=== PATIENT | female | born 1960 | race African-American/Black ===

== ENCOUNTER 2017-08-04 14:25 | Emergency (ER) | payer MEDICARE, MEDICAID | END 2017-08-04 15:39 | disposition home or self-care (01) | LOC: ERS 14:25 | DX: G89.29 Other chronic pain (principal); M54.5 Low back pain; I11.0 Hypertensive heart disease with heart failure; I50.9 Heart failure, unspecified; E11.9 Type 2 diabetes mellitus without complications; J45.909 Unspecified asthma, uncomplicated; M19.90 Unspecified osteoarthritis, unspecified site; F41.9 Anxiety disorder, unspecified; F31.9 Bipolar disorder, unspecified; F20.9 Schizophrenia, unspecified; Z79.4 Long term (current) use of insulin; Z79.82 Long term (current) use of aspirin; Z79.899 Other long term (current) drug therapy | CPT/HCPCS: 99283 ==

== ENCOUNTER 2017-08-11 11:41 | Emergency (ER) | payer MEDICARE, MEDICAID ==
[2017-08-11] MEDS ORDERED: Silver Sulfadiazine 1% Cream 50 GM JAR ONE (12:26)
[2017-08-11] MEDS ORDERED: Adacel (T-DAP) 0.5 ML VIAL ONE (13:53)
== END 2017-08-11 14:28 | disposition home or self-care (01) ==
LOC: ERS 11:41
DX: I10 Essential (primary) hypertension (principal); T21.21XA Burn of second degree of chest wall, initial encounter; F20.9 Schizophrenia, unspecified; F41.9 Anxiety disorder, unspecified; F31.9 Bipolar disorder, unspecified; J45.909 Unspecified asthma, uncomplicated; M19.90 Unspecified osteoarthritis, unspecified site; M54.9 Dorsalgia, unspecified; G89.29 Other chronic pain; Z79.4 Long term (current) use of insulin; Z79.82 Long term (current) use of aspirin; Z79.899 Other long term (current) drug therapy; Z23 Encounter for immunization; X10.2XXA Contact with fats and cooking oils, initial encounter; Y93.G3 Activity, cooking and baking
CPT/HCPCS: 16020; 36416; 90471; 90715

== ENCOUNTER 2017-09-08 10:38 | Emergency (ER) | payer MEDICARE, MEDICAID ==
[2017-09-08 13:01] LABS: #Eosinphils 0.2 thou/uL (0.0-0.7); #Lymphocytes 1.6 thou/uL (1.20-3.40); #Monocytes 0.5 thou/uL (0.11-0.59); #Neutrophils 1.9 thou/uL (1.40-6.50); %Eosinophils 3.7 % (0.0-10.0); %Lymphocytes 39.1 % (21.0-51.0); Hematocrit 36.2 % (36.0-47.0); Mean Platelet Volume 8.1 fL (7.4-10.4); Red Blood Cell (RBC) Count 4.31 mill/uL (4.20-5.40); White Blood Cell (WBC) Count 4.2 thou/uL (4.8-10.8)
[2017-09-08 13:10] LABS: Bilirubin Negative (Negative); Blood, Urine Negative (Negative); Glucose, Urine (Dipstick) Negative (Negative); Ketone, Urine Negative (Negative); Nitrite Negative (Negative); Protein, Urine (Dipstick) 30 mg/dL (Neg-Trace); Urobilinogen 0.2 mg/dL (0.2-1.0)
[2017-09-08 13:11] LABS: Bacteria/HPF Rare-Few HPF (None Seen); Hyaline Casts/LPF 0-3 HYALINE CAST LPF (0-3 Hyaline); RBC/HPF 0-3 HPF (0-3); Squamous Epithelial 0-3 HPF (0-3); WBC/HPF None Seen HPF (0-3)
[2017-09-08 13:18] LABS: ALT (SGPT) 27 U/L (8-55); AST (SGOT) 25 U/L (5-34); Alkaline Phosphatase 111 U/L (40-150); Anion Gap 14 mmol/L (10-20); BUN (Urea Nitrogen) 27 mg/dL (9.8-20.1); Bilirubin, Total 0.3 mg/dL (0.2-1.2); Calc. Creatinine Clearance 0 mL/min (70-130); Calcium 9.1 mg/dL (7.8-10.44); Carbon Dioxide 26 mmol/L (22-29); Chloride 100 mmol/L (98-107); Estimated GFR-MDRD 29; Globulin 4.2 g/dL (2.4-3.5); Protein, Total 7.6 g/dL (6.0-8.3)
== END 2017-09-08 14:00 | disposition home or self-care (01) ==
LOC: ERS 10:38
DX: R53.81 Other malaise (principal); M19.90 Unspecified osteoarthritis, unspecified site; I11.0 Hypertensive heart disease with heart failure; I50.9 Heart failure, unspecified; E11.9 Type 2 diabetes mellitus without complications; J45.909 Unspecified asthma, uncomplicated; F41.9 Anxiety disorder, unspecified; F31.9 Bipolar disorder, unspecified; F20.9 Schizophrenia, unspecified; Z79.82 Long term (current) use of aspirin; Z79.899 Other long term (current) drug therapy; Z79.4 Long term (current) use of insulin
CPT/HCPCS: 36415; 80053; 81003; 81015; 83880; 85025; 99283

== ENCOUNTER 2017-09-21 23:04 | Emergency (ER) | payer MEDICARE, MEDICAID ==
[2017-09-22] MEDS ORDERED: Acetaminophen 500 MG TAB ONE (00:56)
[2017-09-22 00:57] LABS: #Eosinphils 0.2 thou/uL (0.0-0.7); #Lymphocytes 2.8 thou/uL (1.20-3.40); #Monocytes 0.7 thou/uL (0.11-0.59); #Neutrophils 2.2 thou/uL (1.40-6.50); %Basophils 0.4 % (0.0-1.0); %Eosinophils 2.5 % (0.0-10.0); %Lymphocytes 47.2 % (21.0-51.0); %Monocytes 12.4 % (0.0-10.0); Hematocrit 34.7 % (36.0-47.0); Mean Platelet Volume 7.4 fL (7.4-10.4); Red Blood Cell (RBC) Count 4.17 mill/uL (4.20-5.40)
[2017-09-22 01:18] LABS: ALT (SGPT) 25 U/L (8-55); AST (SGOT) 25 U/L (5-34); Alkaline Phosphatase 108 U/L (40-150); Anion Gap 15 mmol/L (10-20); BUN (Urea Nitrogen) 37 mg/dL (9.8-20.1); Bilirubin, Total 0.3 mg/dL (0.2-1.2); Calc. Creatinine Clearance 0 mL/min (70-130); Calcium 9.5 mg/dL (7.8-10.44); Carbon Dioxide 25 mmol/L (22-29); Chloride 96 mmol/L (98-107); Estimated GFR-MDRD 23; Globulin 5.4 g/dL (2.4-3.5); Protein, Total 8.9 g/dL (6.0-8.3)
== END 2017-09-22 02:03 | disposition home or self-care (01) ==
LOC: ERS 23:04
DX: J32.9 Chronic sinusitis, unspecified (principal); M19.90 Unspecified osteoarthritis, unspecified site; E11.9 Type 2 diabetes mellitus without complications; I11.0 Hypertensive heart disease with heart failure; I50.9 Heart failure, unspecified; J45.909 Unspecified asthma, uncomplicated; F41.9 Anxiety disorder, unspecified; F31.9 Bipolar disorder, unspecified; F20.9 Schizophrenia, unspecified; Z79.4 Long term (current) use of insulin; Z79.899 Other long term (current) drug therapy; Z79.82 Long term (current) use of aspirin
CPT/HCPCS: 36415; 36416; 80053; 85025; 99284

== ENCOUNTER 2017-09-27 16:24 | Emergency (ER) | payer MEDICARE, MEDICAID ==
[2017-09-27 17:24] LABS: #Eosinphils 0.1 thou/uL (0.0-0.7); #Monocytes 0.5 thou/uL (0.11-0.59); #Neutrophils 2.5 thou/uL (1.40-6.50); %Basophils 0.3 % (0.0-1.0); %Eosinophils 2.5 % (0.0-10.0); %Lymphocytes 38.5 % (21.0-51.0); %Monocytes 10.2 % (0.0-10.0); Hematocrit 32.2 % (36.0-47.0); Mean Platelet Volume 8.1 fL (7.4-10.4); Red Blood Cell (RBC) Count 3.85 mill/uL (4.20-5.40); White Blood Cell (WBC) Count 5.1 thou/uL (4.8-10.8)
[2017-09-27 17:46] LABS: ALT (SGPT) 25 U/L (8-55); AST (SGOT) 22 U/L (5-34); Alkaline Phosphatase 98 U/L (40-150); Anion Gap 12 mmol/L (10-20); BUN (Urea Nitrogen) 41 mg/dL (9.8-20.1); Bilirubin, Total 0.2 mg/dL (0.2-1.2); Calc. Creatinine Clearance 0 mL/min (70-130); Calcium 8.9 mg/dL (7.8-10.44); Carbon Dioxide 24 mmol/L (22-29); Chloride 97 mmol/L (98-107); Estimated GFR-MDRD 31; Globulin 3.8 g/dL (2.4-3.5); Protein, Total 6.9 g/dL (6.0-8.3)
[2017-09-27 18:03] LABS: Anion Gap 7 mmol/L (-14-95); T. Carbon Dioxide 28.8 mmol/L (1.0-85.0); pH (Venous) 7.346 (7.35-7.45); vO2 Saturation-calc 84.5 % (0.0-100.0)
[2017-09-27] MEDS ORDERED: Insulin Regular 300 UNITS/3 ML VIAL ONE (19:08)
[2017-09-27 19:35] LABS: Bilirubin Negative (Negative); Blood, Urine Negative (Negative); Glucose, Urine (Dipstick) 500 mg/dL (Negative); Ketone, Urine Negative (Negative); Nitrite Negative (Negative); Protein, Urine (Dipstick) 30 mg/dL (Neg-Trace); Urobilinogen 0.2 mg/dL (0.2-1.0)
[2017-09-27 19:41] LABS: Bacteria/HPF None Seen HPF (None Seen); Hyaline Casts/LPF 0-3 HYALINE CAST LPF (0-3 Hyaline); RBC/HPF 0-3 HPF (0-3); Squamous Epithelial 0-3 HPF (0-3); WBC/HPF None Seen HPF (0-3)
--- NOTE | 2017-09-27 19:53 | RAD ---
CHEST PORTABLE UPRIGHT 09/27/17 COMPARISON: 04/11/17 HISTORY: High blood sugar, cough. FINDINGS: The cardiac silhouette is prominent, a stable finding. No pneumothorax or pleural fluid. No focal con solidation or alveolar edema. IMPRESSION: No acute findings. POS: [facility]
== END 2017-09-27 20:49 | disposition home or self-care (01) ==
LOC: ERS 16:24
DX: E11.65 Type 2 diabetes mellitus with hyperglycemia (principal); E86.0 Dehydration; Z91.14 Patient's other noncompliance with medication regimen; I11.0 Hypertensive heart disease with heart failure; I50.9 Heart failure, unspecified; J45.909 Unspecified asthma, uncomplicated; F41.9 Anxiety disorder, unspecified; F31.9 Bipolar disorder, unspecified; F20.9 Schizophrenia, unspecified
CPT/HCPCS: 36415; 36416; 71010; 80053; 81003; 81015; 82010; 82330; 82803; 83880; 83930; 85025; 93005; 96360; 96361; J1815

== ENCOUNTER 2017-10-07 13:25 | Inpatient (IN) | payer MEDICARE, OTHER, MEDICAID ==
[2017-10-07 14:27] LABS: #Eosinphils 0.1 thou/uL (0.0-0.7); #Lymphocytes 2.2 thou/uL (1.20-3.40); #Monocytes 0.6 thou/uL (0.11-0.59); %Basophils 0.4 % (0.0-1.0); %Eosinophils 1.5 % (0.0-10.0); %Lymphocytes 36.9 % (21.0-51.0); Hematocrit 26.4 % (36.0-47.0); Mean Platelet Volume 7.9 fL (7.4-10.4); White Blood Cell (WBC) Count 5.9 thou/uL (4.8-10.8)
--- NOTE | 2017-10-07 14:31 | RAD ---
CHEST TWO VIEWS: HISTORY: Cough. COMPARISON: 03/16/2014. FINDINGS: Cardiac silhouette and pulmonary vasculature are unremarkable. Mediastinum is midline. There is no confluent air space consolidation, pneumothorax, or pleural fluid evident. IMPRESSION: No active cardiopulmonary abnormalities are demonstrated. POS: [facility]
[2017-10-07 14:44] LABS: Lactic Acid - Sepsis 3.9 mmol/L (0.5-2.2)
[2017-10-07 14:48] LABS: ALT (SGPT) 32 U/L (8-55); AST (SGOT) 29 U/L (5-34); Alkaline Phosphatase 109 U/L (40-150); Anion Gap 14 mmol/L (10-20); BUN (Urea Nitrogen) 25 mg/dL (9.8-20.1); Bilirubin, Total 0.3 mg/dL (0.2-1.2); Calc. Creatinine Clearance 0 mL/min (70-130); Calcium 9.5 mg/dL (7.8-10.44); Carbon Dioxide 25 mmol/L (22-29); Chloride 90 mmol/L (98-107); Estimated GFR-MDRD 31; Magnesium 2.1 mg/dL (1.6-2.6); Phosphorus 2.8 mg/dL (2.3-4.7); Protein, Total 7.5 g/dL (6.0-8.3)
[2017-10-07 14:52] LABS: Troponin I Less than 0.010 ng/mL (< 0.028)
[2017-10-07] MEDS ORDERED: Nitroglycerin 0.4 MG TAB (25 Tab Bottle) ONE (15:04)
[2017-10-07] MEDS ORDERED: Insulin Regular 300 UNITS/3 ML VIAL ONE (15:27)
[2017-10-07 16:25] LABS: Bilirubin Negative (Negative); Blood, Urine Negative (Negative); Glucose, Urine (Dipstick) >=1000 mg/dL (Negative); Ketone, Urine Negative (Negative); Nitrite Negative (Negative); Protein, Urine (Dipstick) 30 mg/dL (Neg-Trace); Urobilinogen 0.2 mg/dL (0.2-1.0)
[2017-10-07 16:27] LABS: Bacteria/HPF None Seen HPF (None Seen); Hyaline Casts/LPF 0-3 HYALINE CAST LPF (0-3 Hyaline); RBC/HPF 0-3 HPF (0-3); Squamous Epithelial 0-3 HPF (0-3); WBC/HPF None Seen HPF (0-3)
[2017-10-07] MEDS ORDERED: Acetaminophen 500 MG TAB ONE (17:18)
[2017-10-07 18:20] LABS: Troponin I Less than 0.010 ng/mL (< 0.028)
[2017-10-07] MEDS ORDERED: Nitroglycerin 0.4 MG TAB (25 Tab Bottle) SL PRN (19:05)
[2017-10-07] MEDS ORDERED: Sodium Chloride 0.9% 1,000 ML IV SCH (19:06)
[2017-10-07] MEDS ORDERED: Ondansetron HCl/PF 4 MG/2 ML Vial IVP PRN (19:06)
[2017-10-07] MEDS ORDERED: Acetaminophen 325 MG TAB PO PRN ×2 (19:06→20:08)
[2017-10-07] MEDS ORDERED: Ondansetron ODT 4 MG TAB SL PRN (19:06)
[2017-10-07] MEDS ORDERED: Dextrose 50% Abboject 50 ML SYRINGE SLOW IVP PRN (20:08)
[2017-10-07] MEDS ORDERED: Dextrose 5% in Water 1,000 ML IV PRN (20:08)
[2017-10-07] MEDS ORDERED: Guaifenesin DM 100-10/5 ML UDCUP PO PRN (20:08)
[2017-10-07] MEDS: HumaLOG 300 UNITS/3 ML VIAL SC PRN (22:11)
[2017-10-07] MEDS: Sodium Chloride 0.9% 1,000 ML IV SCH (22:12)
[2017-10-07] MEDS: carBAMazepine 100 mg Chewable Tablet PO SCH (22:18)
[2017-10-07] MEDS: Insulin Detemir 100 UNITS/ML 35 UNITS in Pre-Filled Syringe 1 EACH SC SCH (22:19)
[2017-10-07] MEDS: Diazepam 5 MG TAB PO SCH (22:20)
[2017-10-07] MEDS: Carvedilol 25 MG TAB PO SCH (22:20)
[2017-10-07] MEDS: busPIRone HCl 10 MG TAB PO SCH (22:20)
[2017-10-07] MEDS: Famotidine 20 MG TAB PO SCH (22:20)
[2017-10-07] MEDS: Docusate 100 MG CAP PO SCH (22:21)
--- NOTE | 2017-10-07 23:11 | HP ---
REASON FOR ADMISSION: Uncontrolled diabetes mellitus type 2, chest pain, acute kidney injury. HISTORY OF PRESENT ILLNESS: Patient is a very poor historian. She gives history of retrosternal and epigastric pain, which started around 12:00 noon. This has been coming off and on every 30 minutes or so. She normally ambulates very minimally in the house. She walks with a rolling walker for short distances. She also mentions that her sugar has been high from the last two days. She was also having edema in both lower extremities, which has been progressively getting worse per patient. She is unable to explain anything further beyond what's mentioned above. She does mention that she has an appointment with medical device engineer on the . PAST MEDICAL AND SURGICAL HISTORY: History of CHF with ejection fraction of 40 % to 45%. She has mild inferolateral hypokinesis on the echo done in 03/2017, diabetes mellitus type 2, morbid obesity, diabetic gastroparesis, schizophrenia , hypertension, chronic pain, cholecystectomy, and bilateral tubal ligation. PERSONAL HISTORY: Does not abuse alcohol or drugs. No history of smoking. FAMILY HISTORY: Father has history of prostate cancer, cardiomyopathy, and hypertension. Mother in her 70s and was on dialysis. ALLERGIES: Allergic to PENICILLIN, ULTRAM, CHOCOLATE, ORANGE. CURRENT MEDICATIONS: Please note patient does not recall any of her medications. She knows she is on 2 types of insulin, but does not know the exact dose. Per prior records, patient is on Norvasc 5 mg daily, aspirin 81 mg daily, Buspirone 10 mg 3 times daily, Tegretol 100 mg twice daily, Coreg 25 mg twice daily, diazepam 10 mg at bedtime, Cymbalta 60 mg b.i.d., Pepcid 20 mg twice daily, Tricor 145 mg daily, Lasix 20 mg daily, [place] p.r.n., Levemir 35 units subcutaneous twice daily, losartan 100 mg daily, multivitamin 1 capsule daily, Seroquel 400 mg at bedtime, Januvia 100 mg daily, venlafaxine extended release 75 mg daily, and Ventolin inhaler q.4 hourly p.r.n. ALLERGIES: PENICILLIN. REVIEW OF SYSTEMS: The following complete review of systems was negative, unless otherwise mentioned in the HPI or below: Constitutional: Weight loss or gain, ability to conduct usual activities. Skin: Rash, itching. Eyes: Double vision, pain. ENT/Mouth: Nose bleeding, neck stiffness, pain, tenderness. Cardiovascular: Palpitations, dyspnea on exertion, orthopnea. Respiratory: Shortness of breath, wheezing, cough, hemoptysis, fever or night sweats. Gastrointestinal: Poor appetite, abdominal pain, heartburn, nausea, vomiting, constipation, or diarrhea. Genitourinary: Urgency, frequency, dysuria, nocturia. Musculoskeletal: Pain, swelling. Neurologic/Psychiatric: Anxiety, depression. Allergy/Immunologic: Skin rash, bleeding tendency. PHYSICAL EXAMINATION: GENERAL: The patient is a 57-year-old female, who is currently not in any acute distress. VITAL SIGNS: Blood pressure 148/80, pulse 104 per minute, respiratory rate 16 per minute, temperature 98.5 degrees Fahrenheit, and saturating 95% on room air. NECK: Supple, no elevated JVD. HEENT: Eyes: Extraocular muscles intact. Pupils reacting to light. Oral cavity mucous membranes are dry. No exudates or congestion. CARDIOVASCULAR: S1 and S2 heard. Regular rhythm. RESPIRATORY: Air entry 1+ bilateral. Scattered rhonchi plus bilateral. ABDOMEN: Soft, bowel sounds heard. No tenderness, rigidity or guarding. EXTREMITIES: There is peripheral edema plus no calf tenderness. VASCULAR: Peripheral pulses 1+ bilateral. CENTRAL NERVOUS SYSTEM: No gross focal deficits seen. The patient moves all 4 extremities. PSYCHIATRIC: No obvious hallucinations or delusions. LABORATORY AND X-RAY FINDINGS: EKG done shows sinus rhythm at 88 beats per minute. EKG has low voltage, likely due to her body habitus. White count of 5 , H&H 9 and 26, platelet count 210, MCV is 82. Lactic acid 3.9. BNP is 25. Sodium 124, potassium 5.2, chloride 90, bicarbonate 25, BUN 25, creatinine 1.9, glucose 651 with serum glucose, albumin is 3.5. Two sets of troponin are negative. CK-MB 1.4. Liver enzymes are within normal limits. Magnesium is 2.1 , phosphorus is 2.8. UA shows no signs of infection. Glucose is more than 1000. Beta hydroxybutyrate levels are 0.09. CLINICAL IMPRESSION AND PLAN: The patient will be under observation on telemetry for uncontrolled diabetes mellitus type 2 and recurrent chest pain. Two sets of cardiac enzymes have been negative. Her EKG does not reveal any acute FL. In view of this, the plan is to stabilize her diabetes. We will place her on Levemir 35 units subcutaneous twice daily. Also, obtain an accurate medication list from [facility] [address] She will also be on Humalog with aggressive coverage with a.c. and bedtime coverage as well. We will place her on normal saline at 100 mL per hour. We will continue her Norvasc, aspirin, buspirone, Tegretol, Coreg, diazepam, Cymbalta, Pepcid, Tricor, Seroquel, Januvia, Effexor as before. Patient will also be on DuoNebs q.6 hourly. We will continue to closely monitor her on telemetry. If patient's serum glucose were not to get stabilized or patient developed shortness of breath in view of her CHF, she will be switched over to inpatient status. She needs IV hydration with serum sugars of nearly 600 and creatinine of 1.9. MTDD
[2017-10-08 05:07] LABS: Anion Gap 13 mmol/L (10-20); BUN (Urea Nitrogen) 30 mg/dL (9.8-20.1); Calc. Creatinine Clearance 49 mL/min (70-130); Calcium 8.4 mg/dL (7.8-10.44); Carbon Dioxide 25 mmol/L (22-29); Chloride 95 mmol/L (98-107); Estimated GFR-MDRD 25
[2017-10-08 05:09] LABS: #Eosinphils 0.1 thou/uL (0.0-0.7); #Lymphocytes 1.4 thou/uL (1.20-3.40); #Monocytes 0.4 thou/uL (0.11-0.59); #Neutrophils 2.1 thou/uL (1.40-6.50); %Basophils 0.3 % (0.0-1.0); %Lymphocytes 34.9 % (21.0-51.0); Hematocrit 30.4 % (36.0-47.0); Mean Platelet Volume 7.9 fL (7.4-10.4); Red Blood Cell (RBC) Count 3.63 mill/uL (4.20-5.40); White Blood Cell (WBC) Count 4.1 thou/uL (4.8-10.8)
[2017-10-08] MEDS: HumaLOG 300 UNITS/3 ML VIAL SC PRN ×4 (06:00→21:12)
[2017-10-08] MEDS: Sodium Chloride 0.9% 1,000 ML IV SCH (08:15)
[2017-10-08] MEDS ORDERED: Enoxaparin Sodium 30 MG/0.3 ML SYRINGE SC SCH (09:00)
[2017-10-08] MEDS: Amlodipine 5 MG TAB PO SCH (09:04)
[2017-10-08] MEDS: carBAMazepine 100 mg Chewable Tablet PO SCH ×2 (09:04→21:11)
[2017-10-08] MEDS: busPIRone HCl 10 MG TAB PO SCH ×3 (09:04→21:10)
[2017-10-08] MEDS: Alogliptin 25 MG TAB PO SCH (09:04)
[2017-10-08] MEDS: Multivit, Therapeutic 1 TAB PO SCH (09:05)
[2017-10-08] MEDS: Carvedilol 25 MG TAB PO SCH ×2 (09:05→21:10)
[2017-10-08] MEDS: Fenofibrate Nanocrystallized 145 MG TAB PO SCH (09:05)
[2017-10-08] MEDS: Famotidine 20 MG TAB PO SCH ×2 (09:05→21:10)
[2017-10-08] MEDS: Venlafaxine HCl XR 75 MG CAP PO SCH (09:05)
[2017-10-08] MEDS: Docusate 100 MG CAP PO SCH ×2 (09:05→21:09)
[2017-10-08] MEDS: Insulin Detemir 100 UNITS/ML 35 UNITS in Pre-Filled Syringe 1 EACH SC SCH (09:06)
[2017-10-08] MEDS ORDERED: traMADol HCl 50 MG TAB PO PRN (10:46)
--- NOTE | 2017-10-08 12:03 | PDOC.PN ---
- Subjective Encounter Start Date: 10/08/17 Encounter Start Time: 12:01 Ms. Plummer was seen today in follow-up of chest pain and generally not feeling well. she says she feels about the same, she continues to have vague complaints. She continues with sharp pain on the right side of her chest off and on. - Objective Resuscitation Status: Resuscitation Status FULL:Full Resuscitation MAR Reviewed: Yes Vital Signs & Weight: Vital Signs (12 hours) Temp Pulse Resp BP BP Pulse Ox 10/08/17 09:04 103 H 146/77 H 10/08/17 08:13 99 10/08/17 08:11 98 20 99 10/08/17 08:01 97.5 F L 103 H 18 146/77 H 98 10/08/17 07:50 98.2 F 100 20 10/08/17 04:09 98.2 F 100 20 127/59 L 97 10/08/17 03:05 97 10/08/17 00:30 87 16 98 Weight Weight 270 lb I&O: 10/07/17 10/08/17 10/09/17 06:59 06:59 06:59 Intake Total 1017 526 Output Total 800 Balance 217 526 Result Diagrams: 10/08/17 04:28 10/08/17 04:28 Additional Labs: Accuchecks 10/08/17 10/08/17 10:55 08:09 POC Glucose 423 H 443 H Phys Exam - Physical Examination HEENT: PERRLA Respiratory: no wheezing + rales at the bases Cardiovascular: RRR Gastrointestinal: soft, non-tender, positive bowel sounds Musculoskeletal: edema present 1+ pitting edema in the lower extremities Dx/Plan (1) Hyperkalemia Code(s): E87.5 - HYPERKALEMIA Status: Acute (2) Chronic systolic heart failure Code(s): I50.22 - CHRONIC SYSTOLIC (CONGESTIVE) HEART FAILURE Status: Acute (3) Obesity, morbid, BMI 40.0-49.9 Code(s): E66.01 - MORBID (SEVERE) OBESITY DUE TO EXCESS CALORIES Status: Acute (4) Diabetes mellitus type 2, uncontrolled Code(s): E11.65 - TYPE 2 DIABETES MELLITUS WITH HYPERGLYCEMIA Status: Acute (5) ROSANNA (acute kidney injury) Code(s): N17.9 - ACUTE KIDNEY FAILURE, UNSPECIFIED Status: Acute Comment: improving (6) Hyponatremia Code(s): E87.1 - HYPO-OSMOLALITY AND HYPONATREMIA Status: Acute Comment: Likley due to HCTZ (7) Hypertension Code(s): I10 - ESSENTIAL (PRIMARY) HYPERTENSION Status: Chronic - Plan * Hyperkalemia- ? etiology- EKG ordered, and no changes associated with hyperkalemia- possibly due to acute renal failure- will give a dose of Kayexalate. * Consult Nephrology * Acute renal failure- also worse overnight- due to her size her volume status is difficult to determine- ARF may be cardio-renally medicated- will stop IV fluids, and check a BNP, Nephrology has been consulted * Acute on chronic CHF exacerbation ?- Willr e-check Echo * Chest pain- ? atypical- will monitor * DM- will adjust insulin dose * PT/OT * HTN- Losartan is on hold due to elevated potassium
[2017-10-08 15:27] LABS: Anion Gap 11 mmol/L (10-20); BUN (Urea Nitrogen) 30 mg/dL (9.8-20.1); Calc. Creatinine Clearance 49 mL/min (70-130); Calcium 8.7 mg/dL (7.8-10.44); Carbon Dioxide 27 mmol/L (22-29); Chloride 95 mmol/L (98-107); Estimated GFR-MDRD 25
[2017-10-08 15:30] LABS: Modified Allen's Test POSITIVE; Oxyhemoglobin 95.1 % (94.0-97.0); Sodium 131 mmol/L (135-148)
[2017-10-08 15:31] LABS: Mode 2LNC; Vent NO
[2017-10-08] MEDS: Acetaminophen/Codeine 30-300mg Tablet PO PRN (15:40)
[2017-10-08] MEDS ORDERED: Sodium Chloride 0.9% 500 ML IVPB SCH (16:30)
[2017-10-08] MEDS: PRE FILLED SC SCH (16:37)
[2017-10-08] MEDS: INSULIN DETEMIR SC SCH (16:37)
--- NOTE | 2017-10-08 16:45 | EKG ---
Test Reason : Blood Pressure : / mmHG Vent. Rate : 092 BPM Atrial Rate : 092 BPM P-R Int : 250 ms QRS Dur : 088 ms QT Int : 390 ms P-R-T Axes : 017 -16 024 degrees QTc Int : 482 ms Sinus rhythm with 1st degree A-V block Low voltage QRS Nonspecific T wave abnormality Prolonged QT Abnormal ECG Confirmed by EDUARDO MARIN ([id number]) on 10/08/2017 4:45:00 PM Referred By: DANIEL Confirmed By:EDUARDO MARIN
--- NOTE | 2017-10-08 20:01 | CON ---
DATE OF CONSULTATION: 10/08/2017 NEPHROLOGY CONSULTATION REASON FOR CONSULTATION: Hyperkalemia. HISTORY OF PRESENT ILLNESS: This is a 57-year-old gentle lady with a history of CKD with multiple ep isodes, who presented to the hospital for uncontrolled diabetes mellitus with sugars of more than 500 and a potassium of more than 6.6, so I was consulted. The patient denies any nausea, vomiting, or c hest pain at this time, but the patient is a very poor historian. PAST MEDICAL HISTORY: Significant for congestive heart failure, acute kidney injury, CKD, diabetes m ellitus, morbid obesity, diabetic gastroparesis, schizophrenia, hypertension, chronic pain, cholecyst ectomy, tubal ligation. FAMILY HISTORY: Negative for ESRD. ALLERGIES: The patient is allergic to PENICILLIN. HOME MEDICATIONS: Reviewed. REVIEW OF SYSTEMS: Fifteen point review of systems was performed and negative except positives noted above. GENERAL: Weakness- HEAD: Headache- NECK: No swelling or lumps. NOSE: No epistaxis or discharge. EYES: No diplopia or pain. 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 NEUROPSYCHIATIC SYSTEMS: No suicidal ideation. No ideation. SKIN: Denies any rash or ulcer. CONSTITUTIONAL: No fever or chills. PHYSICAL EXAMINATION: GENERAL: Patient is awake, alert, in no acute distress. VITAL SIGNS: Afebrile, pulse 94, breathing at 16, blood pressure 123/67. OBJECTIVE: See above. GENERAL APPEARANCE AND MENTAL STATUS: Fair. HEAD/NECK: Normocephalic. Atraumatic. EYES: EOMI. No deformity. EARS: Clear. No ulcers. NOSE: Intact. No lesions. MOUTH: Clear. No discharge. THROAT: Clear. No exudate. LUNGS: Clear. No crackles. CARDIAC: S1, S2. No rub. ABDOMEN: Benign. BS+. GENITALIA/RECTUM: Blair absent. BACK/EXTREMITIES: Lower extremities have 2+ edema. Ulcer. NEUROLOGICAL: Alert and motor intact. SKIN: Rash- Bruise- LYMPHATICS: Edema- Ulcer- LABORATORY: Hemoglobin 10.5, potassium 6.6. ASSESSMENT AND RECOMMENDATIONS: 1. Acute kidney injury with chronic kidney disease and hyponatremia, most likely due to hyperglycemi a and dehydration. 2. Anemia, stable. 3. Hyperkalemia because of hyperglycemia and medications. Stop Lovenox, can use venous compression. 4. Hyponatremia due to hyperglycemia. 5. Medications based on glomerular filtration rate are appropriate. We will start gentle hydration and follow I's and O's closely. No urgent indication for dialysis at this time.
[2017-10-08] MEDS: Diazepam 5 MG TAB PO SCH (21:10)
[2017-10-09] MEDS: HumaLOG 300 UNITS/3 ML VIAL SC PRN ×3 (06:09→22:08)
[2017-10-09] MEDS: Acetaminophen/Codeine 30-300mg Tablet PO PRN ×2 (06:12→18:17)
[2017-10-09] MEDS: INSULIN DETEMIR SC SCH (09:07)
[2017-10-09] MEDS: PRE FILLED SC SCH (09:07)
[2017-10-09] MEDS: Carvedilol 25 MG TAB PO SCH ×2 (09:07→22:06)
[2017-10-09] MEDS: Docusate 100 MG CAP PO SCH ×2 (09:07→22:07)
[2017-10-09] MEDS: busPIRone HCl 10 MG TAB PO SCH ×3 (09:07→22:06)
[2017-10-09] MEDS: Fenofibrate Nanocrystallized 145 MG TAB PO SCH (09:07)
[2017-10-09] MEDS: Amlodipine 5 MG TAB PO SCH (09:07)
[2017-10-09] MEDS: Multivit, Therapeutic 1 TAB PO SCH (09:08)
[2017-10-09] MEDS: carBAMazepine 100 mg Chewable Tablet PO SCH ×2 (09:08→22:06)
[2017-10-09] MEDS: Alogliptin 25 MG TAB PO SCH (09:17)
[2017-10-09] MEDS: Venlafaxine HCl XR 75 MG CAP PO SCH (09:17)
--- NOTE | 2017-10-09 10:43 | PDOC.PN ---
- Subjective Encounter Start Date: 10/09/17 Encounter Start Time: 10:38 Ms. Plummer was seen today in follow-up. She says she feels a little better today. she says she is " still hurting all over". She also complains of feeling short of breath. - Objective MAR Reviewed: Yes Vital Signs & Weight: Vital Signs (12 hours) Temp Pulse Resp BP Pulse Ox 10/09/17 09:07 109 H 10/09/17 08:04 98.4 F 109 H 18 171/96 H 96 10/09/17 07:35 98.1 F 75 18 92 L 10/09/17 06:12 75 18 98 10/09/17 03:35 97.9 F 112 H 24 H 143/91 H 92 L 10/09/17 00:40 98 Weight Admit Weight 270 lb Weight 272 lb I&O: 10/08/17 10/09/17 10/10/17 06:59 06:59 06:59 Intake Total 2410 250 Output Total 1900 Balance 510 250 Result Diagrams: 10/08/17 04:28 10/08/17 19:41 Additional Labs: Accuchecks 10/09/17 10/08/17 10/08/17 06:09 20:31 16:48 POC Glucose 436 H 388 H 379 H Phys Exam - Physical Examination HEENT: PERRLA Respiratory: no wheezing, no rales, no rhonchi, clear to auscultation bilateral Cardiovascular: RRR, no significant murmur Gastrointestinal: soft, non-tender, positive bowel sounds Musculoskeletal: edema present trace edema Dx/Plan (1) Hyperkalemia Code(s): E87.5 - HYPERKALEMIA Status: Acute (2) Chronic systolic heart failure Code(s): I50.22 - CHRONIC SYSTOLIC (CONGESTIVE) HEART FAILURE Status: Acute (3) Obesity, morbid, BMI 40.0-49.9 Code(s): E66.01 - MORBID (SEVERE) OBESITY DUE TO EXCESS CALORIES Status: Acute (4) Diabetes mellitus type 2, uncontrolled Code(s): E11.65 - TYPE 2 DIABETES MELLITUS WITH HYPERGLYCEMIA Status: Acute (5) ROSANNA (acute kidney injury) Code(s): N17.9 - ACUTE KIDNEY FAILURE, UNSPECIFIED Status: Acute Comment: improving (6) Hyponatremia Code(s): E87.1 - HYPO-OSMOLALITY AND HYPONATREMIA Status: Acute Comment: Likley due to HCTZ (7) Hypertension Code(s): I10 - ESSENTIAL (PRIMARY) HYPERTENSION Status: Chronic - Plan * Acute renal failure- Nephrology input appreciated- she is likely volume depleted. Her BNP was low, on her Echo, her EF was actually slightly improved.- will resume IV fluids * Hyperkalemia- improved * Hyponatremia- suspect from volume depletion, and elevated blood glucose, continue Hydration * DM- still poorly controlled- will increase her insulin dose * Chest pain- ? etiology, she is at risk for CAD- will check a stress test ( she is a poor historian, and she has not had a screening evaluation for CAD recently) .
--- NOTE | 2017-10-09 14:08 | PRG ---
DATE OF SERVICE: 10/09/2017 SUBJECTIVE: This 57-year-old female being seen for acute kidney injury. The patient denies any naus ea, vomiting or chest pain. PHYSICAL EXAMINATION: GENERAL: Patient is awake, alert. VITAL SIGNS: Afebrile, pulse 83, breathing at 16, blood pressure 150/84. GENERAL APPEARANCE AND MENTAL STATUS: Fair. HEAD/NECK: Normocephalic. Atraumatic. EYES: EOMI. No deformity. EARS: Clear. No ulcers. NOSE: Intact. No lesions. MOUTH: Clear. No discharge. THROAT: Clear. No exudate. LUNGS: Clear. No crackles. CARDIAC: S1, S2. No rub. ABDOMEN: Benign. BS+. GENITALIA/RECTUM: Blair absent. BACK/EXTREMITIES: Edema 0+ Ulcer- NEUROLOGICAL: Alert and motor intact. SKIN: Rash- Bruise- LYMPHATICS: Edema- Ulcer- LABORATORY: Hemoglobin 10.5, potassium is 4.8. ASSESSMENT AND RECOMMENDATIONS: 1. Acute kidney injury with chronic kidney disease, stage IV, stable. 2. Hypertension, stable. 3. Anemia, stable. 4. Medications based on GFR are appropriate. 5. Chronic kidney disease is due to congestive heart failure. 6. Diabetes mellitus, poorly controlled.
[2017-10-09] MEDS: Sodium Chloride 0.9% 1,000 ML IV SCH (15:26)
[2017-10-09] MEDS: Insulin Detemir 100 UNITS/ML 50 UNITS in Pre-Filled Syringe 1 EACH SC SCH (17:04)
[2017-10-09] MEDS: Diazepam 5 MG TAB PO SCH (22:07)
[2017-10-09] MEDS: Famotidine 20 MG TAB PO SCH (22:07)
[2017-10-10] MEDS: Sodium Chloride 0.9% 1,000 ML IV SCH ×2 (03:22→09:13)
[2017-10-10 05:49] LABS: Anion Gap 8 mmol/L (10-20); BUN (Urea Nitrogen) 19 mg/dL (9.8-20.1); Calc. Creatinine Clearance 78 mL/min (70-130); Calcium 9.7 mg/dL (7.8-10.44); Carbon Dioxide 33 mmol/L (22-29); Chloride 96 mmol/L (98-107); Estimated GFR-MDRD 43
[2017-10-10] MEDS: HumaLOG 300 UNITS/3 ML VIAL SC PRN ×4 (05:54→20:22)
[2017-10-10] MEDS: Docusate 100 MG CAP PO SCH ×2 (09:12→20:21)
[2017-10-10] MEDS: Amlodipine 5 MG TAB PO SCH (09:12)
[2017-10-10] MEDS: Multivit, Therapeutic 1 TAB PO SCH (09:12)
[2017-10-10] MEDS: busPIRone HCl 10 MG TAB PO SCH ×3 (09:12→20:20)
[2017-10-10] MEDS: Fenofibrate Nanocrystallized 145 MG TAB PO SCH (09:12)
[2017-10-10] MEDS: carBAMazepine 100 mg Chewable Tablet PO SCH ×2 (09:13→20:20)
[2017-10-10] MEDS: Venlafaxine HCl XR 75 MG CAP PO SCH (09:18)
[2017-10-10] MEDS: Alogliptin 25 MG TAB PO SCH (09:18)
--- NOTE | 2017-10-10 10:47 | PRG ---
DATE OF SERVICE: 10/10/2017 SUBJECTIVE: This 57-year-old female being seen for acute kidney injury. The patient denies any naus ea, vomiting or chest pain. PHYSICAL EXAMINATION: GENERAL: Patient is awake, alert. VITAL SIGNS: Afebrile, pulse 97, breathing at 16, blood pressure 168/80. OBJECTIVE: See above. Awake, alert, in no acute distress. GENERAL APPEARANCE AND MENTAL STATUS: Fair. HEAD/NECK: Normocephalic. Atraumatic. EYES: EOMI. No deformity. EARS: Clear. No ulcers. NOSE: Intact. No lesions. MOUTH: Clear. No discharge. THROAT: Clear. No exudate. LUNGS: Clear. No crackles. CARDIAC: S1, S2. No rub. ABDOMEN: Benign. BS+. GENITALIA/RECTUM: Blair absent. BACK/EXTREMITIES: Edema 0+ Ulcer- NEUROLOGICAL: Alert and motor intact. SKIN: Rash- Bruise- LYMPHATICS: Edema- Ulcer- LABORATORY: Hemoglobin 10.5, potassium 4.6, creatinine 1.5. ASSESSMENT AND PLAN: 1. Acute kidney injury with chronic kidney disease, improved. 2. Hyperkalemia, improved. 3. Hyponatremia, stable. 4. Metabolic acidosis, stable. No indication for dialysis at this time.
[2017-10-10] MEDS ORDERED: Regadenoson 0.4 MG/5 ML SYRINGE ONE (11:13)
--- NOTE | 2017-10-10 12:11 | NM ---
CARDIAC SPECT: CLINICAL HISTORY: 57-year-old black female with chest pain, hypertension, diabetes, and CHF. TECHNIQUE: A myocardial perfusion scan was performed using the single isotope two day protocol with 31 mCi techn etium-99m sestamibi. Pharmacologic stress with Lexiscan was monitored and interpreted by Dr. Samuels. FINDINGS: Homogeneous tracer distribution is seen in the myocardial segments on stress and rest images without fixed or reversible defects. GATED SPECT LVEF: 61%. WALL MOTION EXAM: Normal. IMPRESSION: No evidence of reversible ischemia. POS: [facility]
[2017-10-10] MEDS: Insulin Detemir 100 UNITS/ML 50 UNITS in Pre-Filled Syringe 1 EACH SC SCH (12:42)
[2017-10-10] MEDS: Carvedilol 25 MG TAB PO SCH ×2 (12:43→20:21)
[2017-10-10 15:30] VITALS: BMI 47.5
--- NOTE | 2017-10-10 16:28 | PDOC.PN ---
- Subjective Encounter Start Date: 10/10/17 Encounter Start Time: 16:25 Ms. Plummer was seen today in follow-up. She still says " I can hardly breathe. she says she doesn't want to go home. She is also complaining of arthritis pain and knee pain. - Objective MAR Reviewed: Yes Vital Signs & Weight: Vital Signs (12 hours) Temp Pulse Resp BP Pulse Ox 10/10/17 15:28 98.3 F 92 24 H 143/77 H 93 L 10/10/17 15:11 174/81 H 10/10/17 14:50 90 18 10/10/17 11:20 97.2 F L 98 24 H 179/75 H 94 L 10/10/17 09:12 97 10/10/17 08:00 97.2 F L 98 24 H 168/80 H 100 10/10/17 07:54 90 16 Weight Admit Weight 270 lb Weight 268 lb 4.8 oz I&O: 10/09/17 10/10/17 10/11/17 06:59 06:59 06:59 Intake Total 2410 2264 Output Total 1900 3100 Balance 510 -836 Result Diagrams: 10/08/17 04:28 10/10/17 04:22 Additional Labs: Accuchecks 10/10/17 10/10/17 10/09/17 11:27 05:51 20:34 POC Glucose 383 H 350 H 392 H 10/09/17 16:36 POC Glucose 445 H Phys Exam - Physical Examination HEENT: PERRLA Respiratory: no wheezing, no rales, no rhonchi, clear to auscultation bilateral Cardiovascular: RRR, no significant murmur Gastrointestinal: soft, non-tender, positive bowel sounds Musculoskeletal: no edema Dx/Plan (1) Hyperkalemia Code(s): E87.5 - HYPERKALEMIA Status: Acute (2) Chronic systolic heart failure Code(s): I50.22 - CHRONIC SYSTOLIC (CONGESTIVE) HEART FAILURE Status: Acute (3) Obesity, morbid, BMI 40.0-49.9 Code(s): E66.01 - MORBID (SEVERE) OBESITY DUE TO EXCESS CALORIES Status: Acute (4) Diabetes mellitus type 2, uncontrolled Code(s): E11.65 - TYPE 2 DIABETES MELLITUS WITH HYPERGLYCEMIA Status: Acute (5) ROSANNA (acute kidney injury) Code(s): N17.9 - ACUTE KIDNEY FAILURE, UNSPECIFIED Status: Acute Comment: improving (6) Hyponatremia Code(s): E87.1 - HYPO-OSMOLALITY AND HYPONATREMIA Status: Acute Comment: Likley due to HCTZ (7) Hypertension Code(s): I10 - ESSENTIAL (PRIMARY) HYPERTENSION Status: Chronic - Plan * Shortness of breath- ? etiology, I suspect herbody habitus may be contributing to this, however since her D.Dimer was slightly elevated will get a VQ scan, but I spoke with radiologist, and this will have to be put off until tomorrow, due to the radionuclide. Her renal function is not adequate for CTA. Will check lower extremity venous dopplers in the interim * Acute renal failure- resolving * DM- blood glucose is still elevated- will continue to titrate insulin dose * Severe OA- this can be managed outpatient, and can consider Outpatient PT, as recommended by out Physical Therapist * Hopefully home tomorrow if VQ scan negative for PE.
--- NOTE | 2017-10-10 17:56 | ULT ---
BILATERAL LOWER EXTREMITY VENOUS DOPPLER 10/10/17 PROVIDED CLINICAL HISTORY: Shortness of breath. FINDINGS: Russell scale and color doppler sonography with spectral analysis was performed of bilateral common femo ral, femoral, popliteal, posterior tibial, greater saphenous and profunda femoral veins, demonstratin g a normal sonographic appearance to each. IMPRESSION: No sonographic evidence for lower extremity deep venous thrombosis. POS: [facility]
[2017-10-10] MEDS: Acetaminophen/Codeine 30-300mg Tablet PO PRN (18:23)
[2017-10-10] MEDS ORDERED: Sodium Chloride 0.9% 10 ML ONE (19:04)
[2017-10-10] MEDS: Diazepam 5 MG TAB PO SCH (20:21)
[2017-10-10] MEDS: Famotidine 20 MG TAB PO SCH (20:21)
[2017-10-10] MEDS: Insulin Detemir 100 UNITS/ML 60 UNITS in Pre-Filled Syringe 1 EACH SC SCH (20:22)
[2017-10-11] MEDS: HumaLOG 300 UNITS/3 ML VIAL SC PRN ×4 (05:36→20:17)
[2017-10-11 06:44] LABS: Anion Gap 10 mmol/L (10-20); BUN (Urea Nitrogen) 17 mg/dL (9.8-20.1); Calc. Creatinine Clearance 83 mL/min (70-130); Calcium 9.7 mg/dL (7.8-10.44); Carbon Dioxide 31 mmol/L (22-29); Chloride 94 mmol/L (98-107); Estimated GFR-MDRD 46
[2017-10-11] MEDS: Alogliptin 25 MG TAB PO SCH (08:59)
[2017-10-11] MEDS: carBAMazepine 100 mg Chewable Tablet PO SCH ×2 (09:00→20:18)
[2017-10-11] MEDS: Amlodipine 5 MG TAB PO SCH (09:00)
[2017-10-11] MEDS: busPIRone HCl 10 MG TAB PO SCH ×3 (09:00→20:18)
[2017-10-11] MEDS: Carvedilol 25 MG TAB PO SCH ×2 (09:01→20:20)
[2017-10-11] MEDS: Docusate 100 MG CAP PO SCH ×2 (09:01→20:20)
[2017-10-11] MEDS: Venlafaxine HCl XR 75 MG CAP PO SCH (09:01)
[2017-10-11] MEDS: Fenofibrate Nanocrystallized 145 MG TAB PO SCH (09:01)
[2017-10-11] MEDS: Multivit, Therapeutic 1 TAB PO SCH (09:01)
[2017-10-11] MEDS: Acetaminophen/Codeine 30-300mg Tablet PO PRN ×2 (09:08→16:11)
[2017-10-11] MEDS: Insulin Detemir 100 UNITS/ML 60 UNITS in Pre-Filled Syringe 1 EACH SC SCH ×2 (09:20→20:17)
--- NOTE | 2017-10-11 10:04 | PRG ---
DATE OF SERVICE: 10/11/2017 SUBJECTIVE: This is a 57-year-old female being seen for acute kidney injury. The patient denies any nausea, vomiting, or chest pain. PHYSICAL EXAMINATION: GENERAL: Patient is awake, alert. VITAL SIGNS: Afebrile, pulse 99, breathing at 16, blood pressure 172/82. HEAD/NECK: Normocephalic. Atraumatic. EYES: EOMI. No deformity. EARS: Clear. No ulcers. NOSE: Intact. No lesions. MOUTH: Clear. No discharge. THROAT: Clear. No exudate. LUNGS: Clear. No crackles. CARDIAC: S1, S2. No rub. ABDOMEN: Benign. BS+. GENITALIA/RECTUM: Blair absent. BACK/EXTREMITIES: Edema 0+ Ulcer- NEUROLOGICAL: Alert and motor intact. SKIN: Rash- Bruise- LYMPHATICS: Edema- Ulcer- LABORATORY DATA: Hemoglobin 10.5 and creatinine 1.4. ASSESSMENT AND PLAN: 1. Acute kidney injury, improved. 2. Chronic kidney disease stage 3, stable. 3. Hypertension, stable. 4. Hyponatremia, stable. 5. Anemia, stable. The patient will follow up to see me in one month. I will sign off on this patient. Please reconsul t as needed.
--- NOTE | 2017-10-11 10:53 | PDOC.PN ---
- Subjective Encounter Start Date: 10/11/17 Encounter Start Time: 08:20 Subjective: feels weak -: last amb on around 20ft with rw and assistance - Objective MAR Reviewed: Yes Vital Signs & Weight: Vital Signs (12 hours) Temp Pulse Resp BP Pulse Ox 10/11/17 07:55 97.9 F 99 24 H 189/79 H 97 10/11/17 07:31 90 16 10/11/17 04:00 98.4 F 94 22 H 178/82 H 95 10/10/17 23:20 87 16 97 10/10/17 23:04 98.5 F 85 20 138/73 98 Weight Admit Weight 270 lb Weight 267 lb 11.2 oz I&O: 10/10/17 10/11/17 10/12/17 06:59 06:59 06:59 Intake Total 2264 1150 Output Total 3100 2400 Balance -836 -9600 Result Diagrams: 10/08/17 04:28 10/11/17 05:33 Additional Labs: Accuchecks 10/11/17 10/10/17 10/10/17 05:36 20:14 16:56 POC Glucose 271 H 279 H 331 H 10/10/17 11:27 POC Glucose 383 H Phys Exam - Physical Examination HEENT: PERRLA, moist MMs Neck: no JVD, supple Respiratory: no wheezing, no rales Cardiovascular: RRR, no significant murmur Gastrointestinal: soft, non-tender, positive bowel sounds Musculoskeletal: no edema, pulses present Neurological: non-focal, moves all 4 limbs Dx/Plan (1) Diabetes mellitus type 2, uncontrolled Code(s): E11.65 - TYPE 2 DIABETES MELLITUS WITH HYPERGLYCEMIA Status: Acute Qualifiers: Diabetes mellitus complication status: with hyperglycemia Diabetes mellitus senior living insulin use: with senior living use Qualified Code(s): E11.65 - Type 2 diabetes mellitus with hyperglycemia; Z79.4 - terminal operator (current) use of insulin; Z79.4 - senior care (current) use of insulin; Z79.4 - senior care ( current) use of insulin; Z79.4 - terminal operator (current) use of insulin (2) Obesity, morbid, BMI 40.0-49.9 Code(s): E66.01 - MORBID (SEVERE) OBESITY DUE TO EXCESS CALORIES Status: Chronic (3) ROSANNA (acute kidney injury) Code(s): N17.9 - ACUTE KIDNEY FAILURE, UNSPECIFIED Status: Acute Comment: improving (4) Anemia, normocytic normochromic Code(s): D64.9 - ANEMIA, UNSPECIFIED Status: Chronic (5) Dyslipidemia Code(s): E78.5 - HYPERLIPIDEMIA, UNSPECIFIED Status: Chronic (6) Hypertension Code(s): I10 - ESSENTIAL (PRIMARY) HYPERTENSION Status: Chronic Qualifiers: Hypertension type: essential hypertension Qualified Code(s): I10 - Essential (primary) hypertension (7) Schizoaffective disorder Code(s): F25.9 - SCHIZOAFFECTIVE DISORDER, UNSPECIFIED Status: Chronic Qualifiers: Schizoaffective disorder type: unspecified Qualified Code(s): F25.9 - Schizoaffective disorder, unspecified - Plan is on levemir 60u bid, alogliptin 25, will add glipizide 5mg bid -: deconditioning, likely chronic, PT to mobilize as tolerated -: dc plan in 24hrs home with or [facility] bed -: stress test was -ve for reversible ischemia * . Review of Systems - Medications/Allergies Allergies/Adverse Reactions: Allergies Allergy/AdvReac Type Severity Reaction Status Date / Time Penicillins Allergy Unknown Verified 10/07/17 20:15 chocolate flavor Allergy Hives Verified 10/07/17 20:15 orange Allergy Hives Verified 10/07/17 20:15 orange flavor Allergy Hives Verified 10/07/17 20:15 tramadol Allergy Verified 10/07/17 20:15 Medications: Current Medications Acetaminophen (Tylenol) 650 mg PO Q4H PRN PRN Reason: Headache/Fever or Pain Last Admin: 10/08/17 09:27 Dose: 650 mg Acetaminophen/Codeine Phosphate (Tylenol #3) 1 tab PO Q4H PRN PRN Reason: .MODERATE/SEVERE Pain Last Admin: 10/11/17 09:08 Dose: 1 tab Albuterol/Ipratropium (Duoneb) 3 ml NEB [id number] [facility] Last Admin: 10/11/17 07:31 Dose: 3 ml Alogliptin Benzoate (Alogliptin) 25 mg PO DAILY [facility] Last Admin: 10/11/17 08:59 Dose: 25 mg Amlodipine Besylate (Norvasc) 5 mg PO DAILY [facility] Last Admin: 10/11/17 09:00 Dose: 5 mg Aspirin (Aspirin Chewable) 81 mg PO DAILY [facility] Last Admin: 10/11/17 09:00 Dose: 81 mg Buspirone HCl (Buspar) 10 mg PO TID [facility] Last Admin: 10/11/17 09:00 Dose: 10 mg Carbamazepine (Tegretol) 100 mg PO BID [facility] Last Admin: 10/11/17 09:00 Dose: 100 mg Carvedilol (Coreg) 25 mg PO BID [facility] Last Admin: 10/11/17 09:01 Dose: 25 mg Dextrose/Water (Dextrose 50%) 25 gm SLOW IVP PRN PRN PRN Reason: Hypoglycemia Diazepam (Valium) 10 mg PO HS [facility] Last Admin: 10/10/17 20:21 Dose: 10 mg Docusate Sodium (Colace) 100 mg PO BID [facility] Last Admin: 10/11/17 09:01 Dose: 100 mg Duloxetine HCl (Cymbalta) 60 mg PO DAILY [facility] Last Admin: 10/11/17 08:59 Dose: 60 mg Famotidine (Pepcid) 20 mg PO QPM [facility] Last Admin: 10/10/17 20:21 Dose: 20 mg Fenofibrate (Tricor) 145 mg PO DAILY [facility] Last Admin: 10/11/17 09:01 Dose: 145 mg Glipizide (Glucotrol) 5 mg PO BID[facility] Glucagon (Glucagon) 1 mg IM PRN PRN PRN Reason: Hypoglycemia Guaifenesin/Dextromethorphan (Robitussin Dm) 15 ml PO Q4H PRN PRN Reason: Cough Dextrose/Water (D5w) 1,000 mls @ 0 mls/hr IV .Q0M PRN; As Directed PRN Reason: Hypoglycemia Insulin Detemir 60 units/ (Miscellaneous Medication) 0.6 mls @ 0 mls/hr SC BID [facility] Last Admin: 10/11/17 09:20 Dose: 0.6 mls Insulin Human Lispro (Humalog) 0 units SC .AGGRESSIVE SLIDING PRN PRN Reason: Aggressive Correctional Scale Last Admin: 10/11/17 05:36 Dose: 9 unit Insulin Human Lispro (Humalog) 0 units SC .BEDTIME SLIDING SC PRN PRN Reason: Bedtime Correctional Scale Last Admin: 12/19/17 21:12 Dose: 5 unit Multivitamins (Theragran) 1 tab PO DAILY [facility] Last Admin: 10/11/17 09:01 Dose: 1 tab Quetiapine Fumarate (Seroquel) 400 mg PO HS [facility] Last Admin: 10/10/17 20:22 Dose: Not Given Sodium Chloride (Flush - Normal Saline) 10 ml IVF Q12HR [facility] Last Admin: 10/11/17 09:01 Dose: 10 ml Sodium Chloride (Flush - Normal Saline) 10 ml IVF PRN PRN PRN Reason: Saline Flush Venlafaxine HCl (Effexor Xr) 75 mg PO DAILY [facility] Last Admin: 10/11/17 09:01 Dose: 75 mg
[2017-10-11] MEDS: glipiZIDE 5 MG TAB PO SCH (16:11)
[2017-10-11] MEDS: Diazepam 5 MG TAB PO SCH (20:20)
[2017-10-11] MEDS: Famotidine 20 MG TAB PO SCH (20:20)
[2017-10-12] MEDS: HumaLOG 300 UNITS/3 ML VIAL SC PRN (05:47)
[2017-10-12] MEDS: Amlodipine 5 MG TAB PO SCH (05:49)
[2017-10-12] MEDS: glipiZIDE 5 MG TAB PO SCH (10:26)
[2017-10-12] MEDS: Alogliptin 25 MG TAB PO SCH (10:26)
[2017-10-12] MEDS: Docusate 100 MG CAP PO SCH (10:26)
[2017-10-12] MEDS: Carvedilol 25 MG TAB PO SCH (10:26)
[2017-10-12] MEDS: busPIRone HCl 10 MG TAB PO SCH (10:26)
[2017-10-12] MEDS: carBAMazepine 100 mg Chewable Tablet PO SCH (10:26)
[2017-10-12] MEDS: Fenofibrate Nanocrystallized 145 MG TAB PO SCH (10:27)
[2017-10-12] MEDS: Venlafaxine HCl XR 75 MG CAP PO SCH (10:27)
[2017-10-12] MEDS: Multivit, Therapeutic 1 TAB PO SCH (10:27)
[2017-10-12] MEDS: Insulin Detemir 100 UNITS/ML 60 UNITS in Pre-Filled Syringe 1 EACH SC SCH (10:28)
--- NOTE | 2017-10-12 12:16 | PDOC.PN ---
- Subjective Encounter Start Date: 10/12/17 Encounter Start Time: 07:45 Subjective: feels better - Objective MAR Reviewed: Yes Vital Signs & Weight: Vital Signs (12 hours) Temp Pulse Resp BP Pulse Ox 10/12/17 09:56 98 10/12/17 09:52 99 32 H 98 10/12/17 08:30 98.6 F 101 H 16 10/12/17 08:00 98.6 F 101 H 16 183/88 H 95 10/12/17 04:00 90 18 184/88 H 94 L 10/12/17 00:16 91 14 95 Weight Admit Weight 270 lb Weight 267 lb 11.2 oz I&O: 10/11/17 10/12/17 10/13/17 06:59 06:59 06:59 Intake Total 1150 2110 300 Output Total 2400 2300 Balance -1250 -190 300 Result Diagrams: 10/08/17 04:28 10/11/17 05:33 Additional Labs: Accuchecks 10/12/17 10/11/17 10/11/17 05:44 20:11 16:28 POC Glucose 257 H 365 H 359 H Phys Exam - Physical Examination HEENT: PERRLA, moist MMs Neck: no JVD, supple Respiratory: no wheezing, no rales Cardiovascular: RRR, no significant murmur Gastrointestinal: soft, non-tender, positive bowel sounds Musculoskeletal: no edema, pulses present Neurological: non-focal, moves all 4 limbs Dx/Plan (1) Diabetes mellitus type 2, uncontrolled Code(s): E11.65 - TYPE 2 DIABETES MELLITUS WITH HYPERGLYCEMIA Status: Acute Qualifiers: Diabetes mellitus complication status: with hyperglycemia Diabetes mellitus fpc insulin use: with fpc use Qualified Code(s): E11.65 - Type 2 diabetes mellitus with hyperglycemia; Z79.4 - intermediate teacher (current) use of insulin; Z79.4 - intermediate teacher (current) use of insulin; Z79.4 - intermediate teacher ( current) use of insulin; Z79.4 - intermediate teacher (current) use of insulin (2) Obesity, morbid, BMI 40.0-49.9 Code(s): E66.01 - MORBID (SEVERE) OBESITY DUE TO EXCESS CALORIES Status: Chronic (3) ROSANNA (acute kidney injury) Code(s): N17.9 - ACUTE KIDNEY FAILURE, UNSPECIFIED Status: Resolved (4) Anemia, normocytic normochromic Code(s): D64.9 - ANEMIA, UNSPECIFIED Status: Chronic (5) Dyslipidemia Code(s): E78.5 - HYPERLIPIDEMIA, UNSPECIFIED Status: Chronic (6) Hypertension Code(s): I10 - ESSENTIAL (PRIMARY) HYPERTENSION Status: Chronic Qualifiers: Hypertension type: essential hypertension Qualified Code(s): I10 - Essential (primary) hypertension (7) Schizoaffective disorder Code(s): F25.9 - SCHIZOAFFECTIVE DISORDER, UNSPECIFIED Status: Chronic Qualifiers: Schizoaffective disorder type: unspecified Qualified Code(s): F25.9 - Schizoaffective disorder, unspecified - Plan hemostable -: dc pt home -: to check fingerstick glucose, BP and pulse at home daily for 10 days and re -: -cord to f/u with PCP. * .
[2017-10-12] MEDS: Acetaminophen/Codeine 30-300mg Tablet PO PRN (12:30)
[2017-10-12 13:49] VITALS: BP 178/85; TEMP 98.3
--- NOTE | 2017-10-13 00:47 | DIS ---
DATE OF ADMISSION: 10/08/2017 DATE OF DISCHARGE: 10/12/2017 DISCHARGE DISPOSITION: To home. PRIMARY DISCHARGE DIAGNOSES: Diabetes mellitus type 2, uncontrolled; acute kidney injury, resolved. SECONDARY DISCHARGE DIAGNOSES: Morbid obesity, chronic anemia, dyslipidemia, hypertension, schizoaff ective disorder, poor functional status. PROCEDURES DONE DURING HOSPITALIZATION: Echo with 2D Doppler done showed EF of 55% to 60%. Nuclear stress test done showed no reversible ischemia or scar, EF was 61% on the stress test with normal wal l motion. Ultrasound venous Doppler of lower extremities done showed no evidence of DVT. Chest x-ra y done on the day of admission showed no acute cardiopulmonary abnormalities. H and H 10 and 30, elizbaet telet count 177, blood gas done on the day of admission showed a pH of 7.32, pCO2 of 55, pO2 of 83. Discharge BUN and creatinine is 17 and 1.4. BNP was 68. Cardiac enzymes were negative. Had a sodiu m 126, potassium of 6.6 on the with serum sugar of 566 on arrival. Beta hydroxybutyrate levels were 0.09. DISCHARGE MEDICATIONS: Norvasc 10 mg daily, albuterol nebulizer q.6 hourly p.r.n., aspirin 81 mg p.o . daily, buspirone 10 mg p.o. 3 times daily, Tegretol 100 mg p.o. twice daily, Coreg 25 mg twice shobha y, doxepin 10 mg p.o. at bedtime, TriCor 145 mg p.o. daily, Lasix 40 mg p.o. daily, glipizide 5 mg p. o. twice daily, Levemir 16 units subcu twice daily, losartan 100 mg p.o. daily, regular insulin cover age before meals, multivitamin 1 tab once daily, Pravachol 40 mg p.o. at bedtime, Lyrica 25 mg p.o. t wice daily, Risperdal 50 mg intramuscular once every 2 weeks as before, Januvia 100 mg p.o. daily, ve nlafaxine extended release 150 mg p.o. daily. ALLERGIES: Allergic to PENICILLIN, CHOCOLATE FLAVOR, ORANGE and ULTRAM. INPATIENT CONSULTS: Dr. Liu for Nephrology. BRIEF COURSE DURING HOSPITALIZATION: The patient initially got admitted on the for uncontrolled diabetes mellitus type 2, chest pain and acute kidney injury. The patient is morbidly obese with mu ltiple risk factors. She was initially placed under observation and later switched to inpatient stat us as her uncontrolled diabetes was difficult to control. She had initial serum glucose of more than 500. She was gently hydrated during her stay here. The patient also had a nuclear stress test done , which did not reveal any reversible ischemia. Her renal function has come back to her baseline. S he is on a very high dose of Levemir at 60 units twice daily along with glipizide and Januvia. The p atient has been advised to check her fingerstick glucose daily along with blood pressure and pulse an d records on a sheet of paper to follow up with primary care physician in 1 week. She stays with her mom and is wanting to go home. Home health with PT will be set up for her. She is otherwise hemody namically stable and will be shortly discharged home. Please see a face to face documentation for th e day of discharge on [facility].
== END 2017-10-12 15:31 | disposition home health service (06) | DRG 683 ==
LOC: ERS 13:25 → 2SW 18:38 → OBSVTOIN 10-08 11:44
PROVIDERS: ADMIT Internal Medicine; ATTEND Internal Medicine
PROC: 4A02XM4 Measurement of Cardiac Total Activity, External Approach (ICD-10-PCS; principal; 2017-10-10)
DX: N17.9 Acute kidney failure, unspecified (principal); E87.2 Acidosis; I13.0 Hypertensive heart and chronic kidney disease with heart failure and stage 1 through stage 4 chronic kidney disease, or unspecified chronic kidney disease; I50.22 Chronic systolic (congestive) heart failure; E87.1 Hypo-osmolality and hyponatremia; Z68.42 Body mass index [BMI] 45.0-49.9, adult; E11.65 Type 2 diabetes mellitus with hyperglycemia; N18.3 Chronic kidney disease, stage 3 (moderate); F20.9 Schizophrenia, unspecified; E66.01 Morbid (severe) obesity due to excess calories; E86.0 Dehydration; D64.9 Anemia, unspecified; E87.5 Hyperkalemia; Z88.5 Allergy status to narcotic agent; Z88.0 Allergy status to penicillin; Z79.82 Long term (current) use of aspirin; Z79.4 Long term (current) use of insulin; Z91.018 Allergy to other foods; Z82.49 Family history of ischemic heart disease and other diseases of the circulatory system; Z84.1 Family history of disorders of kidney and ureter; Z80.42 Family history of malignant neoplasm of prostate
CPT/HCPCS: 36415; 36416; 71020; 78452; 80048; 80053; 81003; 81015; 82010; 82553; 82805; 83605; 83735; 83880; 84100; 84484; 85025; 85379; 93005; 93010; 93017; 93306; 93970; 94640; 96361; 96374; A4216; A9500; G8978-GP-CM; G8979-GP-CK; J1650; J1815; J2785; J7050; J7620

== ENCOUNTER 2017-10-18 17:06 | Emergency (ER) | payer MEDICARE, OTHER, MEDICAID ==
[2017-10-18 18:10] LABS: #Eosinphils 0.2 thou/uL (0.0-0.7); #Lymphocytes 2.6 thou/uL (1.20-3.40); #Monocytes 0.7 thou/uL (0.11-0.59); %Basophils 0.2 % (0.0-1.0); %Eosinophils 3.3 % (0.0-10.0); %Lymphocytes 40.1 % (21.0-51.0); %Monocytes 10.3 % (0.0-10.0); %Neutrophils 46.1 % (42.0-75.0); Hemoglobin 11.6 g/dL (12.0-16.0); Mean Corpuscular HGB CONC 35.1 g/dL (32.0-36.0); Mean Corpuscular Hemoglobin 29.4 pg (27.0-31.0); Mean Corpuscular Volume 83.9 fl (81.0-99.0); Mean Platelet Volume 7.5 fL (7.4-10.4); Platelet Count 252 thou/uL (130-400); RBC Distribution Width 12.2 % (11.5-14.5); Red Blood Cell (RBC) Count 3.94 mill/uL (4.20-5.40); White Blood Cell (WBC) Count 6.4 thou/uL (4.8-10.8)
[2017-10-18 18:36] LABS: ALT (SGPT) 28 U/L (8-55); AST (SGOT) 27 U/L (5-34); Albumin 3.4 g/dL (3.5-5.0); Alkaline Phosphatase 123 U/L (40-150); Anion Gap 13 mmol/L (10-20); BUN (Urea Nitrogen) 30 mg/dL (9.8-20.1); Bilirubin, Total 0.2 mg/dL (0.2-1.2); CK (CPK) 158 U/L (29-168); Calc. Creatinine Clearance 0 mL/min (70-130); Calcium 9.5 mg/dL (7.8-10.44); Carbon Dioxide 26 mmol/L (22-29); Chloride 100 mmol/L (98-107); Estimated GFR-MDRD 37; Globulin 4.1 g/dL (2.4-3.5); Glucose 194 mg/dL (70-105); Lipase 76 U/L (8-78); Potassium 4.4 mmol/L (3.5-5.1); Protein, Total 7.5 g/dL (6.0-8.3); Sodium 135 mmol/L (136-145)
[2017-10-18 18:40] LABS: CKMB 1.1 ng/mL (0-6.6); Troponin I Less than 0.010 ng/mL (< 0.028)
[2017-10-18] MEDS ORDERED: Acetaminophen 500 MG TAB ONE ×2 (18:48→19:01)
[2017-10-18] MEDS ORDERED: Lidocaine Viscous Sol 2% 15 ml UD Cup ONE (19:05)
[2017-10-18] MEDS ORDERED: Mag-Al 1200 mg/1200 mg/30 ML UDCUP ONE (19:05)
[2017-10-18] MEDS ORDERED: Lorazepam 1 MG TAB ONE (19:05)
--- NOTE | 2017-10-18 19:41 | RAD ---
AP VIEW OF THE CHEST 10/18/17 INDICATION: High blood pressure at home with headache. IMPRESSION: No acute cardiopulmonary abnormality. the exdamination is not appreciably changed from a comparison d ated 09/27/17. POS: [facility]
--- NOTE | 2017-10-26 15:48 | EKG ---
Test Reason : SOB Blood Pressure : / mmHG Vent. Rate : 103 BPM Atrial Rate : 103 BPM P-R Int : 212 ms QRS Dur : 082 ms QT Int : 348 ms P-R-T Axes : 021 -21 016 degrees QTc Int : 455 ms Sinus tachycardia with 1st degree A-V block Nonspecific T wave abnormality Abnormal ECG Confirmed by FAREED BYRNE MD ([id number]), editor news CHARISSA BAUTISTA ([id number]) on 10/26/2017 3:47:44 PM Referred By: DR MATHEWS Confirmed By:FAREED BYRNE MD
== END 2017-10-18 19:59 | disposition home or self-care (01) ==
LOC: ERS 17:06
DX: I11.0 Hypertensive heart disease with heart failure (principal); I50.9 Heart failure, unspecified; R51 Headache; E11.9 Type 2 diabetes mellitus without complications; J45.909 Unspecified asthma, uncomplicated; F41.9 Anxiety disorder, unspecified; F31.9 Bipolar disorder, unspecified; F20.9 Schizophrenia, unspecified; Z79.4 Long term (current) use of insulin; Z79.899 Other long term (current) drug therapy; Z79.82 Long term (current) use of aspirin
CPT/HCPCS: 36416; 71010; 80053; 82550; 82553; 83690; 83880; 84484; 85025; 93005

== ENCOUNTER 2017-10-20 16:58 | Emergency (ER) | payer MEDICARE, MEDICAID ==
[2017-10-20 18:02] LABS: Base Excess-Venous 2.2 mmol/L (-30.0-30.0); Bicarbonate (HCO3v) 28.5 mmol/L (1.0-85.0); CO2 Tension (PvCO2) 50.8 mmHg (41.0-51.0); Calcium, Ionized 1.12 mmol/L (1.12-1.32); Hemoglobin - Calc 11.8 g/dL (12.0-18.0); O2 Tension (PvO2) 37.3 mmHg (35.0-45.0); Potassium 5.1 mmol/L (3.4-4.7); T. Carbon Dioxide 30.1 mmol/L (1.0-85.0); pH (Venous) 7.358 (7.35-7.45); vO2 Saturation-calc 67.7 % (0.0-100.0)
[2017-10-20 18:06] LABS: #Eosinphils 0.2 thou/uL (0.0-0.7); #Lymphocytes 2.8 thou/uL (1.20-3.40); #Monocytes 0.7 thou/uL (0.11-0.59); #Neutrophils 3.9 thou/uL (1.40-6.50); %Basophils 0.1 % (0.0-1.0); %Lymphocytes 36.8 % (21.0-51.0); %Monocytes 9.4 % (0.0-10.0); %Neutrophils 51.7 % (42.0-75.0); Hemoglobin 11.5 g/dL (12.0-16.0); Mean Corpuscular HGB CONC 34.5 g/dL (32.0-36.0); Mean Corpuscular Hemoglobin 29.2 pg (27.0-31.0); Mean Corpuscular Volume 84.7 fl (81.0-99.0); Mean Platelet Volume 7.7 fL (7.4-10.4); Platelet Count 233 thou/uL (130-400); RBC Distribution Width 12.3 % (11.5-14.5); Red Blood Cell (RBC) Count 3.92 mill/uL (4.20-5.40); White Blood Cell (WBC) Count 7.5 thou/uL (4.8-10.8)
[2017-10-20 18:26] LABS: Bilirubin Negative (Negative); Blood, Urine Negative (Negative); Clarity CLEAR (Clear); Glucose, Urine (Dipstick) 250 mg/dL (Negative); Leukocyte Negative (Negative); Nitrite Negative (Negative); Protein, Urine (Dipstick) 30 mg/dL (Neg-Trace); Specific Gravity, Urine 1.009 (1.002-1.036); Urobilinogen 0.2 mg/dL (0.2-1.0)
[2017-10-20 18:29] LABS: Bacteria/HPF None Seen HPF (None Seen); Hyaline Casts/LPF 0-3 HYALINE CAST LPF (0-3 Hyaline); RBC/HPF 0-3 HPF (0-3); Squamous Epithelial 0-3 HPF (0-3); WBC/HPF 0-3 HPF (0-3)
[2017-10-20 18:34] LABS: ALT (SGPT) 25 U/L (8-55); AST (SGOT) 22 U/L (5-34); Albumin 3.3 g/dL (3.5-5.0); Alkaline Phosphatase 115 U/L (40-150); Anion Gap 14 mmol/L (10-20); BUN (Urea Nitrogen) 40 mg/dL (9.8-20.1); Bilirubin, Total 0.2 mg/dL (0.2-1.2); CKMB 1.2 ng/mL (0-6.6); Calc. Creatinine Clearance 0 mL/min (70-130); Calcium 9.2 mg/dL (7.8-10.44); Carbon Dioxide 26 mmol/L (22-29); Chloride 97 mmol/L (98-107); Estimated GFR-MDRD 31; Globulin 3.7 g/dL (2.4-3.5); Glucose 361 mg/dL (70-105); Lipase 75 U/L (8-78); Potassium 5.1 mmol/L (3.5-5.1); Sodium 132 mmol/L (136-145); Troponin I Less than 0.010 ng/mL (< 0.028)
--- NOTE | 2017-10-20 19:01 | RAD ---
ONE VIEW CHEST: HISTORY: Cough. COMPARISON: 10/18/2017 FINDINGS: Diminished lung volumes due to poor inspiratory effort. No consolidation or mass. No pneumothorax o r osseous abnormalities. Stable configuration of the cardiac silhouette. IMPRESSION: No acute cardiopulmonary process. POS: [facility]
[2017-10-20] MEDS ORDERED: Insulin Regular 300 UNITS/3 ML VIAL ONE (20:06)
== END 2017-10-20 22:05 | disposition home or self-care (01) ==
LOC: ERS 16:58
DX: E11.65 Type 2 diabetes mellitus with hyperglycemia (principal); I11.0 Hypertensive heart disease with heart failure; I50.9 Heart failure, unspecified; E11.9 Type 2 diabetes mellitus without complications; J45.909 Unspecified asthma, uncomplicated; F41.9 Anxiety disorder, unspecified; F31.9 Bipolar disorder, unspecified; F20.9 Schizophrenia, unspecified; M19.90 Unspecified osteoarthritis, unspecified site; Z79.4 Long term (current) use of insulin; Z79.82 Long term (current) use of aspirin; Z79.899 Other long term (current) drug therapy
CPT/HCPCS: 36415; 36416; 71010; 80053; 81003; 81015; 82010; 82330; 82553; 82803; 83690; 83880; 84484; 85025; 96361; 96374; J1815

== ENCOUNTER 2017-10-21 21:10 | Observation (INO) | payer MEDICARE, OTHER, MEDICAID ==
[2017-10-21 21:55] LABS: #Eosinphils 0.2 thou/uL (0.0-0.7); #Lymphocytes 2.1 thou/uL (1.20-3.40); #Monocytes 0.5 thou/uL (0.11-0.59); #Neutrophils 2.8 thou/uL (1.40-6.50); %Basophils 0.4 % (0.0-1.0); %Eosinophils 3.3 % (0.0-10.0); %Lymphocytes 36.9 % (21.0-51.0); %Monocytes 9.6 % (0.0-10.0); %Neutrophils 49.9 % (42.0-75.0); Hemoglobin 10.7 g/dL (12.0-16.0); Mean Corpuscular HGB CONC 34.1 g/dL (32.0-36.0); Mean Corpuscular Hemoglobin 28.9 pg (27.0-31.0); Mean Corpuscular Volume 84.8 fl (81.0-99.0); Mean Platelet Volume 7.6 fL (7.4-10.4); Platelet Count 218 thou/uL (130-400); RBC Distribution Width 12.2 % (11.5-14.5); Red Blood Cell (RBC) Count 3.71 mill/uL (4.20-5.40); White Blood Cell (WBC) Count 5.7 thou/uL (4.8-10.8)
[2017-10-21 22:20] LABS: Base Excess-Venous 1.1 mmol/L (-30.0-30.0); Bicarbonate (HCO3v) 27.8 mmol/L (1.0-85.0); CO2 Tension (PvCO2) 52.9 mmHg (41.0-51.0); Calcium, Ionized 1.11 mmol/L (1.12-1.32); Hemoglobin - Calc 11.2 g/dL (12.0-18.0); Potassium 4.9 mmol/L (3.4-4.7); T. Carbon Dioxide 29.4 mmol/L (1.0-85.0); pH (Venous) 7.328 (7.35-7.45); vO2 Saturation-calc 80.6 % (0.0-100.0)
[2017-10-21 22:22] LABS: ALT (SGPT) 24 U/L (8-55); AST (SGOT) 18 U/L (5-34); Albumin 3.2 g/dL (3.5-5.0); Alkaline Phosphatase 109 U/L (40-150); Anion Gap 14 mmol/L (10-20); BUN (Urea Nitrogen) 43 mg/dL (9.8-20.1); Bilirubin, Total 0.2 mg/dL (0.2-1.2); Calc. Creatinine Clearance 0 mL/min (70-130); Calcium 9.1 mg/dL (7.8-10.44); Carbon Dioxide 26 mmol/L (22-29); Chloride 95 mmol/L (98-107); Estimated GFR-MDRD 26; Globulin 3.8 g/dL (2.4-3.5); Glucose 499 mg/dL (70-105); Magnesium 2.1 mg/dL (1.6-2.6); Potassium 4.9 mmol/L (3.5-5.1); Sodium 130 mmol/L (136-145)
--- NOTE | 2017-10-21 22:59 | RAD ---
SINGLE VIEW OF THE CHEST: Indication: Cough, hypertension. IMPRESSION: Hypoventilation. No definite acute abnormality. COMMENTS: Examination is compared to a prior dated 10-20-17. The examination does not appear appreciably change d from the comparison study. POS: [facility]
[2017-10-21 23:03] LABS: CKMB 1.1 ng/mL (0-6.6); Troponin I Less than 0.010 ng/mL (< 0.028)
[2017-10-21 23:25] LABS: Bilirubin Negative (Negative); Blood, Urine Negative (Negative); Clarity CLEAR (Clear); Glucose, Urine (Dipstick) 500 mg/dL (Negative); Leukocyte Negative (Negative); Nitrite Negative (Negative); Protein, Urine (Dipstick) 30 mg/dL (Neg-Trace); Specific Gravity, Urine 1.015 (1.002-1.036); Urobilinogen 0.2 mg/dL (0.2-1.0)
[2017-10-21 23:26] LABS: Bacteria/HPF None Seen HPF (None Seen); Hyaline Casts/LPF 0-3 HYALINE CAST LPF (0-3 Hyaline); Pathc Cast-AUWi Flag 0.13 (0-2.49); RBC/HPF 0-3 HPF (0-3); Squamous Epithelial 0-3 HPF (0-3); WBC/HPF None Seen HPF (0-3)
[2017-10-22 01:33] LABS: Troponin I Less than 0.010 ng/mL (< 0.028)
[2017-10-22] MEDS ORDERED: Ondansetron ODT 4 MG TAB PO PRN (01:57)
[2017-10-22] MEDS ORDERED: Acetaminophen 325 MG TAB PO PRN (01:57)
[2017-10-22] MEDS ORDERED: Dextrose 5% in Water 1,000 ML IV PRN (01:57)
[2017-10-22] MEDS ORDERED: Albuterol Sulfate 1.25 MG/3 ML NEB NEB PRN (01:57)
[2017-10-22] MEDS ORDERED: Dextrose 50% Abboject 50 ML SYRINGE SLOW IVP PRN (01:57)
[2017-10-22] MEDS ORDERED: HumaLOG 300 UNITS/3 ML VIAL SC PRN (01:57)
[2017-10-22] MEDS ORDERED: Insulin Detemir 100 UNITS/ML 60 UNITS in Pre-Filled Syringe 1 EACH SC SCH (01:57)
[2017-10-22] MEDS ORDERED: HYDROcodone/Acetaminophen 5/325 mg Tablet PO PRN (01:57)
[2017-10-22] MEDS ORDERED: Enoxaparin Sodium 30 MG/0.3 ML SYRINGE SC SCH ×2 (02:15→21:00)
[2017-10-22 03:17] LABS: Troponin I Less than 0.010 ng/mL (< 0.028)
--- NOTE | 2017-10-22 04:23 | HP ---
DATE OF ADMISSION: 10/21/2017 TIME OF SERVICE: 2330 PRIMARY CARE PHYSICIAN: Kelsey Felder M.D. at [facility]. CHIEF COMPLAINT: High sugars. HISTORY OF PRESENT ILLNESS: Ms. Plummer is a 57-year-old female with multiple recent visits to the [facility] department, most recently on 09/27/2017, 10/08/2017, 10/18/2017, 10/20/2017, and 10/21/2017 fo r hyperglycemia. She knows on these to have increasing creatinine, elevated blood pressure and today complained of too short bursts of chest pain lasting a few seconds. She was worked up in the emergency department and found to have hyperglycemia, creatinine up to 2.35 today, normal electrolytes, and normal blood counts, negative imaging and we were subsequently called for further workup and evaluation. Per the ER note, she did have a history of heart failure, but on review, she has a recent echo that s howed EF of 55%-60%, normal valves, no admission of diastolic dysfunction, and blood sugars are close to 500. She denies any chest pain at present. No fevers or chills, no nausea and vomiting. She ov erall does not "feel good." PAST MEDICAL HISTORY: 1. Diabetes mellitus, type 2. 2. Possible congestive heart failure, not per the echo, may have some diastolic dysfunction that was not mentioned. 3. History of chronic back pain. 4. Osteoarthritis. 5. Hypertension. 6. Chronic kidney disease. 7. Schizophrenia. 8. Anxiety. 9. Depression. 10. Bipolar disorder. 11. Remote medical noncompliance. 12. Chronic anemia. 13. Asthma. PAST SURGICAL HISTORY: Include cholecystectomy and umbilical hernia repair years ago. HOME MEDICATIONS: 1. Januvia 100 mg daily. 2. Glipizide 5 mg p.o. b.i.d. 3. Tegretol 100 mg p.o. b.i.d. 4. BuSpar 10 mg p.o. t.i.d. 5. Risperdal 50 mg intramuscularly every 4 weeks. 6. Effexor XR 150 mg p.o. daily. 7. Lyrica 25 mg p.o. b.i.d. 8. Pravastatin 40 mg p.o. at bedtime. 9. Losartan 100 mg daily. 10. Levemir 60 units subcutaneous b.i.d. 11. Regular insulin 120 units subcutaneous a.c. breakfast, 105 units subcutaneous a.c. lunch, and 75 units subcutaneous a.c. dinner and she starts 10 units subcutaneous a.c. and at bedtime. 12. Lasix 40 mg p.o. daily. 13. Doxepin 10 mg p.o. at bedtime. 14. Coreg 25 mg p.o. b.i.d. 15. Aspirin 81 mg daily. 16. Norvasc 10 mg daily. 17. Albuterol 0.63 mg nebulized q.6 hours. She states she is taking all of her medicines as prescribed. ALLERGIES: PENICILLIN, CHOCOLATE, ORANGE FLAVORING, and TRAMADOL. FAMILY HISTORY: Significant for cancer, hypertension, and diabetes. SOCIAL HISTORY: She denies alcohol, tobacco, or drug use. She lives with family. She does have [facility] care with [facility]. REVIEW OF SYSTEMS: A 10-point review of systems was performed, negative for all other systems except as stated per HPI. PHYSICAL EXAMINATION: VITAL SIGNS: Temperature 97.7, pulse 84, blood pressure 162/94, respiratory rate 20, satting 95% on room air. GENERAL: She is awake. She is alert. She is oriented x3. She is severely obese -Citizen Of [place] f emale appears to be in no distress. She is slow to answer questions, but is awake and oriented x3. HEENT: She is normocephalic and atraumatic, pupils are equal, round, reactive to light bilaterally, mucous membranes are moist. She has no visible lesions or thrush. She is anicteric. NECK: Supple. She has no lymphadenopathy, JVD, or thyromegaly. LUNGS: Clear. She has no wheezes, no rales or rhonchi. She does not take a big breaths until instr ucted to do so, but when does has good air movement with symmetrical chest excursion. CARDIOVASCULAR: She has normal cardiac and regular. She has normal S1 and S2. I do not appreciate murmurs. ABDOMEN: Severely obese. She is nontender. She has good bowel sounds in all four quadrants. There is no rebound, rigidity, or guarding. I cannot palpate internal organs. EXTREMITIES: No cyanosis, no clubbing. She has got 1+ peripheral edema to the mid tibia level. I c annot palpate peripheral pulses, but her feet are warm. SKIN: Otherwise, warm, moist, and well perfused. She has no rashes or lesions. NEUROLOGIC: Cranial nerves II-XII are grossly intact. She has 4-5/5 strength in all four extremitie s. She has no focal deficits and normal speech. MUSCULOSKELETAL: Normal to inspection. I cannot appreciate joint effusions, but would be difficult with her body habitus. There are no signs of joint inflammation. LABORATORY DATA: Sodium 130, glucose of 499, sodium correction normal, potassium 4.9, chloride 95, b icarbonate 26, BUN 43, and creatinine 2.35. Review of recent laboratory work showed her creatinine at 2.00 on 10/20/2017 evening, 1.72 on 017, 1.41 on 10/11/2017, 1.51 on 10/10/2017, and was 1.99 and 1.98 in early 09/2017 and back in March was down to 1.4-1.6 range. Liver functions are normal. Albumin is low at 3.2. CBC showed a white count of 5.7, hemoglobin 10.7, hematocrit 31.4, platelets 218,000. VBG showed a p H of 7.33, pCO2 of 53, pO2 of 49, and bicarbonate normal. She has a normal gap of 14. Her beta-hydr oxybutyrate was 0.09. CK-MB was 1.1, troponin I was undetectable less than 0.010 x2. BNP was 20.5. RADIOGRAPHIC STUDIES: She had a chest x-ray that showed hypoinflation, but otherwise negative. ASSESSMENT AND PLAN: 1. Chest pain, tachycardic. We will get serial cardiac biomarkers. Very atypical story. 2. Moderate dehydration, the patient has had increasing creatinines and is taking Lasix. I suspect, she is dehydrated from her hyperglycemia and polyuria. We will try to get her sugars under control and rehydrate her here. Per the echo, she does not have heart failure. She has a normal systolic fu nction and normal valves. There is no mention of diastolic dysfunction or E to A reversal. 3. Severe obesity obvious problem. She may benefit from sleep study at some point. 4. Chronic back pain. 5. Osteoarthritis. 6. Hypertension, uncontrolled. We will continue home medications and watch how her blood pressure d oes. 7. Diabetes mellitus type 2, with hyperglycemia: Unsure the patient's compliant with the regimen. I put her back on her long-acting insulin with Levemir at 60 units subcutaneous b.i.d. and give her a dose early in the morning. Rather than plaster with high doses of premeal insulin, we will start he r at 50 units subcutaneous a.c. breakfast, lunch, and dinner, I know she is going to get it here. We will check morning hemoglobin A1c, I will watch her controlled level. I have ordered a high-dose sl iding scale as well. Place the patient on observation, metabolically she looks fine except for an increased creatinine, re peat labs in the morning and I have reevaluated.
[2017-10-22 04:58] LABS: #Eosinphils 0.2 thou/uL (0.0-0.7); #Lymphocytes 2.6 thou/uL (1.20-3.40); #Monocytes 0.9 thou/uL (0.11-0.59); #Neutrophils 2.9 thou/uL (1.40-6.50); %Basophils 0.5 % (0.0-1.0); %Eosinophils 3.1 % (0.0-10.0); %Lymphocytes 39.2 % (21.0-51.0); %Monocytes 12.9 % (0.0-10.0); %Neutrophils 44.2 % (42.0-75.0); Hemoglobin 10.2 g/dL (12.0-16.0); Mean Corpuscular HGB CONC 33.7 g/dL (32.0-36.0); Mean Corpuscular Hemoglobin 28.9 pg (27.0-31.0); Mean Corpuscular Volume 85.7 fl (81.0-99.0); Mean Platelet Volume 7.7 fL (7.4-10.4); Platelet Count 214 thou/uL (130-400); RBC Distribution Width 12.3 % (11.5-14.5); Red Blood Cell (RBC) Count 3.53 mill/uL (4.20-5.40); White Blood Cell (WBC) Count 6.6 thou/uL (4.8-10.8)
[2017-10-22 05:00] LABS: Hemoglobin A1c 9.9 % (4.0-6.0)
[2017-10-22 05:04] LABS: Anion Gap 10 mmol/L (10-20); BUN (Urea Nitrogen) 42 mg/dL (9.8-20.1); Calc. Creatinine Clearance 0 mL/min (70-130); Calcium 8.7 mg/dL (7.8-10.44); Carbon Dioxide 30 mmol/L (22-29); Chloride 99 mmol/L (98-107); Estimated GFR-MDRD 30; Glucose 322 mg/dL (70-105); Magnesium 2.1 mg/dL (1.6-2.6); Potassium 4.5 mmol/L (3.5-5.1); Sodium 134 mmol/L (136-145)
[2017-10-22 07:18] VITALS: BMI 48.2
[2017-10-22] MEDS: HYDROcodone/Acetaminophen 10/325 mg Tablet PO PRN ×2 (07:30→23:38)
[2017-10-22] MEDS: Sodium Chloride 0.9% 1,000 ML IV SCH ×3 (07:31→12:22)
[2017-10-22] MEDS ORDERED: Famotidine 20 MG TAB PO SCH (09:00)
[2017-10-22] MEDS ORDERED: Losartan 25 MG TAB PO SCH ×2 (09:00→11:30)
[2017-10-22] MEDS: Amlodipine 10 MG TAB PO SCH (09:01)
[2017-10-22] MEDS: Venlafaxine HCl XR 75 MG CAP PO SCH (09:01)
[2017-10-22] MEDS: Furosemide 20 MG TAB PO SCH (09:01)
[2017-10-22] MEDS: Multivit, Therapeutic 1 TAB PO SCH (09:02)
[2017-10-22] MEDS: Carvedilol 25 MG TAB PO SCH ×2 (09:02→21:07)
[2017-10-22] MEDS: glipiZIDE 5 MG TAB PO SCH ×2 (09:02→17:01)
[2017-10-22] MEDS: busPIRone HCl 10 MG TAB PO SCH ×3 (09:02→21:07)
[2017-10-22] MEDS: Famotidine 20 MG TAB PO SCH (09:02)
[2017-10-22] MEDS: Alogliptin 25 MG TAB PO SCH (09:02)
[2017-10-22] MEDS: HumaLOG 300 UNITS/3 ML VIAL SC SCH ×2 (09:03→13:25)
[2017-10-22 10:55] LABS: CKMB 1.1 ng/mL (0-6.6); Troponin I Less than 0.010 ng/mL (< 0.028)
--- NOTE | 2017-10-22 11:24 | PDOC.PN ---
- Subjective Encounter Start Date: 10/22/17 Encounter Start Time: 11:20 pt is nauseus no f/c no sob no cp - Objective Resuscitation Status: Resuscitation Status FULL:Full Resuscitation MAR Reviewed: Yes Vital Signs & Weight: Vital Signs (12 hours) Temp Pulse Pulse Pulse Resp BP BP 10/22/17 09:25 96 109 H 144/83 H 192/91 H 10/22/17 08:00 97.3 F L 94 24 H 10/22/17 06:58 97.3 F L 94 24 H BP Pulse Ox 10/22/17 09:25 10/22/17 08:00 10/22/17 06:58 193/107 H 95 Weight Weight 272 lb 9.6 oz Result Diagrams: 10/22/17 02:13 10/22/17 02:13 Phys Exam - Physical Examination Constitutional: NAD HEENT: PERRLA Neck: no JVD Respiratory: no wheezing Cardiovascular: no significant murmur Gastrointestinal: soft Musculoskeletal: pulses present Neurological: moves all 4 limbs Psychiatric: A&O x 3 Dx/Plan (1) Renal failure (ARF), acute on chronic Code(s): N17.9 - ACUTE KIDNEY FAILURE, UNSPECIFIED; N18.9 - CHRONIC KIDNEY DISEASE, UNSPECIFIED Status: Acute (2) Chest pain Code(s): R07.9 - CHEST PAIN, UNSPECIFIED Status: Resolved (3) Diabetes mellitus type 2, uncontrolled Code(s): E11.65 - TYPE 2 DIABETES MELLITUS WITH HYPERGLYCEMIA Status: Acute Qualifiers: Diabetes mellitus complication status: with hyperglycemia Diabetes mellitus rat exterminator insulin use: with rat exterminator use Qualified Code(s): E11.65 - Type 2 diabetes mellitus with hyperglycemia; Z79.4 - residential (current) use of insulin; Z79.4 - residential (current) use of insulin; Z79.4 - residential ( current) use of insulin; Z79.4 - medical terminologist (current) use of insulin (4) Anemia, normocytic normochromic Code(s): D64.9 - ANEMIA, UNSPECIFIED Status: Chronic (5) Diabetic gastroparesis Code(s): E11.43 - TYPE 2 DIABETES W DIABETIC AUTONOMIC (POLY)NEUROPATHY; K31.84 - GASTROPARESIS Status: Chronic Comment: start reglan (6) Obesity, morbid, BMI 40.0-49.9 Code(s): E66.01 - MORBID (SEVERE) OBESITY DUE TO EXCESS CALORIES Status: Chronic (7) Schizoaffective disorder Code(s): F25.9 - SCHIZOAFFECTIVE DISORDER, UNSPECIFIED Status: Chronic Qualifiers: Schizoaffective disorder type: unspecified Qualified Code(s): F25.9 - Schizoaffective disorder, unspecified - Plan * consult dr rico * change losartan to 25 mg * f/u renal panel * increase levemir dose as needed * diabetic education * educate family to help with pts glucose control
[2017-10-22] MEDS ORDERED: hydrALAZINE 20 MG/ML VIAL SLOW IVP PRN (11:29)
[2017-10-22] MEDS: Pregabalin 25 MG CAP PO SCH ×2 (11:40→21:06)
[2017-10-22] MEDS: carBAMazepine 100 mg Chewable Tablet PO SCH ×2 (11:41→21:07)
[2017-10-22] MEDS: Insulin Detemir 100 UNITS/ML 60 UNITS in Pre-Filled Syringe 1 EACH SC SCH ×2 (11:42→21:08)
[2017-10-22] MEDS: Metoclopramide 10 MG/10 ML UDCUP PO SCH ×3 (13:25→21:08)
[2017-10-22] MEDS ORDERED: HumaLOG 300 UNITS/3 ML VIAL SC SCH (17:00)
[2017-10-22 19:07] LABS: CKMB 1.2 ng/mL (0-6.6); Troponin I Less than 0.010 ng/mL (< 0.028)
[2017-10-22] MEDS ORDERED: Doxepin HCl 10 MG CAP PO SCH (21:00)
[2017-10-22] MEDS ORDERED: Pravastatin Sodium 40 MG TAB PO SCH (21:00)
--- NOTE | 2017-10-23 00:48 | CON ---
DATE OF CONSULTATION: 10/22/2017 NEPHROLOGY CONSULT CONSULTING PHYSICIAN: Dr. Alston. REASON FOR CONSULTATION: Acute kidney injury. REASON FOR ADMISSION: Elevated blood sugar. HISTORY OF PRESENT ILLNESS: A 57-year-old -Japanese female with history of type 2 diabetes, h ypertension, chronic kidney disease, schizophrenia, came with elevated sugars, was found to have elev ated creatinine. Nephrology was consulted. The patient is feeling better. No chest pain or palpita tions. No fever or chills. No skin rash. PAST MEDICAL HISTORY: Positive for type 2 diabetes, congestive heart failure, chronic back pain, ost eoarthritis, hypertension, CKD, schizophrenia, depression, and bipolar disorder. PAST SURGICAL HISTORY: Cholecystectomy, umbilical hernia repair. HOME MEDICATIONS: Januvia, glipizide, Tegretol, BuSpar, Risperdal, Effexor, Lyrica, pravastatin, [place], Levemir, regular insulin, Lasix, doxepin, Coreg, aspirin, Norvasc, albuterol. ALLERGIES: PENICILLIN, CHOCOLATE, ORANGE FLAVORING, and TRAMADOL. FAMILY HISTORY: Positive for cancer, hypertension, diabetes. SOCIAL HISTORY: No smoking, alcohol, or illicit drug abuse. FAMILY HISTORY: No history of kidney disease, but positive for cancer and hypertension. REVIEW OF SYSTEMS: The following complete review of systems was negative, unless otherwise mentioned in the HPI or below: Constitutional: Weight loss or gain, ability to conduct usual activities. Skin: Rash, itching. Eyes: Double vision, pain. ENT/Mouth: Nose bleeding, neck stiffness, pain, tenderness. Cardiovascular: Palpitations, dyspnea on exertion, orthopnea. Respiratory: Shortness of breath, wheezing, cough, hemoptysis, fever, or night sweats. Gastrointestinal: Poor appetite, abdominal pain, heartburn, nausea, vomiting, constipation, or diarr hea. Genitourinary: Urgency, frequency, dysuria, nocturia. Musculoskeletal: Pain, swelling. Neurologic/Psychiatric: Anxiety, depression. Allergy/Immunologic: Skin rash, bleeding tendency. PHYSICAL EXAMINATION: GENERAL: This is an obese female in no apparent distress. VITAL SIGNS: Temperature 98.7, pulse 92, respiratory rate 16, blood pressure 137/89. HEENT: Atraumatic, normocephalic. Oral mucosa is moist. NECK: Supple, no masses. CARDIOVASCULAR: S1, S2 heard. Rate and rhythm regular. RESPIRATORY: Clear. ABDOMEN: Soft. MUSCULOSKELETAL: 1+ edema. DERMATOLOGIC: No skin rash. NEUROLOGIC: Alert and awake. PSYCHIATRIC: Mood and affect normal. LABORATORY DATA: Potassium 4.5, creatinine is 2.03 from 2.35, BUN is 42 from 43. ASSESSMENT AND PLAN: 1. Acute kidney injury seems to be better, agree with hydration as tolerated. 2. Edema, controlled. 3. Hypertension. 4. Anemia 5. Obesity. 6. Avoid nephrotoxins. We will renally dose all the medications and we will follow the renal functi on, which seems to be slightly better, I will follow.
[2017-10-23] MEDS: Sodium Chloride 0.9% 1,000 ML IV SCH (04:50)
[2017-10-23 06:39] LABS: Albumin 3.1 g/dL (3.5-5.0); Anion Gap 15 mmol/L (10-20); BUN (Urea Nitrogen) 37 mg/dL (9.8-20.1); BUN/Creatinine Ratio 18.97; Calc. Creatinine Clearance 62 mL/min (70-130); Calcium 9.5 mg/dL (7.8-10.44); Carbon Dioxide 25 mmol/L (22-29); Chloride 100 mmol/L (98-107); Estimated GFR-MDRD 32; Glucose 292 mg/dL (70-105); Phosphorus 4.1 mg/dL (2.3-4.7); Potassium 5.5 mmol/L (3.5-5.1); Sodium 134 mmol/L (136-145)
[2017-10-23] MEDS ORDERED: Losartan 25 MG TAB PO SCH (09:00)
[2017-10-23] MEDS: Amlodipine 10 MG TAB PO SCH (09:12)
[2017-10-23] MEDS: Venlafaxine HCl XR 75 MG CAP PO SCH (09:12)
[2017-10-23] MEDS: Famotidine 20 MG TAB PO SCH (09:12)
[2017-10-23] MEDS: Multivit, Therapeutic 1 TAB PO SCH (09:12)
[2017-10-23] MEDS: glipiZIDE 5 MG TAB PO SCH (09:13)
[2017-10-23] MEDS: Alogliptin 25 MG TAB PO SCH (09:13)
[2017-10-23] MEDS: Carvedilol 25 MG TAB PO SCH (09:13)
[2017-10-23] MEDS: Metoclopramide 10 MG/10 ML UDCUP PO SCH ×2 (09:13→12:48)
[2017-10-23] MEDS: busPIRone HCl 10 MG TAB PO SCH (09:13)
[2017-10-23] MEDS: Furosemide 20 MG TAB PO SCH (09:13)
[2017-10-23] MEDS: Insulin Detemir 100 UNITS/ML 60 UNITS in Pre-Filled Syringe 1 EACH SC SCH (09:14)
[2017-10-23] MEDS: carBAMazepine 100 mg Chewable Tablet PO SCH (09:14)
[2017-10-23] MEDS: HumaLOG 300 UNITS/3 ML VIAL SC SCH ×2 (09:19→12:49)
[2017-10-23] MEDS: Pregabalin 25 MG CAP PO SCH (10:00)
[2017-10-23 12:36] VITALS: BP 179/87; TEMP 97.2
--- NOTE | 2017-10-23 16:13 | DIS ---
DATE OF ADMISSION: 10/21/2017 DATE OF DISCHARGE: 10/23/2017 DISCHARGE DIAGNOSES: 1. Chest pain, atypical in nature. 2. Uncontrolled diabetes, stable. 3. Moderate dehydration, stable. 4. Acute renal failure on chronic kidney disease secondary to dehydration, stable. 5. Severe obesity. Patient is counseled. 6. Chronic back pain, stable. 7. Osteoarthritis, stable. 8. Hypertension, stable. DISCHARGE MEDICATIONS: Include all home medications except for the dose of the long-acting insulin L evemir has been changed to 65 units b.i.d. She is also asked to take the Humalog 50 units before katie akfast, lunch, and dinner. Rest of the medications are same. She is asked to keep away from foods r ich in potassium. CONSULTANTS: Patient's consultants on the case were Nephrology. BRIEF HOSPITAL COURSE: This is a 57-year-old pleasant lady, who was apparently in usual state of [facility], who came in with uncontrolled sugars and dehydration and acute renal failure on chronic kidney d isease. The patient was hydrated and with this continuing functions improved. She was put on the in sulin and was put on a strict diet. Her glucose was controlled. We optimized sugars with Levemir th e dose of 65 units b.i.d., which seemed to control the sugar fairly good. She was asked to keep the log of the blood sugars and have it further titrated as an outpatient with the primary care physician , she understands that. The patient is also asked to follow up with the regular doctor for maintaini ng that. She is asked to follow up with Dr. Liu in 1 week. Her kidney functions improved with IV h ydration. PHYSICAL EXAMINATION: VITAL SIGNS: At the time of discharge, her blood pressure was 160/80, respirations 20, temperature a febrile, and pulse was 80. GENERAL: Patient is lying in bed, in no apparent distress. HEENT: Atraumatic and normocephalic. Pupils are equal, round, reactive to light. Extraocular movem ents intact. Mucous membranes moist. NECK: Supple. No JVD. CHEST: Breath sounds heard. There are no rales or rhonchi. HEART: S1 and S2, no murmurs, rubs, or gallops. ABDOMEN: Soft. EXTREMITIES: No cyanosis, clubbing or edema. Distal pulses present. NEUROLOGIC: Alert, awake, oriented. No cranial deficits. No sensorimotor deficits. The patient is right now medically stable to be discharged with outpatient follow up with Dr. Noe stahl PCP. She is asked to come back to the emergency room in case symptoms recur. Total time for this discharge took 35 minutes.
--- NOTE | 2017-10-23 21:00 | PRG ---
DATE OF SERVICE: 10/23/2017 SUBJECTIVE: Patient was seen and examined at bedside and overnight events noted. Patient denies any shortness of breath or chest pain or palpitation. No history of nausea or vomitin g or diarrhea or fever or chills or cramps. OBJECTIVE: GENERAL: This is a well-built female, in no apparent distress. VITAL SIGNS: Temperature 97.9, pulse 92, respiratory rate 16, blood pressure 139/83. HEENT: Atraumatic, normocephalic. Oral mucosa is moist NECK: Supple. CARDIOVASCULAR: S1 and S2 heard. Rate and rhythm regular. RESPIRATORY: Clear to auscultation. GASTROINTESTINAL: Abdomen is soft. MUSCULOSKELETAL: 1+ edema. DERMATOLOGIC: No skin rash. NEUROLOGIC: Alert and awake and oriented X3, No focal neurologic deficits. Moving all the extremitie s. PSYCHIATRIC: Mood and affect normal. LABORATORY DATA: Creatinine was 1.9, potassium 5.1. ASSESSMENT AND PLAN: 1. Acute kidney injury, better. 2. Hyperkalemia. Limit potassium in the diet and will give a dose Kayexalate. 3. Anemia. 4. Obesity. 5. Hypertension, stable. The patient was advised to limit potassium intake, advised to follow up with clinic in 1 week.
--- NOTE | 2017-11-30 20:17 | EKG ---
Test Reason : Blood Pressure : / mmHG Vent. Rate : 095 BPM Atrial Rate : 095 BPM P-R Int : 244 ms QRS Dur : 088 ms QT Int : 364 ms P-R-T Axes : 021 -20 024 degrees QTc Int : 457 ms Sinus rhythm with 1st degree A-V block Nonspecific T wave abnormality Abnormal ECG Confirmed by TO FAREED Russo ([id number]), visual effects editor NICKO YE ([id number]) on 11/30/2017 8:17:08 PM Referred By: Confirmed By:FAREED CESPEDES M.D.
== END 2017-10-23 13:59 | disposition home or self-care (01) ==
LOC: ERS 21:10 → ERHOLD 23:21 → 2SW 10-22 06:51
PROVIDERS: ADMIT Internal Medicine Infectious Disease; ATTEND Internal Medicine Infectious Disease
DX: R07.89 Other chest pain (principal); E11.65 Type 2 diabetes mellitus with hyperglycemia; E86.0 Dehydration; E11.22 Type 2 diabetes mellitus with diabetic chronic kidney disease; I12.9 Hypertensive chronic kidney disease with stage 1 through stage 4 chronic kidney disease, or unspecified chronic kidney disease; N18.9 Chronic kidney disease, unspecified; N17.9 Acute kidney failure, unspecified; E66.01 Morbid (severe) obesity due to excess calories; M54.9 Dorsalgia, unspecified; G89.29 Other chronic pain; M19.90 Unspecified osteoarthritis, unspecified site; F20.9 Schizophrenia, unspecified; F41.9 Anxiety disorder, unspecified; F31.9 Bipolar disorder, unspecified; D63.1 Anemia in chronic kidney disease; J45.909 Unspecified asthma, uncomplicated; R60.9 Edema, unspecified; E87.5 Hyperkalemia; Z68.42 Body mass index [BMI] 45.0-49.9, adult; Z79.4 Long term (current) use of insulin; Z79.82 Long term (current) use of aspirin; Z79.899 Other long term (current) drug therapy; Z88.5 Allergy status to narcotic agent; Z88.0 Allergy status to penicillin; Z91.018 Allergy to other foods; Z90.49 Acquired absence of other specified parts of digestive tract; Z98.890 Other specified postprocedural states
CPT/HCPCS: 71045; 80048; 80053; 80069; 82010; 82330; 82435; 82553 ×3; 82803; 82962 ×3; 83036; 83735 ×2; 83880; 84100; 84132; 84295; 84484 ×3; 85014; 85025 ×2; 93005; 96360; 96361 ×3; 96372 ×2; 97116; 97139; 99285; G0378 ×2; G8978; G8979; 36415; 36416; 81003; 81015; A4216; J1650; J1815

== ENCOUNTER 2017-10-25 01:27 | Emergency (ER) | payer MEDICARE, OTHER, MEDICAID ==
[2017-10-25 02:18] LABS: Base Excess-Venous 2.4 mmol/L (-30.0-30.0); Bicarbonate (HCO3v) 28.2 mmol/L (1.0-85.0); CO2 Tension (PvCO2) 48.1 mmHg (41.0-51.0); Calcium, Ionized 0.94 mmol/L (1.12-1.32); Hemoglobin - Calc 11.2 g/dL (12.0-18.0); O2 Tension (PvO2) 53.6 mmHg (35.0-45.0); T. Carbon Dioxide 29.6 mmol/L (1.0-85.0); pH (Venous) 7.376 (7.35-7.45); vO2 Saturation-calc 86.1 % (0.0-100.0)
[2017-10-25] MEDS ORDERED: Insulin Regular 300 UNITS/3 ML VIAL ONE (02:19)
[2017-10-25 02:35] LABS: Hemoglobin 10.7 g/dL (12.0-16.0); Mean Corpuscular HGB CONC 34.1 g/dL (32.0-36.0); Mean Corpuscular Hemoglobin 28.9 pg (27.0-31.0); Mean Corpuscular Volume 84.6 fl (81.0-99.0); Mean Platelet Volume 7.7 fL (7.4-10.4); Platelet Count 208 thou/uL (130-400); RBC Distribution Width 12.5 % (11.5-14.5); White Blood Cell (WBC) Count 7.2 thou/uL (4.8-10.8)
[2017-10-25 03:02] LABS: #Eosinphils 0.1 thou/uL (0.0-0.7); #Lymphocytes 2.4 thou/uL (1.20-3.40); #Monocytes 0.9 thou/uL (0.11-0.59); #Neutrophils 3.8 thou/uL (1.40-6.50); %Basophils 0.3 % (0.0-1.0); %Monocytes 11.7 % (0.0-10.0); MDiff Complete? YES; PLT Morphology Comment Appears Adequate; Platelet Clumps SLIGHT; RBC Morphology Normal
[2017-10-25 03:05] LABS: ALT (SGPT) 27 U/L (8-55); AST (SGOT) 26 U/L (5-34); Albumin 3.2 g/dL (3.5-5.0); Alkaline Phosphatase 117 U/L (40-150); Anion Gap 15 mmol/L (10-20); BUN (Urea Nitrogen) 39 mg/dL (9.8-20.1); Bilirubin, Total 0.2 mg/dL (0.2-1.2); Calc. Creatinine Clearance 0 mL/min (70-130); Calcium 9.3 mg/dL (7.8-10.44); Carbon Dioxide 26 mmol/L (22-29); Chloride 92 mmol/L (98-107); Estimated GFR-MDRD 25; Globulin 3.9 g/dL (2.4-3.5); Glucose 446 mg/dL (70-105); Protein, Total 7.1 g/dL (6.0-8.3); Sodium 129 mmol/L (136-145)
== END 2017-10-25 04:24 | disposition home or self-care (01) ==
LOC: ERS 01:27
DX: E11.65 Type 2 diabetes mellitus with hyperglycemia (principal); E66.01 Morbid (severe) obesity due to excess calories; M19.90 Unspecified osteoarthritis, unspecified site; I11.0 Hypertensive heart disease with heart failure; I50.9 Heart failure, unspecified; J45.909 Unspecified asthma, uncomplicated; F41.9 Anxiety disorder, unspecified; F31.9 Bipolar disorder, unspecified; F20.9 Schizophrenia, unspecified; Z79.82 Long term (current) use of aspirin; Z79.4 Long term (current) use of insulin; Z79.899 Other long term (current) drug therapy
CPT/HCPCS: 36416; 80053; 82330; 82803; 85014; 85025; 96361; 96374; J1815

== ENCOUNTER 2017-10-28 15:47 | Emergency (ER) | payer MEDICARE, OTHER, MEDICAID ==
[2017-10-28 16:53] LABS: #Eosinphils 0.2 thou/uL (0.0-0.7); #Lymphocytes 2.1 thou/uL (1.20-3.40); #Monocytes 0.6 thou/uL (0.11-0.59); %Basophils 0.8 % (0.0-1.0); %Eosinophils 2.6 % (0.0-10.0); %Monocytes 9.6 % (0.0-10.0); Hemoglobin 11.2 g/dL (12.0-16.0); Mean Corpuscular HGB CONC 33.5 g/dL (32.0-36.0); Mean Corpuscular Hemoglobin 28.6 pg (27.0-31.0); Mean Corpuscular Volume 85.2 fl (81.0-99.0); Mean Platelet Volume 7.7 fL (7.4-10.4); Platelet Count 198 thou/uL (130-400); RBC Distribution Width 12.5 % (11.5-14.5); Red Blood Cell (RBC) Count 3.91 mill/uL (4.20-5.40); White Blood Cell (WBC) Count 5.9 thou/uL (4.8-10.8)
[2017-10-28 17:17] LABS: CKMB 1.7 ng/mL (0-6.6); Troponin I Less than 0.010 ng/mL (< 0.028)
[2017-10-28 17:24] LABS: ALT (SGPT) 30 U/L (8-55); AST (SGOT) 27 U/L (5-34); Albumin 3.4 g/dL (3.5-5.0); Alkaline Phosphatase 124 U/L (40-150); Anion Gap 16 mmol/L (10-20); BUN (Urea Nitrogen) 57 mg/dL (9.8-20.1); Bilirubin, Total 0.3 mg/dL (0.2-1.2); CK (CPK) 266 U/L (29-168); Calc. Creatinine Clearance 0 mL/min (70-130); Calcium 9.1 mg/dL (7.8-10.44); Carbon Dioxide 23 mmol/L (22-29); Chloride 102 mmol/L (98-107); Estimated GFR-MDRD 27; Globulin 3.6 g/dL (2.4-3.5); Glucose 252 mg/dL (70-105); Potassium 5.1 mmol/L (3.5-5.1); Sodium 136 mmol/L (136-145)
[2017-10-28 19:15] LABS: Bilirubin Negative (Negative); Blood, Urine Negative (Negative); Clarity CLEAR (Clear); Glucose, Urine (Dipstick) Negative (Negative); Leukocyte Negative (Negative); Nitrite Negative (Negative); Protein, Urine (Dipstick) Trace mg/dL (Neg-Trace); Specific Gravity, Urine 1.014 (1.002-1.036); Urobilinogen 0.2 mg/dL (0.2-1.0); pH, Urine 5.5 (5.0-9.0)
--- NOTE | 2017-10-28 20:42 | RAD ---
AP PELVIS 10/28/17 HISTORY: Leg and hip pain. FINDINGS/IMPRESSION: There are degenerative changes in the hip joints. No fracture or dislocation or bony destruction seen . POS: [facility]
== END 2017-10-28 21:08 | disposition home or self-care (01) ==
LOC: ERS 15:47
DX: M54.5 Low back pain (principal); I11.0 Hypertensive heart disease with heart failure; I50.9 Heart failure, unspecified; M19.90 Unspecified osteoarthritis, unspecified site; E11.9 Type 2 diabetes mellitus without complications; J45.909 Unspecified asthma, uncomplicated; F20.9 Schizophrenia, unspecified
CPT/HCPCS: 36415; 72170; 80053; 81003; 82553; 83880; 84484; 85025

== ENCOUNTER 2017-10-30 17:58 | Emergency (ER) | payer MEDICARE, OTHER ==
[2017-10-30] MEDS ORDERED: Naloxone HCl 2 mg/2 ml Syringe ONE (18:11)
[2017-10-30] MEDS ORDERED: Naloxone HCl 0.4 mg/ml Vial ONE ×2 (18:19→18:31)
[2017-10-30 18:36] LABS: #Eosinphils 0.2 thou/uL (0.0-0.7); #Lymphocytes 2.7 thou/uL (1.20-3.40); #Monocytes 0.6 thou/uL (0.11-0.59); #Neutrophils 4.5 thou/uL (1.40-6.50); %Basophils 0.3 % (0.0-1.0); %Eosinophils 2.8 % (0.0-10.0); %Lymphocytes 33.7 % (21.0-51.0); %Monocytes 7.9 % (0.0-10.0); %Neutrophils 55.3 % (42.0-75.0); Hemoglobin 10.6 g/dL (12.0-16.0); Mean Corpuscular HGB CONC 33.7 g/dL (32.0-36.0); Mean Corpuscular Hemoglobin 29.1 pg (27.0-31.0); Mean Corpuscular Volume 86.3 fl (81.0-99.0); Mean Platelet Volume 7.9 fL (7.4-10.4); Platelet Count 206 thou/uL (130-400); RBC Distribution Width 12.5 % (11.5-14.5); Red Blood Cell (RBC) Count 3.66 mill/uL (4.20-5.40); White Blood Cell (WBC) Count 8.1 thou/uL (4.8-10.8)
[2017-10-30 18:56] LABS: ALT (SGPT) 29 U/L (8-55); AST (SGOT) 27 U/L (5-34); Albumin 3.1 g/dL (3.5-5.0); Alkaline Phosphatase 118 U/L (40-150); Anion Gap 13 mmol/L (10-20); BUN (Urea Nitrogen) 62 mg/dL (9.8-20.1); Bilirubin, Total 0.2 mg/dL (0.2-1.2); Calc. Creatinine Clearance 0 mL/min (70-130); Calcium 8.8 mg/dL (7.8-10.44); Carbon Dioxide 28 mmol/L (22-29); Chloride 99 mmol/L (98-107); Estimated GFR-MDRD 19; Globulin 4.1 g/dL (2.4-3.5); Glucose 246 mg/dL (70-105); Potassium 5.1 mmol/L (3.5-5.1); Protein, Total 7.2 g/dL (6.0-8.3); Sodium 135 mmol/L (136-145)
[2017-10-30 19:01] LABS: CKMB 1.6 ng/mL (0-6.6); Troponin I Less than 0.010 ng/mL (< 0.028)
--- NOTE | 2017-10-30 19:54 | RAD ---
PORTABLE CHEST ONE VIEW: Date: 10-30-17 Time: 6:33 p.m. History: Dyspnea. FINDINGS: Comparison is made with exam of 10-21-17. The heart size is enlarged. No confluent areas of consolidation, pneumothorax, magen pleural edema or pleural effusions are seen. IMPRESSION: No acute process. POS: [facility]
== END 2017-10-30 23:25 | disposition home or self-care (01) ==
LOC: ERS 17:58
DX: T42.4X1A Poisoning by benzodiazepines, accidental (unintentional), initial encounter (principal); T40.2X1A Poisoning by other opioids, accidental (unintentional), initial encounter; G89.29 Other chronic pain; E11.9 Type 2 diabetes mellitus without complications; F41.9 Anxiety disorder, unspecified; F31.9 Bipolar disorder, unspecified; F20.9 Schizophrenia, unspecified; I11.0 Hypertensive heart disease with heart failure; I50.9 Heart failure, unspecified; J45.909 Unspecified asthma, uncomplicated; M19.90 Unspecified osteoarthritis, unspecified site
CPT/HCPCS: 71045; 80053; 82553; 83880; 84484; 85025; 93005; 94760; 96361; 96374; J2310

== ENCOUNTER 2017-12-26 11:37 | Emergency (ER) | payer MEDICARE, MEDICAID | END 2017-12-26 13:04 | disposition home or self-care (01) | LOC: ERS 11:37 | DX: E11.41 Type 2 diabetes mellitus with diabetic mononeuropathy (principal); G89.29 Other chronic pain; M19.90 Unspecified osteoarthritis, unspecified site; I11.0 Hypertensive heart disease with heart failure; I50.9 Heart failure, unspecified; J45.909 Unspecified asthma, uncomplicated; F41.9 Anxiety disorder, unspecified; F31.9 Bipolar disorder, unspecified; F20.9 Schizophrenia, unspecified; Z79.82 Long term (current) use of aspirin; Z79.4 Long term (current) use of insulin; Z79.899 Other long term (current) drug therapy | CPT/HCPCS: 36416; 99285 ==

== ENCOUNTER 2018-01-19 22:49 | Emergency (ER) | payer MEDICARE, MEDICAID ==
[2018-01-19 23:31] LABS: #Eosinphils 0.1 thou/uL (0.0-0.7); #Monocytes 0.6 thou/uL (0.11-0.59); #Neutrophils 2.8 thou/uL (1.40-6.50); %Eosinophils 2.6 % (0.0-10.0); %Lymphocytes 35.7 % (21.0-51.0); %Monocytes 11.5 % (0.0-10.0); %Neutrophils 50.1 % (42.0-75.0); Hemoglobin 11.1 g/dL (12.0-16.0); Mean Corpuscular HGB CONC 36.1 g/dL (32.0-36.0); Mean Corpuscular Hemoglobin 29.7 pg (27.0-31.0); Mean Corpuscular Volume 82.4 fl (81.0-99.0); Mean Platelet Volume 7.9 fL (7.4-10.4); Platelet Count 198 thou/uL (130-400); RBC Distribution Width 12.3 % (11.5-14.5); Red Blood Cell (RBC) Count 3.74 mill/uL (4.20-5.40); White Blood Cell (WBC) Count 5.5 thou/uL (4.8-10.8)
[2018-01-19 23:52] LABS: ALT (SGPT) 28 U/L (8-55); AST (SGOT) 23 U/L (5-34); Albumin 3.1 g/dL (3.5-5.0); Alkaline Phosphatase 193 U/L (40-150); Anion Gap 14 mmol/L (10-20); BUN (Urea Nitrogen) 36 mg/dL (9.8-20.1); Bilirubin, Total 0.2 mg/dL (0.2-1.2); Calc. Creatinine Clearance 0 mL/min (70-130); Calcium 8.7 mg/dL (7.8-10.44); Carbon Dioxide 25 mmol/L (22-29); Chloride 96 mmol/L (98-107); Estimated GFR-MDRD 35; Globulin 4.1 g/dL (2.4-3.5); Glucose 423 mg/dL (70-105); Potassium 4.5 mmol/L (3.5-5.1); Protein, Total 7.2 g/dL (6.0-8.3); Sodium 130 mmol/L (136-145)
--- NOTE | 2018-01-20 00:03 | RAD ---
AP CHEST: Indication: Hyperglycemia. Altered mental status. FINDINGS: Stable cardiomegaly. No definite focal consolidation is evident. Left costophrenic angle is excluded. No pneumothorax is evident. No acute osseous abnormality is evident. There are some limitations to t he exam. IMPRESSION: Stable cardiomegaly. POS: [facility]
[2018-01-20 00:17] LABS: Acetaminophen Less than 6.0 mcg/mL (10.0-30.0); Alcohol Less than 10 mg/dL (Less than 10); CK (CPK) 174 U/L (29-168); Lipase 79 U/L (8-78); Salicylate Less than 8.0 mg/dL (15.0-30.0)
[2018-01-20 00:20] LABS: CKMB 1.2 ng/mL (0-6.6); Troponin I Less than 0.010 ng/mL (< 0.028)
[2018-01-20 00:27] LABS: Bilirubin Negative (Negative); Blood, Urine Negative (Negative); Clarity CLEAR (Clear); Glucose, Urine (Dipstick) 250 mg/dL (Negative); Leukocyte Negative (Negative); Nitrite Negative (Negative); Protein, Urine (Dipstick) 30 mg/dL (Neg-Trace); Specific Gravity, Urine 1.011 (1.002-1.036); Urobilinogen 0.2 mg/dL (0.2-1.0); pH, Urine 6.5 (5.0-9.0)
[2018-01-20 00:29] LABS: Bacteria/HPF None Seen HPF (None Seen); Hyaline Casts/LPF 0-3 HYALINE CAST LPF (0-3 Hyaline); RBC/HPF 0-3 HPF (0-3); Squamous Epithelial None Seen HPF (0-3); WBC/HPF None Seen HPF (0-3)
[2018-01-20 00:36] LABS: Amphetamine Not Detected (NotDetected); Barbiturates Screen Not Detected (NotDetected); Benzodiazepine Screen Detected (NotDetected); Cocaine Metabolite Screen Not Detected (NotDetected); Medtox Control Line Valid? VALID (VALID); Medtox Reader # READER 4; Methadone Not Detected (NotDetected); Methamphetamine Not Detected (NotDetected); Opiate Screen Detected (NotDetected); Oxycodone Screen Not Detected (NotDetected); Phencyclidine (PCP) Not Detected (NotDetected); THC/Cannabinoid Screen Not Detected (NotDetected); Tricyclic Screen Not Detected (NotDetected)
[2018-01-20 00:43] LABS: Base Excess-Venous 3.4 mmol/L (0 (+/- 2.5)); Bicarbonate (HCO3v) 29.8 mmol/L (1.0-85.0); CO2 Tension (PvCO2) 52.4 mmHg (41.0-51.0); Calcium, Ionized 1.08 mmol/L (1.12-1.32); Hemoglobin - Calc 11.7 g/dL (12.0-18.0); O2 Tension (PvO2) 34.2 mmHg (35.0-45.0); Potassium 4.5 mmol/L (3.4-4.7); T. Carbon Dioxide 31.4 mmol/L (1.0-85.0); pH (Venous) 7.363 (7.35-7.45); vO2 Saturation-calc 62.4 % (94-98)
--- NOTE | 2018-01-20 08:23 | CT ---
PRELIMINARY REPORT/[facility]/EMERGENTY AFTER-HOURS PROCEDURE CT HEAD WO EXAM: CT Head Without Intravenous Contrast CLINICAL HISTORY: 57 years old, female; Signs and symptoms; Other: Lethargic; Patient HX: 57 y/o f with presentation of hyperglycemia, blood sugar in the 500's. Ems reports that blood sugar was 471 upon their arrival and gave pt 8mg zofran for nausea. They state that the pt appears to be more drowsy than normal and that pt took valium the last time she acted in a similar way. Pt reports that she is having neuropath ic pain. Denies any other complaints. TECHNIQUE: Axial computed tomography images of the head/brain without intravenous contrast. COMPARISON: No relevant prior studies available. FINDINGS: Brain: Mild volume loss No hemorrhage. Mild white matter disease. No edema. Ventricles: Unremarkable. No ventriculomegaly. Bones/joints: Unremarkable. No acute fracture. Soft tissues: Unremarkable. Sinuses: Unremarkable as visualized. No acute sinusitis. Mastoid air cells: Unremarkable as visualized. No mastoid effusion. IMPRESSION: No intracranial hemorrhage. Please see discussion above. Thank you for allowing us to participate in the care of your patient. Dictated and Authenticated by: Gordon Singh MD 01/20/2018 12:41 AM Central Time ([place] & [place]) FINAL REPORT NONCONTRAST HEAD CT: Date: 01/19/18 COMPARISON: 11/15/16. HISTORY: Altered mental status. TECHNIQUE: Noncontrast head CT is performed from skull base to skull vertex. FINDINGS/IMPRESSION: This report is in agreement with the preliminary report by Katie. No acute intracranial process. POS: [facility]
--- NOTE | 2018-02-21 14:58 | EKG ---
Test Reason : Blood Pressure : / mmHG Vent. Rate : 097 BPM Atrial Rate : 097 BPM P-R Int : 234 ms QRS Dur : 092 ms QT Int : 362 ms P-R-T Axes : 032 -23 031 degrees QTc Int : 459 ms Sinus rhythm with 1st degree A-V block with Premature ventricular complexes or Fusion complexes Nonspecific T wave abnormality Abnormal ECG Confirmed by ELZA COX, DAGO ([id number]), market editor NICKO YE ([id number]) on 02/21/2018 2:57:24 PM Referred By: Confirmed By:DAGO BERTRAND MD
== END 2018-01-20 01:14 | disposition home or self-care (01) ==
LOC: ERS 22:49
DX: E11.65 Type 2 diabetes mellitus with hyperglycemia (principal); F19.90 Other psychoactive substance use, unspecified, uncomplicated; R47.81 Slurred speech; I11.0 Hypertensive heart disease with heart failure; I50.9 Heart failure, unspecified; J45.909 Unspecified asthma, uncomplicated; F41.9 Anxiety disorder, unspecified; F31.9 Bipolar disorder, unspecified; F20.9 Schizophrenia, unspecified; Z79.899 Other long term (current) drug therapy; Z79.82 Long term (current) use of aspirin; Z79.4 Long term (current) use of insulin
CPT/HCPCS: 36415; 36416; 70450; 71045; 80053; 80306; 80307; 81003; 81015; 82010; 82330; 82435; 82553; 82803; 83690; 83880; 84132; 84295; 84484; 85014; 85025; 93005

== ENCOUNTER 2018-01-20 11:27 | Inpatient (IN) | payer MEDICARE, OTHER, MEDICAID ==
[~2018-01-20 11:27] MED LIST: ISOVUE-370 76%-LOCM 1 ML ONE
--- NOTE | 2018-01-20 12:10 | RAD ---
4 VIEWS LEFT KNEE: Date: 01/20/18 INDICATION: Fall, with left knee pain. IMPRESSION: No acute fracture or subluxation is evident. No joint capsular distention is noted. POS: [facility]
--- NOTE | 2018-01-20 13:18 | CT ---
CT HEAD NONCONTRAST: Comparison: 01-20-18 Indication: Stroke, new onset slurred speech. FINDINGS: Ventricular system is normal in size. No midline shift or mass effect. No intracranial hemorrhage. Th ere is evidence of mild chronic ischemic disease. IMPRESSION: No acute intracranial hemorrhage or mass effect. Telephone call of findings placed to ED Physician, Mina Mayers, at 1305 hours, 01/20/2018. POS: [facility]
--- NOTE | 2018-01-20 13:54 | CT ---
CTA [place] OF [place] WITH 3D VOLUME RENDERING CTA NECK WITH 3D VOLUME RENDERING CTA BRAIN PERFUSION WITH IV CONTRAST ADMINISTRATION: Date: 01/20/18 CLINICAL HISTORY: Stroke alert, slurred speech. FINDINGS: CTA imaging of [place] of [place] reveals no high grade stenosis or occlusion. There is mild intracrani al atherosclerotic vascular disease notably at each carotid siphon. CTA brain perfusion portion of th e exam reveals component of technical limitation with reduced perfusion activity throughout the cereb ral hemispheres on the blood volume series. There is no obvious perceptible asymmetry on the blood fl ow series and no significant abnormal focal mean transit time increase evident. CTA imaging of the neck reveals no high grade stenosis. Origins of great vessels that emanate from ao rtic arch are grossly patent. There is limited assessment of the subclavian arteries due to streak ar tifact. No focal high grade stenosis or occlusion of the bilateral common carotid arteries. There is calcified and noncalcified plaque involving the bilateral carotid bulbs, right greater than left. Thi s does result in moderate stenosis at the origin of the cervical right ICA. There is a retropharyngea l course of each carotid artery. The subsequent bilateral cervical internal carotid arteries reveal n o high grade stenosis. There is calcification at each distal, intracranial ICA. IMPRESSION: 1. No definite evidence for significant area of penumbra or complete infarction. 2. No high grade stenosis or occlusion of the [place] of [place]. 3. Within the arterial system of the neck, there is moderate focal stenosis at the origin of the cer vical right ICA, which is predominantly due to soft plaque with peripheral calcific plaque. Recommend follow-up with vascular surgery consultation. Telephone call findings placed to ER physician, Mina Mayers, at 1328 hours on 01/20/18. CODE CR. POS: [facility]
[2018-01-20 13:55] LABS: #Eosinphils 0.1 thou/uL (0.0-0.7); #Lymphocytes 1.7 thou/uL (1.20-3.40); #Monocytes 0.7 thou/uL (0.11-0.59); #Neutrophils 3.9 thou/uL (1.40-6.50); %Basophils 0.2 % (0.0-1.0); %Eosinophils 1.9 % (0.0-10.0); %Neutrophils 60.9 % (42.0-75.0); Hemoglobin 10.4 g/dL (12.0-16.0); Mean Corpuscular HGB CONC 33.2 g/dL (32.0-36.0); Mean Corpuscular Hemoglobin 27.9 pg (27.0-31.0); Mean Corpuscular Volume 83.8 fl (81.0-99.0); Mean Platelet Volume 7.7 fL (7.4-10.4); Platelet Count 179 thou/uL (130-400); RBC Distribution Width 12.4 % (11.5-14.5); Red Blood Cell (RBC) Count 3.72 mill/uL (4.20-5.40); White Blood Cell (WBC) Count 6.4 thou/uL (4.8-10.8)
[2018-01-20 14:01] LABS: INR-International Normal Ratio 1.1; PTT 23.1 SEC (22.9-36.1); Prothrombin Time 14.1 SEC (12.0-14.7)
[2018-01-20 14:13] LABS: ALT (SGPT) 26 U/L (8-55); AST (SGOT) 21 U/L (5-34); Alkaline Phosphatase 178 U/L (40-150); Anion Gap 11 mmol/L (10-20); BUN (Urea Nitrogen) 34 mg/dL (9.8-20.1); Bilirubin, Total 0.2 mg/dL (0.2-1.2); Calc. Creatinine Clearance 0 mL/min (70-130); Calcium 8.6 mg/dL (7.8-10.44); Carbon Dioxide 26 mmol/L (22-29); Chloride 98 mmol/L (98-107); Estimated GFR-MDRD 40; Globulin 3.3 g/dL (2.4-3.5); Glucose 350 mg/dL (70-105); Lipase 54 U/L (8-78); Potassium 5.4 mmol/L (3.5-5.1); Protein, Total 6.3 g/dL (6.0-8.3); Sodium 130 mmol/L (136-145)
[2018-01-20 14:16] LABS: CKMB 1.1 ng/mL (0-6.6); Troponin I Less than 0.010 ng/mL (< 0.028)
--- NOTE | 2018-01-20 15:28 | HP ---
PRIMARY CARE PHYSICIAN: Nick Mora. REASON FOR ADMISSION: Rule out stroke. HISTORY OF PRESENT ILLNESS: A 57-year-old -Maced[place] female who has underlying history of diab etes type 2, hypertension, chronic kidney disease, anxiety, depression and bipolar disorder who had e pisode of fall about an hour ago prior to coming to the Emergency Room and subsequently she was hurti ng in her left knee and bilateral foot. She did not lose consciousness. She did not have any dizzin ess. She did not have any chest pain, palpitation. She does not explain why she fell down. While i n the emergency room, patient was having slurred speech and that is why everybody was concerned about stroke and patient had a stroke workup in the emergency room. This patient is a very poor historian . Her CT brain, head and neck CT angiography with brain perfusion study came back normal. Her knee x-ray was unremarkable. This patient also presented to emergency room yesterday with similar type of presentation and she was discharged home from the ER. This patient has multiple admissions in our h ospital. At this point, we are keeping this patient in hospital for neuro check. REVIEW OF SYSTEMS: The following complete review of systems was negative, unless otherwise mentioned in the HPI or below: Constitutional: Weight loss or gain, ability to conduct usual activities. Skin: Rash, itching. Eyes: Double vision, pain. ENT/Mouth: Nose bleeding, neck stiffness, pain, tenderness. Cardiovascular: Palpitations, dyspnea on exertion, orthopnea. Respiratory: Shortness of breath, wheezing, cough, hemoptysis, fever or night sweats. Gastrointestinal: Poor appetite, abdominal pain, heartburn, nausea, vomiting, constipation, or diarr hea. Genitourinary: Urgency, frequency, dysuria, nocturia. Musculoskeletal: Pain, swelling. Neurologic/Psychiatric: Anxiety, depression. Allergy/Immunologic: Skin rash, bleeding tendency. Please see my HPI for pertinent positive and negative. All other review of systems reviewed and nega tive except as mentioned in the HPI. ALLERGIES: CHOCOLATE FLAVOR, CODEINE SULFATE, ORANGE FLAVOR, PENICILLIN, TRAMADOL. CURRENT HOME MEDICATIONS: The patient did not bring her home medication, but based on our hospital r ecord, the patient is on following medications: Amlodipine 10 mg p.o. daily, aspirin 81 mg p.o. shobha y, Buspirone 10 mg p.o. t.i.d., carbamazepine 100 mg p.o. b.i.d., Coreg 25 mg p.o. b.i.d., doxepin 10 mg p.o. at bedtime, TriCor 145 mg p.o. daily, Lasix 40 mg p.o. daily, Glucotrol 5 mg p.o. b.i.d., Hu malog insulin 50 units subcu t.i.d., Lantus insulin 65 units subcutaneously b.i.d., losartan 100 mg p .o. daily, multivitamin 1 tablet p.o. daily, pravastatin 40 mg p.o. at bedtime, Lyrica 75 mg p.o. b.i .d., risperidone 50 mg IM as directed, albuterol sulfate nebulization q.6 hourly p.r.n., Januvia 100 mg p.o. daily, Effexor XR 150 mg p.o. daily. PAST MEDICAL HISTORY: Chronic low back pain, osteoarthritis, morbid obesity, chronic diastolic heart failure, diabetes type 2, hypertension, COPD/asthma, diabetic neuropathy, dyslipidemia. PAST PSYCHIATRIC HISTORY: Anxiety, depression, bipolar disorder, schizophrenia. Patient required [facility] admission in 2015. PAST SURGICAL HISTORY: Cholecystectomy and umbilical hernia repair. SOCIAL HISTORY: Patient lives at home with her parents. She has caregiver. No history of tobacco, alcohol or illicit drug abuse. FAMILY HISTORY: Positive for diabetes, hypertension, heart disease as well as cancer [facility] EMERGENCY ROOM COURSE: Patient is given aspirin 324 mg, IV fluid. PHYSICAL EXAMINATION: VITAL SIGNS: On arrival, blood pressure 138/83, pulse 94, respiratory rate 20, temperature 97.5, sat uration 95% on room air, weight 125.8 kilograms. GENERAL: Patient is currently alert, awake, no obvious acute distress. HEAD: Normocephalic, atraumatic. EYES: Pupils round, reactive to light. Extraocular muscle intact. ENT: Oropharynx within normal limits. Moist mucous membranes. No oral lesion. No pharyngeal eryth veronique. Tardive dyskinetic movement noted on face. NECK: Supple, no JVD, no thyromegaly, no carotid bruit, no meningeal signs of irritation. LUNGS: Clear to auscultation without any rhonchi or rales. CARDIAC: S1 and S2 regular without any murmur. ABDOMEN: Morbid obesity limiting examination. Bowel sounds present, nontender, nondistended. No or ganomegaly, no mass, no suprapubic tenderness. BACK: Examination unremarkable, no CVA tenderness. EXTREMITIES: Upper extremity passive movements of all joints are normal. Lower extremities: Bilate ral trace lower extremity edema noted. Good distal pulsation. SKIN: No skin rash. HEMATOLOGICAL SYSTEM: No lymphadenopathy. PSYCHIATRIC: Normal affect. SIGNIFICANT LABORATORY DATA AND IMAGING DATA: 1. CBC: WBC 6.4, hemoglobin 10.4, platelet 179. INR 1.1. 2. BMP: Sodium 130, potassium 5.4, chloride 98, carbon dioxide 26, anion gap 11, BUN 34, creatinine 1.61, glucose 50, calcium 8.6. 3. LFT: AST 21, ALT 26, alkaline phosphatase 178, albumin 3.0, lipase 54, lipase, CK-MB 1.1, tropon in I less than 0.010. 4. CT brain based on my review, no acute intracranial hemorrhage or fracture. No intracranial hemor rhage. 5. Left knee x-ray based on my review, no fracture or dislocation. 6. CT angiography with brain perfusion study, no acute intracranial process, focal stenosis noted at the origin of the cervical right ICA. ASSESSMENT AND PLAN/IMPRESSION: 1. Mechanical fall and subsequent knee pain. This patient has morbid obesity. Her fall may be mult ifactorial etiology. Doubt this patient has any stroke symptoms. Currently, pain is related with br uits, but she does not have any fracture. Her range of motion is completely normal. We will control her pain with pain medication while in hospital. 2. Slurred speech. In the emergency room, they have noted slurred speech and stroke workup was done and that is completely normal. This patient has tardive dyskinesia from underlying psychiatric prob guero and psychotic medication and that is why her speech appears to be slurred, but based on my previo us assessment with this patient as well, this patient is up to her baseline. She does not have any f ocal neurological deficit clinically. Though speech is slurred, but seems like to be baseline, but w e will try to keep her in the hospital for observation and we will do neuro check and we will do MRI brain to rule out any stroke. 3. Diabetes type 2, chronically well uncontrolled and we will continue Humalog insulin 50 units t.i. d. and Lantus insulin 65 units subcu b.i.d. along with glipizide as well as Januvia as per home dosag e and control insulin with aggressive sliding scale insulin and diabetic diet will be given. 4. Hypertension. Continue Coreg 25 mg p.o. b.i.d., amlodipine 10 mg daily, losartan 100 mg p.o. nahum ly. 5. Anxiety, depression, bipolar disorder, and schizophrenia. Continue risperidone. Take Tegretol, doxepin, buspirone, Effexor XR as per home dosage. 6. Diabetic neuropathy. Continue Lyrica 75 mg p.o. b.i.d. 7. Dyslipidemia. Continue TriCor 145 mg p.o. daily and pravastatin 40 mg p.o. at bedtime. 8. Morbid obesity. Dietary education given and weight loss education given. 9. Hyponatremia likely due to pseudohyponatremia from uncontrolled blood sugar. We will repeat BMP tomorrow. 10. Mild hyperkalemia. We will repeat BMP tomorrow. 11. Chronic kidney disease stage 3. We will monitor renal function and avoid nephrotoxin agent. 12. Anemia, normocytic normochromic, multivitamin 1 tablet p.o. daily. 13. Deep venous thrombosis prophylaxis, Lovenox 40 mg subcu daily. 14. Gastrointestinal prophylaxis, Pepcid 20 mg p.o. b.i.d. CODE STATUS: Patient is FULL CODE. Patient's mother is surrogate decision maker. Disposition plan based on clinical course likely within 24 hours. Plan of care discussed with the solo dubois in detail.
[2018-01-20] MEDS ORDERED: HumaLOG 300 UNITS/3 ML VIAL SC PRN (19:19)
[2018-01-20] MEDS ORDERED: Eucerin (Mineral Oil/Petrolatum,White) 30 gm Jar TOP PRN (19:19)
[2018-01-20] MEDS ORDERED: Ondansetron HCl/PF 4 MG/2 ML Vial IVP PRN (19:19)
[2018-01-20] MEDS ORDERED: hydrALAZINE 20 MG/ML VIAL SLOW IVP PRN (19:19)
[2018-01-20] MEDS ORDERED: Zolpidem Tartrate 5 MG TAB PO PRN (19:19)
[2018-01-20] MEDS ORDERED: Dextrose 5% in Water 1,000 ML IV PRN (19:19)
[2018-01-20] MEDS ORDERED: Mag-Al 1200 mg/1200 mg/30 ML UDCUP PO PRN (19:19)
[2018-01-20] MEDS ORDERED: Milk Of Magnesia 30 ML UDCUP PO PRN (19:19)
[2018-01-20] MEDS ORDERED: Ondansetron ODT 4 MG TAB PO PRN (19:19)
[2018-01-20] MEDS ORDERED: Sodium Chloride 0.65% Nasal 44 ML BOT EA NARE PRN (19:19)
[2018-01-20] MEDS ORDERED: Loperamide HCl 2 MG CAP PO PRN (19:19)
[2018-01-20] MEDS ORDERED: Loratadine 10 MG TAB PO PRN (19:19)
[2018-01-20] MEDS ORDERED: Artificial Tears 18 DROP/0.9 ML EA EYE PRN (19:19)
[2018-01-20] MEDS ORDERED: Diabetic Tussin 200 MG/10 ML UDCUP PO PRN (19:19)
[2018-01-20] MEDS ORDERED: Dextrose 50% Abboject 50 ML SYRINGE SLOW IVP PRN (19:19)
[2018-01-20] MEDS ORDERED: busPIRone HCl 10 MG TAB PO SCH (19:45)
[2018-01-20] MEDS ORDERED: HumaLOG 300 UNITS/3 ML VIAL SC SCH (19:45)
[2018-01-20] MEDS ORDERED: glipiZIDE 5 MG TAB PO SCH (19:45)
[2018-01-20 22:29] VITALS: BMI 43.9
[2018-01-20] MEDS: Pregabalin 75 MG CAP PO SCH (22:31)
[2018-01-20] MEDS: Carvedilol 25 MG TAB PO SCH (22:32)
[2018-01-20] MEDS: Famotidine 20 MG TAB PO SCH (22:32)
[2018-01-20] MEDS: Pravastatin Sodium 40 MG TAB PO SCH (22:33)
[2018-01-20] MEDS: Doxepin HCl 10 MG CAP PO SCH (22:33)
[2018-01-20] MEDS: carBAMazepine 100 mg Chewable Tablet PO SCH (22:33)
[2018-01-20] MEDS: Heparin 5,000 UNITS/ML VIAL SC SCH (22:33)
[2018-01-20] MEDS: INSULIN DETEMIR SC SCH (22:33)
[2018-01-21 05:33] LABS: #Eosinphils 0.2 thou/uL (0.0-0.7); #Lymphocytes 2.1 thou/uL (1.20-3.40); #Monocytes 0.8 thou/uL (0.11-0.59); #Neutrophils 3.9 thou/uL (1.40-6.50); %Basophils 0.6 % (0.0-1.0); %Eosinophils 2.6 % (0.0-10.0); %Lymphocytes 29.3 % (21.0-51.0); %Monocytes 11.7 % (0.0-10.0); %Neutrophils 55.9 % (42.0-75.0); Hemoglobin 10.9 g/dL (12.0-16.0); Mean Corpuscular HGB CONC 33.9 g/dL (32.0-36.0); Mean Corpuscular Hemoglobin 28.4 pg (27.0-31.0); Mean Corpuscular Volume 83.8 fl (81.0-99.0); Mean Platelet Volume 7.9 fL (7.4-10.4); Platelet Count 201 thou/uL (130-400); RBC Distribution Width 12.4 % (11.5-14.5); Red Blood Cell (RBC) Count 3.85 mill/uL (4.20-5.40)
[2018-01-21 05:58] LABS: Anion Gap 12 mmol/L (10-20); BUN (Urea Nitrogen) 38 mg/dL (9.8-20.1); Calc. Creatinine Clearance 48 mL/min (70-130); Calcium 9.4 mg/dL (7.8-10.44); Carbon Dioxide 28 mmol/L (22-29); Cardiac Risk 7.1 (Less than 4.5); Chloride 102 mmol/L (98-107); Cholesterol 156 mg/dl (< 200 Desired); Estimated GFR-MDRD 27; Glucose 240 mg/dL (70-105); HDL Cholesterol 22 mg/dL (>60 Neg Risk); Potassium 5.5 mmol/L (3.5-5.1); Sodium 136 mmol/L (136-145); Triglycerides 445 mg/dL (Less than 150)
[2018-01-21] MEDS: glipiZIDE 5 MG TAB PO SCH ×2 (06:47→14:52)
[2018-01-21] MEDS: HumaLOG 300 UNITS/3 ML VIAL SC PRN ×2 (06:48→13:45)
[2018-01-21] MEDS ORDERED: Enoxaparin Sodium 40 MG/0.4 ML SYRINGE SC SCH (09:00)
[2018-01-21] MEDS ORDERED: Losartan 25 MG TAB PO SCH (09:00)
[2018-01-21] MEDS ORDERED: Furosemide 40 MG TAB PO SCH (09:00)
[2018-01-21] MEDS: Aspirin 325 mg Enteric Coated Tablet PO SCH (09:48)
[2018-01-21] MEDS: Amlodipine 10 MG TAB PO SCH (09:48)
[2018-01-21] MEDS: Alogliptin 25 MG TAB PO SCH (09:48)
[2018-01-21] MEDS: Multivitamin W/ Minerals 1 TAB PO SCH (09:48)
[2018-01-21] MEDS: Carvedilol 25 MG TAB PO SCH ×2 (09:48→20:17)
[2018-01-21] MEDS: Fenofibrate Nanocrystallized 145 MG TAB PO SCH (09:48)
[2018-01-21] MEDS: Venlafaxine HCl XR 75 MG CAP PO SCH (09:48)
[2018-01-21] MEDS: Pregabalin 75 MG CAP PO SCH ×2 (09:49→20:18)
[2018-01-21] MEDS: carBAMazepine 100 mg Chewable Tablet PO SCH ×2 (09:49→20:17)
[2018-01-21] MEDS: busPIRone HCl 10 MG TAB PO SCH ×3 (09:49→20:16)
[2018-01-21] MEDS: Heparin 5,000 UNITS/ML VIAL SC SCH ×2 (09:49→20:19)
[2018-01-21] MEDS: HumaLOG 300 UNITS/3 ML VIAL SC SCH ×3 (09:50→18:18)
[2018-01-21] MEDS: INSULIN DETEMIR SC SCH ×2 (09:50→20:20)
[2018-01-21] MEDS: Sodium Chloride 0.9% 1,000 ML IV SCH ×2 (10:24→18:18)
--- NOTE | 2018-01-21 12:45 | MRI ---
BRAIN MRI WITHOUT CONTRAST: Date: 01/21/18 HISTORY: Transient ischemic attack. New onset slurred speech. Stroke. COMPARISON: None. TECHNIQUE: Brain MRI is performed without intravenous Gadolinium administration. Multisequential, multiplanar im aging is performed. FINDINGS: No hemorrhage on the axial gradient echo sequence. Calvarium has a normal T1 marrow signal intensity. Midline brain parenchymal structures are intact. No parenchymal mass, mass effect, or midline shift. Age-appropriate brain volume. Cortical arias-white matter differentiation preserved. Ventricles and sulci are patent and symmetric. Central arterial flow-voids are maintained. Absent res tricted diffusion. Partial opacification of the left mastoid air cells. Remaining sinuses and mastoid air cells are adeq uately aerated. There are T2 and FLAIR white matter hyperintensities due to chronic small vessel ischemic change. IMPRESSION: 1. Limited evaluation due to motion degradation on multiple sequences. 2. Absent restricted diffusion. No acute infarct. POS: [facility]
[2018-01-21 12:50] LABS: Anion Gap 13 mmol/L (10-20); BUN (Urea Nitrogen) 39 mg/dL (9.8-20.1); Calc. Creatinine Clearance 38 mL/min (70-130); Calcium 9.3 mg/dL (7.8-10.44); Carbon Dioxide 26 mmol/L (22-29); Chloride 102 mmol/L (98-107); Estimated GFR-MDRD 20; Glucose 213 mg/dL (70-105); Potassium 5.2 mmol/L (3.5-5.1); Sodium 136 mmol/L (136-145)
--- NOTE | 2018-01-21 13:06 | PDOC.PN ---
- Subjective Encounter Start Date: 01/21/18 Encounter Start Time: 10:15 -: old records requested/rev Patient seen and examined. No new complaints. No overnight events unchanged from yesterday - Objective Resuscitation Status: Resuscitation Status FULL:Full Resuscitation MAR Reviewed: Yes Vital Signs & Weight: Vital Signs (12 hours) Temp Pulse Pulse Pulse Pulse Resp BP 01/21/18 12:00 97.9 F 95 20 01/21/18 09:48 97 01/21/18 08:59 105 H 103 H 103 H 140/80 01/21/18 07:47 98.2 F 97 18 01/21/18 03:24 98.9 F 121 H 16 01/21/18 02:50 BP BP BP Pulse Ox 01/21/18 12:00 148/77 H 91 L 01/21/18 09:48 01/21/18 08:59 144/74 H 156/77 H 01/21/18 07:47 132/65 99 01/21/18 03:24 133/96 H 97 01/21/18 02:50 99 Weight Weight 248 lb 6.4 oz I&O: 01/20/18 01/21/18 01/22/18 06:59 06:59 06:59 Intake Total 240 Balance 240 Result Diagrams: 01/21/18 04:49 01/21/18 12:08 Additional Labs: Accuchecks 01/21/18 01/21/18 01/21/18 10:54 09:58 05:40 POC Glucose 321 H 264 H 249 H 01/20/18 22:21 POC Glucose 344 H Radiology Reviewed by me: Yes (MRI) EKG Reviewed by me: Yes Phys Exam - Physical Examination Constitutional: NAD HEENT: PERRLA, moist MMs, sclera anicteric Neck: no JVD, supple Respiratory: no wheezing, no rales, no rhonchi Cardiovascular: RRR, no significant murmur, no rub Gastrointestinal: soft, non-tender, no distention, positive bowel sounds Musculoskeletal: no edema, pulses present Neurological: non-focal, moves all 4 limbs Lymphatic: no nodes Psychiatric: normal affect Skin: no rash, normal turgor Dx/Plan (1) Acute worsening of stage 3 chronic kidney disease Code(s): N18.3 - CHRONIC KIDNEY DISEASE, STAGE 3 (MODERATE) Status: Acute (2) Hyperkalemia Code(s): E87.5 - HYPERKALEMIA Status: Acute (3) Hyponatremia Code(s): E87.1 - HYPO-OSMOLALITY AND HYPONATREMIA Status: Acute Comment: (4) Slurred speech Code(s): R47.81 - SLURRED SPEECH Status: Acute (5) Anemia, normocytic normochromic Code(s): D64.9 - ANEMIA, UNSPECIFIED Status: Chronic (6) Chronic low back pain Code(s): M54.5 - LOW BACK PAIN; G89.29 - OTHER CHRONIC PAIN Status: Chronic (7) Diabetes mellitus type 2, uncontrolled Code(s): E11.65 - TYPE 2 DIABETES MELLITUS WITH HYPERGLYCEMIA Status: Chronic Qualifiers: (8) Diabetic gastroparesis Code(s): E11.43 - TYPE 2 DIABETES W DIABETIC AUTONOMIC (POLY)NEUROPATHY; K31.84 - GASTROPARESIS Status: Chronic Comment: (9) Dyslipidemia Code(s): E78.5 - HYPERLIPIDEMIA, UNSPECIFIED Status: Chronic (10) GERD (gastroesophageal reflux disease) Code(s): K21.9 - GASTRO-ESOPHAGEAL REFLUX DISEASE WITHOUT ESOPHAGITIS Status: Chronic (11) Hypertension Code(s): I10 - ESSENTIAL (PRIMARY) HYPERTENSION Status: Chronic Qualifiers: (12) Obesity, morbid, BMI 40.0-49.9 Code(s): E66.01 - MORBID (SEVERE) OBESITY DUE TO EXCESS CALORIES Status: Chronic (13) Schizoaffective disorder Code(s): F25.9 - SCHIZOAFFECTIVE DISORDER, UNSPECIFIED Status: Chronic Qualifiers: - Plan cont current plan of care, PT/OT, transition social worker * start IVF for elevated creatinine * repeat labs tomorrow * give kayexalate for hyperkalemia * hold lasix, and losartan * medication reviewed as below * symptomatic treatment * consult rehab for rehab placement * selected home meds * MRI is negative for CVA * consult CT surgeon for carotid stenosis. Review of Systems - Review of Systems Other: not reliable with pt due to her level of cognitive status - Medications/Allergies Allergies/Adverse Reactions: Allergies Allergy/AdvReac Type Severity Reaction Status Date / Time Penicillins Allergy Unknown Verified 10/07/17 20:15 chocolate flavor Allergy Hives Verified 10/07/17 20:15 orange Allergy Hives Verified 10/07/17 20:15 orange flavor Allergy Hives Verified 10/07/17 20:15 tramadol Allergy Verified 10/07/17 20:15 Medications: Current Medications Acetaminophen (Tylenol) 650 mg PO Q4H PRN PRN Reason: Headache/Fever or Pain Al Hydroxide/Mg Hydroxide (Maalox) 30 ml PO Q6H PRN PRN Reason: Heartburn or Indigestion Alogliptin Benzoate (Alogliptin) 25 mg PO DAILY [facility] Last Admin: 01/21/18 09:48 Dose: 25 mg Amlodipine Besylate (Norvasc) 10 mg PO DAILY [facility] Last Admin: 01/21/18 09:48 Dose: 10 mg Artificial Tears (Tears Naturale) 0 drop EA EYE PRN PRN PRN Reason: Dry Eyes Aspirin (Ecotrin) 325 mg PO DAILY [facility] Last Admin: 01/21/18 09:48 Dose: 325 mg Buspirone HCl (Buspar) 10 mg PO TID [facility] Last Admin: 01/21/18 09:49 Dose: 10 mg Carbamazepine (Tegretol) 100 mg PO BID [facility] Last Admin: 01/21/18 09:49 Dose: 100 mg Carvedilol (Coreg) 25 mg PO BID [facility] Last Admin: 01/21/18 09:48 Dose: 25 mg Dextrose/Water (Dextrose 50%) 25 gm SLOW IVP PRN PRN PRN Reason: Hypoglycemia Doxepin HCl (Sinequan) 10 mg PO HS [facility] Last Admin: 01/20/18 22:33 Dose: 10 mg Famotidine (Pepcid) 20 mg PO QPM [facility] Last Admin: 01/20/18 22:32 Dose: 20 mg Fenofibrate (Tricor) 145 mg PO DAILY [facility] Last Admin: 01/21/18 09:48 Dose: 145 mg Glipizide (Glucotrol) 5 mg PO BID-AC [facility] Last Admin: 01/21/18 06:47 Dose: 5 mg Glucagon (Glucagon) 1 mg IM PRN PRN PRN Reason: Hypoglycemia Guaifenesin (Robitussin Sf) 200 mg PO Q4H PRN PRN Reason: Cough Heparin Sodium (Porcine) (Heparin) 5,000 units SC BID [facility] Last Admin: 01/21/18 09:49 Dose: 5,000 units Hydralazine HCl (Apresoline) 10 mg SLOW IVP Q4H PRN PRN Reason: Systolic BP > 180 Dextrose/Water (D5w) 1,000 mls @ 0 mls/hr IV .Q0M PRN; As Directed PRN Reason: Hypoglycemia Insulin Detemir 65 units/ (Miscellaneous Medication) 0.65 mls @ 0 mls/hr SC BID [facility] Last Admin: 01/21/18 09:50 Dose: 0.65 mls Sodium Chloride (Normal Saline 0.9%) 1,000 mls @ 125 mls/hr IV .Q8H [facility] Last Admin: 01/21/18 10:24 Dose: 1,000 mls Insulin Human Lispro (Humalog) 0 units SC .AGGRESSIVE SLIDING PRN PRN Reason: Aggressive Correctional Scale Last Admin: 01/21/18 06:48 Dose: 6 unit Insulin Human Lispro (Humalog) 0 units SC .BEDTIME SLIDING SC PRN PRN Reason: Bedtime Correctional Scale Insulin Human Lispro (Humalog) 50 units SC 0800 [facility] Last Admin: 01/21/18 09:50 Dose: 50 unit Insulin Human Lispro (Humalog) 50 units SC 1200 YARA Insulin Human Lispro (Humalog) 50 units SC 1700 [facility] Iron/Minerals/Multivitamins (Theragran M) 1 tab PO DAILY [facility] Last Admin: 01/21/18 09:48 Dose: 1 tab Loperamide HCl (Imodium) 2 mg PO PRN PRN PRN Reason: Diarrhea/Loose Stools Loratadine (Claritin) 10 mg PO DAILYPRN PRN PRN Reason: Sinus Symptoms Magnesium Hydroxide (Milk Of Magnesium) 30 ml PO DAILYPRN PRN PRN Reason: Constipation Mineral Oil/White Petrolatum (Eucerin Cream) 0 gm TOP BIDPRN PRN PRN Reason: Dry Skin Ondansetron HCl (Zofran Odt) 4 mg PO Q6H PRN PRN Reason: Nausea/Vomiting Ondansetron HCl (Zofran) 4 mg IVP Q6H PRN PRN Reason: Nausea/Vomiting Phenol (Chloraseptic [place] 180 Ml Bot) 0 ml PO PRN PRN PRN Reason: Sore Throat Pravastatin Sodium (Pravachol) 40 mg PO HS [facility] Last Admin: 01/20/18 22:33 Dose: 40 mg Pregabalin (Lyrica) 75 mg PO BID [facility] Last Admin: 01/21/18 09:49 Dose: 75 mg Senna (Senokot) 2 tab PO HSPRN PRN PRN Reason: Constipation Sodium Chloride ([place] Nasal [place] 0.65%) 0 ml EA NARE QIDPRN PRN PRN Reason: Nasal Congestion Sodium Chloride (Flush - Normal Saline) 10 ml IVF Q12HR [facility] Last Admin: 01/21/18 10:24 Dose: 10 ml Sodium Chloride (Flush - Normal Saline) 10 ml IVF PRN PRN PRN Reason: Saline Flush Venlafaxine HCl (Effexor Xr) 150 mg PO DAILY [facility] Last Admin: 01/21/18 09:48 Dose: 150 mg Zolpidem Tartrate (Ambien) 5 mg PO HSPRN PRN PRN Reason: Insomnia
[2018-01-21] MEDS: Senokot 8.6 MG TAB PO PRN (14:52)
[2018-01-21] MEDS: Doxepin HCl 10 MG CAP PO SCH (20:16)
[2018-01-21] MEDS: Pravastatin Sodium 40 MG TAB PO SCH (20:17)
[2018-01-21] MEDS: Famotidine 20 MG TAB PO SCH (20:20)
[2018-01-21] MEDS: Acetaminophen 325 MG TAB PO PRN (20:48)
[2018-01-22] MEDS: Sodium Chloride 0.9% 1,000 ML IV SCH ×3 (01:00→10:30)
--- NOTE | 2018-01-22 01:29 | CON ---
DATE OF CONSULTATION: 01/21/2018 REQUESTING PHYSICIAN: Dr. Yeboah with [facility]. CHIEF COMPLAINT: Slurred speech. HISTORY OF PRESENT ILLNESS: Patient is a 57-year-old black woman with diabetes with chronic renal in sufficiency and some psychiatric issues list of this anxiety, depression, and bipolar disorder. She says that she fell in the tub and hurt her knee. She says she did not strike her head or lose consci ousness. While in the emergency room being evaluated, she was noted to have some slurred speech. Hans hameed had no obvious motor deficits and on questioning, although she is a difficult historian. She does not seem to have had any monocular eye symptoms, any loss of use of one arm or one leg or any true pa resthesias. She does report that she has episodic issues with painful paresthesias that she says are her diabetic neuropathy. PAST MEDICAL HISTORY: As above. HOME MEDICATIONS: Listed as Norvasc, Coreg, Lasix, pravastatin, aspirin, buspirone, carbamazepine, d oxepin, risperidone, Effexor XR, Januvia, Humalog insulin, Lantus insulin, losartan, Glucotrol, TriCo r. ALLERGIES: She reports allergies to CODEINE, ORANGE FLAVORS PENICILLIN, CHOCOLATE FLAVORS PENICILLIN , TRAMADOL. SOCIAL HISTORY: Patient denies any smoking. She lives with her parents. FAMILY HISTORY: Significant for diabetes and hypertension. REVIEW OF SYSTEMS: Negative for any focal neurologic symptoms other than her neuropathy that is more prominent in her left arm than her right. PHYSICAL EXAMINATION: GENERAL: She is an obese black woman in no distress. She has intelligible speech for the most part. She has no obvious slurring. She is 5 feet 3, weighs 248.5 pounds. NECK: She has no carotid bruits. CHEST: Clear to auscultation. CARDIOVASCULAR: She has a regular rate and rhythm. ABDOMEN: Obese, soft, and nontender. NEUROLOGIC: Cranial nerves II-XII appeared to be grossly intact as his upper and lower extremity str ength. She has palpable radial and dorsalis pedis pulses. EXTREMITIES: No clubbing, cyanosis, or edema. LABORATORY EXAM: On presentation, she had a white count of 6.4, hemoglobin of 10.4, and platelets of 179,000. Her potassium is 5.4, BUN 34, creatinine 1.61, glucose 350, alkaline phosphatase is 178. Otherwise, LFTs were normal. Albumin is 3.0. She underwent CT angiography of the head and neck, whi ch showed some plaque in her carotids is much more pronounced on the right, but no apparent significa nt stenosis on the axial cuts or perhaps was about a 60% lesion near the right carotid bifurcation. There was not readily appreciable on the sagittal views or coronal views, although admittedly the cor onals had a lot of scatter artifacts. There was no stenosis appreciable on the left side. Her creat inine in the next morning bumped up to 2.25 and this afternoon was 2.88. IMPRESSION AND RECOMMENDATIONS: As best I could tell, the patient does not have any transient ischem ic attack symptoms. She probably does not have any significant carotid stenosis what stenosis she mi ght would seem to be right-sided, which would not account for the dysarthria that she had. She proba anshu does warrant surveillance given her diabetes and renal insufficiency and that demonstrated plaque in her carotids. I would expect that annual surveillance will probably suffice and I will plan on f ollowing her up in the office.
[2018-01-22 05:30] LABS: Anion Gap 15 mmol/L (10-20); BUN (Urea Nitrogen) 42 mg/dL (9.8-20.1); BUN/Creatinine Ratio 12.35; Calc. Creatinine Clearance 32 mL/min (70-130); Calcium 8.8 mg/dL (7.8-10.44); Carbon Dioxide 24 mmol/L (22-29); Chloride 101 mmol/L (98-107); Estimated GFR-MDRD 17; Glucose 218 mg/dL (70-105); Potassium 5.6 mmol/L (3.5-5.1); Sodium 134 mmol/L (136-145)
[2018-01-22] MEDS: Alogliptin 25 MG TAB PO SCH (08:12)
[2018-01-22] MEDS: glipiZIDE 5 MG TAB PO SCH ×2 (08:12→15:51)
[2018-01-22] MEDS: Carvedilol 25 MG TAB PO SCH ×2 (08:13→20:13)
[2018-01-22] MEDS: carBAMazepine 100 mg Chewable Tablet PO SCH ×2 (08:13→20:15)
[2018-01-22] MEDS: busPIRone HCl 10 MG TAB PO SCH ×3 (08:13→20:13)
[2018-01-22] MEDS: Fenofibrate Nanocrystallized 145 MG TAB PO SCH (08:14)
[2018-01-22] MEDS: Pregabalin 75 MG CAP PO SCH ×2 (08:14→20:12)
[2018-01-22] MEDS: Aspirin 325 mg Enteric Coated Tablet PO SCH (08:14)
[2018-01-22] MEDS: Heparin 5,000 UNITS/ML VIAL SC SCH ×2 (08:16→20:16)
[2018-01-22] MEDS: Multivitamin W/ Minerals 1 TAB PO SCH (08:16)
[2018-01-22] MEDS: Amlodipine 10 MG TAB PO SCH (08:26)
[2018-01-22] MEDS: Venlafaxine HCl XR 75 MG CAP PO SCH (08:26)
[2018-01-22] MEDS: HumaLOG 300 UNITS/3 ML VIAL SC SCH ×3 (08:39→19:33)
--- NOTE | 2018-01-22 09:39 | PDOC.PN ---
- Subjective Encounter Start Date: 01/22/18 Encounter Start Time: 06:30 pt has diffuse arthritic pain, not doing well with PT, today creatinine is elevated - Objective MAR Reviewed: Yes Vital Signs & Weight: Vital Signs (12 hours) Temp Pulse Resp BP BP Pulse Ox 01/22/18 08:26 98 181/88 H 01/22/18 07:41 97.5 F L 98 18 181/88 H 90 L I&O: 01/21/18 01/22/18 01/23/18 06:59 06:59 06:59 Intake Total 1688 500 Balance 1688 500 Result Diagrams: 01/21/18 04:49 01/22/18 05:09 Phys Exam - Physical Examination Constitutional: NAD HEENT: PERRLA, moist MMs, sclera anicteric Neck: no JVD, supple Respiratory: no wheezing, no rales, no rhonchi Cardiovascular: RRR, no significant murmur, no rub Gastrointestinal: soft, non-tender, no distention, positive bowel sounds morbid obesity+ Musculoskeletal: no edema, pulses present Neurological: moves all 4 limbs Lymphatic: no nodes Psychiatric: normal affect Skin: no rash, normal turgor Dx/Plan (1) Acute worsening of stage 3 chronic kidney disease Code(s): N18.3 - CHRONIC KIDNEY DISEASE, STAGE 3 (MODERATE) Status: Acute (2) Hyperkalemia Code(s): E87.5 - HYPERKALEMIA Status: Acute (3) Hyponatremia Code(s): E87.1 - HYPO-OSMOLALITY AND HYPONATREMIA Status: Acute Comment: (4) Slurred speech Code(s): R47.81 - SLURRED SPEECH Status: Acute (5) Anemia, normocytic normochromic Code(s): D64.9 - ANEMIA, UNSPECIFIED Status: Chronic (6) Chronic low back pain Code(s): M54.5 - LOW BACK PAIN; G89.29 - OTHER CHRONIC PAIN Status: Chronic (7) Diabetes mellitus type 2, uncontrolled Code(s): E11.65 - TYPE 2 DIABETES MELLITUS WITH HYPERGLYCEMIA Status: Chronic Qualifiers: (8) Diabetic gastroparesis Code(s): E11.43 - TYPE 2 DIABETES W DIABETIC AUTONOMIC (POLY)NEUROPATHY; K31.84 - GASTROPARESIS Status: Chronic Comment: (9) Dyslipidemia Code(s): E78.5 - HYPERLIPIDEMIA, UNSPECIFIED Status: Chronic (10) GERD (gastroesophageal reflux disease) Code(s): K21.9 - GASTRO-ESOPHAGEAL REFLUX DISEASE WITHOUT ESOPHAGITIS Status: Chronic (11) Hypertension Code(s): I10 - ESSENTIAL (PRIMARY) HYPERTENSION Status: Chronic Qualifiers: (12) Obesity, morbid, BMI 40.0-49.9 Code(s): E66.01 - MORBID (SEVERE) OBESITY DUE TO EXCESS CALORIES Status: Chronic (13) Schizoaffective disorder Code(s): F25.9 - SCHIZOAFFECTIVE DISORDER, UNSPECIFIED Status: Chronic Qualifiers: - Plan cont current plan of care, PT/OT, licensed social worker * continue gentle IVF * still creatinine is elevated and K is high, not stable for discharge, will change to inpt status * consult nephrology today. * will give one dose of kayexalate * will need rehab if accepted * medication reviewed as below * symptomatic treatment * will monitor Review of Systems - Review of Systems Constitutional: weakness. negative: fever, chills, sweats, malaise, other Respiratory: negative: Cough, Dry, Shortness of Breath, Hemoptysis, SOB with Excertion, Pleuritic Pain, Sputum, Wheezing Cardiovascular: negative: chest pain, palpitations, orthopnea, paroxysmal nocturnal dyspnea, edema, light headedness, other Gastrointestinal: negative: Nausea, Vomiting, Abdominal Pain, Diarrhea, Constipation, Melena, Hematochezia, Other Genitourinary: negative: Dysuria, Frequency, Incontinence, Hematuria, Retention , Other Musculoskeletal: Other (diffuse arthralgia). negative: Neck Pain, Shoulder Pain , Arm Pain, Back Pain, Hand Pain, Leg Pain, Foot Pain Skin: negative: Rash, Lesions, Abilio, Bruising, Other - Medications/Allergies Allergies/Adverse Reactions: Allergies Allergy/AdvReac Type Severity Reaction Status Date / Time Penicillins Allergy Unknown Verified 10/07/17 20:15 chocolate flavor Allergy Hives Verified 10/07/17 20:15 orange Allergy Hives Verified 10/07/17 20:15 orange flavor Allergy Hives Verified 10/07/17 20:15 tramadol Allergy Verified 10/07/17 20:15 Medications: Current Medications Acetaminophen (Tylenol) 650 mg PO Q4H PRN PRN Reason: Headache/Fever or Pain Last Admin: 01/21/18 20:48 Dose: 650 mg Al Hydroxide/Mg Hydroxide (Maalox) 30 ml PO Q6H PRN PRN Reason: Heartburn or Indigestion Alogliptin Benzoate (Alogliptin) 25 mg PO DAILY [facility] Last Admin: 01/22/18 08:12 Dose: 25 mg Amlodipine Besylate (Norvasc) 10 mg PO DAILY [facility] Last Admin: 01/22/18 08:26 Dose: 10 mg Artificial Tears (Tears Naturale) 0 drop EA EYE PRN PRN PRN Reason: Dry Eyes Aspirin (Ecotrin) 325 mg PO DAILY [facility] Last Admin: 01/22/18 08:14 Dose: 325 mg Buspirone HCl (Buspar) 10 mg PO TID [facility] Last Admin: 01/22/18 08:13 Dose: 10 mg Carbamazepine (Tegretol) 100 mg PO BID [facility] Last Admin: 01/22/18 08:13 Dose: 100 mg Carvedilol (Coreg) 25 mg PO BID [facility] Last Admin: 01/22/18 08:13 Dose: 25 mg Dextrose/Water (Dextrose 50%) 25 gm SLOW IVP PRN PRN PRN Reason: Hypoglycemia Doxepin HCl (Sinequan) 10 mg PO HS [facility] Last Admin: 01/21/18 20:16 Dose: 10 mg Famotidine (Pepcid) 20 mg PO QPM [facility] Last Admin: 01/21/18 20:20 Dose: 20 mg Fenofibrate (Tricor) 145 mg PO DAILY [facility] Last Admin: 01/22/18 08:14 Dose: 145 mg Glipizide (Glucotrol) 5 mg PO BID-AC [facility] Last Admin: 01/22/18 08:12 Dose: 5 mg Glucagon (Glucagon) 1 mg IM PRN PRN PRN Reason: Hypoglycemia Guaifenesin (Robitussin Sf) 200 mg PO Q4H PRN PRN Reason: Cough Heparin Sodium (Porcine) (Heparin) 5,000 units SC BID [facility] Last Admin: 01/22/18 08:16 Dose: 5,000 units Hydralazine HCl (Apresoline) 10 mg SLOW IVP Q4H PRN PRN Reason: Systolic BP > 180 Dextrose/Water (D5w) 1,000 mls @ 0 mls/hr IV .Q0M PRN; As Directed PRN Reason: Hypoglycemia Insulin Detemir 65 units/ (Miscellaneous Medication) 0.65 mls @ 0 mls/hr SC BID [facility] Last Admin: 01/21/18 20:20 Dose: 0.65 mls Sodium Chloride (Normal Saline 0.9%) 1,000 mls @ 75 mls/hr IV .[id number] [facility] Last Admin: 01/22/18 06:30 Dose: 1,000 mls Insulin Human Lispro (Humalog) 0 units SC .AGGRESSIVE SLIDING PRN PRN Reason: Aggressive Correctional Scale Last Admin: 01/21/18 13:45 Dose: 3 unit Insulin Human Lispro (Humalog) 0 units SC .BEDTIME SLIDING SC PRN PRN Reason: Bedtime Correctional Scale Last Admin: 01/21/18 20:21 Dose: 2 unit Insulin Human Lispro (Humalog) 50 units SC 0800 [facility] Last Admin: 01/22/18 08:39 Dose: 50 unit Insulin Human Lispro (Humalog) 50 units SC 1200 [facility] Last Admin: 01/21/18 13:41 Dose: Not Given Insulin Human Lispro (Humalog) 50 units SC 1700 [facility] Last Admin: 01/21/18 18:18 Dose: 50 unit Iron/Minerals/Multivitamins (Theragran M) 1 tab PO DAILY [facility] Last Admin: 01/22/18 08:16 Dose: 1 tab Loperamide HCl (Imodium) 2 mg PO PRN PRN PRN Reason: Diarrhea/Loose Stools Loratadine (Claritin) 10 mg PO DAILYPRN PRN PRN Reason: Sinus Symptoms Magnesium Hydroxide (Milk Of Magnesium) 30 ml PO DAILYPRN PRN PRN Reason: Constipation Mineral Oil/White Petrolatum (Eucerin Cream) 0 gm TOP BIDPRN PRN PRN Reason: Dry Skin Ondansetron HCl (Zofran Odt) 4 mg PO Q6H PRN PRN Reason: Nausea/Vomiting Ondansetron HCl (Zofran) 4 mg IVP Q6H PRN PRN Reason: Nausea/Vomiting Phenol (Chloraseptic [place] 180 Ml Bot) 0 ml PO PRN PRN PRN Reason: Sore Throat Pravastatin Sodium (Pravachol) 40 mg PO HS [facility] Last Admin: 01/21/18 20:17 Dose: 40 mg Pregabalin (Lyrica) 75 mg PO BID [facility] Last Admin: 01/22/18 08:14 Dose: 75 mg Senna (Senokot) 2 tab PO HSPRN PRN PRN Reason: Constipation Last Admin: 01/21/18 14:52 Dose: 2 tab Sodium Chloride ([place] Nasal [place] 0.65%) 0 ml EA NARE QIDPRN PRN PRN Reason: Nasal Congestion Sodium Chloride (Flush - Normal Saline) 10 ml IVF Q12HR [facility] Last Admin: 01/22/18 08:18 Dose: 10 ml Sodium Chloride (Flush - Normal Saline) 10 ml IVF PRN PRN PRN Reason: Saline Flush Venlafaxine HCl (Effexor Xr) 150 mg PO DAILY [facility] Last Admin: 01/22/18 08:26 Dose: 150 mg Zolpidem Tartrate (Ambien) 5 mg PO HSPRN PRN PRN Reason: Insomnia
[2018-01-22] MEDS: INSULIN DETEMIR SC SCH ×2 (10:31→22:53)
--- NOTE | 2018-01-22 12:13 | PQF ---
DATE: 01-22-18 ATTN: DR. JERONIMO BARROS Please exercise your independent, professional judgment in responding to the clarification form. Clinical indicators are provided on the bottom of this form for your review Please check appropriate box(s): [ ] Acute Renal Failure (ARF) / Acute Kidney Injury (ROSANNA) [ x] Acute on Chronic Renal Failure please specify Stage of CKD __3 (see below) [ ] CKD without ARF/ROSANNA please specify Stage of CKD [ ] Other diagnosis [ ] Unable to determine In addition, please specify: Present on Admission (POA): [ ] Yes [ ] No [ x ] Unable to determine National Kidney Foundation Guidelines for CKD Staging Stage I Kidney damage with normal or increased GFR GFR > 90 Stage II Kidney damage with mildly decreased GFR GFR 60-89 Stage III Kidney damage with moderately decreased GFR GFR 30-59 Stage IV Kidney damage with severely decreased GFR GFR 16-29 Stage V Kidney failure GFR<15 ESRD End Stage Renal Disease On dialysis Acute Renal Failure/Acute Kidney Failure defined as: Increases in SCr by (>) 0.3 mg/dl within 48 hours OR- Increases in SCr by (>) 1.5 times baseline, known or presumed to have occurred within the prior 7 days OR- Urine volume < 0.5 ml/kg/hour for 6 hours (KDIGO supplement 2012 for RIFLE/YOUSUF criteria) For continuity of documentation, please document condition throughout progress notes and discharge summary. Thank You. CLINICAL INDICATORS - SIGNS / SYMPTOMS / LABS H&P: CHRONIC KIDNEY DISEASE STAGE 3. WE WILL MONITOR RENAL FUNCTION AND AVOID NEPHROTOXIN AGENT. PN 01-22-18: ACUTE WORSENING OF STAGE 3 CHRONIC KIDNEY DISEASE GFR: 18: 40 18: 27 18: 20 01-22-18: 17 CREATININE: 01-20-18: 1.61 -18: 2.25 18: 2.88 4-4-18: 3.40 BUN: 4-2-18: 34 4-3-18: 38 4-3-18: 39 4-4-18: 42 RISK FACTORS: (ER) HOME LASIX, ASA, HYDROCHLOROTHIAZIDE TREATMENTS: H&P: CHRONIC KIDNEY DISEASE STAGE 3. WE WILL MONITOR RENAL FUNCTION AND AVOID NEPHROTOXIN AGENT. (ER) IVF (This form is maintained as a part of the permanent medical record) 2014 [employer]. All Rights Reserved HENRY [email or web address] Office: [phone] [facility] HOSPITALFelisa
[2018-01-22] MEDS: HumaLOG 300 UNITS/3 ML VIAL SC PRN (12:15)
[2018-01-22] MEDS: Sevelamer Carbonate 800 MG TAB PO SCH ×2 (12:15→18:06)
--- NOTE | 2018-01-22 13:56 | ULT ---
RENAL SONOGRAM: HISTORY: Acute renal insufficiency. FINDINGS: The right kidney is 11.5 cm and the left is 10.7 cm. Each has a normal appearance without evidence o f mass, stone, or hydronephrosis. Urinary bladder is incompletely distended. IMPRESSION: No evidence of urinary tract obstruction. No significant abnormalities are demonstrated. POS: LUIS
--- NOTE | 2018-01-22 15:27 | CON ---
DATE OF CONSULTATION: 01/22/2018 CONSULTING PHYSICIAN: Galen Yeboah M.D. REASON FOR CONSULTATION: Acute kidney injury. REASON FOR ADMISSION: Altered mentation. HISTORY OF PRESENT ILLNESS: This is a 57-year-old female with history of back pain, osteoarthritis, morbid obesity, diabetes who came to the hospital with above complaints and was found to have a creatinine of 1.6. She did have a CT angio on admission and creatinine went up from 1.6-3.4 today, 1.6 was 2 days back. She denies any complaints. No nausea or vomiting. She is also hyperkalemic. No chest pain. No shortness of breath. No fever or chills. PAST MEDICAL HISTORY: Positive for low back pain, osteoarthritis, morbid obesity, CHF, type 2 diabetes, hypertension, COPD, and dyslipidemia. PAST SURGICAL HISTORY: Cholecystectomy, umbilical hernia repair. HOME MEDICATIONS: Amlodipine, aspirin, buspirone, carbamazepine, Coreg, doxepin , Tricor, Lasix, Glucotrol, NovoLog, Lantus, losartan, multivitamin, pravastatin , Lyrica, Risperdal, albuterol, Januvia, Effexor. ALLERGIES: CHOCOLATE, CODEINE, ORANGE, PENICILLIN, and TRAMADOL. SOCIAL HISTORY: No smoking, alcohol, or illicit drugs. FAMILY HISTORY: Positive for diabetes and hypertension. REVIEW OF SYSTEMS: The following complete review of systems was negative, unless otherwise mentioned in the HPI or below: Constitutional: Weight loss or gain, ability to conduct usual activities. Skin: Rash, itching. Eyes: Double vision, pain. ENT/Mouth: Nose bleeding, neck stiffness, pain, tenderness. Cardiovascular: Palpitations, dyspnea on exertion, orthopnea. Respiratory: Shortness of breath, wheezing, cough, hemoptysis, fever or night sweats. Gastrointestinal: Poor appetite, abdominal pain, heartburn, nausea, vomiting, constipation, or diarrhea. Genitourinary: Urgency, frequency, dysuria, nocturia. Musculoskeletal: Pain, swelling. Neurologic/Psychiatric: Anxiety, depression. Allergy/Immunologic: Skin rash, bleeding tendency. PHYSICAL EXAMINATION GENERAL: This is an obese female, in no apparent distress. VITAL SIGNS: Temperature 97.5, pulse 90, respiratory 18, blood pressure 181/88. HEENT: Atraumatic, normocephalic. Oral mucosa is moist. NECK: Supple. HEART: S1, S2 heard. Rate and rhythm regular. RESPIRATORY: Clear. ABDOMEN: Soft. MUSCULOSKELETAL: No tenderness. No edema. DERMATOLOGIC: No skin rash. NEUROLOGIC: Alert, awake. PSYCHIATRIC: Mood and affect normal. LABORATORY DATA: Hemoglobin is 10.9, potassium is 5.6, BUN 42, creatinine 3.4. ASSESSMENT AND PLAN: 1. Acute kidney injury on chronic kidney disease secondary to most likely from contrast nephropathy. Agree with supportive care. No acute need for dialysis. 2. Hyperkalemia. We will change to a renal diet. 3. Hyponatremia 4. Hyperphosphatemia. 5. Hypoalbuminemia. Check urine studies. We will continue on IV fluids as tolerated. Avoid nephrotoxins. Medication list reviewed. Start on renal diet Renally dose all the medications. We will continue to follow. No acute need for dialysis. Thank you for consult. SILVERIO
[2018-01-22] MEDS: Acetaminophen 325 MG TAB PO PRN (15:51)
[2018-01-22 18:33] LABS: Bilirubin Negative (Negative); Blood, Urine Negative (Negative); Clarity CLEAR (Clear); Glucose, Urine (Dipstick) Negative (Negative); Leukocyte Negative (Negative); Nitrite Negative (Negative); Protein, Urine (Dipstick) 100 mg/dL (Neg-Trace); Specific Gravity, Urine 1.013 (1.002-1.036); Urobilinogen 0.2 mg/dL (0.2-1.0); pH, Urine 5.5 (5.0-9.0)
[2018-01-22 18:36] LABS: Bacteria/HPF None Seen HPF (None Seen); Hyaline Casts/LPF 0-3 HYALINE CAST LPF (0-3 Hyaline); Pathc Cast-AUWi Flag 0.14 (0-2.49); Squamous Epithelial 0-3 HPF (0-3); WBC/HPF 0-3 HPF (0-3)
[2018-01-22] MEDS: Pravastatin Sodium 40 MG TAB PO SCH (20:13)
[2018-01-22] MEDS: Chloraseptic Spray 180 ml Bottle PO PRN (20:14)
[2018-01-22] MEDS: Famotidine 20 MG TAB PO SCH (20:14)
[2018-01-22] MEDS: Doxepin HCl 10 MG CAP PO SCH (20:15)
[2018-01-23] MEDS: Acetaminophen 325 MG TAB PO PRN ×2 (02:19→16:07)
[2018-01-23] MEDS: Chloraseptic Spray 180 ml Bottle PO PRN ×2 (02:19→10:03)
[2018-01-23] MEDS: Sodium Chloride 0.9% 1,000 ML IV SCH ×2 (02:21→11:20)
[2018-01-23] MEDS: Venlafaxine HCl XR 75 MG CAP PO SCH (08:37)
[2018-01-23] MEDS: Pregabalin 75 MG CAP PO SCH ×2 (08:38→21:34)
[2018-01-23] MEDS: Sevelamer Carbonate 800 MG TAB PO SCH ×3 (08:39→17:01)
[2018-01-23] MEDS: Amlodipine 10 MG TAB PO SCH (08:39)
[2018-01-23] MEDS: Carvedilol 25 MG TAB PO SCH ×2 (08:39→21:36)
[2018-01-23] MEDS: Alogliptin 25 MG TAB PO SCH (08:39)
[2018-01-23] MEDS: Aspirin 325 mg Enteric Coated Tablet PO SCH (08:39)
[2018-01-23] MEDS: busPIRone HCl 10 MG TAB PO SCH ×3 (08:39→21:36)
[2018-01-23] MEDS: glipiZIDE 5 MG TAB PO SCH ×2 (08:40→16:01)
[2018-01-23] MEDS: carBAMazepine 100 mg Chewable Tablet PO SCH ×2 (08:40→21:33)
[2018-01-23] MEDS: Multivitamin W/ Minerals 1 TAB PO SCH (08:40)
[2018-01-23] MEDS: Heparin 5,000 UNITS/ML VIAL SC SCH ×2 (08:40→21:37)
[2018-01-23] MEDS: HumaLOG 300 UNITS/3 ML VIAL SC SCH ×3 (08:42→18:47)
[2018-01-23 09:16] LABS: Albumin 2.9 g/dL (3.5-5.0); Anion Gap 13 mmol/L (10-20); BUN (Urea Nitrogen) 39 mg/dL (9.8-20.1); BUN/Creatinine Ratio 12.96; Calc. Creatinine Clearance 36 mL/min (70-130); Calcium 8.3 mg/dL (7.8-10.44); Carbon Dioxide 24 mmol/L (22-29); Chloride 103 mmol/L (98-107); Estimated GFR-MDRD 19; Glucose 228 mg/dL (70-105); Phosphorus 4.9 mg/dL (2.3-4.7); Potassium 5.6 mmol/L (3.5-5.1); Sodium 134 mmol/L (136-145)
[2018-01-23] MEDS: INSULIN DETEMIR SC SCH ×2 (10:03→21:37)
--- NOTE | 2018-01-23 11:35 | PDOC.PN ---
- Subjective Encounter Start Date: 01/23/18 Encounter Start Time: 07:10 Patient seen and examined. No new complaints. No overnight events - Objective MAR Reviewed: Yes Vital Signs & Weight: Vital Signs (12 hours) Temp Pulse Resp BP Pulse Ox 01/23/18 11:19 92 L 01/23/18 08:39 97 01/23/18 08:30 98.4 F 97 20 91 L 01/23/18 07:34 98.4 F 97 20 158/74 H 91 L 01/23/18 03:53 98.0 F 95 28 H 135/76 93 L 01/22/18 23:51 98.3 F 104 H 28 H 168/93 H 88 L I&O: 01/22/18 01/23/18 01/24/18 06:59 06:59 06:59 Intake Total 1688 2440 Balance 1688 2440 Result Diagrams: 01/21/18 04:49 01/23/18 08:33 Additional Labs: Accuchecks 01/23/18 01/22/18 01/22/18 06:02 20:49 19:08 POC Glucose 202 H 147 H 99 01/22/18 01/22/18 16:53 11:44 POC Glucose 113 H 247 H EKG Reviewed by me: Yes (nsr) Phys Exam - Physical Examination Constitutional: NAD HEENT: PERRLA, moist MMs, sclera anicteric Neck: no JVD, supple Respiratory: no wheezing, no rales, no rhonchi Cardiovascular: RRR, no significant murmur, no rub Gastrointestinal: soft, non-tender, no distention, positive bowel sounds morbid obesity Musculoskeletal: no edema, pulses present Neurological: non-focal, moves all 4 limbs Lymphatic: no nodes Psychiatric: normal affect Skin: no rash, normal turgor Dx/Plan (1) Acute worsening of stage 3 chronic kidney disease Code(s): N18.3 - CHRONIC KIDNEY DISEASE, STAGE 3 (MODERATE) Status: Acute (2) Hyperkalemia Code(s): E87.5 - HYPERKALEMIA Status: Acute (3) Hyponatremia Code(s): E87.1 - HYPO-OSMOLALITY AND HYPONATREMIA Status: Acute Comment: (4) Slurred speech Code(s): R47.81 - SLURRED SPEECH Status: Acute (5) Anemia, normocytic normochromic Code(s): D64.9 - ANEMIA, UNSPECIFIED Status: Chronic (6) Chronic low back pain Code(s): M54.5 - LOW BACK PAIN; G89.29 - OTHER CHRONIC PAIN Status: Chronic (7) Diabetes mellitus type 2, uncontrolled Code(s): E11.65 - TYPE 2 DIABETES MELLITUS WITH HYPERGLYCEMIA Status: Chronic Qualifiers: (8) Diabetic gastroparesis Code(s): E11.43 - TYPE 2 DIABETES W DIABETIC AUTONOMIC (POLY)NEUROPATHY; K31.84 - GASTROPARESIS Status: Chronic Comment: (9) Dyslipidemia Code(s): E78.5 - HYPERLIPIDEMIA, UNSPECIFIED Status: Chronic (10) GERD (gastroesophageal reflux disease) Code(s): K21.9 - GASTRO-ESOPHAGEAL REFLUX DISEASE WITHOUT ESOPHAGITIS Status: Chronic (11) Hypertension Code(s): I10 - ESSENTIAL (PRIMARY) HYPERTENSION Status: Chronic Qualifiers: (12) Obesity, morbid, BMI 40.0-49.9 Code(s): E66.01 - MORBID (SEVERE) OBESITY DUE TO EXCESS CALORIES Status: Chronic (13) Schizoaffective disorder Code(s): F25.9 - SCHIZOAFFECTIVE DISORDER, UNSPECIFIED Status: Chronic Qualifiers: - Plan cont current plan 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, 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, 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 * today creatinine is better but still potassium high * low potassium diet advised * nephrology following * renal US is normal * avoid nephrotoxin * await rehab decision * medication reviewed as below * symptomatic treatment Review of Systems - Review of Systems Eyes: negative: Pain, Vision Change, Conjunctivae Inflammation, Eyelid Inflammation, Redness, Other ENT: negative: Ear Pain, Ear Discharge, Nose Pain, Nose Discharge, Nose Congestion, Mouth Pain, Mouth Swelling, Throat Pain, Throat Swelling, Other Respiratory: negative: Cough, Dry, Shortness of Breath, Hemoptysis, SOB with Excertion, Pleuritic Pain, Sputum, Wheezing Cardiovascular: negative: chest pain, palpitations, orthopnea, paroxysmal nocturnal dyspnea, edema, light headedness, other Gastrointestinal: negative: Nausea, Vomiting, Abdominal Pain, Diarrhea, Constipation, Melena, Hematochezia, Other Genitourinary: negative: Dysuria, Frequency, Incontinence, Hematuria, Retention , Other Musculoskeletal: negative: Neck Pain, Shoulder Pain, Arm Pain, Back Pain, Hand Pain, Leg Pain, Foot Pain, Other Skin: negative: Rash, Lesions, Abilio, Bruising, Other - Medications/Allergies Allergies/Adverse Reactions: Allergies Allergy/AdvReac Type Severity Reaction Status Date / Time Penicillins Allergy Unknown Verified 10/07/17 20:15 chocolate flavor Allergy Hives Verified 10/07/17 20:15 orange Allergy Hives Verified 10/07/17 20:15 orange flavor Allergy Hives Verified 10/07/17 20:15 tramadol Allergy Verified 10/07/17 20:15 Medications: Current Medications Acetaminophen (Tylenol) 650 mg PO Q4H PRN PRN Reason: Headache/Fever or Pain Last Admin: 01/23/18 02:19 Dose: 650 mg Al Hydroxide/Mg Hydroxide (Maalox) 30 ml PO Q6H PRN PRN Reason: Heartburn or Indigestion Alogliptin Benzoate (Alogliptin) 25 mg PO DAILY [facility] Last Admin: 01/23/18 08:39 Dose: 25 mg Amlodipine Besylate (Norvasc) 10 mg PO DAILY [facility] Last Admin: 01/23/18 08:39 Dose: 10 mg Artificial Tears (Tears Naturale) 0 drop EA EYE PRN PRN PRN Reason: Dry Eyes Aspirin (Ecotrin) 325 mg PO DAILY [facility] Last Admin: 01/23/18 08:39 Dose: 325 mg Buspirone HCl (Buspar) 10 mg PO TID [facility] Last Admin: 01/23/18 08:39 Dose: 10 mg Carbamazepine (Tegretol) 100 mg PO BID [facility] Last Admin: 01/23/18 08:40 Dose: 100 mg Carvedilol (Coreg) 25 mg PO BID [facility] Last Admin: 01/23/18 08:39 Dose: 25 mg Dextrose/Water (Dextrose 50%) 25 gm SLOW IVP PRN PRN PRN Reason: Hypoglycemia Doxepin HCl (Sinequan) 10 mg PO HS [facility] Last Admin: 01/22/18 20:15 Dose: 10 mg Famotidine (Pepcid) 20 mg PO QPM [facility] Last Admin: 01/22/18 20:14 Dose: 20 mg Glipizide (Glucotrol) 5 mg PO BID-AC [facility] Last Admin: 01/23/18 08:40 Dose: 5 mg Glucagon (Glucagon) 1 mg IM PRN PRN PRN Reason: Hypoglycemia Guaifenesin (Robitussin Sf) 200 mg PO Q4H PRN PRN Reason: Cough Heparin Sodium (Porcine) (Heparin) 5,000 units SC BID [facility] Last Admin: 01/23/18 08:40 Dose: 5,000 units Hydralazine HCl (Apresoline) 10 mg SLOW IVP Q4H PRN PRN Reason: Systolic BP > 180 Dextrose/Water (D5w) 1,000 mls @ 0 mls/hr IV .Q0M PRN; As Directed PRN Reason: Hypoglycemia Insulin Detemir 65 units/ (Miscellaneous Medication) 0.65 mls @ 0 mls/hr SC BID [facility] Last Admin: 01/23/18 10:03 Dose: 0.65 mls Insulin Human Lispro (Humalog) 0 units SC .AGGRESSIVE SLIDING PRN PRN Reason: Aggressive Correctional Scale Last Admin: 01/22/18 12:15 Dose: 6 unit Insulin Human Lispro (Humalog) 0 units SC .BEDTIME SLIDING SC PRN PRN Reason: Bedtime Correctional Scale Last Admin: 01/21/18 20:21 Dose: 2 unit Insulin Human Lispro (Humalog) 50 units SC 0800 [facility] Last Admin: 01/23/18 08:42 Dose: 50 unit Insulin Human Lispro (Humalog) 50 units SC 1200 [facility] Last Admin: 01/22/18 12:14 Dose: 50 unit Insulin Human Lispro (Humalog) 50 units SC 1700 [facility] Last Admin: 01/22/18 19:33 Dose: Not Given Iron/Minerals/Multivitamins (Theragran M) 1 tab PO DAILY [facility] Last Admin: 01/23/18 08:40 Dose: 1 tab Loperamide HCl (Imodium) 2 mg PO PRN PRN PRN Reason: Diarrhea/Loose Stools Loratadine (Claritin) 10 mg PO DAILYPRN PRN PRN Reason: Sinus Symptoms Magnesium Hydroxide (Milk Of Magnesium) 30 ml PO DAILYPRN PRN PRN Reason: Constipation Mineral Oil/White Petrolatum (Eucerin Cream) 0 gm TOP BIDPRN PRN PRN Reason: Dry Skin Ondansetron HCl (Zofran Odt) 4 mg PO Q6H PRN PRN Reason: Nausea/Vomiting Ondansetron HCl (Zofran) 4 mg IVP Q6H PRN PRN Reason: Nausea/Vomiting Phenol (Chloraseptic [place] 180 Ml Bot) 0 ml PO PRN PRN PRN Reason: Sore Throat Last Admin: 01/23/18 10:03 Dose: 1 spr Pravastatin Sodium (Pravachol) 40 mg PO HS [facility] Last Admin: 01/22/18 20:13 Dose: 40 mg Pregabalin (Lyrica) 75 mg PO BID [facility] Last Admin: 01/23/18 08:38 Dose: 75 mg Senna (Senokot) 2 tab PO HSPRN PRN PRN Reason: Constipation Last Admin: 01/21/18 14:52 Dose: 2 tab Sevelamer Carbonate (Renvela) 800 mg PO TID-WM [facility] Last Admin: 01/23/18 08:39 Dose: 800 mg Sodium Chloride ([place] Nasal [place] 0.65%) 0 ml EA NARE QIDPRN PRN PRN Reason: Nasal Congestion Sodium Chloride (Flush - Normal Saline) 10 ml IVF Q12HR [facility] Last Admin: 01/23/18 08:41 Dose: Not Given Sodium Chloride (Flush - Normal Saline) 10 ml IVF PRN PRN PRN Reason: Saline Flush Venlafaxine HCl (Effexor Xr) 150 mg PO DAILY [facility] Last Admin: 01/23/18 08:37 Dose: 150 mg Zolpidem Tartrate (Ambien) 5 mg PO HSPRN PRN PRN Reason: Insomnia
--- NOTE | 2018-01-23 11:55 | PRG ---
Patient Name: JUAN R ANGULO Date of service: 01/23/2018 Subjective: Patient was seen and examined at bedside and overnight events noted. Patient denies any shortness of breath or chest pain or palpitation. No history of nausea or vomiting or diarrhea or fever or chills or cramps. Objective: General: This is an obese female in no apparent distress. Vital signs: Temperature 99.4, pulse 97, respirations 18, blood pressure 150/74. HEENT: Atraumatic, normocephalic. Oral mucosa is moist. Neck: Supple. Cardiovascular: S1 S2 heard. Rate and rhythm regular. Respiratory: Clear to auscultation. Gastrointestinal: Abdomen is soft. Musculoskeletal: No tenderness. No edema. Dermatologic: No skin rash. Neurologic: Alert and awake and oriented X3. No focal neurologic deficits. Moving all the extremit ies. Psychiatric: Mood and affect normal. LABORATORY DATA: Potassium is 5.6, BUN 39, creatinine is 3.01. ASSESSMENT AND PLAN: 1. Acute kidney injury on chronic kidney disease stage 3. Renal function with slight improvement. Avoid nephrotoxins. Okay to stop IV fluids. Patient is complaining of slight short of breath. 2. Hyperkalemia. Continue medical management. 3. Hypophosphatemia. 4. Hyponatremia. 5. Hypoalbuminemia. 6. Edema, controlled. 7. Hypertension. Titrate. 8. Morbid obesity. Plan is to continue to monitor renal function. Avoid nephrotoxins. We will follow.
[2018-01-23] MEDS: HumaLOG 300 UNITS/3 ML VIAL SC PRN (12:59)
--- NOTE | 2018-01-23 15:02 | EKG ---
Test Reason : Blood Pressure : / mmHG Vent. Rate : 089 BPM Atrial Rate : 089 BPM P-R Int : 208 ms QRS Dur : 086 ms QT Int : 398 ms P-R-T Axes : 020 -19 019 degrees QTc Int : 484 ms Sinus rhythm with Fusion complexes Low voltage QRS Prolonged QT Abnormal ECG Confirmed by ALFRED ZHANG ([id number]), international editorial producer NICKO YE ([id number]) on 01/23/2018 3:00:37 PM Referred By: Confirmed By:ALFRED ZHANG
[2018-01-23] MEDS: Senokot 8.6 MG TAB PO PRN (16:06)
[2018-01-23] MEDS: Doxepin HCl 10 MG CAP PO SCH (21:34)
[2018-01-23] MEDS: Famotidine 20 MG TAB PO SCH (21:36)
[2018-01-23] MEDS: Pravastatin Sodium 40 MG TAB PO SCH (21:36)
[2018-01-24 05:56] LABS: Albumin 3.1 g/dL (3.5-5.0); Anion Gap 10 mmol/L (10-20); BUN (Urea Nitrogen) 28 mg/dL (9.8-20.1); BUN/Creatinine Ratio 13.33; Calc. Creatinine Clearance 52 mL/min (70-130); Calcium 8.6 mg/dL (7.8-10.44); Carbon Dioxide 29 mmol/L (22-29); Chloride 104 mmol/L (98-107); Estimated GFR-MDRD 29; Glucose 131 mg/dL (70-105); Phosphorus 3.8 mg/dL (2.3-4.7); Potassium 4.2 mmol/L (3.5-5.1); Sodium 139 mmol/L (136-145)
[2018-01-24] MEDS: HumaLOG 300 UNITS/3 ML VIAL SC PRN (06:24)
[2018-01-24] MEDS ORDERED: Alogliptin 25 MG TAB PO SCH (09:00)
[2018-01-24] MEDS: glipiZIDE 5 MG TAB PO SCH (09:14)
[2018-01-24] MEDS: Sevelamer Carbonate 800 MG TAB PO SCH ×2 (09:14→11:49)
[2018-01-24] MEDS: HumaLOG 300 UNITS/3 ML VIAL SC SCH ×2 (09:14→11:48)
[2018-01-24] MEDS: Amlodipine 10 MG TAB PO SCH (09:15)
[2018-01-24] MEDS: Aspirin 325 mg Enteric Coated Tablet PO SCH (09:16)
[2018-01-24] MEDS: busPIRone HCl 10 MG TAB PO SCH (09:16)
[2018-01-24] MEDS: carBAMazepine 100 mg Chewable Tablet PO SCH (09:16)
[2018-01-24] MEDS: Heparin 5,000 UNITS/ML VIAL SC SCH (09:17)
[2018-01-24] MEDS: INSULIN DETEMIR SC SCH (09:17)
[2018-01-24] MEDS: Carvedilol 25 MG TAB PO SCH (09:17)
[2018-01-24] MEDS: Pregabalin 75 MG CAP PO SCH (09:18)
[2018-01-24] MEDS: Multivitamin W/ Minerals 1 TAB PO SCH (09:18)
[2018-01-24] MEDS: Venlafaxine HCl XR 75 MG CAP PO SCH (09:19)
--- NOTE | 2018-01-24 10:01 | PRG ---
DATE OF SERVICE: 01/24/2018 SUBJECTIVE: Patient was seen and examined at bedside and overnight events noted. Patient denies any shortness of breath or chest pain or palpitation. No history of nausea or vomiting or diarrhea or f ever or chills or cramps. OBJECTIVE: GENERAL: This is an obese female, in no apparent distress. VITAL SIGNS: Temperature 97.5, pulse 92, respiratory rate 18, blood pressure 187/92. HEENT: Atraumatic, normocephalic, oral mucosa is moist. NECK: Supple. CARDIOVASCULAR: S1, S2 heard, rate and rhythm regular. RESPIRATORY: Clear to auscultation. GASTROINTESTINAL: Abdomen is soft. MUSCULOSKELETAL: No tenderness, no edema. DERMATOLOGIC: No skin rash. NEUROLOGIC: Alert and awake and oriented x3. No focal neurologic deficits. Moving all the extremit ies. PSYCHIATRIC: Mood and affect normal. LABORATORY DATA: Potassium is 4.2, BUN is 78, creatinine is 2.1. ASSESSMENT AND PLAN: 1. Acute kidney injury on chronic kidney disease, stage 3. Renal function has good improvement. Av oid nephrotoxins. Okay to stop IV fluids. 2. Hyperkalemia, better. 3. Hyponatremia, limit fluid intake. 4. Edema, controlled. 5. Hypertension, stable. 6. Morbid obesity. Overall, renal function is better. Avoid nephrotoxins. We will follow.
--- NOTE | 2018-01-24 10:49 | DIS ---
DATE OF ADMISSION: 01/22/2018 DATE OF DISCHARGE: 01/24/2018 PRIMARY CARE PHYSICIAN: Nick Mora. DISCHARGE DISPOSITION: Rehabilitation. PRIMARY DISCHARGE DIAGNOSES: 1. Acute on chronic kidney failure, baseline chronic kidney disease stage 3. 2. Hyperkalemia. 3. Hyponatremia. 4. Slurred speech. SECONDARY DISCHARGE DIAGNOSES: Normocytic normochromic anemia; chronic low back pain; diabetes type 2, uncontrolled; diabetic gastroparesis; dyslipidemia; gastroesophageal reflux disease; hypertension; obesity with body mass index 44; schizoaffective disorder. PRIMARY PROCEDURE/OPERATION: None. RADIOLOGICAL INVESTIGATION: CT head and neck angiography with brain perfusion study, knee x-ray, CT brain, MRI brain, and renal ultrasound. SIGNIFICANT LABORATORY: Hemoglobin 10.9, INR 1.1, creatinine 2.10. Urinalysis normal. DISCHARGE MEDICATIONS: Tylenol #3 one tablet p.o. b.i.d. p.r.n., Ventolin nebulization q.6 hourly p. r.n., aspirin 81 mg p.o. daily, Tegretol 100 mg p.o. b.i.d., Coreg 25 mg p.o. b.i.d., diazepam 10 mg p.o. b.i.d., doxepin 10 mg p.o. at bedtime p.r.n., Pepcid 20 mg p.o. daily, TriCor 145 mg p.o. daily, Lasix 40 mg p.o. daily, Humalog insulin as per sliding scale, Levemir insulin 65 units subcu b.i.d., multivitamin 1 tablet p.o. daily, Procardia-XL 60 mg p.o. daily, pravastatin 40 mg p.o. at bedtime, Lyrica 75 mg p.o. b.i.d., Seroquel 400 mg p.o. at bedtime, Renvela 800 mg p.o. t.i.d., Januvia 100 mg p.o. daily, Zanaflex 4 mg q.8 hourly p.r.n., Effexor XR 150 mg p.o. daily. CONTRAINDICATIONS: None. CODE STATUS: FULL CODE. INPATIENT CONSULTANTS: Dr. Ivan Morales was consulted for carotid stenosis and he recommen ded surveillance as an outpatient basis. Dr. Norris was consulted for kidney failure and he recomme nded medication adjustment. TEST RESULTS PENDING ON DISCHARGE: None. ALLERGIES: PENICILLIN, CHOCOLATE, ORANGE FLAVOR, TRAMADOL. DISCHARGE PLAN: Post hospital, the patient was discharged to inpatient rehab facility. Subsequently , the patient will follow up with primary care physician, Nephrology, and CT Surgeon as instructed. HOSPITAL COURSE: A 57-year-old female who has above-mentioned medical problem who was admitted by me on 01/20/2018. Please see my HPI for further detail. This patient came to emergency room and when she was waiting in the emergency room, she was found with slurred speech and they were worried about stroke and that is why stroke alert was done and the patient had a CT angiography head and neck with brain perfusion study that was negative for any acute process. MRI brain, we did subsequently that c araceli back negative as well. This patient had mild carotid stenosis on CT angiography report and that is why Dr. Ivan Morales was consulted and he recommended to do surveillance monitoring as a n outpatient basis. While in the hospital, the patient had acute on chronic kidney failure as well and that is why we dis continued diuretic therapy as well as we hydrated her with IV fluid. Her renal function improved to baseline level. She had hyperkalemia and that is why we discontinued her losartan from her medicatio n. For better blood pressure control during this admission, she had a Procardia-XL instead of amlodipine and rest of medication was adjusted as above. The patient will continue all her psychiatric medicat ion. Regarding diabetes, the patient did well with a 65 units of Levemir while in hospital b.i.d. an d now she will continue Humalog as per sliding scale. This patient is at high risk for recurrent adm ission. The patient was requiring rehabilitation and the patient wanted to go to rehab and that is why we put a rehab consult and rehab accepted her for more therapy. This patient's speech is just at baseline and that is related with tardive dyskinesia from her chronic psychotic problem and psychotic medicati on. Today, the patient is seen and examined at bedside today. Plan of care discussed with the patient an d her examination is unremarkable. Paper work for discharge done. Discharge medication reconciliation done. The patient is medically s table for discharge to rehab today.
[2018-01-24 11:24] VITALS: BP 180/84; TEMP 98.4
== END 2018-01-24 14:43 | DRG 683 ==
LOC: ERS 11:27 → ERHOLD 14:36 → 2SE 18:54 → OBSVTOIN 01-22 06:09
PROVIDERS: ADMIT Internal Medicine; ATTEND Internal Medicine
DX: N17.9 Acute kidney failure, unspecified (principal); Z68.41 Body mass index [BMI] 40.0-44.9, adult; E11.22 Type 2 diabetes mellitus with diabetic chronic kidney disease; K31.84 Gastroparesis; E11.40 Type 2 diabetes mellitus with diabetic neuropathy, unspecified; I13.0 Hypertensive heart and chronic kidney disease with heart failure and stage 1 through stage 4 chronic kidney disease, or unspecified chronic kidney disease; I50.32 Chronic diastolic (congestive) heart failure; E11.65 Type 2 diabetes mellitus with hyperglycemia; E66.01 Morbid (severe) obesity due to excess calories; E87.1 Hypo-osmolality and hyponatremia; M25.562 Pain in left knee; N18.3 Chronic kidney disease, stage 3 (moderate); F41.9 Anxiety disorder, unspecified; F32.9 Major depressive disorder, single episode, unspecified; F31.9 Bipolar disorder, unspecified; E87.5 Hyperkalemia; E78.5 Hyperlipidemia, unspecified; G24.01 Drug induced subacute dyskinesia; T43.95XA Adverse effect of unspecified psychotropic drug, initial encounter; D64.9 Anemia, unspecified; E11.43 Type 2 diabetes mellitus with diabetic autonomic (poly)neuropathy; K21.9 Gastro-esophageal reflux disease without esophagitis; F25.9 Schizoaffective disorder, unspecified; E83.39 Other disorders of phosphorus metabolism; T50.8X5A Adverse effect of diagnostic agents, initial encounter
CPT/HCPCS: 0042T; 36415; 36416; 70450; 70496; 70498; 70551; 71045; 76770; 80048; 80053; 80061; 80069; 80306; 80307; 81003; 81015; 82010; 82330; 82435; 82553; 82570; 82803; 83690; 83880; 84132; 84295; 84300; 84484; 85014; 85025; 85610; 85730; 93005; 96360; 96361; A4216; G8978-GP-CK; G8979-GP-CI; G8987-GO-CL; G8988-GO-CJ; J0360; J1644; J1815

== ENCOUNTER 2018-02-14 15:56 | Emergency (ER) | payer MEDICARE, OTHER ==
[2018-02-14 18:47] LABS: #Eosinphils 0.2 thou/uL (0.0-0.7); #Lymphocytes 2.5 thou/uL (1.20-3.40); #Monocytes 0.7 thou/uL (0.11-0.59); #Neutrophils 2.4 thou/uL (1.40-6.50); %Basophils 0.2 % (0.0-1.0); %Eosinophils 3.5 % (0.0-10.0); %Lymphocytes 42.2 % (21.0-51.0); %Monocytes 12.2 % (0.0-10.0); %Neutrophils 41.8 % (42.0-75.0); Hemoglobin 13.4 g/dL (12.0-16.0); Mean Corpuscular HGB CONC 33.8 g/dL (32.0-36.0); Mean Corpuscular Hemoglobin 27.8 pg (27.0-31.0); Mean Corpuscular Volume 82.1 fl (81.0-99.0); Mean Platelet Volume 7.3 fL (7.4-10.4); Platelet Count 263 thou/uL (130-400); RBC Distribution Width 13.1 % (11.5-14.5); Red Blood Cell (RBC) Count 4.83 mill/uL (4.20-5.40); White Blood Cell (WBC) Count 5.8 thou/uL (4.8-10.8)
[2018-02-14 19:07] LABS: ALT (SGPT) 35 U/L (8-55); AST (SGOT) 35 U/L (5-34); Albumin 3.6 g/dL (3.5-5.0); Alkaline Phosphatase 186 U/L (40-150); Anion Gap 17 mmol/L (10-20); BUN (Urea Nitrogen) 38 mg/dL (9.8-20.1); Bilirubin, Total 0.3 mg/dL (0.2-1.2); Calc. Creatinine Clearance 0 mL/min (70-130); Calcium 9.4 mg/dL (7.8-10.44); Carbon Dioxide 24 mmol/L (22-29); Chloride 94 mmol/L (98-107); Estimated GFR-MDRD 34; Globulin 4.5 g/dL (2.4-3.5); Glucose 157 mg/dL (70-105); Potassium 4.9 mmol/L (3.5-5.1); Protein, Total 8.1 g/dL (6.0-8.3); Sodium 130 mmol/L (136-145)
[2018-02-14 19:17] LABS: Bilirubin Negative (Negative); Blood, Urine Negative (Negative); Clarity CLEAR (Clear); Glucose, Urine (Dipstick) Negative (Negative); Leukocyte Negative (Negative); Nitrite Negative (Negative); Protein, Urine (Dipstick) 30 mg/dL (Neg-Trace); Urobilinogen 0.2 mg/dL (0.2-1.0)
[2018-02-14 19:20] LABS: Bacteria/HPF None Seen HPF (None Seen); Hyaline Casts/LPF 0-3 HYALINE CAST LPF (0-3 Hyaline); Pathc Cast-AUWi Flag 0.14 (0-2.49); RBC/HPF 0-3 HPF (0-3); Squamous Epithelial 0-3 HPF (0-3); WBC/HPF None Seen HPF (0-3)
== END 2018-02-14 19:49 | disposition home or self-care (01) ==
LOC: ERS 15:56
DX: L03.114 Cellulitis of left upper limb (principal); L03.113 Cellulitis of right upper limb; R21 Rash and other nonspecific skin eruption; M54.5 Low back pain; M19.90 Unspecified osteoarthritis, unspecified site; I11.0 Hypertensive heart disease with heart failure; I50.9 Heart failure, unspecified; J45.909 Unspecified asthma, uncomplicated; E11.40 Type 2 diabetes mellitus with diabetic neuropathy, unspecified; F41.9 Anxiety disorder, unspecified; F31.9 Bipolar disorder, unspecified; F20.9 Schizophrenia, unspecified; Z79.82 Long term (current) use of aspirin; Z79.4 Long term (current) use of insulin; Z79.899 Other long term (current) drug therapy
CPT/HCPCS: 36415; 80053; 81003; 81015; 85025; 99283

== ENCOUNTER 2018-02-20 16:01 | Emergency (ER) | payer MEDICARE, MEDICAID ==
[2018-02-20 16:46] LABS: Bilirubin Negative (Negative); Blood, Urine Negative (Negative); Clarity CLEAR (Clear); Glucose, Urine (Dipstick) 250 mg/dL (Negative); Leukocyte Negative (Negative); Nitrite Negative (Negative); Protein, Urine (Dipstick) 100 mg/dL (Neg-Trace); Urobilinogen 0.2 mg/dL (0.2-1.0); pH, Urine 6.5 (5.0-9.0)
[2018-02-20 16:48] LABS: Bacteria/HPF None Seen HPF (None Seen); Hyaline Casts/LPF 0-3 HYALINE CAST LPF (0-3 Hyaline); Pathc Cast-AUWi Flag 0.14 (0-2.49); RBC/HPF 0-3 HPF (0-3); Squamous Epithelial 0-3 HPF (0-3); WBC/HPF 0-3 HPF (0-3)
[2018-02-20 16:59] LABS: #Eosinphils 0.1 thou/uL (0.0-0.7); #Lymphocytes 1.6 thou/uL (1.20-3.40); #Monocytes 0.6 thou/uL (0.11-0.59); #Neutrophils 2.6 thou/uL (1.40-6.50); %Eosinophils 1.9 % (0.0-10.0); %Lymphocytes 32.9 % (21.0-51.0); %Monocytes 11.2 % (0.0-10.0); %Neutrophils 52.9 % (42.0-75.0); Mean Corpuscular HGB CONC 34.8 g/dL (32.0-36.0); Mean Corpuscular Hemoglobin 28.4 pg (27.0-31.0); Mean Corpuscular Volume 81.5 fl (81.0-99.0); Mean Platelet Volume 7.9 fL (7.4-10.4); Platelet Count 214 thou/uL (130-400); RBC Distribution Width 12.6 % (11.5-14.5); Red Blood Cell (RBC) Count 3.89 mill/uL (4.20-5.40); White Blood Cell (WBC) Count 4.9 thou/uL (4.8-10.8)
--- NOTE | 2018-02-20 17:08 | RAD ---
RADIOGRAPH CHEST 1 VIEW: 02/20/18 HISTORY: 57-year-old female with dyspnea. FINDINGS: There is no air space density, pulmonary edema, or pneumothorax. The lateral costophrenic angles are sharp. IMPRESSION: No acute pulmonary findings. lisa [] POS: DEVIKA
[2018-02-20 17:21] LABS: ALT (SGPT) 23 U/L (8-55); AST (SGOT) 23 U/L (5-34); Albumin 3.2 g/dL (3.5-5.0); Alkaline Phosphatase 164 U/L (40-150); Anion Gap 15 mmol/L (10-20); BUN (Urea Nitrogen) 43 mg/dL (9.8-20.1); Bilirubin, Total 0.3 mg/dL (0.2-1.2); Calc. Creatinine Clearance 0 mL/min (70-130); Calcium 8.6 mg/dL (7.8-10.44); Carbon Dioxide 27 mmol/L (22-29); Chloride 92 mmol/L (98-107); Estimated GFR-MDRD 32; Globulin 3.9 g/dL (2.4-3.5); Glucose 383 mg/dL (70-105); Potassium 5.3 mmol/L (3.5-5.1); Protein, Total 7.1 g/dL (6.0-8.3); Sodium 129 mmol/L (136-145)
[2018-02-20 17:35] LABS: CKMB 0.9 ng/mL (0-6.6); Troponin I Less than 0.010 ng/mL (< 0.028)
[2018-02-20] MEDS ORDERED: Insulin Regular 300 UNITS/3 ML VIAL ONE (19:02)
[2018-02-20] MEDS ORDERED: HYDROcodone/Acetaminophen 5/325 mg Tablet ONE (19:02)
== END 2018-02-20 19:46 | disposition home or self-care (01) ==
LOC: ERS 16:01
DX: E11.65 Type 2 diabetes mellitus with hyperglycemia (principal); E11.40 Type 2 diabetes mellitus with diabetic neuropathy, unspecified; I11.0 Hypertensive heart disease with heart failure; I50.9 Heart failure, unspecified; J45.909 Unspecified asthma, uncomplicated; F41.9 Anxiety disorder, unspecified; F31.9 Bipolar disorder, unspecified
CPT/HCPCS: 36415; 71045; 80053; 81003; 81015; 82010; 82553; 83880; 84484; 85025; 87086; 93005; 96360; 96361; J1815

== ENCOUNTER 2018-03-15 13:03 | Inpatient (IN) | payer MEDICARE, OTHER, MEDICAID ==
[2018-03-15 13:49] LABS: #Eosinphils 0.1 thou/uL (0.0-0.7); #Lymphocytes 2.1 thou/uL (1.20-3.40); #Monocytes 0.8 thou/uL (0.11-0.59); #Neutrophils 11.3 thou/uL (1.40-6.50); %Basophils 0.3 % (0.0-1.0); %Eosinophils 0.6 % (0.0-10.0); %Lymphocytes 14.3 % (21.0-51.0); %Monocytes 5.7 % (0.0-10.0); %Neutrophils 79.1 % (42.0-75.0); Hemoglobin 11.1 g/dL (12.0-16.0); Mean Corpuscular HGB CONC 34.7 g/dL (32.0-36.0); Mean Corpuscular Hemoglobin 27.9 pg (27.0-31.0); Mean Corpuscular Volume 80.4 fl (81.0-99.0); Mean Platelet Volume 7.7 fL (7.4-10.4); Platelet Count 217 thou/uL (130-400); RBC Distribution Width 12.4 % (11.5-14.5); Red Blood Cell (RBC) Count 3.98 mill/uL (4.20-5.40); White Blood Cell (WBC) Count 14.3 thou/uL (4.8-10.8)
--- NOTE | 2018-03-15 13:54 | RAD ---
CHEST 1 VIEW: HISTORY: Dyspnea. COMPARISON: 02/20/18. FINDINGS: Diminished lung volumes and poor inspiratory effort. Pleural and parenchymal changes may be present in the left lung base. Heart is enlarged. No pneumothorax. IMPRESSION: Cardiomegaly. Pleural and parenchymal changes of the left lung base. POS: LUISH
[2018-03-15 14:02] LABS: ALT (SGPT) 21 U/L (8-55); AST (SGOT) 20 U/L (5-34); Albumin 3.3 g/dL (3.5-5.0); Alkaline Phosphatase 123 U/L (40-150); Anion Gap 13 mmol/L (10-20); BUN (Urea Nitrogen) 54 mg/dL (9.8-20.1); Bilirubin, Total 0.4 mg/dL (0.2-1.2); Calc. Creatinine Clearance 0 mL/min (70-130); Calcium 9.2 mg/dL (7.8-10.44); Carbon Dioxide 30 mmol/L (22-29); Chloride 95 mmol/L (98-107); Estimated GFR-MDRD 21; Globulin 4.1 g/dL (2.4-3.5); Glucose 140 mg/dL (70-105); Potassium 4.5 mmol/L (3.5-5.1); Protein, Total 7.4 g/dL (6.0-8.3); Sodium 133 mmol/L (136-145)
[2018-03-15 14:06] LABS: CKMB 0.8 ng/mL (0-6.6); Troponin I Less than 0.010 ng/mL (< 0.028)
[2018-03-15 14:33] LABS: Bilirubin Negative (Negative); Blood, Urine Negative (Negative); Clarity CLOUDY (Clear); Glucose, Urine (Dipstick) Negative (Negative); Leukocyte Small (Negative); Nitrite Negative (Negative); Protein, Urine (Dipstick) 30 mg/dL (Neg-Trace); Specific Gravity, Urine 1.009 (1.002-1.036); Urobilinogen 0.2 mg/dL (0.2-1.0)
[2018-03-15 14:34] LABS: Bacteria/HPF Rare-Few HPF (None Seen); Hyaline Casts/LPF 7-10 HYALINE CAST LPF (0-3 Hyaline); RBC/HPF 0-3 HPF (0-3)
[2018-03-15 14:36] LABS: Yeast-AUWi Flag 39.9 (0-25.0)
[2018-03-15 14:50] LABS: Renal Epithelial None Seen HPF (0-3); Transitional Epithelial NONE SEEN HPF (0-3); Yeast-All Forms Rare HPF (None Seen)
[2018-03-15] MEDS ORDERED: Vancomycin HCl 1.75 GM in Sodium Chloride 0.9% 500 ML IVPB SCH (15:30)
[2018-03-15] MEDS ORDERED: Acetaminophen 650 MG Suppository PR PRN (15:34)
[2018-03-15] MEDS ORDERED: Bisacodyl 10 MG SUPP PR PRN (15:34)
[2018-03-15] MEDS ORDERED: Senokot 8.6 MG TAB PO PRN (15:34)
[2018-03-15] MEDS ORDERED: Albuterol Sulfate 1.25 MG/3 ML NEB NEB PRN (15:58)
[2018-03-15] MEDS ORDERED: Acetaminophen/Codeine 30-300mg Tablet PO PRN (15:58)
[2018-03-15] MEDS ORDERED: Doxepin HCl 10 MG CAP PO PRN (15:58)
[2018-03-15] MEDS ORDERED: tiZANidine HCl 4 MG TAB PO PRN (15:58)
[2018-03-15] MEDS ORDERED: Vancomycin HCl 1 GM in Premix Bag 1 BAG IVPB SCH (16:00)
[2018-03-15] MEDS ORDERED: Dextrose 50% Abboject 50 ML SYRINGE SLOW IVP PRN (16:46)
[2018-03-15] MEDS ORDERED: Dextrose 5% in Water 1,000 ML IV PRN (16:46)
[2018-03-15] MEDS: Sodium Chloride 0.9% 1,000 ML IV SCH (18:18)
[2018-03-15] MEDS: Sevelamer Carbonate 800 MG TAB PO SCH (18:23)
--- NOTE | 2018-03-15 18:59 | HP ---
PRIMARY CARE PROVIDER: Nick Mora. CHIEF COMPLAINT: Generalized weakness. HISTORY OF PRESENT ILLNESS: Ms. Plummer is a pleasant 57-year-old lady who was seen at [facility] on 03/15/2018. She was hospitalized at this facility from 02/21/2018-02/23/2018 f or acute on chronic renal failure, hyperkalemia, hyponatremia, and slurred speech. She was subsequen tly discharged to rehabilitation. She reports doing well until 1 week ago. Approximately a week ago, she started having generalized we akness. She reports feeling shaky all over her body. She reports cough that is productive of yellow sputum. She denies any fevers or chills. She denies any nausea or vomiting. She denies any chest pain. She denies any urinary symptoms. She reports that her last bowel movement was last week. REVIEW OF SYSTEMS: All other systems reviewed and found to be negative. PAST MEDICAL HISTORY: Chronic renal insufficiency, chronic low back pain, osteoarthritis, morbid obe sity, chronic diastolic heart failure, diabetes mellitus type 2, hypertension, COPD/asthma, diabetic neuropathy and dyslipidemia. PSYCHIATRIC HISTORY: Anxiety, depression, bipolar disorder, and schizophrenia. PAST SURGICAL HISTORY: Cholecystectomy and umbilical hernia repair. SOCIAL HISTORY: Patient denies tobacco use, alcohol use or recreational drug use. FAMILY HISTORY: Significant for diabetes, hypertension, and heart disease among several family membe rs. ALLERGIES: CODEINE, PENICILLIN, and TRAMADOL. CURRENT MEDICATIONS: Tylenol #3 p.r.n., Ventolin p.r.n., aspirin 81 mg daily, Tegretol 100 mg 2 time s a day, Coreg 25 mg 2 times a day, diazepam 10 mg 2 times a day, doxepin 10 mg at bedtime as needed, Pepcid 20 mg daily, TriCor 145 mg daily, Lasix 40 mg daily, Humalog insulin per sliding scale, Levem ir insulin 65 units subcutaneously 2 times a day, multivitamins 1 tablet daily, Procardia-XL 60 mg da hilario, pravastatin 40 mg at bedtime, Lyrica 75 mg 2 times a day, Seroquel 400 mg at bedtime, Renvela 80 0 mg 3 times a day, Januvia 100 mg daily, Zanaflex 4 mg 3 times a day as needed, and Effexor XR 150 m g daily. PHYSICAL EXAMINATION: GENERAL: On examination, Ms. Plummer is awake and alert, not in acute distress. She is obese. VITAL SIGNS: Blood pressure is 117/72, pulse is 63, she is breathing at rate of 20, she was breathin g at rate of 22 earlier, she is afebrile and saturating 96% on 2 liters of oxygen. EYES: No scleral icterus. No conjunctival pallor. ENT: Dry mucosal membranes, no oropharyngeal erythema or exudates. NECK: Supple, nontender, normal range of movement. Trachea is midline. RESPIRATORY: Accessory muscles of breathing are not active. Chest wall movements are symmetric bila terally. LUNGS: Examination reveals left basal bronchial breathing. CARDIOVASCULAR: S1 and S2 are heard, regular. Peripheral pulses palpable. No carotid bruit, no per icardial rub. ABDOMEN: Soft, distended, nontender, bowel sounds heard, no hepatomegaly, no splenomegaly. NEUROLOGIC: Cranial nerves II-XII intact. Deep tendon reflexes are 2+. MUSCULOSKELETAL: Power is 5/5 in all 4 extremities. SKIN: No rashes or subcutaneous nodules. She has bilateral lower extremity edema. LYMPHATIC: No cervical lymphadenopathy. PSYCHIATRIC: Normal mood, normal affect, patient is oriented to person and place, not to time. IMAGING DATA AND LABORATORY DATA: Ms. Plummer labs and investigations were reviewed. I reviewed her e lectrocardiogram, which shows normal sinus rhythm, no ST changes to suggest an acute coronary syndrom e. I also reviewed her chest x-ray, which shows left lower lobe pulmonary infiltrate. She has leuko cytosis with 14,300 white cells, of which 79% are neutrophils, microcytic anemia with hemoglobin 11.1 , normal platelet count, decreased sodium of 133, elevated carbon dioxide of 30, elevated blood urea nitrogen 54, elevated creatinine 2.83, decreased albumin of 3.3, otherwise unremarkable liver profile and urinalysis that is positive for small amount of leukocyte esterase. ASSESSMENT AND PLAN: Ms. Plummer is a pleasant 57-year-old lady who was seen at [facility] on 03/15/2018. Her problem list includes: 1. Sepsis. Ms. Plummer is presenting with sepsis, secondary to pneumonia. She will be admitted to [facility] for further management. 2. Pneumonia: Patient has been started on vancomycin and levofloxacin, which I will continue. 3. Acute on chronic renal insufficiency: She has a creatinine of 2.83 today. Her last known creati nine was 1.93 on 02/20/2018. We will provide hydration. If creatinine does not improve, she will ne ed Nephrology consult and further workup. 4. Dehydration: We will provide gentle hydration. 5. Hyponatremia: Mild, we will recheck. 6. Diabetes mellitus: Continue home medications, including insulin sliding scale. 7. Hypertension: Monitor vital signs, titrate antihypertensives as needed. 8. Chronic obstructive pulmonary disease: Stable. 9. Chronic diastolic heart failure: Stable. 10. Chronic low back pain: Stable. 11. Dyslipidemia: Continue statin. Many thanks for allowing me to participate in your patient's care. Please feel free to contact me wi th any questions or concerns. LEVEL OF RISK: High. LEVEL OF COMPLEXITY: High.
[2018-03-15] MEDS ORDERED: CARBAMAZEPINE 100 MG PO SCH (21:00)
[2018-03-15] MEDS ORDERED: Non-Formulary Item 1 EACH (Insulin Detemir 100 Units/Ml [Levemir] 65 UNITS) SC SCH (21:00)
--- NOTE | 2018-03-15 21:07 | CON ---
DATE OF CONSULTATION: 03/15/2018 REASON FOR CONSULTATION: Elevated creatinine. HISTORY OF PRESENT ILLNESS: This 57-year-old female, followed by Dr. Norris, presented to the [facility] today with generalized weakness. The patient had a baseline creatinine in the 1's, which had inc reased to more than 2.8. The patient has also noted increased leg swelling. The patient's last peak creatinine was 3.01 in October and January as well. The patient has had multiple episodes of acute re nal failure. Her last major rise in creatinine was in 09/2012. The patient denies chest pain. No o rthopnea. No PND. Has had a cough and has been treated for pneumonia-like symptoms. PAST MEDICAL HISTORY: Significant for CKD, multiple episodes of acute kidney injury, morbid obesity, heart failure, diabetes mellitus, COPD, asthma, diabetic neuropathy, hyperlipidemia, history of chol ecystectomy, umbilical hernia repair. FAMILY HISTORY: Negative for ESRD. ALLERGIES: Reviewed. HOME MEDICATIONS: List reviewed. REVIEW OF SYSTEMS: 15-point review of systems was performed and negative except positives noted abov e. GENERAL: Weakness-. HEAD: Headache-. NECK: No swelling or lumps. NOSE: No epistaxis or discharge. EYES: No diplopia or pain. RESPIRATORY: Dyspnea-. CARDIOVASCULAR: Chest pain-. GASTROINTESTINAL: Nausea-. /TURNTABLE MAN: Hematuria-. MUSCULOSKELETAL: No joint pain. NEUROPSYCHIATIC SYSTEMS: No suicidal ideation. No ideation. SKIN: Denies any rash or ulcer. CONSTITUTIONAL: No fever or chills. PHYSICAL EXAMINATION: GENERAL: The patient is awake, alert. VITAL SIGNS: Afebrile, pulse 50, breathing 16, blood pressure 117/72. HEAD/NECK: Normocephalic. Atraumatic. EYES: EOMI. No deformity. EARS: Clear. No ulcers. NOSE: Intact. No lesions. MOUTH: Clear. No discharge. THROAT: Clear. No exudate. LUNGS: Clear. No crackles. CARDIAC: S1, S2. No rub. ABDOMEN: Benign. BS+. GENITALIA/RECTUM: Blair absent. BACK/EXTREMITIES: Edema 0+ Ulcer-. NEUROLOGICAL: Alert and motor intact. SKIN: Rash- Bruise-. LYMPHATICS: Edema- Ulcer-. LABORATORY DATA: Potassium 4.5, bicarbonate 13, hemoglobin 9.1. Urine shows protein present. ASSESSMENT AND RECOMMENDATIONS: 1. Acute kidney disease with chronic kidney disease most likely due to decreased effective arterial blood volume. Agree with hydration. No indication for dialysis. 2. Hypertension with anemia, stable. 3. Metabolic alkalosis. Continue hydration.
[2018-03-15] MEDS: Docusate 100 MG CAP PO SCH (21:44)
[2018-03-15] MEDS: Carvedilol 25 MG TAB PO SCH (21:44)
[2018-03-15] MEDS: Pregabalin 75 MG CAP PO SCH (21:44)
[2018-03-15] MEDS: Pravastatin Sodium 40 MG TAB PO SCH (21:44)
[2018-03-15] MEDS: Insulin Glargine 65 UNITS in Pre-Filled Syringe SC SCH (22:06)
[2018-03-16 04:48] LABS: Anion Gap 13 mmol/L (10-20); BUN (Urea Nitrogen) 56 mg/dL (9.8-20.1); Calc. Creatinine Clearance 43 mL/min (70-130); Carbon Dioxide 26 mmol/L (22-29); Chloride 98 mmol/L (98-107); Estimated GFR-MDRD 21; Glucose 145 mg/dL (70-105); Potassium 4.7 mmol/L (3.5-5.1); Sodium 132 mmol/L (136-145)
[2018-03-16 05:43] LABS: #Eosinphils 0.2 thou/uL (0.0-0.7); #Lymphocytes 2.4 thou/uL (1.20-3.40); #Monocytes 0.9 thou/uL (0.11-0.59); #Neutrophils 9.2 thou/uL (1.40-6.50); %Basophils 0.2 % (0.0-1.0); %Eosinophils 1.4 % (0.0-10.0); %Lymphocytes 18.6 % (21.0-51.0); %Monocytes 7.3 % (0.0-10.0); %Neutrophils 72.5 % (42.0-75.0); Hemoglobin 10.4 g/dL (12.0-16.0); Mean Corpuscular HGB CONC 33.8 g/dL (32.0-36.0); Mean Corpuscular Hemoglobin 27.9 pg (27.0-31.0); Mean Corpuscular Volume 82.7 fl (81.0-99.0); Mean Platelet Volume 8.1 fL (7.4-10.4); PLT Morphology Comment Appears Adequate; Platelet Count 206 thou/uL (130-400); RBC Distribution Width 12.4 % (11.5-14.5); RBC Morphology Normal; Red Blood Cell (RBC) Count 3.74 mill/uL (4.20-5.40); White Blood Cell (WBC) Count 12.7 thou/uL (4.8-10.8)
[2018-03-16] MEDS: Sodium Chloride 0.9% 1,000 ML IV SCH ×2 (07:31→12:47)
[2018-03-16] MEDS: Sevelamer Carbonate 800 MG TAB PO SCH ×3 (09:12→17:14)
[2018-03-16] MEDS: Alogliptin 6.25 MG TAB PO SCH (09:12)
[2018-03-16] MEDS: NIFEdipine XL 60 MG TAB PO SCH (09:12)
[2018-03-16] MEDS: Pregabalin 75 MG CAP PO SCH ×2 (09:12→21:46)
[2018-03-16] MEDS: Docusate 100 MG CAP PO SCH ×2 (09:13→21:48)
[2018-03-16] MEDS: Carvedilol 25 MG TAB PO SCH ×2 (09:13→21:48)
[2018-03-16] MEDS: Famotidine 20 MG TAB PO SCH (09:13)
[2018-03-16] MEDS: Multivit, Therapeutic 1 TAB PO SCH (09:13)
[2018-03-16] MEDS: Venlafaxine HCl XR 150 MG CAP PO SCH (09:13)
[2018-03-16] MEDS: Fenofibrate Nanocrystallized 145 MG TAB PO SCH (09:13)
[2018-03-16] MEDS: Enoxaparin Sodium 30 MG/0.3 ML SYRINGE SC SCH (09:13)
[2018-03-16] MEDS: Insulin Glargine 65 UNITS in Pre-Filled Syringe SC SCH ×2 (10:10→21:46)
--- NOTE | 2018-03-16 11:22 | PDOC.PN ---
- Subjective Encounter Start Date: 03/16/18 Encounter Start Time: 08:00 Pt seen for followup re: sepsis. Denies chest pain, fevers or chills. Cough+, sputum+ - Objective MAR Reviewed: Yes Vital Signs & Weight: Vital Signs (12 hours) Temp Pulse Resp BP Pulse Ox 03/16/18 08:35 97.7 F 80 20 97 03/16/18 07:54 80 20 141/67 H 97 03/16/18 04:00 98.1 F 80 18 136/67 95 03/16/18 02:32 99 03/16/18 00:00 97.8 F 84 20 137/73 99 Weight Weight 275 lb I&O: 03/15/18 03/16/18 03/17/18 06:59 06:59 06:59 Intake Total 1960 Output Total 1600 Balance 360 Result Diagrams: 03/16/18 04:02 03/16/18 04:02 Additional Labs: Accuchecks 03/16/18 03/15/18 03/15/18 06:17 20:48 17:49 POC Glucose 131 H 168 H 89 EKG Reviewed by me: Yes (Tele: NSR) Phys Exam - Physical Examination Morbid obesity HEENT: moist MMs, sclera anicteric, oral pharynx no lesions, 2+ tonsils Neck: no nodes, no JVD, supple, full ROM Respiratory: no wheezing, no rales, no rhonchi, clear to auscultation bilateral Cardiovascular: RRR, no rub S1, S2 Gastrointestinal: soft, non-tender, no distention, positive bowel sounds Neurological: moves all 4 limbs Psychiatric: normal affect Dx/Plan (1) Pneumonia Code(s): J18.9 - PNEUMONIA, UNSPECIFIED ORGANISM Status: Acute Comment: continue IV antibiotics as below (2) Acute worsening of stage 3 chronic kidney disease Code(s): N18.3 - CHRONIC KIDNEY DISEASE, STAGE 3 (MODERATE) Status: Acute Comment: Mildly improved (3) Diabetes mellitus type 2, uncontrolled Code(s): E11.65 - TYPE 2 DIABETES MELLITUS WITH HYPERGLYCEMIA Status: Chronic Qualifiers: Comment: on accuchecks, insulin sliding scale (4) Dyslipidemia Code(s): E78.5 - HYPERLIPIDEMIA, UNSPECIFIED Status: Chronic Comment: continue statin (5) GERD (gastroesophageal reflux disease) Code(s): K21.9 - GASTRO-ESOPHAGEAL REFLUX DISEASE WITHOUT ESOPHAGITIS Status: Chronic Comment: stable (6) Hypertension Code(s): I10 - ESSENTIAL (PRIMARY) HYPERTENSION Status: Chronic Qualifiers: Comment: controlled (7) Obesity, morbid, BMI 40.0-49.9 Code(s): E66.01 - MORBID (SEVERE) OBESITY DUE TO EXCESS CALORIES Status: Chronic (8) Sepsis Code(s): A41.9 - SEPSIS, UNSPECIFIED ORGANISM Status: Resolved - Plan * . Review of Systems - Review of Systems Constitutional: weakness. negative: fever, chills, sweats, malaise Respiratory: Cough, Sputum. negative: Dry, Shortness of Breath, Hemoptysis, SOB with Excertion, Pleuritic Pain, Wheezing Cardiovascular: negative: chest pain, palpitations, orthopnea, paroxysmal nocturnal dyspnea, edema, light headedness Gastrointestinal: negative: Nausea, Vomiting, Abdominal Pain, Diarrhea, Constipation, Melena, Hematochezia Genitourinary: negative: Dysuria, Frequency, Incontinence, Hematuria, Retention Skin: negative: Rash, Lesions, Abilio, Bruising - Medications/Allergies Allergies/Adverse Reactions: Allergies Allergy/AdvReac Type Severity Reaction Status Date / Time codeine Allergy Severe Verified 03/15/18 20:01 Penicillins Allergy Intermediate Verified 03/15/18 20:01 chocolate flavor Allergy Hives Verified 10/07/17 20:15 orange Allergy Hives Verified 10/07/17 20:15 orange flavor Allergy Hives Verified 10/07/17 20:15 tramadol Allergy Verified 10/07/17 20:15 Medications: Current Medications Acetaminophen (Tylenol) 650 mg PO Q4H PRN PRN Reason: Headache/Fever or Pain Acetaminophen (Tylenol) 650 mg NE Q4H PRN PRN Reason: Headache/Fever or Pain Acetaminophen/Codeine Phosphate (Tylenol #3) 1 tab PO BID PRN PRN Reason: Pain Albuterol Sulfate (Albuterol Sulfate) 0.63 mg NEB Q6HR PRN PRN Reason: Wheezing Alogliptin Benzoate (Alogliptin) 6.25 mg PO DAILY [facility] Last Admin: 03/16/18 09:12 Dose: 6.25 mg Aspirin (Aspirin Chewable) 81 mg PO DAILY [facility] Last Admin: 03/16/18 09:13 Dose: 81 mg Bisacodyl (Dulcolax) 10 mg PO DAILYPRN PRN PRN Reason: Constipation Bisacodyl (Dulcolax) 10 mg NE Q24H PRN PRN Reason: Constipation Carvedilol (Coreg) 25 mg PO BID [facility] Last Admin: 03/16/18 09:13 Dose: 25 mg Dextrose/Water (Dextrose 50%) 25 gm SLOW IVP PRN PRN PRN Reason: Hypoglycemia Docusate Sodium (Colace) 100 mg PO BID [facility] Last Admin: 03/16/18 09:13 Dose: 100 mg Doxepin HCl (Sinequan) 10 mg PO HS PRN PRN Reason: Pain Enoxaparin Sodium (Lovenox) 30 mg SC 0900 [facility] Last Admin: 03/16/18 09:13 Dose: 30 mg Famotidine (Pepcid) 20 mg PO DAILY [facility] Last Admin: 03/16/18 09:13 Dose: 20 mg Fenofibrate (Tricor) 145 mg PO DAILY [facility] Last Admin: 03/16/18 09:13 Dose: 145 mg Glucagon (Glucagon) 1 mg IM PRN PRN PRN Reason: Hypoglycemia Sodium Chloride (Normal Saline 0.9%) 1,000 mls @ 70 mls/hr IV .[id number] [facility] Last Admin: 03/16/18 07:31 Dose: Not Given Insulin Glargine 65 units/ (Miscellaneous Medication) 0.65 mls @ 0 mls/hr SC BID [facility] Last Admin: 03/16/18 10:10 Dose: 0.65 mls Dextrose/Water (D5w) 1,000 mls @ 0 mls/hr IV .Q0M PRN; As Directed PRN Reason: Hypoglycemia Levofloxacin 750 mg/ Device 150 mls @ 100 mls/hr IVPB Q2D@1600 [facility] Insulin Human Lispro (Humalog) 0 units SC .MILD SLIDING SCALE PRN PRN Reason: Mild Correctional Scale Miscellaneous Medication (Pharmacy To Dose) 1 each IVPB ONE PRN PRN Reason: Pharmacy to dose Stop: 04/14/18 15:50 Multivitamins (Theragran) 1 tab PO DAILY [facility] Last Admin: 03/16/18 09:13 Dose: 1 tab Nifedipine (Procardia Xl) 60 mg PO DAILY [facility] Last Admin: 03/16/18 09:12 Dose: 60 mg (Carbamazepine [ Carbamazepine Er] 100 Mg) 100 mg PO BID [facility] Ondansetron HCl (Zofran Odt) 4 mg PO Q4H PRN PRN Reason: Nausea/Vomiting Pravastatin Sodium (Pravachol) 40 mg PO HS [facility] Last Admin: 03/15/18 21:44 Dose: 40 mg Pregabalin (Lyrica) 75 mg PO BID [facility] Last Admin: 03/16/18 09:12 Dose: 75 mg Quetiapine Fumarate (Seroquel) 400 mg PO HS [facility] Last Admin: 03/15/18 21:50 Dose: 400 mg Senna (Senokot) 2 tab PO HSPRN PRN PRN Reason: Constipation Sevelamer Carbonate (Renvela) 800 mg PO TID-[facility] Last Admin: 03/16/18 09:12 Dose: 800 mg Sodium Chloride (Flush - Normal Saline) 10 ml IVF Q12HR YARA Sodium Chloride (Flush - Normal Saline) 10 ml IVF PRN PRN PRN Reason: Saline Flush Tizanidine HCl (Zanaflex) 4 mg PO Q8HR PRN PRN Reason: Muscle Spasm Venlafaxine HCl (Effexor Xr) 150 mg PO DAILY [facility] Last Admin: 03/16/18 09:13 Dose: 150 mg
--- NOTE | 2018-03-16 12:04 | PRG ---
DATE OF SERVICE: 03/16/2018 SUBJECTIVE: A 57-year-old female being seen for acute kidney injury. The patient denies any nausea, vomiting, or chest pain. PHYSICAL EXAMINATION: GENERAL: Patient is awake, alert. VITAL SIGNS: Afebrile, pulse 80, breathing at 16, blood pressure 136/67. HEAD/NECK: Normocephalic. Atraumatic. EYES: EOMI. No deformity. EARS: Clear. No ulcers. NOSE: Intact. No lesions. MOUTH: Clear. No discharge. THROAT: Clear. No exudate. LUNGS: Clear. No crackles. CARDIAC: S1, S2. No rub. ABDOMEN: Benign. BS+. GENITALIA/RECTUM: Blair absent. BACK/EXTREMITIES: Edema 0+ Ulcer- NEUROLOGICAL: Alert and motor intact. SKIN: Rash- Bruise- LYMPHATICS: Edema- Ulcer- LABORATORY DATA: Show hemoglobin 10.4, creatinine 2.7. ASSESSMENT AND RECOMMENDATIONS: 1. Acute kidney injury due to acute tubular necrosis and cardiorenal syndrome. 2. Hypertension, stable. 3. Chronic kidney disease stage 4 4. Anemia, stable. 5. Medications based on GFR are appropriate. No indication for dialysis at this time. Continue gen tle hydration.
[2018-03-16] MEDS: HumaLOG 300 UNITS/3 ML VIAL SC PRN ×2 (12:46→17:14)
[2018-03-16] MEDS: Ondansetron ODT 4 MG TAB PO PRN (12:51)
--- NOTE | 2018-03-16 14:04 | CON ---
DATE OF CONSULTATION: 03/16/2018 CONSULTING PHYSICIAN: Hospitalist Service. IMPRESSION: 1. Psychogenic movement disorder. 2. Obesity. 3. Diabetes. 4. Renal insufficiency. 5. Schizoaffective disorder. PLAN: The patient needs to follow up with [facility] post discharge for management. HISTORY OF PRESENT ILLNESS: Ms. Plummer is a 57-year-old black female, who came in with complaints ruslan t left side of her body is moving erratically. She had a CT scan of the brain done, which was unrema rkable. Her laboratory studies showed some elevation of the creatinine. She has been seen by Nephduane renee in the past. She has had prior MRIs of the brain as well. Nothing remarkable has ever been fou nd. She is bit of a poor historian as to what [facility] has been doing for her. She is without any parti cular complaints of headache, nausea, blurred vision, lateralized weakness, or numbness. PAST MEDICAL HISTORY: As listed above. ALLERGIES: CODEINE, PENICILLIN, TRAMADOL, CHOCOLATE. SOCIAL HISTORY: No illicit drug use reported. FAMILY HISTORY: Noncontributory. MEDICATION LIST: Reviewed. REVIEW OF SYSTEMS: No ongoing complaints of chest pain or shortness of breath. PHYSICAL EXAMINATION: GENERAL: She is a morbidly obese, middle-aged woman lying in bed in no distress. VITAL SIGNS: Pulse 82, respirations 20. She is afebrile. HEENT: Pupils equal and reactive. Conjunctivae clear. Oropharynx clear. NECK: Supple. EXTREMITIES: No cyanosis. NEUROLOGIC EXAM: She was alert and cooperative. Her speech was fluent and clear. Her mood and affe ct seemed reasonably appropriate. Cranial nerves were intact. Motor exam showed good antigravity st rength in all 4 extremities. The tone was normal bilaterally. There was some intermittent irregular choreoathetoid-like movement of the left arm and foot. When she was distracted, this tended to go a way. Plantar responses were downgoing. Gait was not tested. SUMMARY: Patient's clinical picture does not appear consistent with organic movement disorder, and I strongly suspect this is psychogenic, and there is not much I have to offer.
[2018-03-16 15:40] LABS: Vancomycin, Random 13.5 ug/mL (See Comment)
[2018-03-16] MEDS ORDERED: Vancomycin HCl 1 GM in Premix Bag 1 BAG IVPB SCH (17:00)
[2018-03-16] MEDS: Bisacodyl 5 MG TAB PO PRN (18:39)
[2018-03-16] MEDS: Pravastatin Sodium 40 MG TAB PO SCH (21:46)
[2018-03-17] MEDS: Sodium Chloride 0.9% 1,000 ML IV SCH ×2 (05:16→11:28)
[2018-03-17] MEDS: Bisacodyl 5 MG TAB PO PRN (05:16)
[2018-03-17 05:54] LABS: #Eosinphils 0.2 thou/uL (0.0-0.7); #Lymphocytes 1.9 thou/uL (1.20-3.40); #Monocytes 0.6 thou/uL (0.11-0.59); #Neutrophils 4.3 thou/uL (1.40-6.50); %Basophils 0.1 % (0.0-1.0); %Eosinophils 3.1 % (0.0-10.0); %Monocytes 8.2 % (0.0-10.0); %Neutrophils 61.6 % (42.0-75.0); Anion Gap 15 mmol/L (10-20); BUN (Urea Nitrogen) 44 mg/dL (9.8-20.1); Calc. Creatinine Clearance 47 mL/min (70-130); Calcium 8.8 mg/dL (7.8-10.44); Carbon Dioxide 23 mmol/L (22-29); Chloride 100 mmol/L (98-107); Estimated GFR-MDRD 23; Glucose 304 mg/dL (70-105); Hemoglobin 10.4 g/dL (12.0-16.0); Mean Corpuscular HGB CONC 33.3 g/dL (32.0-36.0); Mean Corpuscular Hemoglobin 27.6 pg (27.0-31.0); Mean Corpuscular Volume 82.9 fl (81.0-99.0); Mean Platelet Volume 8.3 fL (7.4-10.4); Platelet Count 195 thou/uL (130-400); Potassium 5.3 mmol/L (3.5-5.1); RBC Distribution Width 12.4 % (11.5-14.5); Red Blood Cell (RBC) Count 3.76 mill/uL (4.20-5.40); Sodium 133 mmol/L (136-145)
[2018-03-17 07:44] VITALS: BMI 48.6
[2018-03-17] MEDS: Sevelamer Carbonate 800 MG TAB PO SCH ×3 (08:54→18:23)
[2018-03-17] MEDS: Multivit, Therapeutic 1 TAB PO SCH (08:55)
[2018-03-17] MEDS: Famotidine 20 MG TAB PO SCH (08:55)
[2018-03-17] MEDS: Carvedilol 25 MG TAB PO SCH ×2 (08:55→21:25)
[2018-03-17] MEDS: Pregabalin 75 MG CAP PO SCH ×2 (08:55→21:28)
[2018-03-17] MEDS: Alogliptin 6.25 MG TAB PO SCH (08:55)
[2018-03-17] MEDS: Fenofibrate Nanocrystallized 145 MG TAB PO SCH (08:55)
[2018-03-17] MEDS: Docusate 100 MG CAP PO SCH ×2 (08:55→21:28)
[2018-03-17] MEDS: Venlafaxine HCl XR 150 MG CAP PO SCH (08:55)
[2018-03-17] MEDS: Enoxaparin Sodium 30 MG/0.3 ML SYRINGE SC SCH (08:56)
[2018-03-17] MEDS: Insulin Glargine 65 UNITS in Pre-Filled Syringe SC SCH ×2 (08:56→21:22)
[2018-03-17] MEDS: NIFEdipine XL 60 MG TAB PO SCH (08:56)
[2018-03-17] MEDS: HumaLOG 300 UNITS/3 ML VIAL SC PRN ×3 (08:56→18:23)
[2018-03-17] MEDS: Ondansetron ODT 4 MG TAB PO PRN (08:59)
[2018-03-17] MEDS: Acetaminophen 325 MG TAB PO PRN (12:02)
--- NOTE | 2018-03-17 13:36 | PDOC.PN ---
- Subjective Encounter Start Date: 03/17/18 Encounter Start Time: 08:00 Pt seen for followup re: pneumonia. Reports cough and sputum. Denies fevers. Reports constipation (one week). - Objective MAR Reviewed: Yes Vital Signs & Weight: Vital Signs (12 hours) Temp Pulse Resp BP Pulse Ox 03/17/18 12:03 97.8 F 87 18 163/74 H 88 L 03/17/18 07:50 97.7 F 88 20 93 L 03/17/18 07:26 97.7 F 88 20 145/74 H 93 L 03/17/18 03:18 98.5 F 96 20 141/70 H 98 Weight Admit Weight 273 lb 8 oz Weight 275 lb I&O: 03/16/18 03/17/18 03/18/18 06:59 06:59 06:59 Intake Total 1960 3020 Output Total 1600 5800 Balance 360 -2780 Result Diagrams: 03/17/18 04:00 03/17/18 04:00 Additional Labs: Accuchecks 03/17/18 03/17/18 03/16/18 10:39 06:30 20:49 POC Glucose 339 H 396 H 213 H 03/16/18 16:32 POC Glucose 186 H EKG Reviewed by me: Yes (Tele: NSR) Phys Exam - Physical Examination Morbid obesity HEENT: moist MMs, sclera anicteric, oral pharynx no lesions, 2+ tonsils Neck: no nodes, no JVD, supple, full ROM Respiratory: no rales, no rhonchi, wheezing present Cardiovascular: RRR, no rub S1, S2 Gastrointestinal: soft, non-tender, positive bowel sounds distention Musculoskeletal: edema present Neurological: moves all 4 limbs Psychiatric: normal affect Deviation from normal: Oriented to place and person but not to time Dx/Plan (1) Pneumonia Code(s): J18.9 - PNEUMONIA, UNSPECIFIED ORGANISM Status: Acute Comment: continue IV levofloxacin (2) Constipation Code(s): K59.00 - CONSTIPATION, UNSPECIFIED Status: Acute Comment: Dulcolax now and PRN (3) Acute worsening of stage 3 chronic kidney disease Code(s): N18.3 - CHRONIC KIDNEY DISEASE, STAGE 3 (MODERATE) Status: Acute Comment: creatinine gradually improving (4) Diabetes mellitus type 2, uncontrolled Code(s): E11.65 - TYPE 2 DIABETES MELLITUS WITH HYPERGLYCEMIA Status: Chronic Qualifiers: Comment: continue accuchecks, insulin sliding scale (5) Dyslipidemia Code(s): E78.5 - HYPERLIPIDEMIA, UNSPECIFIED Status: Chronic Comment: stable , continue statin (6) GERD (gastroesophageal reflux disease) Code(s): K21.9 - GASTRO-ESOPHAGEAL REFLUX DISEASE WITHOUT ESOPHAGITIS Status: Chronic Comment: stable (7) Hypertension Code(s): I10 - ESSENTIAL (PRIMARY) HYPERTENSION Status: Chronic Qualifiers: Comment: Monitor vital signs, titrate antihypertensives as needed (8) Obesity, morbid, BMI 40.0-49.9 Code(s): E66.01 - MORBID (SEVERE) OBESITY DUE TO EXCESS CALORIES Status: Chronic (9) Sepsis Code(s): A41.9 - SEPSIS, UNSPECIFIED ORGANISM Status: Resolved - Plan * . Review of Systems - Review of Systems Constitutional: weakness. negative: fever, chills, sweats, malaise Respiratory: Cough, SOB with Excertion, Sputum. negative: Dry, Shortness of Breath, Hemoptysis, Pleuritic Pain, Wheezing Cardiovascular: negative: chest pain, palpitations, orthopnea, paroxysmal nocturnal dyspnea, edema, light headedness Gastrointestinal: Constipation. negative: Nausea, Vomiting, Abdominal Pain, Diarrhea, Melena, Hematochezia Genitourinary: negative: Dysuria, Frequency, Incontinence, Hematuria, Retention Skin: negative: Rash, Lesions, Abilio, Bruising - Medications/Allergies Allergies/Adverse Reactions: Allergies Allergy/AdvReac Type Severity Reaction Status Date / Time codeine Allergy Severe Verified 03/15/18 20:01 Penicillins Allergy Intermediate Verified 03/15/18 20:01 chocolate flavor Allergy Hives Verified 10/07/17 20:15 orange Allergy Hives Verified 10/07/17 20:15 orange flavor Allergy Hives Verified 10/07/17 20:15 tramadol Allergy Verified 10/07/17 20:15 Medications: Current Medications Acetaminophen (Tylenol) 650 mg PO Q4H PRN PRN Reason: Headache/Fever or Pain Last Admin: 03/17/18 12:02 Dose: 650 mg Acetaminophen (Tylenol) 650 mg MD Q4H PRN PRN Reason: Headache/Fever or Pain Acetaminophen/Codeine Phosphate (Tylenol #3) 1 tab PO BID PRN PRN Reason: Pain Albuterol Sulfate (Albuterol Sulfate) 0.63 mg NEB Q6HR PRN PRN Reason: Wheezing Alogliptin Benzoate (Alogliptin) 6.25 mg PO DAILY [facility] Last Admin: 03/17/18 08:55 Dose: 6.25 mg Aspirin (Aspirin Chewable) 81 mg PO DAILY [facility] Last Admin: 03/17/18 08:56 Dose: 81 mg Bisacodyl (Dulcolax) 10 mg PO DAILYPRN PRN PRN Reason: Constipation Last Admin: 03/17/18 05:16 Dose: 10 mg Bisacodyl (Dulcolax) 10 mg MD Q24H PRN PRN Reason: Constipation Bisacodyl (Dulcolax) 10 mg PO ONE [facility] Carvedilol (Coreg) 25 mg PO BID [facility] Last Admin: 03/17/18 08:55 Dose: 25 mg Dextrose/Water (Dextrose 50%) 25 gm SLOW IVP PRN PRN PRN Reason: Hypoglycemia Docusate Sodium (Colace) 100 mg PO BID [facility] Last Admin: 03/17/18 08:55 Dose: 100 mg Doxepin HCl (Sinequan) 10 mg PO HS PRN PRN Reason: Pain Enoxaparin Sodium (Lovenox) 30 mg SC 0900 [facility] Last Admin: 03/17/18 08:56 Dose: 30 mg Famotidine (Pepcid) 20 mg PO DAILY [facility] Last Admin: 03/17/18 08:55 Dose: 20 mg Fenofibrate (Tricor) 145 mg PO DAILY [facility] Last Admin: 03/17/18 08:55 Dose: 145 mg Glucagon (Glucagon) 1 mg IM PRN PRN PRN Reason: Hypoglycemia Insulin Glargine 65 units/ (Miscellaneous Medication) 0.65 mls @ 0 mls/hr SC BID [facility] Last Admin: 03/17/18 08:56 Dose: 0.65 mls Dextrose/Water (D5w) 1,000 mls @ 0 mls/hr IV .Q0M PRN; As Directed PRN Reason: Hypoglycemia Levofloxacin 750 mg/ Device 150 mls @ 100 mls/hr IVPB Q2D@1600 [facility] Vancomycin HCl 1 gm/ Device 200 mls @ 200 mls/hr IVPB Q24HR@1700 [facility] Last Admin: 03/16/18 17:14 Dose: 200 mls Sodium Chloride (Normal Saline 0.9%) 1,000 mls @ 30 mls/hr IV .Q24H [facility] Last Admin: 03/17/18 11:28 Dose: 1,000 mls Insulin Human Lispro (Humalog) 0 units SC .MILD SLIDING SCALE PRN PRN Reason: Mild Correctional Scale Last Admin: 03/17/18 11:29 Dose: 5 unit Miscellaneous Medication (Pharmacy To Dose) 1 each IVPB PRN PRN PRN Reason: Pharmacy to dose Multivitamins (Theragran) 1 tab PO DAILY [facility] Last Admin: 03/17/18 08:55 Dose: 1 tab Nifedipine (Procardia Xl) 60 mg PO DAILY [facility] Last Admin: 03/17/18 08:56 Dose: 60 mg (Carbamazepine [ Carbamazepine Er] 100 Mg) 100 mg PO BID [facility] Ondansetron HCl (Zofran Odt) 4 mg PO Q4H PRN PRN Reason: Nausea/Vomiting Last Admin: 03/17/18 08:59 Dose: 4 mg Pravastatin Sodium (Pravachol) 40 mg PO [facility] Last Admin: 03/16/18 21:46 Dose: 40 mg Pregabalin (Lyrica) 75 mg PO BID [facility] Last Admin: 03/17/18 08:55 Dose: 75 mg Quetiapine Fumarate (Seroquel) 400 mg PO [facility] Last Admin: 03/16/18 22:19 Dose: 400 mg Senna (Senokot) 2 tab PO HSPRN PRN PRN Reason: Constipation Sevelamer Carbonate (Renvela) 800 mg PO TID-WM [facility] Last Admin: 03/17/18 12:02 Dose: 800 mg Sodium Chloride (Flush - Normal Saline) 10 ml IVF Q12HR [facility] Last Admin: 03/17/18 09:06 Dose: Not Given Sodium Chloride (Flush - Normal Saline) 10 ml IVF PRN PRN PRN Reason: Saline Flush Sodium Polystyrene Sulfonate (Kayexelate Oral Susp 15 Gm/60 Ml) 30 gm PO ONE [facility] Stop: 03/17/18 14:00 Last Admin: 03/17/18 11:22 Dose: 30 gm Tizanidine HCl (Zanaflex) 4 mg PO Q8HR PRN PRN Reason: Muscle Spasm Venlafaxine HCl (Effexor Xr) 150 mg PO DAILY [facility] Last Admin: 03/17/18 08:55 Dose: 150 mg
[2018-03-17] MEDS ORDERED: Bisacodyl 5 MG TAB PO SCH (13:45)
--- NOTE | 2018-03-17 13:47 | PRG ---
DATE OF SERVICE: 03/17/2018 SUBJECTIVE: Patient was seen and examined at bedside and overnight events noted. Patient denies any shortness of breath or chest pain or palpitation. No history of nausea or vomiting or diarrhea or f ever or chills or cramps. OBJECTIVE: GENERAL: This is a morbidly obese female in no apparent distress. VITAL SIGNS: Temperature 97.7, pulse 80, respiratory rate 18, and blood pressure 145/74. LABORATORY DATA: Potassium is 5.3, BUN is 44, creatinine is 2.5. ASSESSMENT AND PLAN: 1. Acute kidney injury, getting better. We will reduce IV fluids to 30 mL per hour. 2. Hyperkalemia. Limit potassium, we will keep the dose of Kayexalate. The patient complains of co nstipation. 3. Chronic kidney disease, stage IV. 4. Anemia. 5. Hypertension, stable. 6. Hyponatremia, mild. Plan is to give one dose of Kayexalate. Reduce IV fluids and low potassium diet. We will follow.
[2018-03-17] MEDS ORDERED: Magnesium Citrate 300 ML BOT PO SCH (14:45)
[2018-03-17 16:51] LABS: Vancomycin, Random 13.3 ug/mL (See Comment)
[2018-03-17] MEDS ORDERED: Vancomycin HCl 1.25 GM in Sodium Chloride 0.9% 250 ML 250 ML IVPB SCH (17:00)
[2018-03-17] MEDS: Pravastatin Sodium 40 MG TAB PO SCH (21:28)
[2018-03-17] MEDS: carBAMazepine 100 mg Chewable Tablet PO SCH (21:29)
[2018-03-17] MEDS ORDERED: Diabetic Tussin 200 MG/10 ML UDCUP PO SCH (23:30)
[2018-03-17] MEDS ORDERED: Cepastat Lozenges 1 LOZ PO SCH (23:30)
[2018-03-18 05:25] LABS: #Eosinphils 0.2 thou/uL (0.0-0.7); #Monocytes 0.7 thou/uL (0.11-0.59); #Neutrophils 3.6 thou/uL (1.40-6.50); %Eosinophils 2.8 % (0.0-10.0); %Lymphocytes 30.6 % (21.0-51.0); %Monocytes 11.5 % (0.0-10.0); %Neutrophils 55.1 % (42.0-75.0); Hemoglobin 9.7 g/dL (12.0-16.0); Mean Corpuscular Hemoglobin 26.3 pg (27.0-31.0); Mean Corpuscular Volume 82.2 fl (81.0-99.0); Mean Platelet Volume 7.9 fL (7.4-10.4); Platelet Count 186 thou/uL (130-400); RBC Distribution Width 12.3 % (11.5-14.5); Red Blood Cell (RBC) Count 3.68 mill/uL (4.20-5.40); White Blood Cell (WBC) Count 6.4 thou/uL (4.8-10.8)
[2018-03-18 05:38] LABS: Anion Gap 10 mmol/L (10-20); BUN (Urea Nitrogen) 35 mg/dL (9.8-20.1); Calc. Creatinine Clearance 59 mL/min (70-130); Calcium 8.6 mg/dL (7.8-10.44); Carbon Dioxide 29 mmol/L (22-29); Chloride 100 mmol/L (98-107); Estimated GFR-MDRD 30; Glucose 237 mg/dL (70-105); Potassium 4.4 mmol/L (3.5-5.1); Sodium 135 mmol/L (136-145)
[2018-03-18] MEDS: Ondansetron ODT 4 MG TAB PO PRN (07:20)
[2018-03-18] MEDS: Pregabalin 75 MG CAP PO SCH ×2 (08:25→20:39)
[2018-03-18] MEDS: Venlafaxine HCl XR 150 MG CAP PO SCH (08:49)
[2018-03-18] MEDS: Sevelamer Carbonate 800 MG TAB PO SCH ×3 (08:49→18:12)
[2018-03-18] MEDS: Alogliptin 6.25 MG TAB PO SCH (08:49)
[2018-03-18] MEDS: NIFEdipine XL 60 MG TAB PO SCH (08:49)
[2018-03-18] MEDS: carBAMazepine 100 mg Chewable Tablet PO SCH ×2 (08:49→21:41)
[2018-03-18] MEDS: Docusate 100 MG CAP PO SCH ×2 (08:49→20:40)
[2018-03-18] MEDS: Multivit, Therapeutic 1 TAB PO SCH (08:49)
[2018-03-18] MEDS: Enoxaparin Sodium 30 MG/0.3 ML SYRINGE SC SCH (08:50)
[2018-03-18] MEDS: Carvedilol 25 MG TAB PO SCH ×2 (08:50→20:40)
[2018-03-18] MEDS: Insulin Glargine 65 UNITS in Pre-Filled Syringe SC SCH ×2 (08:50→21:00)
[2018-03-18] MEDS: Famotidine 20 MG TAB PO SCH (08:50)
[2018-03-18] MEDS: Fenofibrate Nanocrystallized 145 MG TAB PO SCH (08:50)
--- NOTE | 2018-03-18 10:54 | PRG ---
DATE OF SERVICE: 03/18/2018 SUBJECTIVE: Patient was seen and examined at bedside and overnight events noted. Patient denies any shortness of breath or chest pain or palpitation. No history of nausea or vomiting or diarrhea or f ever or chills or cramps. OBJECTIVE: GENERAL: This is an obese female in no apparent distress. VITAL SIGNS: Temperature 98.2, pulse 90, respiratory rate 18, blood pressure 127/60. HEENT: Atraumatic, normocephalic. Oral mucosa is moist. NECK: Supple. CARDIOVASCULAR: S1, S2 heard. Rate and rhythm regular. RESPIRATORY: Clear to auscultation. GASTROINTESTINAL: Abdomen is soft. MUSCULOSKELETAL: No tenderness, no edema. DERMATOLOGIC: No skin rash. NEUROLOGIC: Alert and awake and oriented x3. No focal neurologic deficits. Moving all the extremit ies. PSYCHIATRIC: Mood and affect normal. LABORATORY DATA: Potassium is 4.4, BUN 30, creatinine is 2.03. ASSESSMENT AND PLAN: 1. Acute kidney injury on chronic kidney disease stage 3. Renal function is better. Creatinine is 2.03 from 2.8 on admission. 2. Hyperkalemia, better. Limit potassium in the diet, constipation is also present. Chronic kidney disease stage 3-4. 3. Anemia. Monitor hemoglobin. 4. Hypertension, stable. We will follow.
[2018-03-18] MEDS: Sodium Chloride 0.9% 1,000 ML IV SCH (11:22)
[2018-03-18] MEDS: HumaLOG 300 UNITS/3 ML VIAL SC PRN (13:34)
--- NOTE | 2018-03-18 15:02 | PDOC.PN ---
- Subjective Encounter Start Date: 03/18/18 Encounter Start Time: 07:20 Pt seen for followup re: pneumonia. Reports cough, sputum. No fevers or chills. - Objective MAR Reviewed: Yes Vital Signs & Weight: Vital Signs (12 hours) Temp Pulse Pulse Pulse Pulse Resp BP 03/18/18 13:26 86 83 175/90 H 03/18/18 11:30 98.0 F 90 24 H 03/18/18 11:16 104 H 102 H 100 192/86 H 03/18/18 08:00 98.2 F 92 18 03/18/18 07:19 98.2 F 92 18 03/18/18 04:00 97.8 F 88 20 BP BP BP BP Pulse Ox 03/18/18 13:26 194/91 H 03/18/18 11:30 136/64 98 03/18/18 11:16 152/84 H 195/89 H 03/18/18 08:00 97 03/18/18 07:19 168/81 H 97 03/18/18 04:00 127/60 95 Weight Admit Weight 273 lb 8 oz Weight 276 lb I&O: 03/17/18 03/18/18 03/19/18 06:59 06:59 06:59 Intake Total 3020 2650 Output Total 5800 4400 Balance -2780 -1750 Result Diagrams: 03/18/18 03:57 03/18/18 03:57 Additional Labs: Accuchecks 03/18/18 03/18/18 03/17/18 10:56 05:36 20:26 POC Glucose 211 H 205 H 220 H 03/17/18 16:27 POC Glucose 213 H EKG Reviewed by me: Yes (Tele: NSR) Phys Exam - Physical Examination Morbid obesity HEENT: moist MMs Neck: supple Respiratory: clear to auscultation bilateral Cardiovascular: RRR S1, S2 Gastrointestinal: soft Neurological: moves all 4 limbs Psychiatric: normal affect Deviation from normal: Two small clean open wounds on R arm, likely due to scab removal Dx/Plan (1) Pneumonia Code(s): J18.9 - PNEUMONIA, UNSPECIFIED ORGANISM Status: Acute Comment: Discontinue IV vancomycin, switch levofloxacin to oral (2) Physical deconditioning Code(s): R53.81 - OTHER MALAISE Status: Acute Comment: awaiting rehab bed (3) Acute worsening of stage 3 chronic kidney disease Code(s): N18.3 - CHRONIC KIDNEY DISEASE, STAGE 3 (MODERATE) Status: Chronic Comment: creatinine improving (4) Diabetes mellitus type 2, uncontrolled Code(s): E11.65 - TYPE 2 DIABETES MELLITUS WITH HYPERGLYCEMIA Status: Chronic Qualifiers: Comment: on accuchecks, insulin sliding scale (5) Dyslipidemia Code(s): E78.5 - HYPERLIPIDEMIA, UNSPECIFIED Status: Chronic Comment: stable (6) GERD (gastroesophageal reflux disease) Code(s): K21.9 - GASTRO-ESOPHAGEAL REFLUX DISEASE WITHOUT ESOPHAGITIS Status: Chronic Comment: stable (7) Hypertension Code(s): I10 - ESSENTIAL (PRIMARY) HYPERTENSION Status: Chronic Qualifiers: Comment: Monitor vital signs, titrate antihypertensives as needed (8) Obesity, morbid, BMI 40.0-49.9 Code(s): E66.01 - MORBID (SEVERE) OBESITY DUE TO EXCESS CALORIES Status: Chronic (9) Sepsis Code(s): A41.9 - SEPSIS, UNSPECIFIED ORGANISM Status: Resolved (10) Constipation Code(s): K59.00 - CONSTIPATION, UNSPECIFIED Status: Resolved - Plan * . Pt awaiting rehab bed for physical deconditioning. Switch to oral antibiotics, observe. Review of Systems - Review of Systems Constitutional: negative: fever, chills, sweats, weakness, malaise Respiratory: Cough, Sputum. negative: Dry, Shortness of Breath, Hemoptysis, SOB with Excertion, Pleuritic Pain, Wheezing Cardiovascular: negative: chest pain, palpitations, orthopnea, paroxysmal nocturnal dyspnea, edema, light headedness - Medications/Allergies Allergies/Adverse Reactions: Allergies Allergy/AdvReac Type Severity Reaction Status Date / Time codeine Allergy Severe Verified 03/15/18 20:01 Penicillins Allergy Intermediate Verified 03/15/18 20:01 chocolate flavor Allergy Hives Verified 10/07/17 20:15 orange Allergy Hives Verified 10/07/17 20:15 orange flavor Allergy Hives Verified 10/07/17 20:15 tramadol Allergy Verified 10/07/17 20:15 Medications: Current Medications Acetaminophen (Tylenol) 650 mg PO Q4H PRN PRN Reason: Headache/Fever or Pain Last Admin: 03/17/18 12:02 Dose: 650 mg Acetaminophen (Tylenol) 650 mg UT Q4H PRN PRN Reason: Headache/Fever or Pain Acetaminophen/Codeine Phosphate (Tylenol #3) 1 tab PO BID PRN PRN Reason: Pain Albuterol Sulfate (Albuterol Sulfate) 0.63 mg NEB Q6HR PRN PRN Reason: Wheezing Alogliptin Benzoate (Alogliptin) 6.25 mg PO DAILY [facility] Last Admin: 03/18/18 08:49 Dose: 6.25 mg Aspirin (Aspirin Chewable) 81 mg PO DAILY [facility] Last Admin: 03/18/18 08:49 Dose: 81 mg Bisacodyl (Dulcolax) 10 mg PO DAILYPRN PRN PRN Reason: Constipation Last Admin: 03/17/18 05:16 Dose: 10 mg Bisacodyl (Dulcolax) 10 mg UT Q24H PRN PRN Reason: Constipation Carbamazepine (Tegretol) 100 mg PO BID [facility] Last Admin: 03/18/18 08:49 Dose: 100 mg Carvedilol (Coreg) 25 mg PO BID [facility] Last Admin: 03/18/18 08:50 Dose: 25 mg Dextrose/Water (Dextrose 50%) 25 gm SLOW IVP PRN PRN PRN Reason: Hypoglycemia Docusate Sodium (Colace) 100 mg PO BID [facility] Last Admin: 03/18/18 08:49 Dose: 100 mg Doxepin HCl (Sinequan) 10 mg PO HS PRN PRN Reason: Pain Enoxaparin Sodium (Lovenox) 30 mg SC 0900 [facility] Last Admin: 03/18/18 08:50 Dose: 30 mg Famotidine (Pepcid) 20 mg PO DAILY [facility] Last Admin: 03/18/18 08:50 Dose: 20 mg Fenofibrate (Tricor) 145 mg PO DAILY [facility] Last Admin: 03/18/18 08:50 Dose: 145 mg Glucagon (Glucagon) 1 mg IM PRN PRN PRN Reason: Hypoglycemia Insulin Glargine 65 units/ (Miscellaneous Medication) 0.65 mls @ 0 mls/hr SC BID [facility] Last Admin: 03/18/18 08:50 Dose: 0.65 mls Dextrose/Water (D5w) 1,000 mls @ 0 mls/hr IV .Q0M PRN; As Directed PRN Reason: Hypoglycemia Sodium Chloride (Normal Saline 0.9%) 1,000 mls @ 30 mls/hr IV .Q24H [facility] Last Admin: 03/18/18 11:22 Dose: 1,000 mls Insulin Human Lispro (Humalog) 0 units SC .MILD SLIDING SCALE PRN PRN Reason: Mild Correctional Scale Last Admin: 03/18/18 13:34 Dose: 3 unit Levofloxacin (Levaquin) 750 mg PO 0600 [facility] Miscellaneous Medication (Pharmacy To Dose) 1 each IVPB PRN PRN PRN Reason: Pharmacy to dose Multivitamins (Theragran) 1 tab PO DAILY [facility] Last Admin: 03/18/18 08:49 Dose: 1 tab Nifedipine (Procardia Xl) 60 mg PO DAILY [facility] Last Admin: 03/18/18 08:49 Dose: 60 mg Pravastatin Sodium (Pravachol) 40 mg PO [facility] Last Admin: 03/17/18 21:28 Dose: 40 mg Pregabalin (Lyrica) 75 mg PO BID [facility] Last Admin: 03/18/18 08:25 Dose: 75 mg Quetiapine Fumarate (Seroquel) 400 mg PO [facility] Last Admin: 03/17/18 21:29 Dose: 400 mg Senna (Senokot) 2 tab PO HSPRN PRN PRN Reason: Constipation Sevelamer Carbonate (Renvela) 800 mg PO TID-WM [facility] Last Admin: 03/18/18 13:35 Dose: 800 mg Sodium Chloride (Flush - Normal Saline) 10 ml IVF Q12HR [facility] Last Admin: 03/18/18 08:51 Dose: Not Given Sodium Chloride (Flush - Normal Saline) 10 ml IVF PRN PRN PRN Reason: Saline Flush Tizanidine HCl (Zanaflex) 4 mg PO Q8HR PRN PRN Reason: Muscle Spasm Venlafaxine HCl (Effexor Xr) 150 mg PO DAILY [facility] Last Admin: 03/18/18 08:49 Dose: 150 mg
[2018-03-18] MEDS: Pravastatin Sodium 40 MG TAB PO SCH (20:40)
[2018-03-18] MEDS: Acetaminophen 325 MG TAB PO PRN (21:41)
[2018-03-18] MEDS ORDERED: Ondansetron ODT 4 MG TAB PO PRN (22:27)
[2018-03-18] MEDS ORDERED: Loratadine 10 MG TAB PO PRN (22:28)
[2018-03-18] MEDS ORDERED: Mag-Al 1200 mg/1200 mg/30 ML UDCUP PO PRN (22:30)
[2018-03-18] MEDS ORDERED: Fluticasone Propionate Nasal Spray 16 gm Bottle NASAL PRN (22:30)
[2018-03-19] MEDS: Multivit, Therapeutic 1 TAB PO SCH (09:14)
[2018-03-19] MEDS: Pregabalin 75 MG CAP PO SCH (09:15)
[2018-03-19] MEDS: Docusate 100 MG CAP PO SCH (09:18)
[2018-03-19] MEDS: NIFEdipine XL 60 MG TAB PO SCH (09:18)
[2018-03-19] MEDS: Sevelamer Carbonate 800 MG TAB PO SCH ×2 (09:18→13:02)
[2018-03-19] MEDS: carBAMazepine 100 mg Chewable Tablet PO SCH (09:18)
[2018-03-19] MEDS: Fenofibrate Nanocrystallized 145 MG TAB PO SCH (09:19)
[2018-03-19] MEDS: Alogliptin 6.25 MG TAB PO SCH (09:19)
[2018-03-19] MEDS: Famotidine 20 MG TAB PO SCH (09:19)
[2018-03-19] MEDS: Enoxaparin Sodium 30 MG/0.3 ML SYRINGE SC SCH (09:19)
[2018-03-19] MEDS: Carvedilol 25 MG TAB PO SCH (09:19)
[2018-03-19] MEDS: Venlafaxine HCl XR 150 MG CAP PO SCH (09:19)
[2018-03-19] MEDS: Insulin Glargine 65 UNITS in Pre-Filled Syringe SC SCH (10:22)
--- NOTE | 2018-03-19 10:44 | PRG ---
DATE OF SERVICE: 03/19/2018 SUBJECTIVE: Patient was seen and examined at bedside and overnight events noted. Patient denies any shortness of breath or chest pain or palpitation. No history of nausea or vomiting or diarrhea or f ever or chills or cramps. OBJECTIVE: GENERAL: This is a morbidly obese female in no apparent distress. VITAL SIGNS: Temperature 97.6, pulse 84, respiratory 18, blood pressure 165/95. HEENT: Atraumatic, normocephalic. Oral mucosa is moist. NECK: Supple. CARDIOVASCULAR: S1, S2 heard. Rate and rhythm regular. RESPIRATORY: Clear to auscultation. GASTROINTESTINAL: Abdomen is soft. MUSCULOSKELETAL: No tenderness, no edema. DERMATOLOGIC: No skin rash. NEUROLOGIC: Alert and awake and oriented x3. No focal neurologic deficits. Moving all the extremit ies. PSYCHIATRIC: Mood and affect normal. LABORATORY DATA: Not done today. ASSESSMENT AND PLAN: 1. Acute kidney injury on chronic kidney disease stage 4. Renal function with improvement. No labs done today. Monitor labs. Avoid nephrotoxins. 2. Hyperkalemia. Limit potassium. 3. Anemia. Monitor hemoglobin. 4. Hypertension. We will titrate medications. Limit salt intake. We will follow.
[2018-03-19] MEDS: Sodium Chloride 0.9% 1,000 ML IV SCH (11:04)
--- NOTE | 2018-03-19 12:27 | DIS ---
DISCHARGE DIAGNOSES: 1. Pneumonia. 2. Physical deconditioning. 3. Acute worsening of stage 3 chronic kidney disease. 4. Diabetes. 5. Dyslipidemia. 6. Gastroesophageal reflux disease. 7. Hypertension. 8. Obesity. 9. Sepsis secondary to pneumonia. 10. constipation. HOSPITAL COURSE: The patient was admitted and started on IV antibiotics. The patient was also seen by Nephrology, for which the patient was also placed on IV fluids. The patient also had physical the rapy on board due to the patient's physical deconditioning. With antibiotics as well as IV fluids, deanne cedeno patient's creatinine as well as overall function had improved. Physical therapy had worked with deanne cedeno patient and felt the patient required inpatient rehabilitation. Social Work was consulted to help facilitate discharge planning. The patient was without fevers and leukocytosis. No other surgical interventions were required. Therefore, because the patient was doing significantly better and her k idney function was now at its baseline, we were comfortable discharging the patient to inpatient reha bilitation once approved. DISCHARGE CONDITION: Much improved from when she first came in. DISCHARGE ACTIVITY: As tolerated. DISCHARGE MEDICATIONS: See home medication list, which includes Levaquin that she will continue to t bing for the pneumonia. DISCHARGE DIET: Renal diet. FOLLOWUP APPOINTMENTS: The patient will follow up with primary care physician in 1 week. DISCHARGE PLAN: Discharge plan was greater than 30 minutes.
[2018-03-19] MEDS: HumaLOG 300 UNITS/3 ML VIAL SC PRN (13:03)
[2018-03-19 13:17] VITALS: BP 150/84; TEMP 98
== END 2018-03-19 13:35 | DRG 871 ==
LOC: ERS 13:03 → 2NO 17:12 → T4-B 03-18 15:09
PROVIDERS: ADMIT Internal Medicine; ATTEND Internal Medicine
DX: A41.9 Sepsis, unspecified organism (principal); J18.9 Pneumonia, unspecified organism; I50.32 Chronic diastolic (congestive) heart failure; E87.1 Hypo-osmolality and hyponatremia; E87.3 Alkalosis; Z68.41 Body mass index [BMI] 40.0-44.9, adult; N17.9 Acute kidney failure, unspecified; E87.2 Acidosis; E66.01 Morbid (severe) obesity due to excess calories; M19.90 Unspecified osteoarthritis, unspecified site; J45.909 Unspecified asthma, uncomplicated; F20.9 Schizophrenia, unspecified; G89.29 Other chronic pain; M54.9 Dorsalgia, unspecified; F41.9 Anxiety disorder, unspecified; F31.9 Bipolar disorder, unspecified; Z88.0 Allergy status to penicillin; Z88.5 Allergy status to narcotic agent; Z88.8 Allergy status to other drugs, medicaments and biological substances; Z79.899 Other long term (current) drug therapy; Z79.82 Long term (current) use of aspirin; Z79.4 Long term (current) use of insulin; E86.0 Dehydration; J44.9 Chronic obstructive pulmonary disease, unspecified; E78.5 Hyperlipidemia, unspecified; E11.9 Type 2 diabetes mellitus without complications; D64.9 Anemia, unspecified; E87.5 Hyperkalemia; K59.00 Constipation, unspecified; F45.8 Other somatoform disorders; R53.81 Other malaise
CPT/HCPCS: 36415; 36416; 51701; 71045; 80048; 80053; 80202; 81003; 81015; 82553; 83605; 83880; 84484; 85025; 87040; 93005; 96365; A4216; A4353; G8978-GP-CL; G8979-GP-CJ; G8987-GO-CL; G8988-GO-CJ; J1650; J1956; J3370; J7050; Q0162

== ENCOUNTER 2018-04-04 13:22 | Observation (INO) | payer MEDICARE, OTHER, MEDICAID ==
[2018-04-04 13:48] LABS: #Eosinphils 0.2 thou/uL (0.0-0.7); #Lymphocytes 1.8 thou/uL (1.20-3.40); #Monocytes 0.4 thou/uL (0.11-0.59); #Neutrophils 1.6 thou/uL (1.40-6.50); %Basophils 0.1 % (0.0-1.0); %Lymphocytes 44.1 % (21.0-51.0); %Monocytes 11.1 % (0.0-10.0); %Neutrophils 40.7 % (42.0-75.0); Hemoglobin 10.7 g/dL (12.0-16.0); Mean Corpuscular HGB CONC 34.2 g/dL (32.0-36.0); Mean Corpuscular Volume 81.7 fl (81.0-99.0); Mean Platelet Volume 7.5 fL (7.4-10.4); Platelet Count 192 thou/uL (130-400); RBC Distribution Width 12.4 % (11.5-14.5); Red Blood Cell (RBC) Count 3.81 mill/uL (4.20-5.40)
[2018-04-04 14:10] LABS: ALT (SGPT) 22 U/L (8-55); AST (SGOT) 28 U/L (5-34); Albumin 3.1 g/dL (3.5-5.0); Alkaline Phosphatase 108 U/L (40-150); Anion Gap 10 mmol/L (10-20); BUN (Urea Nitrogen) 48 mg/dL (9.8-20.1); Bilirubin, Total 0.2 mg/dL (0.2-1.2); Calc. Creatinine Clearance 0 mL/min (70-130); Calcium 8.3 mg/dL (7.8-10.44); Carbon Dioxide 26 mmol/L (22-29); Chloride 100 mmol/L (98-107); Estimated GFR-MDRD 21; Globulin 3.9 g/dL (2.4-3.5); Glucose 400 mg/dL (70-105); Potassium 5.1 mmol/L (3.5-5.1); Sodium 131 mmol/L (136-145)
--- NOTE | 2018-04-04 14:50 | RAD ---
THREE VIEWS OF THE RIGHT SHOULDER: History History of fall. COMPARISON: None. IMPRESSION: No acute fracture or subluxation is evident. Visualized right lung is clear. POS: H
--- NOTE | 2018-04-04 14:54 | RAD ---
THREE VIEWS OF THE RIGHT ANKLE: INDICATION: Right ankle pain after fall. FINDINGS: There is healed deformity involving the lateral malleolus. There is mild tibiotalar osteoarthrosis. Enthesopathic change is seen off of the calcaneus. No definite acute fracture or subluxation is eugene dent. IMPRESSION: 1. No acute osseous abnormality. 2. Posttraumatic deformity of the right ankle. 3. Mild osteoarthrosis of the tibiotalar joint. POS: [facility]
[2018-04-04] MEDS ORDERED: Acetaminophen 500 MG TAB ONE (15:55)
[2018-04-04] MEDS ORDERED: Insulin Regular 300 UNITS/3 ML VIAL ONE (16:32)
[2018-04-04 18:08] LABS: Amphetamine Not Detected (NotDetected); Barbiturates Screen Not Detected (NotDetected); Benzodiazepine Screen Detected (NotDetected); Cocaine Metabolite Screen Not Detected (NotDetected); Medtox Control Line Valid? VALID (VALID); Medtox Reader # READER 1; Methadone Not Detected (NotDetected); Methamphetamine Not Detected (NotDetected); Opiate Screen Detected (NotDetected); Oxycodone Screen Not Detected (NotDetected); Phencyclidine (PCP) Not Detected (NotDetected); THC/Cannabinoid Screen Not Detected (NotDetected); Tricyclic Screen Detected (NotDetected)
--- NOTE | 2018-04-04 18:40 | RAD ---
PORTABLE UPRIGHT FRONTAL CHEST RADIOGRAPH 04/04/18 COMPARISON: 03/15/18 HISTORY: Fall. Right shoulder pain, slurred speech. FINDINGS: The cardiac silhouette is enlarged, a stable finding. There is mild pulmonary vascular congestion. No pneumothorax or pleural fluid. No lobar consolidation or alveolar edema. IMPRESSION: Stable appearance of the chest. POS: [facility]
[2018-04-04] MEDS ORDERED: hydrOXYzine 25 MG TAB PO PRN (18:44)
[2018-04-04] MEDS ORDERED: HYDROcodone/Acetaminophen 10/325 mg Tablet PO PRN (18:44)
[2018-04-04] MEDS ORDERED: Dextrose 5% in Water 1,000 ML IV PRN (18:46)
[2018-04-04] MEDS ORDERED: Dextrose 50% Abboject 50 ML SYRINGE SLOW IVP PRN (18:46)
--- NOTE | 2018-04-04 19:37 | RAD ---
TWO VIEWS OF THE LEFT HIP 04/04/18 COMPARISON: None. HISTORY: Pain, fall. FINDINGS: No displaced fracture or dislocation seen. IMPRESSION: No acute findings. POS: [facility]
[2018-04-04 20:03] VITALS: BMI 48.1
[2018-04-04] MEDS: Gabapentin 300 MG CAP PO SCH (20:29)
[2018-04-04] MEDS: Carvedilol 25 MG TAB PO SCH (20:29)
[2018-04-04] MEDS: Heparin 5,000 UNITS/ML VIAL SC SCH (20:30)
[2018-04-04] MEDS: Sevelamer Carbonate 800 MG TAB PO SCH (20:30)
[2018-04-04] MEDS: Sodium Chloride 0.9% 1,000 ML IV SCH (20:32)
[2018-04-04] MEDS ORDERED: Insulin Glargine 10 UNITS in Pre-Filled Syringe 1 EACH SC SCH (21:00)
[2018-04-04] MEDS ORDERED: Docusate 100 MG CAP PO SCH (21:00)
[2018-04-04] MEDS ORDERED: Famotidine 20 MG TAB PO SCH (21:00)
[2018-04-04] MEDS ORDERED: Pravastatin Sodium 40 MG TAB PO SCH (21:00)
--- NOTE | 2018-04-04 21:01 | CT ---
HEAD CT WITHOUT CONTRAST: 04/04/18 COMPARISON: 01/20/18 HISTORY: Slurred speech with right shoulder pain, recent fall. TECHNIQUE: Serial axial CT imaging at 5 mm intervals from vertex through skull base without contrast. FINDINGS: The imaged paranasal sinuses and mastoid air cells are well aerated. There is no displaced calvarial fracture. No intracranial hemorrhage, midline shift, mass effect, or ventricular enlargement. IMPRESSION: No acute findings. POS: [facility]
[2018-04-04] MEDS: HumaLOG 300 UNITS/3 ML VIAL SC PRN (21:16)
--- NOTE | 2018-04-05 03:13 | HP ---
CHIEF COMPLAINT: Fall and ER mentioned slurred speech. HISTORY OF PRESENT ILLNESS: This is a very pleasant 57-year-old female who presents to the hospital with a fall. The patient states that she tripped on her left foot and fell on her left hip. She den ies hitting her head. The patient denies any recent fevers, chills, any nausea, vomiting, or diarrhe a. She states that she denies any fevers or chills. Patient denies any passing out or any lighthead edness. The patient states that she has been feeling just well until she had the fall. PAST MEDICAL HISTORY: She has a history of chronic renal insufficiency, chronic back pain, morbid ob esity, chronic diastolic heart failure, diabetes type 2, hypertension, COPD/asthma, diabetic neuropat hy, and dyslipidemia. PSYCHIATRIC HISTORY: She has a history of schizophrenia, bipolar disorder, depression, anxiety. PAST SURGICAL HISTORY: She has a cholecystectomy and a umbilical hernia repair. SOCIAL HISTORY: She denies any tobacco use, alcohol use, or recreational drug use. REVIEW OF SYSTEMS: All negative except for the ones mentioned above in the HPI. She only complains of left hip pain and right foot pain and right shoulder pain. FAMILY HISTORY: Significant for diabetes, hypertension, heart disease among several other members. ALLERGIES: She is allergic to CODEINE, PENICILLIN, and TRAMADOL. CURRENT MEDICATIONS: She takes Tylenol No. 3, Ventolin p.r.n., aspirin 81 mg daily. She takes Coreg 25 mg twice a day, diazepam 10 mg twice a day, doxepin 10 mg at bedtime, Pepcid 20 mg daily, TriCor 145 daily, Lasix 40 mg daily. She takes Levemir 65 units twice a day, multivitamin daily, Procardia- XL 60 mg daily, pravastatin 40 mg daily, Lyrica 75 mg b.i.d., Seroquel 400 mg at bedtime, Renvela 800 mg 3 times a day, Januvia 100 mg daily, Zanaflex 4 mg 3 times a day, and Effexor 150 mg daily. PHYSICAL EXAMINATION: VITAL SIGNS: She is afebrile at 98.0, 81, 16 respirations, oxygen 96% on room air, 150/84. GENERAL: She is awake, alert, oriented x3. She does not appear in distress. CARDIOVASCULAR: S1, S2 present. No murmurs, rubs, or gallops. ABDOMEN: Soft, nontender. Bowel sounds are present x2. LUNGS: Clear to auscultation. No rhonchi or wheezes noted. HEENT: Very dry mucous membranes. MUSCULOSKELETAL: She has her right foot wrapped in TISHA, but no cuts or lesions noted. She is able t o move her right leg and her left leg. She does complain of some left hip pain upon palpation. No p ain was reproducible. Also, her lumbar spine was a list was checked. No pain upon palpation of her cervical, thoracic, or lumbar spine. NEUROLOGIC: Neuro ford, she has got no focal deficits noted. 5/5 upper extremities, 5/5 lower extre mities strength and it was noted in the ER that her speech was slurred; however, I believe the alpesh alicea's mucous membranes are very dry. She is able to follow commands well. LABORATORY DATA: As the following: WBC is 4.0, hemoglobin of 10.7, hematocrit of 31.1, her platelet s are 192,000. Chemistry: Sodium of 131, potassium of 5.1, BUN 48, creatinine of 2.80, sugar of 400 . IMAGING: She had x-ray of her shoulder, ankle, chest, and hip; of the right shoulder indicated no fr actures. Her right ankle was x-rayed which indicated no acute osseous abnormality. She has got a po sttraumatic deformity in the right ankle and mild osteoarthritis noted of the tibiotalar joint. She also had a left hip x-ray, which did not indicate any acute abnormalities. She also had a chest x-ra y, which did not indicate any pneumonia or consolidations. ASSESSMENT AND PLAN: The patient is a very pleasant 57-year-old female who presents to the hospital with a fall. 1. Mechanical fall. The patient stated that she fell on her left hip. Left hip x-ray is normal. I will start the patient on her p.r.n. pain meds. We will also get PT, OT to evaluate her. The alpesh alicea stated that she was supposed to get a new walker; however, her new walker will not be here until Se ptember. 2. Hyperglycemia. Patient's sugar was 400. We will continue patient's home medications. We will a lso start her on a p.r.n. sliding scale and continue to monitor blood sugars. 3. Obesity. The patient educated on weight loss and diet. 4. Chronic kidney disease. We will continue to monitor the patient's creatinine at baseline is 2.28 , which is 2.80. We will hydrate her gently to see if that improves her creatinine and also her muco us membrane appeared to be very dry. I do not believe the patient has any kind of neurological component in terms of a possible stroke and what ER had mentioned about slurred speech. I do not think she has slurred speech, I think this is her baseline. However, at this time, we will go ahead and get a CT head since ER did not get a CT he ad, we will order a CT head to just make sure and will provide p.r.n. pain medications as needed.
[2018-04-05 04:48] LABS: #Eosinphils 0.2 thou/uL (0.0-0.7); #Monocytes 0.5 thou/uL (0.11-0.59); #Neutrophils 1.8 thou/uL (1.40-6.50); %Basophils 0.5 % (0.0-1.0); %Eosinophils 3.7 % (0.0-10.0); %Lymphocytes 45.5 % (21.0-51.0); %Monocytes 10.8 % (0.0-10.0); %Neutrophils 39.5 % (42.0-75.0); Hemoglobin 10.6 g/dL (12.0-16.0); Mean Corpuscular HGB CONC 35.3 g/dL (32.0-36.0); Mean Corpuscular Hemoglobin 28.7 pg (27.0-31.0); Mean Corpuscular Volume 81.2 fl (81.0-99.0); Mean Platelet Volume 7.8 fL (7.4-10.4); Platelet Count 182 thou/uL (130-400); RBC Distribution Width 12.2 % (11.5-14.5); Red Blood Cell (RBC) Count 3.71 mill/uL (4.20-5.40); White Blood Cell (WBC) Count 4.4 thou/uL (4.8-10.8)
[2018-04-05 05:24] LABS: Anion Gap 16 mmol/L (10-20); BUN (Urea Nitrogen) 41 mg/dL (9.8-20.1); Calc. Creatinine Clearance 55 mL/min (70-130); Calcium 8.3 mg/dL (7.8-10.44); Carbon Dioxide 19 mmol/L (22-29); Chloride 103 mmol/L (98-107); Estimated GFR-MDRD 28; Glucose 330 mg/dL (70-105); Potassium 5.7 mmol/L (3.5-5.1); Sodium 132 mmol/L (136-145)
[2018-04-05] MEDS: HumaLOG 300 UNITS/3 ML VIAL SC PRN ×3 (05:48→17:31)
[2018-04-05] MEDS: Sodium Chloride 0.9% 1,000 ML IV SCH (08:46)
[2018-04-05] MEDS: Carvedilol 25 MG TAB PO SCH (08:47)
[2018-04-05] MEDS: Gabapentin 300 MG CAP PO SCH ×2 (08:48→16:02)
[2018-04-05] MEDS: Sevelamer Carbonate 800 MG TAB PO SCH ×2 (08:48→16:01)
[2018-04-05] MEDS: Heparin 5,000 UNITS/ML VIAL SC SCH ×2 (08:48→17:30)
[2018-04-05] MEDS ORDERED: Docusate 100 MG CAP PO SCH (09:00)
[2018-04-05] MEDS ORDERED: Fenofibrate Nanocrystallized 145 MG TAB PO SCH (09:00)
[2018-04-05] MEDS ORDERED: Amlodipine 5 MG TAB PO SCH (09:00)
[2018-04-05] MEDS ORDERED: Insulin Regular 300 UNITS/3 ML VIAL IVP SCH (10:30)
[2018-04-05] MEDS ORDERED: tiZANidine HCl 4 MG TAB PO PRN (11:29)
[2018-04-05] MEDS ORDERED: Doxepin HCl 10 MG CAP PO PRN (11:29)
[2018-04-05] MEDS ORDERED: Losartan 25 MG TAB PO SCH (11:45)
[2018-04-05] MEDS ORDERED: traMADol HCl 50 MG TAB PO PRN (11:49)
--- NOTE | 2018-04-05 11:56 | PDOC.PN ---
- Subjective Encounter Start Date: 04/05/18 Encounter Start Time: 10:30 Subjective: pt up eating complains of some pain to her right shoulder - Objective Vital Signs & Weight: Vital Signs (12 hours) Temp Pulse Resp BP BP BP Pulse Ox 04/05/18 08:47 149/97 H 04/05/18 07:30 98.3 F 88 21 H 04/05/18 07:22 98.3 F 88 21 H 175/84 H 98 04/05/18 03:55 97.7 F 87 20 173/77 H 95 Weight Weight 271 lb 8 oz I&O: 04/04/18 04/05/18 04/06/18 06:59 06:59 06:59 Intake Total 8129 552 Output Total 2000 Balance 709 552 Result Diagrams: 04/05/18 04:36 04/05/18 04:36 Additional Labs: Accuchecks 04/05/18 04/04/18 10:48 20:28 POC Glucose 285 H 238 H Phys Exam - Physical Examination HEENT: PERRLA, moist MMs, sclera anicteric, TM's clear, oral pharynx no lesions , 2+ tonsils Neck: no nodes, no JVD, supple, full ROM Cardiovascular: RRR, no significant murmur, no rub, gallop, irregular Gastrointestinal: soft, non-tender, no distention, positive bowel sounds mild pain to her right shoulder on palpation, no limitiation to ROM Neurological: non-focal, normal sensation, moves all 4 limbs Psychiatric: normal affect, A&O x 3 Dx/Plan (1) Slurred speech Code(s): R47.81 - SLURRED SPEECH Status: Acute (2) Fall Code(s): W19.XXXA - UNSPECIFIED FALL, INITIAL ENCOUNTER Status: Acute (3) Hyperglycemia Code(s): R73.9 - HYPERGLYCEMIA, UNSPECIFIED Status: Acute (4) Diabetes Code(s): E11.9 - TYPE 2 DIABETES MELLITUS WITHOUT COMPLICATIONS Status: Acute - Plan * ct head negative. pt up in bed no complains. pt's mucus membranes were dry yesterday. I do not think she had slurred speech last night. Awaiting PT eval. all xray negative. Review of Systems - Review of Systems Eyes: negative: Pain, Vision Change, Conjunctivae Inflammation, Eyelid Inflammation, Redness, Other ENT: negative: Ear Pain, Ear Discharge, Nose Pain, Nose Discharge, Nose Congestion, Mouth Pain, Mouth Swelling, Throat Pain, Throat Swelling, Other Musculoskeletal: Shoulder Pain Skin: negative: Rash, Lesions, Abilio, Bruising, Other - Medications/Allergies Allergies/Adverse Reactions: Allergies Allergy/AdvReac Type Severity Reaction Status Date / Time codeine Allergy Severe Verified 04/04/18 20:01 Penicillins Allergy Intermediate Verified 04/04/18 20:01 chocolate flavor Allergy Hives Verified 04/04/18 20:01 orange Allergy Hives Verified 04/04/18 20:01 orange flavor Allergy Hives Verified 04/04/18 20:01 tramadol Allergy Verified 04/04/18 20:01 Medications: Current Medications Hydrocodone Bitart/Acetaminophen (Raton 10/325) 1 tab PO BID PRN PRN Reason: Pain Last Admin: 04/05/18 00:17 Dose: 1 tab Amlodipine Besylate (Norvasc) 5 mg PO DAILY [facility] Last Admin: 04/05/18 08:47 Dose: 5 mg Aspirin (Aspirin Chewable) 81 mg PO DAILY [facility] Last Admin: 04/05/18 08:47 Dose: 81 mg Carbamazepine (Tegretol) 100 mg PO BID [facility] Carvedilol (Coreg) 25 mg PO BID [facility] Last Admin: 04/05/18 08:47 Dose: 25 mg Dextrose/Water (Dextrose 50%) 25 gm SLOW IVP PRN PRN PRN Reason: Hypoglycemia Diazepam (Valium) 10 mg PO BID [facility] Docusate Sodium (Colace) 100 mg PO DAILY [facility] Last Admin: 04/05/18 08:48 Dose: 100 mg Doxepin HCl (Sinequan) 10 mg PO HS PRN PRN Reason: Pain Famotidine (Pepcid) 20 mg PO QPM [facility] Last Admin: 04/04/18 20:29 Dose: 20 mg Fenofibrate (Tricor) 145 mg PO DAILY [facility] Last Admin: 04/05/18 08:48 Dose: 145 mg Gabapentin (Neurontin) 300 mg PO TID [facility] Last Admin: 04/05/18 08:48 Dose: 300 mg Glucagon (Glucagon) 1 mg IM PRN PRN PRN Reason: Hypoglycemia Heparin Sodium (Porcine) (Heparin) 5,000 units SC TID [facility] Last Admin: 04/05/18 08:48 Dose: 5,000 units Hydroxyzine HCl (Atarax) 25 mg PO TID PRN PRN Reason: Anxiety Sodium Chloride (Normal Saline 0.9%) 1,000 mls @ 100 mls/hr IV .Q10H [facility] Last Admin: 04/05/18 08:46 Dose: 1,000 mls Dextrose/Water (D5w) 1,000 mls @ 0 mls/hr IV .Q0M PRN; As Directed PRN Reason: Hypoglycemia Insulin Glargine 10 units/ (Miscellaneous Medication) 0.1 mls @ 0 mls/hr SC [facility] Last Admin: 04/04/18 21:14 Dose: 0.1 mls Insulin Human Lispro (Humalog) 0 units SC .MODERATE SLIDING SC PRN PRN Reason: Moderate Correctional Scale Last Admin: 04/05/18 05:48 Dose: 8 unit Insulin Human Regular (Humulin R) 8 units IVP 1030 [facility] Stop: 04/05/18 13:00 Losartan Potassium (Cozaar) 100 mg PO DAILY [facility] Losartan Potassium (Cozaar) 100 mg PO NOW [facility] Stop: 04/05/18 14:00 Menthol/Methyl Salicylate (Muscle Rub Cream (Bengay)) 1 gm TOP QID PRN PRN Reason: Pain Pravastatin Sodium (Pravachol) 40 mg PO [facility] Last Admin: 04/04/18 20:30 Dose: 40 mg Sevelamer Carbonate (Renvela) 800 mg PO TID [facility] Last Admin: 04/05/18 08:48 Dose: 800 mg Sodium Chloride (Flush - Normal Saline) 10 ml IVF Q12HR [facility] Last Admin: 04/05/18 09:47 Dose: 10 ml Sodium Chloride (Flush - Normal Saline) 10 ml IVF PRN PRN PRN Reason: Saline Flush Tizanidine HCl (Zanaflex) 4 mg PO Q8HR PRN PRN Reason: Muscle Spasm Tramadol HCl (Ultram) 50 mg PO Q6H PRN PRN Reason: Mild Pain (1-3) Venlafaxine HCl (Effexor Xr) 150 mg PO DAILY [facility]
[2018-04-05] MEDS ORDERED: carBAMazepine 100 mg Chewable Tablet PO SCH (12:00)
[2018-04-05] MEDS: Methyl Salicylate/Menthol 85 GM TUBE TOP PRN ×2 (12:53→16:08)
[2018-04-05 17:47] VITALS: BP 157/70; TEMP 97.8
[2018-04-05 18:07] LABS: Anion Gap 13 mmol/L (10-20); BUN (Urea Nitrogen) 31 mg/dL (9.8-20.1); Calc. Creatinine Clearance 64 mL/min (70-130); Calcium 9.1 mg/dL (7.8-10.44); Carbon Dioxide 25 mmol/L (22-29); Chloride 100 mmol/L (98-107); Estimated GFR-MDRD 34; Glucose 252 mg/dL (70-105); Potassium 4.3 mmol/L (3.5-5.1); Sodium 134 mmol/L (136-145)
[2018-04-05] MEDS ORDERED: Diazepam 5 MG TAB PO SCH (21:00)
[2018-04-06] MEDS ORDERED: Losartan 25 MG TAB PO SCH (09:00)
[2018-04-06] MEDS ORDERED: Venlafaxine HCl XR 150 MG CAP PO SCH (09:00)
--- NOTE | 2018-04-07 14:34 | DIS ---
DATE OF ADMISSION: 04/04/2018 DATE OF DISCHARGE: 04/05/2018 DISCHARGE DIAGNOSES: As the followin. Slurred speech. 2. Fall. 3. Hyperglycemia. 4. Diabetes. HOSPITAL COURSE: Patient is a very pleasant 57-year-old female who initially presented to the hospit nd with concerns for possible slurred speech. Patient at that time underwent a CT head which was neg ative. Patient did appear to be very dehydrated and was given some IV fluids, also was found to have a blood sugar of 400. However, no DKA was noted. Patient was treated with insulin. Her sugars imp roved. Patient stated that she had a fall. She had an x-ray of the right shoulder, ankle, chest, an d hip, which did not show any acute abnormalities. Patient was seen by physical therapy. She was ab le to ambulate and patient was discharged home. The patient will follow up with her primary care doc tor as an outpatient. PHYSICAL EXAMINATION: VITAL SIGNS: On discharge 98.8, 94, 100% on room air, 157/70. GENERAL: She is awake, alert, oriented x3, does not appear in distress. CARDIOVASCULAR: S1, S2 present. No murmurs, rubs, or gallops. ABDOMEN: Soft, nontender. Bowel sounds are present x2. EXTREMITIES: No edema. Pedal pulses are present x2. DISCHARGE MEDICATIONS: She will continue her home medications. Home medications are as the followin g: Aspirin 81 mg daily, Levemir 10 mg b.i.d., Lasix 40 mg daily, Cozaar 100 mg daily, Januvia 0.5 da hilario, carbamazepine 100 mg b.i.d., venlafaxine 50 mg daily, Norvasc 5 mg daily, Colace 100 mg daily, C oreg 25 mg b.i.d., fenofibrate 140 mg daily, Pepcid 20 mg b.i.d., doxepin 2 tabs at bedtime p.r.n., pravastatin 1 p.o. daily, multivitamin 1 p.o. daily. Again, patient will follow with her primary.
== END 2018-04-05 18:35 | disposition home or self-care (01) ==
LOC: ERS 13:22 → 2SW 19:14
PROVIDERS: ADMIT Internal Medicine; ATTEND Internal Medicine
DX: R47.81 Slurred speech (principal); I13.0 Hypertensive heart and chronic kidney disease with heart failure and stage 1 through stage 4 chronic kidney disease, or unspecified chronic kidney disease; E11.22 Type 2 diabetes mellitus with diabetic chronic kidney disease; E11.65 Type 2 diabetes mellitus with hyperglycemia; E11.40 Type 2 diabetes mellitus with diabetic neuropathy, unspecified; I50.32 Chronic diastolic (congestive) heart failure; N18.9 Chronic kidney disease, unspecified; E66.01 Morbid (severe) obesity due to excess calories; E78.5 Hyperlipidemia, unspecified; F41.9 Anxiety disorder, unspecified; F32.9 Major depressive disorder, single episode, unspecified; Z88.0 Allergy status to penicillin; Z88.5 Allergy status to narcotic agent; Z79.899 Other long term (current) drug therapy; Z79.82 Long term (current) use of aspirin; W19.XXXA Unspecified fall, initial encounter; Z68.42 Body mass index [BMI] 45.0-49.9, adult
CPT/HCPCS: 70450; 71045; 73030; 73502; 73610; 80048 ×2; 80053; 80306; 82010; 82962 ×2; 85025 ×2; 93005; 96361 ×3; 96374; 97116; 97139; 99285; G0378; G8978; G8979; G8980; 36416; A4216; J1644; J1815

== ENCOUNTER 2018-04-08 19:08 | Emergency (ER) | payer MEDICARE, MEDICAID ==
[2018-04-08] MEDS ORDERED: Insulin Regular 300 UNITS/3 ML VIAL ONE (19:37)
[2018-04-08 19:53] LABS: Hemoglobin 11.4 g/dL (12.0-16.0); Mean Corpuscular HGB CONC 34.4 g/dL (32.0-36.0); Mean Corpuscular Hemoglobin 27.6 pg (27.0-31.0); Mean Corpuscular Volume 80.1 fL (78.0-98.0); Mean Platelet Volume 7.7 fL (7.4-10.4); Platelet Count 190 thou/uL (130-400); RBC Distribution Width 12.4 % (11.5-14.5); Red Blood Cell (RBC) Count 4.12 mill/uL (4.20-5.40); White Blood Cell (WBC) Count 5.8 thou/uL (4.8-10.8)
[2018-04-08 20:06] LABS: ALT (SGPT) 17 U/L (8-55); AST (SGOT) 20 U/L (5-34); Albumin 3.3 g/dL (3.5-5.0); Alkaline Phosphatase 107 U/L (40-150); Anion Gap 14 mmol/L (10-20); BUN (Urea Nitrogen) 34 mg/dL (9.8-20.1); Bilirubin, Total 0.4 mg/dL (0.2-1.2); Calc. Creatinine Clearance 0 mL/min (70-130); Calcium 8.9 mg/dL (7.8-10.44); Carbon Dioxide 27 mmol/L (22-29); Chloride 91 mmol/L (98-107); Estimated GFR-MDRD 25; Globulin 3.8 g/dL (2.4-3.5); Glucose 531 mg/dL (70-105); Magnesium 1.2 mg/dL (1.6-2.6); Protein, Total 7.1 g/dL (6.0-8.3); Sodium 128 mmol/L (136-145)
--- NOTE | 2018-04-08 20:06 | RAD ---
RADIOGRAPH CHEST 1 VIEW: 04/08/18 HISTORY: 57-year-old female with hyperglycemia. FINDINGS: There is cardiomegaly. There is no evidence of air space density, pulmonary edema, or pneumothorax. T he lateral costophrenic angles are sharp. IMPRESSION: 1) No acute pulmonary findings. 2) Cardiomegaly without congestive heart failure. lisa [] POS: DEVIKA
[2018-04-08 20:07] LABS: #Eosinphils 0.1 thou/uL (0.0-0.7); #Lymphocytes 2.1 thou/uL (1.20-3.40); #Monocytes 0.6 thou/uL (0.11-0.59); %Basophils 0.2 % (0.0-1.0); %Eosinophils 2.4 % (0.0-10.0); %Lymphocytes 36.6 % (21.0-51.0); %Monocytes 10.4 % (0.0-10.0); %Neutrophils 50.5 % (42.0-75.0); MDiff Complete? YES; PLT Morphology Comment Appears Adequate; Polychromasia SLIGHT = 2-3 cells (100X) (0-2/hpf)
[2018-04-08 20:27] LABS: CKMB 0.9 ng/mL (0-6.6); Troponin I Less than 0.010 ng/mL (< 0.028)
[2018-04-08 21:00] LABS: Bilirubin Negative (Negative); Blood, Urine Negative (Negative); Clarity CLEAR (Clear); Glucose, Urine (Dipstick) 500 mg/dL (Negative); Leukocyte Negative (Negative); Nitrite Negative (Negative); Protein, Urine (Dipstick) 30 mg/dL (Neg-Trace); Urobilinogen 0.2 mg/dL (0.2-1.0); pH, Urine 6.5 (5.0-9.0)
[2018-04-08 21:01] LABS: Bacteria/HPF None Seen HPF (None Seen); Hyaline Casts/LPF 0-3 HYALINE CAST LPF (0-3 Hyaline); Pathc Cast-AUWi Flag 0.14 (0-2.49); RBC/HPF 0-3 HPF (0-3); Squamous Epithelial 0-3 HPF (0-3); WBC/HPF None Seen HPF (0-3)
== END 2018-04-08 23:10 | disposition home or self-care (01) ==
LOC: ERS 19:08
DX: E11.65 Type 2 diabetes mellitus with hyperglycemia (principal); G89.29 Other chronic pain; M19.90 Unspecified osteoarthritis, unspecified site; I11.0 Hypertensive heart disease with heart failure; I50.9 Heart failure, unspecified; J45.909 Unspecified asthma, uncomplicated; E11.40 Type 2 diabetes mellitus with diabetic neuropathy, unspecified; F31.9 Bipolar disorder, unspecified; F41.9 Anxiety disorder, unspecified; F20.9 Schizophrenia, unspecified; Z86.73 Personal history of transient ischemic attack (TIA), and cerebral infarction without residual deficits; Z91.14 Patient's other noncompliance with medication regimen
CPT/HCPCS: 36415; 36416; 71045; 80053; 81003; 81015; 82010; 82553; 83735; 84484; 85025; 93005; 96360; 96361; J1815

== ENCOUNTER 2018-04-10 11:09 | Emergency (ER) | payer MEDICARE, OTHER, MEDICAID ==
--- NOTE | 2018-04-10 14:08 | RAD ---
TWO VIEWS LEFT HIP: Date: 04-10-18 History: Left hip pain. FINDINGS: There is no evidence of a fracture or dislocation involving the left hip. Radiopaque sutures overlie the pelvis. No other findings. IMPRESSION: No acute osseous abnormality. POS: DEVIKA
--- NOTE | 2018-04-10 14:12 | RAD ---
PELVIS AP: HISTORY: Chronic left-sided hip pain. Recently worsened. FINDINGS: There is mild superior joint space narrowing involving both hips. There is mild lateral acetabular o steophyte formation bilaterally. There is lower lumbar spine facet hypertrophy. The pelvic ring bill ears intact. There is no widening of the sacroiliac joints of the pubic symphysis. There is no disp laced fracture or dislocation seen. IMPRESSION: No acute osseous abnormality. POS: DEVIKA
== END 2018-04-10 14:21 | disposition home or self-care (01) ==
LOC: ERS 11:09
DX: M25.552 Pain in left hip (principal); G89.29 Other chronic pain; M19.90 Unspecified osteoarthritis, unspecified site; I11.0 Hypertensive heart disease with heart failure; I50.9 Heart failure, unspecified; E11.40 Type 2 diabetes mellitus with diabetic neuropathy, unspecified; J45.909 Unspecified asthma, uncomplicated; F41.9 Anxiety disorder, unspecified; F31.9 Bipolar disorder, unspecified; F20.9 Schizophrenia, unspecified; Z86.73 Personal history of transient ischemic attack (TIA), and cerebral infarction without residual deficits
CPT/HCPCS: 72170

== ENCOUNTER 2018-04-16 15:17 | Observation (INO) | payer MEDICARE, OTHER, MEDICAID ==
[2018-04-16 16:21] LABS: #Eosinphils 0.1 thou/uL (0.0-0.7); #Lymphocytes 1.9 thou/uL (1.20-3.40); #Monocytes 0.6 thou/uL (0.11-0.59); #Neutrophils 2.2 thou/uL (1.40-6.50); %Basophils 0.9 % (0.0-1.0); %Eosinophils 1.9 % (0.0-10.0); %Lymphocytes 40.2 % (21.0-51.0); %Monocytes 11.6 % (0.0-10.0); %Neutrophils 45.4 % (42.0-75.0); Hemoglobin 11.8 g/dL (12.0-16.0); Mean Corpuscular HGB CONC 35.7 g/dL (32.0-36.0); Mean Corpuscular Hemoglobin 27.9 pg (27.0-31.0); Mean Corpuscular Volume 78.2 fL (78.0-98.0); Mean Platelet Volume 8.1 fL (7.4-10.4); Platelet Count 200 thou/uL (130-400); RBC Distribution Width 12.5 % (11.5-14.5); Red Blood Cell (RBC) Count 4.24 mill/uL (4.20-5.40); White Blood Cell (WBC) Count 4.8 thou/uL (4.8-10.8)
[2018-04-16 16:34] LABS: Base Excess-Venous 4.7 mmol/L (0 (+/- 2.5)); Bicarbonate (HCO3v) 31.1 mmol/L (1.0-85.0); CO2 Tension (PvCO2) 52.8 mmHg (41.0-51.0); Calcium, Ionized 1.17 mmol/L (1.12-1.32); Hemoglobin - Calc 12.9 g/dL (12.0-18.0); O2 Tension (PvO2) 56.5 mmHg (35.0-45.0); T. Carbon Dioxide 32.8 mmol/L (1.0-85.0); pH (Venous) 7.378 (7.35-7.45); vO2 Saturation-calc 87.7 % (94-98)
[2018-04-16 16:42] LABS: Bilirubin Negative (Negative); Blood, Urine Negative (Negative); Clarity CLEAR (Clear); Glucose, Urine (Dipstick) 500 mg/dL (Negative); Leukocyte Negative (Negative); Nitrite Negative (Negative); Protein, Urine (Dipstick) 30 mg/dL (Neg-Trace); Specific Gravity, Urine 1.015 (1.002-1.036); Urobilinogen 0.2 mg/dL (0.2-1.0); pH, Urine 6.5 (5.0-9.0)
[2018-04-16 16:43] LABS: ALT (SGPT) 34 U/L (8-55); AST (SGOT) 38 U/L (5-34); Albumin 3.4 g/dL (3.5-5.0); Alkaline Phosphatase 143 U/L (40-150); Anion Gap 14 mmol/L (10-20); BUN (Urea Nitrogen) 46 mg/dL (9.8-20.1); Bilirubin, Total 0.3 mg/dL (0.2-1.2); Calc. Creatinine Clearance 0 mL/min (70-130); Calcium 9.3 mg/dL (7.8-10.44); Carbon Dioxide 29 mmol/L (22-29); Chloride 89 mmol/L (98-107); Estimated GFR-MDRD 25; Globulin 4.4 g/dL (2.4-3.5); Lipase 97 U/L (8-78); Potassium 6.1 mmol/L (3.5-5.1); Protein, Total 7.8 g/dL (6.0-8.3); Sodium 126 mmol/L (136-145)
[2018-04-16 16:47] LABS: Bacteria/HPF None Seen HPF (None Seen); Hyaline Casts/LPF 0-3 HYALINE CAST LPF (0-3 Hyaline); Pathc Cast-AUWi Flag 0.29 (0-2.49); RBC/HPF 0-3 HPF (0-3); Squamous Epithelial 0-3 HPF (0-3); WBC/HPF None Seen HPF (0-3)
[2018-04-16 16:48] LABS: Glucose 586 mg/dL (70-105)
[2018-04-16] MEDS ORDERED: Albuterol Sulfate 2.5 mg/0.5 ml Neb ONE (17:35)
[2018-04-16] MEDS ORDERED: Insulin Regular 300 UNITS/3 ML VIAL ONE (17:37)
[2018-04-16] MEDS ORDERED: Calcium Chloride 1 GM/10 ML Abboject SYRINGE ONE (17:37)
[2018-04-16] MEDS ORDERED: Dextrose 50% Abboject 50 ML SYRINGE SLOW IVP PRN (19:34)
[2018-04-16] MEDS ORDERED: Dextrose 5% in Water 1,000 ML IV PRN (19:34)
[2018-04-16] MEDS ORDERED: Docusate 100 MG CAP PO PRN (19:34)
[2018-04-16 19:52] VITALS: BMI 47.1
--- NOTE | 2018-04-16 20:59 | PDOC.EVN ---
Event Note - Event Note Event Note: Patient's blood glucose dropped from he 500 range to 300's with just 5 units of regular insulin. Will therefore cut her dose of short acting insulin to 20 units with meals. Will need to have the pharmacy called in the morning to clarify what dose of insulin has been dispensed.
[2018-04-16] MEDS ORDERED: Pravastatin Sodium 40 MG TAB PO SCH (21:00)
[2018-04-16] MEDS ORDERED: Insulin Glargine 10 UNITS in Pre-Filled Syringe 1 EACH SC SCH (21:00)
[2018-04-16] MEDS ORDERED: HumaLOG 300 UNITS/3 ML VIAL SC SCH ×2 (21:00)
[2018-04-16] MEDS: Sodium Chloride 0.9% 1,000 ML IV SCH (21:37)
[2018-04-16] MEDS: Carvedilol 25 MG TAB PO SCH (21:42)
[2018-04-16] MEDS: carBAMazepine 100 mg Chewable Tablet PO SCH (21:42)
[2018-04-16] MEDS: hydrALAZINE 20 MG/ML VIAL SLOW IVP PRN (23:32)
[2018-04-16] MEDS: HumaLOG 300 UNITS/3 ML VIAL SC PRN (23:32)
--- NOTE | 2018-04-17 02:22 | HP ---
PRIMARY CARE PHYSICIAN: Kelsey Felder M.D. CHIEF COMPLAINT: Feeling weak. HISTORY OF PRESENT ILLNESS: Ms. Plummer is a pleasant 57-year-old female that has a history of diabete s mellitus type 2 as well as chronic kidney disease. She was actually recently discharged from our [facility] earlier this month with similar symptoms. She says that she began feeling really hot and swe aty and clammy yesterday evening and started feeling very thirsty, these symptoms continued on until the morning. She also says she was feeling hot and cold as well as nauseated. She came to the emerg ency room for evaluation where she was found to have a blood sugar greater than 500 and the potassium of 6.1 and she is being admitted for further evaluation. The patient says that she has been complia nt with her insulin, she says that she has not missed any doses. She says that her chest has been hu rting off and on some, but no palpitations, no PND, no orthopnea, no increase in lower extremity vanda a. She has felt nauseated but has not had any vomiting, no diarrhea, no abdominal pain. No clear re ason for her blood sugar to be out of control. REVIEW OF SYSTEMS: All systems were reviewed and are negative except for that mentioned in the histo ry of present illness. The patient says that her psychiatric conditions have been stable. She saw h psychiatrist about a month ago and has been "stable" on her medications. PAST MEDICAL HISTORY: Significant for diabetes mellitus, COPD, chronic kidney disease, chronic low b ack pain, obesity, chronic diastolic heart failure, diabetic neuropathy, hyperlipidemia, schizophreni a, bipolar disorder, depression, and anxiety. PAST SURGICAL HISTORY: She has had a cholecystectomy and an umbilical hernia. ALLERGIES: CODEINE, PENICILLIN, and TRAMADOL. SOCIAL HISTORY: She is single. She has 4 children, 2 boys and 2 girls. She is a nonsmoker, nondrin ker. FAMILY HISTORY: Significant for diabetes mellitus, hypertension, and cancer. CURRENT MEDICATIONS: She is not sure of the names and doses of all of her medications. She tells me she takes Humalog insulin and that is the only insulin she remembers taking; however, in her dischar ge summary from about 10 days ago, she was on Levemir as well. On the Humalog, she tells me she take s 120 units in the morning and 105 units at lunchtime and 80 units in the evening. She tells me that she is on a diabetic pill. Her medications from her past admission include aspirin 81 mg daily, Lev svetlana 10 units twice a day, Lasix 40 mg daily, Cozaar 100 mg daily, Januvia I believe that should be 5 0 mg daily, carbamazepine 100 mg twice a day, venlafaxine 50 mg daily, Norvasc 5 mg daily, Colace 100 mg daily, carvedilol 25 mg twice a day, fenofibrate 140 mg daily, Pepcid 20 mg twice a day, doxepin 2 mg at bedtime as needed, pravastatin daily, multivitamin once a day. She says that she goes to the [facility] in [place] and likely need to call to verify these medications. PHYSICAL EXAMINATION: GENERAL: She is alert and oriented. She appears to be in no acute distress. She is well-developed and well-nourished. VITAL SIGNS: Stable with a blood pressure of approximately 135/80, heart rate in the 80s, respirator y rate is 16, and she is afebrile. HEENT: Pupils are equal, round, and reactive. Extraocular muscles are intact. Her sclerae are anic teric. Throat: No erythema, no exudates. NECK: No adenopathy, no bruits. LUNGS: Clear to auscultation. There was no wheezing, no rales. CARDIOVASCULAR: She has a normal S1, S2. I did not appreciate an S3 or S4. No murmurs, clicks or r ubs. ABDOMEN: Obese, it is soft, it is nontender, nondistended. Positive for bowel sounds. There is no rebound or guarding. EXTREMITIES: There is trace pedal edema, no warmth. She has got palpable dorsalis pedis pulses bila terally. NEUROLOGIC: The exam is nonfocal. Muscle strength is 5/5 in both her upper and lower extremities. SKIN AND INTEGUMENT: There are no skin changes. No rash. LABORATORY RESULTS: The white blood cell count 4.8, hemoglobin 11.8, hematocrit is 33.2, platelet co unt is 200. Sodium 126, potassium 6.1, chloride is 89, CO2 is 29, BUN of 46, creatinine 2.4, glucose is 586. Urinalysis was negative. ASSESSMENT AND PLAN: 1. This is a pleasant 57-year-old female who comes to the emergency room with elevated blood glucose as well as an elevated potassium. Her creatinine is also elevated at 2.48, which is close to twice a baseline creatinine, which was seen a few months back. Therefore, she has an acute renal failure o n top of chronic kidney disease. She will be placed in observation, started on IV hydration. She marie s been given IV insulin in the ER and we will restart her medications as she was discharged on previo usly and see if this controls her blood glucose, if it does, then I suspect that noncompliance is the reason for hyperglycemia. If it is not well controlled on her usual regimen then adjustments may ne ed to be made. 2. Hyperkalemia, suspect this could be the result of the acute renal failure. She has been given a dose of Kayexalate in the ER. She will likely need another dose of Kayexalate on the floor. Recheck her potassium. There were no EKG changes reported. 3. Acute renal failure. I suspect this is due to prerenal azotemia likely due to fluid losses from the hyperglycemia. 4. Hyponatremia. Again, related to the grossly elevated blood glucose, this should correct with cor rection of her glucose. 5. Psychiatric illnesses including the schizophrenia, bipolar. I suspect this is contributing to he r current illness. She says she is well controlled on her medications. However, she says she is bet ween doctors at the [facility] clinic. It may be a situation where they would need to be informed as to he r ongoing medical issues as her psychiatric issues may not be completely controlled. Also, some psyc hiatric medications can cause difficulty controlling diabetes and it is unclear whether or not we hav e a complete list of all of her medications. Once again, this will need to be worked out between her psychiatrist and her primary care physician.
[2018-04-17] MEDS: Acetaminophen 325 MG TAB PO PRN ×2 (02:40→11:35)
[2018-04-17] MEDS: HumaLOG 300 UNITS/3 ML VIAL SC PRN ×4 (04:21→16:38)
[2018-04-17 04:36] LABS: #Eosinphils 0.1 thou/uL (0.0-0.7); #Lymphocytes 2.1 thou/uL (1.20-3.40); #Monocytes 0.5 thou/uL (0.11-0.59); #Neutrophils 1.7 thou/uL (1.40-6.50); %Eosinophils 3.1 % (0.0-10.0); %Lymphocytes 46.8 % (21.0-51.0); %Monocytes 11.1 % (0.0-10.0); Hemoglobin 11.4 g/dL (12.0-16.0); Mean Corpuscular HGB CONC 34.8 g/dL (32.0-36.0); Mean Corpuscular Hemoglobin 27.4 pg (27.0-31.0); Mean Corpuscular Volume 78.8 fL (78.0-98.0); Mean Platelet Volume 7.6 fL (7.4-10.4); Platelet Count 203 thou/uL (130-400); RBC Distribution Width 12.4 % (11.5-14.5); Red Blood Cell (RBC) Count 4.14 mill/uL (4.20-5.40); White Blood Cell (WBC) Count 4.6 thou/uL (4.8-10.8)
[2018-04-17 04:48] LABS: Anion Gap 12 mmol/L (10-20); BUN (Urea Nitrogen) 36 mg/dL (9.8-20.1); Calc. Creatinine Clearance 62 mL/min (70-130); Carbon Dioxide 29 mmol/L (22-29); Chloride 93 mmol/L (98-107); Estimated GFR-MDRD 33; Glucose 323 mg/dL (70-105); Potassium 4.6 mmol/L (3.5-5.1); Sodium 129 mmol/L (136-145)
[2018-04-17] MEDS: Sodium Chloride 0.9% 1,000 ML IV SCH ×2 (05:17→10:25)
[2018-04-17] MEDS ORDERED: HumaLOG 300 UNITS/3 ML VIAL SC SCH ×6 (08:00→17:00)
[2018-04-17] MEDS: carBAMazepine 100 mg Chewable Tablet PO SCH (08:48)
[2018-04-17] MEDS: Carvedilol 25 MG TAB PO SCH (08:51)
[2018-04-17] MEDS ORDERED: Fenofibrate Nanocrystallized 145 MG TAB PO SCH (09:00)
[2018-04-17] MEDS ORDERED: Insulin Glargine 10 UNITS in Pre-Filled Syringe 1 EACH SC SCH (09:00)
[2018-04-17] MEDS ORDERED: Amlodipine 5 MG TAB PO SCH (09:00)
[2018-04-17] MEDS ORDERED: Enoxaparin Sodium 40 MG/0.4 ML SYRINGE SC SCH (09:00)
[2018-04-17] MEDS ORDERED: Losartan 25 MG TAB PO SCH (09:00)
[2018-04-17] MEDS ORDERED: Alogliptin 6.25 MG TAB PO SCH (09:00)
[2018-04-17] MEDS: hydrALAZINE 20 MG/ML VIAL SLOW IVP PRN (11:35)
[2018-04-17 12:21] LABS: Troponin I 0.013 ng/mL (< 0.028)
[2018-04-17 17:37] LABS: Troponin I Less than 0.010 ng/mL (< 0.028)
[2018-04-17] MEDS ORDERED: diphenhydrAMINE 50 MG/ML VIAL ONE (17:57)
[2018-04-17] MEDS ORDERED: diphenhydrAMINE 50 MG/ML VIAL IVP SCH (18:15)
[2018-04-17 19:39] VITALS: BP 169/80; TEMP 98.3
--- NOTE | 2018-04-18 04:09 | DIS ---
PRIMARY CARE PROVIDER: Kelsey Felder M.D. DATE OF ADMISSION: 04/16/2018 DATE OF DISCHARGE 04/17/2018 DISCHARGE DIAGNOSES: 1. Hyperglycemia. 2. Hyperkalemia. CONDITION OF PATIENT ON THE DAY OF DISCHARGE: Stable. I assessed Ms. Plummer on the day of discharge. She currently denies any chest pain or shortness of breath. She denies any fevers or chills. S1 a nd S2 are heard, regular. Lungs are clear to auscultation bilaterally. HOSPITAL COURSE: Ms. Plummer is a pleasant 57-year-old lady who was admitted to [facility] on observation status on 04/16/2018. She was found to be hyperglycemic as well as hyperk alemic. She received treatments to bring her potassium into normal range. She also received insulin to bring her blood sugars down. On the morning of 04/09/2018, she complained of atypical chest discomfort. The chest discomfort reso lved after a few minutes. Two sets of cardiac enzymes were negative. She is being discharged home i n a stable condition. She is advised to follow up with her primary care provider in 1-3 days for management of her diabetes medications. Please note she was not in ketoacidosis during this hospitalization. She also had acute on chronic renal insufficiency at the time of admission, with a creatinine of 2.43 . It decreased to 1.88 on the day of discharge. On the day of discharge, she has sodium 129, potassium 4.6, blood urea nitrogen 36, creatinine 1.88, anion gap 12, carbon dioxide 29, white count 4600, hemoglobin 11.4, and platelet count 203,000. DISCHARGE MEDICATIONS: No changes were made to her preadmission home medications as dictated on hist ory and physical note by Dr. Wilkinson on 04/16/2018. Many thanks for allowing me to participate in your patient's care. Please feel free to contact me wi th any questions or concerns. DISCHARGE DESTINATION: Home.
--- NOTE | 2018-04-19 15:20 | EKG ---
Test Reason : HYPERKALEMIA Blood Pressure : / mmHG Vent. Rate : 085 BPM Atrial Rate : 085 BPM P-R Int : 230 ms QRS Dur : 092 ms QT Int : 384 ms P-R-T Axes : 036 -30 006 degrees QTc Int : 456 ms Sinus rhythm with 1st degree A-V block Left axis deviation Possible Anterior infarct , age undetermined Abnormal ECG Confirmed by MIGEL ALBA MD ([id number]), editor managing director CHARISSA BAUTISTA ([id number]) on 04/19/2018 3:19:46 PM Referred By: JANNETTE ALBA Confirmed By:MIGEL ALBA MD
== END 2018-04-17 20:15 | disposition home or self-care (01) ==
LOC: ERS 15:17 → 2SW 17:25
PROVIDERS: ADMIT Internal Medicine; ATTEND Internal Medicine
DX: E11.65 Type 2 diabetes mellitus with hyperglycemia (principal); I13.0 Hypertensive heart and chronic kidney disease with heart failure and stage 1 through stage 4 chronic kidney disease, or unspecified chronic kidney disease; E11.22 Type 2 diabetes mellitus with diabetic chronic kidney disease; N18.9 Chronic kidney disease, unspecified; N17.9 Acute kidney failure, unspecified; I50.32 Chronic diastolic (congestive) heart failure; J44.9 Chronic obstructive pulmonary disease, unspecified; G89.29 Other chronic pain; M54.5 Low back pain; E11.40 Type 2 diabetes mellitus with diabetic neuropathy, unspecified; E78.5 Hyperlipidemia, unspecified; F31.9 Bipolar disorder, unspecified; F41.9 Anxiety disorder, unspecified; F20.9 Schizophrenia, unspecified; E87.5 Hyperkalemia; E87.1 Hypo-osmolality and hyponatremia; E66.9 Obesity, unspecified; Z68.42 Body mass index [BMI] 45.0-49.9, adult; Z79.4 Long term (current) use of insulin; Z79.899 Other long term (current) drug therapy; Z88.0 Allergy status to penicillin; Z88.5 Allergy status to narcotic agent; Z91.018 Allergy to other foods; Z91.02 Food additives allergy status
CPT/HCPCS: 80048; 80053; 82010; 82330; 82435; 82803; 82962 ×2; 83690; 84132; 84295; 84484 ×2; 85014; 85025 ×2; 93005; 94640; 96361 ×3; 96372; 96374; 96375 ×2; 96376; 99285; G0378; 36415; 36416; 81003; 81015; J0360; J1200; J1650; J1815; J2270; J7611

== ENCOUNTER 2018-05-05 20:17 | Observation (INO) | payer MEDICARE, OTHER, MEDICAID ==
[2018-05-05 21:26] LABS: #Eosinphils 0.1 thou/uL (0.0-0.7); #Lymphocytes 2.5 thou/uL (1.20-3.40); #Monocytes 0.7 thou/uL (0.11-0.59); #Neutrophils 2.1 thou/uL (1.40-6.50); %Basophils 0.2 % (0.0-1.0); %Eosinophils 2.2 % (0.0-10.0); %Lymphocytes 46.5 % (21.0-51.0); %Monocytes 12.6 % (0.0-10.0); %Neutrophils 38.5 % (42.0-75.0); Hemoglobin 12.9 g/dL (12.0-16.0); Mean Corpuscular Hemoglobin 28.8 pg (27.0-31.0); Mean Corpuscular Volume 77.5 fL (78.0-98.0); Mean Platelet Volume 8.1 fL (7.4-10.4); Platelet Count 209 thou/uL (130-400); RBC Distribution Width 12.7 % (11.5-14.5); Red Blood Cell (RBC) Count 4.48 mill/uL (4.20-5.40); White Blood Cell (WBC) Count 5.8 thou/uL (4.8-10.8)
[2018-05-05 21:39] LABS: ALT (SGPT) 30 U/L (8-55); AST (SGOT) 32 U/L (5-34); Albumin 3.5 g/dL (3.5-5.0); Alkaline Phosphatase 161 U/L (40-150); Anion Gap 17 mmol/L (10-20); BUN (Urea Nitrogen) 31 mg/dL (9.8-20.1); Bilirubin, Total 0.4 mg/dL (0.2-1.2); Calc. Creatinine Clearance 0 mL/min (70-130); Carbon Dioxide 20 mmol/L (22-29); Chloride 94 mmol/L (98-107); Estimated GFR-MDRD 21; Globulin 5.2 g/dL (2.4-3.5); Glucose 407 mg/dL (70-105); Magnesium 2.3 mg/dL (1.6-2.6); Phosphorus 3.1 mg/dL (2.3-4.7); Potassium 4.8 mmol/L (3.5-5.1); Protein, Total 8.7 g/dL (6.0-8.3); Sodium 126 mmol/L (136-145)
[2018-05-05 21:41] LABS: Mean Corpuscular HGB CONC 37.5 g/dL (32.0-36.0)
[2018-05-05 23:58] LABS: Anion Gap 13 mmol/L (10-20); BUN (Urea Nitrogen) 31 mg/dL (9.8-20.1); Calc. Creatinine Clearance 0 mL/min (70-130); Calcium 8.3 mg/dL (7.8-10.44); Carbon Dioxide 20 mmol/L (22-29); Chloride 100 mmol/L (98-107); Estimated GFR-MDRD 24; Glucose 388 mg/dL (70-105); Potassium 4.2 mmol/L (3.5-5.1); Sodium 129 mmol/L (136-145)
[2018-05-06] MEDS ORDERED: Insulin Regular 300 UNITS/3 ML VIAL ONE (01:00)
[2018-05-06 01:27] LABS: Bilirubin Negative (Negative); Blood, Urine Negative (Negative); Clarity CLEAR (Clear); Glucose, Urine (Dipstick) 250 mg/dL (Negative); Leukocyte Negative (Negative); Nitrite Negative (Negative); Protein, Urine (Dipstick) 100 mg/dL (Neg-Trace); Specific Gravity, Urine 1.013 (1.002-1.036); Urobilinogen 0.2 mg/dL (0.2-1.0); pH, Urine 5.5 (5.0-9.0)
[2018-05-06 01:31] LABS: Bacteria/HPF None Seen HPF (None Seen); Hyaline Casts/LPF 4-6 HYALINE CAST LPF (0-3 Hyaline); Pathc Cast-AUWi Flag 0.72 (0-2.49); RBC/HPF 0-3 HPF (0-3); Squamous Epithelial 0-3 HPF (0-3); WBC/HPF 0-3 HPF (0-3)
[2018-05-06] MEDS ORDERED: Dextrose 5% in Water 1,000 ML IV PRN (02:58)
[2018-05-06] MEDS ORDERED: Dextrose 50% Abboject 50 ML SYRINGE SLOW IVP PRN (02:58)
[2018-05-06 03:55] VITALS: BMI 45.0
[2018-05-06] MEDS: HumaLOG 300 UNITS/3 ML VIAL SC PRN ×3 (06:05→17:09)
[2018-05-06 06:06] LABS: Anion Gap 13 mmol/L (10-20); BUN (Urea Nitrogen) 30 mg/dL (9.8-20.1); Calc. Creatinine Clearance 48 mL/min (70-130); Calcium 8.2 mg/dL (7.8-10.44); Carbon Dioxide 20 mmol/L (22-29); Chloride 98 mmol/L (98-107); Estimated GFR-MDRD 26; Glucose 429 mg/dL (70-105); Potassium 4.4 mmol/L (3.5-5.1); Sodium 127 mmol/L (136-145)
[2018-05-06] MEDS: Acetaminophen 325 MG TAB PO PRN ×2 (06:09→17:09)
[2018-05-06 06:26] LABS: Eosinophils 2 % (0-10); Hemoglobin 11.3 g/dL (12.0-16.0); Hypochromia SLIGHT = 6-15 cells (100X) (0-5/hpf); Lymphocytes 58 % (21-51); MDiff Complete? YES; Mean Corpuscular HGB CONC 35.7 g/dL (32.0-36.0); Mean Corpuscular Hemoglobin 28.1 pg (27.0-31.0); Mean Corpuscular Volume 78.7 fL (78.0-98.0); Mean Platelet Volume 7.9 fL (7.4-10.4); Neutrophil 40 % (42-75); PLT Morphology Comment Appears Adequate; Platelet Count 159 thou/uL (130-400); RBC Distribution Width 12.7 % (11.5-14.5); Red Blood Cell (RBC) Count 4.03 mill/uL (4.20-5.40); White Blood Cell (WBC) Count 4.5 thou/uL (4.8-10.8)
--- NOTE | 2018-05-06 07:20 | HP ---
CHIEF COMPLAINT: Pruritus. HISTORY OF PRESENT ILLNESS: Patient is a 57-year-old female with a history of schizoaffective disord er who was here approximately 1 month ago. The patient states that about 3 weeks ago, she developed significant pruritus that causes her to scratch and lead to some sores over her upper back, abdomen a nd lower extremity areas. For that reason, the patient presented to the emergency department. In th e emergency department, the patient was noted to have significant hyperglycemia. She reported that h er blood sugars have been over 400 at home. The patient reports that she had been given something fo r her pruritus, but she was out of her medication and that was prompting her to present to the emerge ncy department as well. She actually indicated that after she did use the medication, she actually f elt like it gotten worse. REVIEW OF SYSTEMS: Ten system review is negative except for those things mentioned in history of pre sent illness. PAST MEDICAL HISTORY: Notable for chronic renal insufficiency, chronic low back pain, osteoarthritis , morbid obesity, chronic diastolic heart failure, diabetes mellitus type 2, hypertension, COPD/asthm a, diabetic neuropathy, dyslipidemia as well as the anxiety, depression, bipolar disorder, and schizo affective disorder. PAST SURGICAL HISTORY: Cholecystectomy and umbilical hernia. SOCIAL HISTORY: The patient denies alcohol, tobacco, or drugs. FAMILY HISTORY: Several family members with heart disease, diabetes, hypertension. ALLERGIES: CODEINE, PENICILLIN, CHOCOLATE FLAVOR, ORANGE, ORANGE FLAVOR, TRAMADOL. HOME MEDICATIONS: Tizanidine 1 p.o. q.8 hours p.r.n., Januvia 1/2 tablet p.o. daily, hydroxyzine 25 mg t.i.d., carbamazepine ER 100 mg b.i.d., venlafaxine ER 150 every day, Kenalog ointment, Phenergan DM cough syrup 5 mL p.o. q.6 hours p.r.n., Pravastatin 1 p.o. at bedtime, Theragran M 1 p.o. daily, C ozaar 100 mg p.o. daily, Levemir 10 units subcu b.i.d., regular insulin sliding scale, [place] 10 one p.o. b.i.d., gabapentin 300 mg t.i.d., Lasix 40 mg daily, Flonase 2 sprays per naris every day, TriCo r 145 mg p.o. daily, Pepcid 20 mg p.o. b.i.d., doxepin 1-2 tabs p.o. at bedtime p.r.n. insomnia, Cola ce 100 mg b.i.d., diazepam 10 mg b.i.d., Coreg 25 mg b.i.d., aspirin 81 mg every day, Norvasc 5 mg ev cammie day, and albuterol inhaler. PHYSICAL EXAMINATION: VITAL SIGNS: Temperature is 98, pulse 79, respirations 18, blood pressure most recently 145/100. GENERAL APPEARANCE: Morbidly obese age appropriate female in no acute distress. She is awake and al ert. HEENT: PERRL. No OP lesions. CARDIOVASCULAR: Heart is regular rate and rhythm without murmurs, gallops or rubs. LUNGS: Clear to auscultation bilaterally. ABDOMEN: Soft, nontender, nondistended, positive bowel sounds. No masses or organomegaly. EXTREMITIES: Warm and dry. SKIN: Exam does reveal some small subcentimeter areas that appear to be somewhat excoriated without significant cellulitic changes. LABORATORY DATA: Sodium was actually 126, potassium 4.8, chloride 94, CO2 20, BUN 31, creatinine 2.8 , glucose was 407, alkaline phosphatase 161. White count 5.8, hemoglobin 12.9, platelets 209. ASSESSMENT AND PLAN: 1. Hyperglycemia. The patient has history of some issues with controlling her blood sugars, now has significant hyperglycemia requiring additional insulin, IV fluids and monitoring. 2. Acute kidney injury. Patient has a history of chronic kidney disease, but her creatinine is slig htly above her baseline. She will receive some fluids and reassess. 3. Hyponatremia. Patient has a history of chronic hyponatremia; however, sodium is slightly lower t joiner her baseline. We will see how she responds to fluids. This may be partially due to pseudohypona tremia in light of her significant hyperglycemia.
[2018-05-06] MEDS ORDERED: Non-Formulary Item 1 EACH (Losartan Potassium [Cozaar] 100 MG) PO SCH (09:00)
[2018-05-06] MEDS ORDERED: Non-Formulary Item 1 EACH (Levemir Flexpen [Levemir Flexpen] 10 UNIT) SC SCH (09:29)
[2018-05-06] MEDS ORDERED: Losartan 25 MG TAB PO SCH (09:45)
[2018-05-06] MEDS ORDERED: Carvedilol 25 MG TAB PO SCH (09:45)
[2018-05-06] MEDS ORDERED: Famotidine 20 MG TAB PO SCH ×2 (09:45→21:00)
[2018-05-06] MEDS ORDERED: carBAMazepine 100 mg Chewable Tablet PO SCH (09:45)
[2018-05-06] MEDS ORDERED: Insulin Glargine 10 UNITS in Pre-Filled Syringe 1 EACH SC SCH ×2 (09:45→21:00)
[2018-05-06] MEDS ORDERED: Alogliptin 6.25 MG TAB PO SCH (10:00)
[2018-05-06] MEDS ORDERED: Amlodipine 5 MG TAB PO SCH (10:00)
[2018-05-06] MEDS ORDERED: diphenhydrAMINE 2% CREAM 28.4 GM TUBE TOP PRN (10:50)
[2018-05-06] MEDS ORDERED: Insulin Glargine 25 UNITS in Pre-Filled Syringe 1 EACH SC SCH ×2 (11:00→21:00)
[2018-05-06] MEDS: hydrOXYzine 25 MG TAB PO PRN ×2 (11:40→20:00)
[2018-05-06] MEDS ORDERED: hydrALAZINE 20 MG/ML VIAL SLOW IVP PRN (13:02)
[2018-05-06] MEDS: Gabapentin 300 MG CAP PO SCH ×2 (13:15→19:59)
[2018-05-06] MEDS: cloNIDine 0.1 MG TAB PO SCH ×2 (13:15→19:59)
--- NOTE | 2018-05-06 14:46 | PDOC.EVN ---
Event Note - Event Note Event Note: Pt seen and examined.Uncontrolled blood sugar.Increase Levemir. Pt unsure about home meds. Restricted calorie diet. reconcile home meds . Pt unreliable. sodium spuriously low due to high sugars. BP high. restart home meds. increase amlodipine.add prn hydralazine. Pt debbie will be difficult to discharge given uncontrolled HTN and Blood sugars. will monitor
[2018-05-06] MEDS: carBAMazepine 100 mg Chewable Tablet PO SCH (19:58)
[2018-05-06] MEDS: Carvedilol 25 MG TAB PO SCH (19:59)
[2018-05-06] MEDS ORDERED: Insulin Glargine 50 UNITS in Pre-Filled Syringe 1 EACH SC SCH (21:00)
[2018-05-06] MEDS ORDERED: CARBAMAZEPINE 100 MG PO SCH (21:00)
[2018-05-06] MEDS ORDERED: Insulin Regular 300 UNITS/3 ML VIAL SC SCH (22:45)
[2018-05-07] MEDS: Acetaminophen 325 MG TAB PO PRN ×2 (00:09→08:51)
[2018-05-07] MEDS: Insulin Regular 300 UNITS/3 ML VIAL SC PRN ×2 (05:33→10:58)
[2018-05-07] MEDS: Carvedilol 25 MG TAB PO SCH (08:50)
[2018-05-07] MEDS: carBAMazepine 100 mg Chewable Tablet PO SCH (08:50)
[2018-05-07] MEDS: cloNIDine 0.1 MG TAB PO SCH (08:51)
[2018-05-07] MEDS: Gabapentin 300 MG CAP PO SCH (08:51)
[2018-05-07] MEDS ORDERED: Fenofibrate Nanocrystallized 145 MG TAB PO SCH (09:00)
[2018-05-07] MEDS ORDERED: Insulin Glargine 50 UNITS in Pre-Filled Syringe 1 EACH SC SCH (09:00)
[2018-05-07] MEDS ORDERED: Amlodipine 10 MG TAB PO SCH (09:00)
[2018-05-07] MEDS ORDERED: Alogliptin 6.25 MG TAB PO SCH (09:00)
[2018-05-07] MEDS ORDERED: Amlodipine 5 MG TAB PO SCH (09:00)
[2018-05-07] MEDS ORDERED: Losartan 25 MG TAB PO SCH (09:00)
[2018-05-07] MEDS: hydrOXYzine 25 MG TAB PO PRN (10:59)
[2018-05-07 11:23] VITALS: BP 139/67; TEMP 97.5
--- NOTE | 2018-05-07 19:46 | DIS ---
DATE OF ADMISSION: 05/06/2018 DATE OF DISCHARGE: 05/07/2018 CONDITION AT THE TIME OF DISCHARGE: Stable and improved. DISCHARGE DIAGNOSES: 1. Hyperglycemia and uncontrolled diabetes mellitus. 2. Uncontrolled hypertension, improved. 3. Chronic renal insufficiency. 4. Chronic low back pain. 5. Osteoarthritis. 6. Morbid obesity. 7. Chronic diastolic congestive heart failure. 8. Diabetes mellitus. 9. Chronic obstructive pulmonary disease/asthma. 10. Dyslipidemia. 11. Bipolar disorder versus schizoaffective disorder versus both. 12. Diabetic neuropathy. DISCHARGE MEDICATIONS: Her Levemir dose is increased from 10 units b.i.d. to 25 units b.i.d. She wi ll continue with Humulin insulin sliding scale as before. She is given prescription for hydroxyzine 25 mg p.o. t.i.d. as needed. The rest of the home medication remained the same as admission medicati on. Please note that there is difficulty in reconciliation of her medication as she has been to multiple hospitals and multiple physicians and after confirmation from her pharmacy, she has multiple prescrip tion dated different dates. She was not able to tell me exactly what medications she is taking, but she was very specific about the amount of insulin. I confirmed this with her sister on the phone. T he patient has a home health nurse who comes twice a week for the medication box fills and refills an d the patient has good family support as well. DISCHARGE MEDICATIONS: To the best of my knowledge are as follows, Januvia half tablet daily, diazep am 10 mg p.o. b.i.d., gabapentin 300 mg p.o. t.i.d., Tricor 145 mg daily, pravastatin 1 tablet daily, tizanidine p.r.n., Cozaar 100 mg daily, amlodipine 5 mg daily, glipizide 1 tablet p.o. b.i.d., Lasix 40 mg daily, metoclopramide 10 mg as needed, Pepcid 20 mg p.o. b.i.d., carbamazepine 100 mg p.o. b.i .d., Renvela 800 mg p.o. daily, Coreg 25 mg p.o. b.i.d., aspirin 81 mg daily. Please note that no pr escriptions were given to the patient. She is instructed to follow with her primary care physician cori ith regards to her medication. PRIMARY CARE PHYSICIAN: Kelsey Felder MD PRIMARY BILINGUAL LOAN PROCESSOR: Dr. Klein at [facility]. HISTORY OF PRESENT ILLNESS: Ms. Plummer is a 57-year-old female with past medical history as outlined above who presented to the emergency room with complaints of extreme itching and there was found to b e hyperglycemic. She reported that she has run out of her hydroxyzine which she normally takes for h er itching. She was admitted mainly for her hyperglycemia. Glucose was 407 on presentation. She al so was found to have significant diastolic hypertension with diastolic blood pressure of 100. Please see admission history and physical for further detail. HOSPITAL COURSE: The patient had difficult time getting her blood sugar under control requiring prol onged hospitalization. Eventually, her medications were adjusted to the best of my knowledge. I hav e reiterated multiple times that she needs to go see only one physician for her insulin and diabetic medications. She is encouraged to highly to follow up with Dr. Klein as much as possible and to not g o to the emergency room and get admitted for hyperglycemia because every time she gets admitted: Her medications were changed around. At this time, she is reporting that she tolerates Levemir better t joiner Lantus. She has a prescription of Lantus 50 units b.i.d. as well as a prescription of Levemir 10 units b.i.d. She also takes high doses of Humalog sliding scale, which I am not changing at this ti me. I have increased her Levemir to 25 twice a day. By the time of discharge, her blood sugar has slightly improved to 375, blood pressure has normalized . She is being discharged. I have discussed the discharge plan with the patient and her sister over the phone and they verbalized understanding. She was seen and examined prior to discharge. PHYSICAL EXAMINATION: This morning, VITAL SIGNS: Temperature 97.5, pulse of 77, respirations 24, saturating 94% on room air, blood press ure 139/67. GENERAL: No acute distress, awake, alert, and oriented x3. CHEST: Clear to auscultation without any wheezing, rales or rhonchi. HEART: Rate and rhythm is regular without any murmur, rubs or gallops. EXTREMITIES: Free of any cyanosis, clubbing, or edema. LABORATORY DATA: Blood sugar is 375. DISCHARGE INSTRUCTIONS: She is instructed to follow up with her primary care physician as well as Dr Susan Klein as soon as possible.
== END 2018-05-07 12:50 | disposition home or self-care (01) ==
LOC: ERS 20:17 → 2SW 05-06 02:18
PROVIDERS: ADMIT Internal Medicine; ATTEND Internal Medicine
DX: E11.65 Type 2 diabetes mellitus with hyperglycemia (principal); I13.0 Hypertensive heart and chronic kidney disease with heart failure and stage 1 through stage 4 chronic kidney disease, or unspecified chronic kidney disease; E66.01 Morbid (severe) obesity due to excess calories; E11.22 Type 2 diabetes mellitus with diabetic chronic kidney disease; I50.22 Chronic systolic (congestive) heart failure; N18.9 Chronic kidney disease, unspecified; E11.40 Type 2 diabetes mellitus with diabetic neuropathy, unspecified; J44.9 Chronic obstructive pulmonary disease, unspecified; E78.5 Hyperlipidemia, unspecified; M19.90 Unspecified osteoarthritis, unspecified site; N17.9 Acute kidney failure, unspecified; E87.1 Hypo-osmolality and hyponatremia; Z88.5 Allergy status to narcotic agent; Z88.0 Allergy status to penicillin; Z79.4 Long term (current) use of insulin; Z79.899 Other long term (current) drug therapy
CPT/HCPCS: 80048; 80053; 82010; 82962 ×3; 83735; 84100; 85025 ×2; 96361; 96374; 97139 ×2; 99284; G0378; 36415; 36416; 81003; 81015; A4216; J1815

== ENCOUNTER 2018-05-14 20:32 | Emergency (ER) | payer MEDICARE, MEDICAID ==
[2018-05-14 21:14] LABS: #Eosinphils 0.1 thou/uL (0.0-0.7); #Monocytes 0.4 thou/uL (0.11-0.59); #Neutrophils 1.7 thou/uL (1.40-6.50); %Basophils 0.4 % (0.0-1.0); %Eosinophils 2.9 % (0.0-10.0); %Monocytes 10.2 % (0.0-10.0); %Neutrophils 39.5 % (42.0-75.0); Hemoglobin 11.9 g/dL (12.0-16.0); Mean Corpuscular HGB CONC 37.6 g/dL (32.0-36.0); Mean Corpuscular Hemoglobin 29.4 pg (27.0-31.0); Mean Corpuscular Volume 78.2 fL (78.0-98.0); Mean Platelet Volume 8.3 fL (7.4-10.4); Platelet Count 176 thou/uL (130-400); RBC Distribution Width 12.6 % (11.5-14.5); Red Blood Cell (RBC) Count 4.03 mill/uL (4.20-5.40); White Blood Cell (WBC) Count 4.3 thou/uL (4.8-10.8)
[2018-05-14 21:37] LABS: ALT (SGPT) 20 U/L (8-55); AST (SGOT) 17 U/L (5-34); Albumin 3.2 g/dL (3.5-5.0); Alkaline Phosphatase 147 U/L (40-150); Anion Gap 12 mmol/L (10-20); BUN (Urea Nitrogen) 39 mg/dL (9.8-20.1); Bilirubin, Total 0.3 mg/dL (0.2-1.2); Calc. Creatinine Clearance 0 mL/min (70-130); Calcium 8.8 mg/dL (7.8-10.44); Carbon Dioxide 25 mmol/L (22-29); Chloride 90 mmol/L (98-107); Estimated GFR-MDRD 25; Globulin 4.5 g/dL (2.4-3.5); Lipase 87 U/L (8-78); Magnesium 2.1 mg/dL (1.6-2.6); Phosphorus 2.9 mg/dL (2.3-4.7); Potassium 4.4 mmol/L (3.5-5.1); Protein, Total 7.7 g/dL (6.0-8.3); Sodium 123 mmol/L (136-145)
[2018-05-14 21:40] LABS: Troponin I Less than 0.010 ng/mL (< 0.028)
[2018-05-14 21:41] LABS: Glucose 557 mg/dL (70-105)
[2018-05-14] MEDS ORDERED: Insulin Regular 300 UNITS/3 ML VIAL ONE (22:52)
[2018-05-14] MEDS ORDERED: Ondansetron ODT 4 MG TAB ONE (22:52)
[2018-05-15] MEDS ORDERED: Nitroglycerin 0.4 MG TAB (25 Tab Bottle) ONE (01:55)
[2018-05-15] MEDS ORDERED: Ondansetron ODT 4 MG TAB ONE (01:55)
== END 2018-05-15 02:25 | disposition home or self-care (01) ==
LOC: ERS 20:32
DX: E11.65 Type 2 diabetes mellitus with hyperglycemia (principal); G89.29 Other chronic pain; I11.0 Hypertensive heart disease with heart failure; I50.9 Heart failure, unspecified; E11.40 Type 2 diabetes mellitus with diabetic neuropathy, unspecified; F32.9 Major depressive disorder, single episode, unspecified; F41.9 Anxiety disorder, unspecified; Z79.4 Long term (current) use of insulin; Z79.82 Long term (current) use of aspirin; Z79.899 Other long term (current) drug therapy
CPT/HCPCS: 36415; 36416; 80053; 82010; 82553; 83690; 83735; 83930; 84100; 84484; 85025; 96361; 96374; J1815; Q0162

== ENCOUNTER 2018-05-24 17:18 | Inpatient (IN) | payer MEDICARE, OTHER, MEDICAID ==
[2018-05-24 17:58] LABS: #Eosinphils 0.2 thou/uL (0.0-0.7); #Lymphocytes 2.4 thou/uL (1.20-3.40); #Monocytes 0.6 thou/uL (0.11-0.59); #Neutrophils 3.5 thou/uL (1.40-6.50); %Basophils 0.2 % (0.0-1.0); %Lymphocytes 35.8 % (21.0-51.0); %Monocytes 8.6 % (0.0-10.0); %Neutrophils 52.4 % (42.0-75.0); Hemoglobin 11.5 g/dL (12.0-16.0); Mean Corpuscular HGB CONC 35.3 g/dL (32.0-36.0); Mean Corpuscular Hemoglobin 28.2 pg (27.0-31.0); Mean Corpuscular Volume 79.9 fL (78.0-98.0); Mean Platelet Volume 8.2 fL (7.4-10.4); Platelet Count 198 thou/uL (130-400); RBC Distribution Width 12.7 % (11.5-14.5); Red Blood Cell (RBC) Count 4.06 mill/uL (4.20-5.40); White Blood Cell (WBC) Count 6.6 thou/uL (4.8-10.8)
--- NOTE | 2018-05-24 18:14 | RAD ---
RADIOGRAPH CHEST 1 VIEW: Date: 05/24/18 Time: 4:49 p.m. HISTORY: 57-year-old female with chest pain and dyspnea. COMPARISON: 03/29/18. FINDINGS: The study is limited because of hypoinflation and body habitus. There is cardiomegaly. Increased atte nuation of the retrocardiac portion of the left lower lobe could be due to combination of body habitu s and the cardiomegaly. Allowing for inspirational differences, and slight positional differences, th ere may be no interval change since the prior study. No pneumothorax. No magen pulmonary alveolar jannette ma. IMPRESSION: 1. Limited study. 2. Cardiomegaly. SKYLAR [] POS: JIN
[2018-05-24 18:21] LABS: ALT (SGPT) 17 U/L (8-55); AST (SGOT) 18 U/L (5-34); Alkaline Phosphatase 134 U/L (40-150); Anion Gap 16 mmol/L (10-20); BUN (Urea Nitrogen) 50 mg/dL (9.8-20.1); Bilirubin, Total 0.2 mg/dL (0.2-1.2); CK (CPK) 113 U/L (29-168); Calc. Creatinine Clearance 0 mL/min (70-130); Calcium 8.5 mg/dL (7.8-10.44); Carbon Dioxide 19 mmol/L (22-29); Chloride 101 mmol/L (98-107); Estimated GFR-MDRD 26; Globulin 4.1 g/dL (2.4-3.5); Glucose 189 mg/dL (70-105); Potassium 4.1 mmol/L (3.5-5.1); Protein, Total 7.1 g/dL (6.0-8.3); Sodium 132 mmol/L (136-145)
[2018-05-24 18:25] LABS: Troponin I Less than 0.010 ng/mL (< 0.028)
[2018-05-24] MEDS ORDERED: Nitroglycerin 2% Ointment 1 INCH/1 GM Packet ONE (20:25)
[2018-05-24] MEDS ORDERED: Ondansetron ODT 4 MG TAB SL PRN (22:30)
[2018-05-24] MEDS ORDERED: Ondansetron PF 4 MG/2 ML Vial IVP PRN (22:30)
[2018-05-24] MEDS ORDERED: Acetaminophen 325 MG TAB PO PRN (22:30)
[2018-05-24 23:05] VITALS: BMI 46.3
[2018-05-24] MEDS ORDERED: tiZANidine HCl 4 MG TAB PO PRN (23:41)
[2018-05-24] MEDS ORDERED: Benzonatate 100 MG CAP PO PRN (23:41)
[2018-05-24] MEDS ORDERED: Doxepin HCl 10 MG CAP PO PRN (23:41)
[2018-05-24] MEDS ORDERED: Cyclobenzaprine 10 MG TAB PO PRN (23:41)
[2018-05-24] MEDS ORDERED: HYDROcodone/Acetaminophen 10/325 mg Tablet PO PRN (23:50)
[2018-05-25 00:30] LABS: Troponin I Less than 0.010 ng/mL (< 0.028)
[2018-05-25 01:07] LABS: Troponin I Less than 0.010 ng/mL (< 0.028)
[2018-05-25 06:28] LABS: #Basophils 0.1 thou/uL (0.0-0.2); #Eosinphils 0.2 thou/uL (0.0-0.7); #Lymphocytes 2.1 thou/uL (1.20-3.40); #Monocytes 0.6 thou/uL (0.11-0.59); #Neutrophils 2.3 thou/uL (1.40-6.50); %Basophils 1.4 % (0.0-1.0); %Lymphocytes 40.1 % (21.0-51.0); %Monocytes 11.1 % (0.0-10.0); %Neutrophils 43.3 % (42.0-75.0); Mean Corpuscular HGB CONC 34.8 g/dL (32.0-36.0); Mean Corpuscular Hemoglobin 27.9 pg (27.0-31.0); Mean Corpuscular Volume 80.2 fL (78.0-98.0); Mean Platelet Volume 8.2 fL (7.4-10.4); Platelet Count 194 thou/uL (130-400); RBC Distribution Width 12.8 % (11.5-14.5); Red Blood Cell (RBC) Count 3.93 mill/uL (4.20-5.40); White Blood Cell (WBC) Count 5.2 thou/uL (4.8-10.8)
[2018-05-25 06:55] LABS: Anion Gap 15 mmol/L (10-20); BUN (Urea Nitrogen) 54 mg/dL (9.8-20.1); Calc. Creatinine Clearance 50 mL/min (70-130); Carbon Dioxide 23 mmol/L (22-29); Chloride 102 mmol/L (98-107); Estimated GFR-MDRD 26; Glucose 214 mg/dL (70-105); Potassium 4.5 mmol/L (3.5-5.1); Sodium 135 mmol/L (136-145)
[2018-05-25] MEDS: Nitroglycerin 2% Ointment 1 INCH/1 GM Packet TOP SCH ×3 (07:11→21:16)
--- NOTE | 2018-05-25 09:01 | HP ---
CODE STATUS: FULL CODE. PRIMARY CARE DOCTOR: Dr. Kelsey Felder. TIME OF EVALUATION: 9:25 p.m. CHIEF COMPLAINT: Chest pain. HISTORY OF PRESENT ILLNESS: This is a 57-year-old female patient with past medical history of conges tive heart failure, pneumonia, type 2 diabetes, TIAs, chronic back pain, hypertension, asthma, who ca me to the hospital after having a chest pain that was 8/10, with no clear triggers, no alleviating fa ctors, patient has had no recent cardiac workup done. Pain has been on and off, especially for the p ast 24 hours and has been getting worse. REVIEW OF SYSTEMS: Constitutional: No fever or chills or generalized weakness. Respiratory: No co ugh or sputum production, no shortness of breath, only on exertion. Cardiovascular: Chest pain, no palpitation, patient reported exertional shortness of breath. Gastro intestinal: No nausea, no vomiting, diarrhea or abdominal pain. Central Nervous System: No dizzine ss, headache or feeling lightheaded. Genitourinary: No burning on urination. Extremities: No leg swelling. All other systems were reviewed and negative except from the findings mentioned above. PAST MEDICAL HISTORY: Was mentioned in the HPI. PAST SURGICAL HISTORY: Cholecystectomy, umbilical hernia repair. PSYCHIATRIC HISTORY: Bipolar disorder, anxiety, schizophrenia. SOCIAL HISTORY: No drugs, no smoking history, no alcohol. FAMILY HISTORY: , hypertension, diabetes. KNOWN ALLERGIES: CHOCOLATE FLAVOR, CODEINE SULFATE, ORANGE, PENICILLIN, TRAMADOL. REPORTED MEDICATIONS: Amlodipine, furosemide, carvedilol, carbamazepine, buspirone, Januvia, aspirin , famotidine, losartan, diazepam, hydroxyzine, Humulin, cyclobenzaprine, pravastatin, Benzonatate, Le vemir FlexPen, fenofibrate, , tizanidine, hydrochlorothiazide, Silvadene and Bactroban. PHYSICAL EXAMINATION: VITAL SIGNS: On presentation, blood pressure 140/85, with a heart rate of 93, respiratory rate was 2 3, pain 8/10, oxygen saturation 98 on room air. GENERAL APPEARANCE: Patient is alert, oriented, not in any acute distress. HEENT: Eyes: Normal conjunctivae. Moist oral mucosa. Anicteric. NECK: No JVD. RESPIRATORY: Bilateral air entry is decreased. No rales, no wheezes. Symmetric expansion. CARDIOVASCULAR: Normal rate, regular rhythm. No murmurs, no gallop. Bilateral leg edema. ABDOMEN: Soft, normal bowel sounds. MUSCULOSKELETAL: Baseline range of motion and strength. No tenderness. SKIN: Warm and intact. No pallor, no rash, no redness. NEUROLOGIC: Baseline sensory. No evidence of any new focal weakness. Baseline speech. Cranial ner ves seem to be intact. PSYCHIATRIC: The patient is in good mood. No anxiety, oriented. No optimal judgment. IMAGING: EKG was reviewed. The patient has sinus rhythm with first degree AV block, nonspecific T-w ave abnormalities, prolonged QT. Ventricular rate 92, AR 242, QRS 86, QT corrected 372. Chest x-ray with limited study, cardiomegaly. LABORATORY DATA: Reviewed. The patient has a white count of 6.6, hemoglobin 11.5, MCV 79, platelet count 198. Sodium 132, potassium 4.1, carbon dioxide 19, BUN 50, creatinine 2.36 is about the same w hen compared with previous values. Glucose 189. Troponin is negative x2. ASSESSMENT AND PLAN: The patient will be placed in the hospital for the following medical problems. 1. Chest pain, rule out acute coronary syndrome. EKG with some T-wave inversion, troponins are nega tive, the patient will benefit from a stress test in the morning, this has been discussed with her. She is agreeable. 2. Uncontrolled diabetes. Blood sugar 189, we will reconcile home medications, sliding scale for op timal control. 3. Chronic kidney disease, creatinine is about the same, we will monitor, we will treat accordingly. 4. Hypertension that is uncontrolled, presenting with systolic 161, we will reconcile home medicatio n, we will adjust treatment as needed. 5. Morbid obesity. Advised to lose weight. 6. Deep venous thrombosis prophylaxis.
[2018-05-25] MEDS ORDERED: Regadenoson 0.4 MG/5 ML SYRINGE ONE (09:57)
[2018-05-25] MEDS: Sevelamer Carbonate 800 MG TAB PO SCH ×3 (12:35→17:46)
[2018-05-25] MEDS: busPIRone HCl 10 MG TAB PO SCH ×3 (12:35→21:17)
[2018-05-25] MEDS: Carvedilol 25 MG TAB PO SCH ×2 (13:14→17:46)
[2018-05-25] MEDS: Amlodipine 5 MG TAB PO SCH (13:15)
[2018-05-25] MEDS: Hydrochlorothiazide 25 MG TAB PO SCH (13:16)
[2018-05-25] MEDS: Furosemide 40 MG TAB PO SCH (13:16)
[2018-05-25] MEDS: Famotidine 20 MG TAB PO SCH (13:16)
[2018-05-25] MEDS: Fenofibrate Nanocrystallized 145 MG TAB PO SCH (13:16)
[2018-05-25] MEDS: Losartan 25 MG TAB PO SCH (13:17)
[2018-05-25] MEDS: Enoxaparin Sodium 30 MG/0.3 ML SYRINGE SC SCH (13:18)
[2018-05-25] MEDS: Venlafaxine HCl XR 150 MG CAP PO SCH (13:18)
[2018-05-25] MEDS: carBAMazepine 200 MG TAB PO SCH ×2 (13:22→21:16)
[2018-05-25] MEDS ORDERED: hydrALAZINE 20 MG/ML VIAL SLOW IVP SCH (14:30)
--- NOTE | 2018-05-25 15:57 | NM ---
NUCLEAR MEDICINE CARDIAC MYOCARDIAL PERFUSION SPECT EJECTION FRACTION STUDY WALL MOTION CINE: 05/25/2018 HISTORY: A 57-year-old female with a history of congestive heart failure, dyspnea, hypertension, dyslipidemia, type 2 diabetes mellitus, and a family history of coronary artery disease, who presents with chest p ain. TECHNIQUE: Number of days: One. Rest study: Tc99m sestamibi (Cardiolite) dose: Not given. This was a stress only study. Pharmacologic stress: Lexiscan dose: 0.4 mg Stress study: Tc99m sestamibi (Cardiolite) dose: 29.0 mCi FINDINGS: CARDIAC (MYOCARDIAL PERFUSION) SPECT No perfusion defect is identified in the left ventricular myocardium. EJECTION FRACTION STUDY EF = 51% WALL MOTION CINE Focal hypokinesis of the inferoseptal region. IMPRESSION: No ischemia or infarction identified. SKYLAR Siddiqui POS: DEVIKA
[2018-05-25] MEDS ORDERED: Dextrose 50% Abboject 50 ML SYRINGE IVP PRN (17:03)
[2018-05-25] MEDS ORDERED: Dextrose 5% in Water 1,000 ML IV PRN (17:03)
[2018-05-25] MEDS ORDERED: hydrALAZINE 20 MG/ML VIAL SLOW IVP PRN (17:21)
--- NOTE | 2018-05-25 17:24 | PDOC.PN ---
- Subjective Encounter Start Date: 05/25/18 Encounter Start Time: 17:23 Pt seen for followup re: hypertensive urgency. Denies chest pain. No nausea or vomiting. - Objective Resuscitation Status: Resuscitation Status FULL:Full Resuscitation Vital Signs & Weight: Vital Signs (12 hours) Temp Pulse Resp BP BP Pulse Ox 05/25/18 16:16 98.2 F 103 H 18 176/84 H 97 05/25/18 15:02 107 H 206/116 H 05/25/18 14:10 107 H 206/116 H 05/25/18 12:05 97.9 F 105 H 18 197/104 H 97 05/25/18 08:00 97.9 F 100 18 166/89 H 97 I&O: 05/24/18 05/25/18 05/26/18 06:59 06:59 06:59 Intake Total 200 Output Total 1600 Balance -1400 Result Diagrams: 05/25/18 06:01 05/25/18 06:01 Additional Labs: Accuchecks 05/25/18 05/25/18 05/24/18 16:44 05:59 22:54 POC Glucose 300 H 215 H 161 H Phys Exam - Physical Examination Morbid obesity HEENT: moist MMs, sclera anicteric, oral pharynx no lesions, 2+ tonsils Neck: no nodes, no JVD, supple, full ROM Respiratory: no wheezing, no rales, no rhonchi, clear to auscultation bilateral Cardiovascular: RRR, no rub S1, S2 Gastrointestinal: soft, non-tender, positive bowel sounds distention Neurological: moves all 4 limbs Psychiatric: normal affect Deviation from normal: Oriented to person and place, not to time Dx/Plan (1) Hypertensive urgency Code(s): I16.0 - HYPERTENSIVE URGENCY Status: Acute Comment: resume home meds, start PRN IV hydralazine (2) Diabetes mellitus type 2, uncontrolled Code(s): E11.65 - TYPE 2 DIABETES MELLITUS WITH HYPERGLYCEMIA Status: Chronic Qualifiers: Comment: start accuchecks, insulin sliding scale (3) Dyslipidemia Code(s): E78.5 - HYPERLIPIDEMIA, UNSPECIFIED Status: Chronic Comment: stable (4) Chronic kidney disease, stage 4 (severe) Code(s): N18.4 - CHRONIC KIDNEY DISEASE, STAGE 4 (SEVERE) Status: Chronic Comment: stable (5) Chest pain Code(s): R07.9 - CHEST PAIN, UNSPECIFIED Status: Resolved Comment: had stress test - Plan * . Review of Systems - Review of Systems Constitutional: negative: fever, chills, sweats, weakness, malaise Respiratory: negative: Cough, Shortness of Breath, SOB with Excertion, Pleuritic Pain, Wheezing Cardiovascular: negative: chest pain, palpitations, orthopnea, paroxysmal nocturnal dyspnea, edema, light headedness Gastrointestinal: negative: Nausea, Vomiting, Abdominal Pain, Diarrhea, Constipation, Melena, Hematochezia Genitourinary: negative: Dysuria, Frequency, Incontinence, Hematuria, Retention Skin: negative: Rash, Lesions, Abilio, Bruising Neurological: negative: Weakness, Numbness, Incoordination, Change in Speech, Confusion, Seizures - Medications/Allergies Allergies/Adverse Reactions: Allergies Allergy/AdvReac Type Severity Reaction Status Date / Time codeine Allergy Severe Verified 05/24/18 23:36 Penicillins Allergy Intermediate Verified 05/24/18 23:36 chocolate flavor Allergy Hives Verified 05/24/18 23:36 orange Allergy Hives Verified 05/24/18 23:36 orange flavor Allergy Hives Verified 05/24/18 23:36 tramadol Allergy Verified 05/24/18 23:36 Medications: Current Medications Acetaminophen (Tylenol) 650 mg PO Q4H PRN PRN Reason: Headache/Fever or Pain Stop: 05/27/18 09:00 Hydrocodone Bitart/Acetaminophen (D Hanis 10/325) 1 tab PO BIDPRN PRN PRN Reason: Mild-Moderate Pain (1-5) Hydrocodone Bitart/Acetaminophen (D Hanis 10/325) 2 tab PO BIDPRN PRN PRN Reason: Moderate to Severe Pain (6-10) Amlodipine Besylate (Norvasc) 5 mg PO DAILY [facility] Last Admin: 05/25/18 13:15 Dose: 5 mg Aspirin (Aspirin Chewable) 81 mg PO DAILY [facility] Last Admin: 05/25/18 13:16 Dose: 81 mg Benzonatate (Tessalon) 200 mg PO Q8H PRN PRN Reason: Cough Buspirone HCl (Buspar) 10 mg PO TID [facility] Last Admin: 05/25/18 13:17 Dose: 10 mg Carbamazepine (Tegretol) 100 mg PO BID [facility] Last Admin: 05/25/18 13:22 Dose: 100 mg Carvedilol (Coreg) 25 mg PO BID-WM [facility] Last Admin: 05/25/18 13:14 Dose: 25 mg Cyclobenzaprine HCl (Flexeril) 10 mg PO Q8H PRN PRN Reason: Muscle Pain Dextrose/Water (Dextrose 50%) 25 gm IVP PRN PRN PRN Reason: HYPOGLYCEMIA PROTOCOL Diazepam (Valium) 10 mg PO BIDPRN PRN PRN Reason: Muscle Pain Doxepin HCl (Sinequan) 10 mg PO HSPRN PRN PRN Reason: Restlessness Enoxaparin Sodium (Lovenox) 30 mg SC 0900 [facility] Last Admin: 05/25/18 13:18 Dose: 30 mg Famotidine (Pepcid) 20 mg PO DAILY [facility] Last Admin: 05/25/18 13:16 Dose: 20 mg Fenofibrate (Tricor) 145 mg PO DAILY [facility] Last Admin: 05/25/18 13:16 Dose: 145 mg Furosemide (Lasix) 40 mg PO DAILY [facility] Last Admin: 05/25/18 13:16 Dose: 40 mg Glucagon (Glucagon) 1 mg IM PRN PRN PRN Reason: HYPOGLYCEMIA PROTOCOL Hydralazine HCl (Apresoline) 10 mg SLOW IVP Q6H PRN PRN Reason: SBP Greater Than 170 Hydrochlorothiazide (Hydrochlorothiazide) 25 mg PO DAILY [facility] Last Admin: 05/25/18 13:16 Dose: 25 mg Hydroxyzine HCl (Atarax) 25 mg PO TIDPRN PRN PRN Reason: Itching Dextrose/Water (D5w) 1,000 mls @ 0 mls/hr IV INF PRN; As Directed PRN Reason: HYPOGLYCEMIA PROTOCOL Insulin Human Lispro (Humalog) 0 units SC .MODERATE SLIDING SC PRN; Protocol PRN Reason: MODERATE SLIDING SCALE Losartan Potassium (Cozaar) 100 mg PO DAILY [facility] Last Admin: 05/25/18 13:17 Dose: 100 mg Nitroglycerin (Nitro-Bid 2% Ointment) 1 inch TOP Q8HR [facility] Stop: 05/28/18 09:00 Last Admin: 05/25/18 13:24 Dose: 1 inch Ondansetron HCl (Zofran) 4 mg IVP Q6H PRN PRN Reason: Nausea/Vomiting Stop: 05/27/18 09:00 Ondansetron HCl (Zofran Odt) 4 mg SL Q6H PRN PRN Reason: Nausea/Vomiting Stop: 05/28/18 09:00 Pravastatin Sodium (Pravachol) 20 mg PO HS [facility] Sevelamer Carbonate (Renvela) 800 mg PO TID-[facility] Last Admin: 05/25/18 13:17 Dose: 800 mg Sodium Chloride (Flush - Normal Saline) 10 ml IVF Q12HR YARA Sodium Chloride (Flush - Normal Saline) 10 ml IVF PRN PRN PRN Reason: Saline Flush Tizanidine HCl (Zanaflex) 4 mg PO HSPRN PRN PRN Reason: Muscle Spasm Venlafaxine HCl (Effexor Xr) 150 mg PO DAILY [facility] Last Admin: 05/25/18 13:18 Dose: 150 mg
[2018-05-25] MEDS: HumaLOG 300 UNITS/3 ML VIAL SC PRN ×2 (17:47→22:17)
[2018-05-25] MEDS: Pravastatin Sodium 20 MG TAB PO SCH (21:18)
[2018-05-25] MEDS: HYDROcodone/Acetaminophen 10/325 mg Tablet PO PRN (21:22)
[2018-05-26] MEDS: Nitroglycerin 2% Ointment 1 INCH/1 GM Packet TOP SCH ×3 (06:12→20:38)
[2018-05-26] MEDS: HumaLOG 300 UNITS/3 ML VIAL SC PRN ×4 (06:13→20:51)
[2018-05-26] MEDS: HYDROcodone/Acetaminophen 10/325 mg Tablet PO PRN (06:16)
[2018-05-26] MEDS: Fenofibrate Nanocrystallized 145 MG TAB PO SCH (08:09)
[2018-05-26] MEDS: Enoxaparin Sodium 30 MG/0.3 ML SYRINGE SC SCH (08:09)
[2018-05-26] MEDS: Carvedilol 25 MG TAB PO SCH ×2 (08:10→16:44)
[2018-05-26] MEDS: Losartan 25 MG TAB PO SCH (08:10)
[2018-05-26] MEDS: Amlodipine 5 MG TAB PO SCH (08:10)
[2018-05-26] MEDS: Furosemide 40 MG TAB PO SCH (08:10)
[2018-05-26] MEDS: carBAMazepine 200 MG TAB PO SCH ×2 (08:10→20:37)
[2018-05-26] MEDS: busPIRone HCl 10 MG TAB PO SCH ×3 (08:10→20:37)
[2018-05-26] MEDS: Venlafaxine HCl XR 150 MG CAP PO SCH (08:10)
[2018-05-26] MEDS: Famotidine 20 MG TAB PO SCH (08:10)
[2018-05-26] MEDS: Hydrochlorothiazide 25 MG TAB PO SCH (08:10)
[2018-05-26] MEDS: Sevelamer Carbonate 800 MG TAB PO SCH ×3 (08:11→16:44)
[2018-05-26 08:30] LABS: #Eosinphils 0.2 thou/uL (0.0-0.7); #Lymphocytes 1.9 thou/uL (1.20-3.40); #Monocytes 0.5 thou/uL (0.11-0.59); #Neutrophils 1.9 thou/uL (1.40-6.50); %Basophils 0.7 % (0.0-1.0); %Eosinophils 3.9 % (0.0-10.0); %Lymphocytes 41.8 % (21.0-51.0); %Monocytes 11.9 % (0.0-10.0); %Neutrophils 41.7 % (42.0-75.0); Hemoglobin 11.5 g/dL (12.0-16.0); Mean Corpuscular HGB CONC 34.8 g/dL (32.0-36.0); Mean Corpuscular Hemoglobin 27.7 pg (27.0-31.0); Mean Corpuscular Volume 79.6 fL (78.0-98.0); Mean Platelet Volume 7.9 fL (7.4-10.4); Platelet Count 192 thou/uL (130-400); RBC Distribution Width 12.7 % (11.5-14.5); Red Blood Cell (RBC) Count 4.15 mill/uL (4.20-5.40); White Blood Cell (WBC) Count 4.6 thou/uL (4.8-10.8)
[2018-05-26 08:45] LABS: Anion Gap 14 mmol/L (10-20); BUN (Urea Nitrogen) 49 mg/dL (9.8-20.1); Calc. Creatinine Clearance 53 mL/min (70-130); Calcium 9.8 mg/dL (7.8-10.44); Carbon Dioxide 27 mmol/L (22-29); Chloride 97 mmol/L (98-107); Estimated GFR-MDRD 30; Glucose 265 mg/dL (70-105); Potassium 4.5 mmol/L (3.5-5.1); Sodium 133 mmol/L (136-145)
[2018-05-26] MEDS: hydrOXYzine 25 MG TAB PO PRN ×2 (10:05→20:38)
--- NOTE | 2018-05-26 15:03 | ULT ---
BILATERAL LOWER EXTREMITY VENOUS DOPPLER ULTRASOUND: Date: 05/26/18 HISTORY: Chest pain, lower extremity edema. TECHNIQUE: Russell scale ultrasound with color flow and spectral Doppler imaging of the deep venous systems of the lower extremities was performed bilaterally. FINDINGS: There is good flow, compression, and augmentation noted in the common femoral, femoral, deep femoral, popliteal, posterior tibial, and greater saphenous veins on either side. IMPRESSION: No evidence of deep venous thrombosis in either lower extremity. POS: DEVIKA
--- NOTE | 2018-05-26 18:29 | PDOC.PN ---
- Subjective Encounter Start Date: 05/26/18 Encounter Start Time: 09:40 Pt seen for followup re: chest pain. Denies cough or fevers. - Objective Vital Signs & Weight: Vital Signs (12 hours) Temp Pulse Resp BP Pulse Ox 05/26/18 16:41 84 147/84 H 05/26/18 15:00 98.5 F 86 18 174/82 H 96 I&O: 05/25/18 05/26/18 05/27/18 06:59 06:59 06:59 Intake Total 1280 Output Total 1100 Balance 180 Result Diagrams: 05/26/18 08:20 05/26/18 08:20 Additional Labs: Accuchecks 05/26/18 16:31 POC Glucose 306 H Phys Exam - Physical Examination Morbid obesity HEENT: moist MMs Neck: supple Respiratory: clear to auscultation bilateral Cardiovascular: RRR Gastrointestinal: soft Neurological: moves all 4 limbs Psychiatric: normal affect Dx/Plan (1) Chest pain Code(s): R07.9 - CHEST PAIN, UNSPECIFIED Status: Acute Comment: normal stress test, check VQ scan for pleuritic chest pain tomorrow (2) Hypertensive urgency Code(s): I16.0 - HYPERTENSIVE URGENCY Status: Acute Comment: Improved (3) Diabetes mellitus type 2, uncontrolled Code(s): E11.65 - TYPE 2 DIABETES MELLITUS WITH HYPERGLYCEMIA Status: Chronic Qualifiers: Comment: continue accuchecks, insulin sliding scale (4) Dyslipidemia Code(s): E78.5 - HYPERLIPIDEMIA, UNSPECIFIED Status: Chronic Comment: stable (5) Chronic kidney disease, stage 4 (severe) Code(s): N18.4 - CHRONIC KIDNEY DISEASE, STAGE 4 (SEVERE) Status: Chronic Comment: stable - Plan * . Review of Systems - Review of Systems Respiratory: Pleuritic Pain. negative: Cough, Dry, Shortness of Breath, Hemoptysis, SOB with Excertion, Sputum, Wheezing Cardiovascular: chest pain. negative: palpitations, orthopnea, paroxysmal nocturnal dyspnea, edema, light headedness - Medications/Allergies Allergies/Adverse Reactions: Allergies Allergy/AdvReac Type Severity Reaction Status Date / Time codeine Allergy Severe Verified 05/24/18 23:36 Penicillins Allergy Intermediate Verified 05/24/18 23:36 chocolate flavor Allergy Hives Verified 05/24/18 23:36 orange Allergy Hives Verified 05/24/18 23:36 orange flavor Allergy Hives Verified 05/24/18 23:36 tramadol Allergy Verified 05/24/18 23:36 Medications: Current Medications Acetaminophen (Tylenol) 650 mg PO Q4H PRN PRN Reason: Headache/Fever or Pain Stop: 05/27/18 09:00 Hydrocodone Bitart/Acetaminophen ([place] 10/325) 1 tab PO BIDPRN PRN PRN Reason: Mild-Moderate Pain (1-5) Last Admin: 05/26/18 06:16 Dose: 1 tab Hydrocodone Bitart/Acetaminophen ([place] 10/325) 2 tab PO BIDPRN PRN PRN Reason: Moderate to Severe Pain (6-10) Amlodipine Besylate (Norvasc) 5 mg PO DAILY [facility] Last Admin: 05/26/18 08:10 Dose: 5 mg Aspirin (Aspirin Chewable) 81 mg PO DAILY [facility] Last Admin: 05/26/18 08:10 Dose: 81 mg Benzonatate (Tessalon) 200 mg PO Q8H PRN PRN Reason: Cough Buspirone HCl (Buspar) 10 mg PO TID [facility] Last Admin: 05/26/18 15:03 Dose: 10 mg Carbamazepine (Tegretol) 100 mg PO BID [facility] Last Admin: 05/26/18 08:10 Dose: 100 mg Carvedilol (Coreg) 25 mg PO BID[facility] Last Admin: 05/26/18 16:44 Dose: 25 mg Cyclobenzaprine HCl (Flexeril) 10 mg PO Q8H PRN PRN Reason: Muscle Pain Dextrose/Water (Dextrose 50%) 25 gm IVP PRN PRN PRN Reason: HYPOGLYCEMIA PROTOCOL Diazepam (Valium) 10 mg PO BIDPRN PRN PRN Reason: Muscle Pain Doxepin HCl (Sinequan) 10 mg PO HSPRN PRN PRN Reason: Restlessness Enoxaparin Sodium (Lovenox) 30 mg SC 0900 [facility] Last Admin: 05/26/18 08:09 Dose: 30 mg Famotidine (Pepcid) 20 mg PO DAILY [facility] Last Admin: 05/26/18 08:10 Dose: 20 mg Fenofibrate (Tricor) 145 mg PO DAILY [facility] Last Admin: 05/26/18 08:09 Dose: 145 mg Furosemide (Lasix) 40 mg PO DAILY [facility] Last Admin: 05/26/18 08:10 Dose: 40 mg Glucagon (Glucagon) 1 mg IM PRN PRN PRN Reason: HYPOGLYCEMIA PROTOCOL Hydralazine HCl (Apresoline) 10 mg SLOW IVP Q6H PRN PRN Reason: SBP Greater Than 170 Hydrochlorothiazide (Hydrochlorothiazide) 25 mg PO DAILY [facility] Last Admin: 05/26/18 08:10 Dose: 25 mg Hydroxyzine HCl (Atarax) 25 mg PO TIDPRN PRN PRN Reason: Itching Last Admin: 05/26/18 10:05 Dose: 25 mg Dextrose/Water (D5w) 1,000 mls @ 0 mls/hr IV INF PRN; As Directed PRN Reason: HYPOGLYCEMIA PROTOCOL Insulin Human Lispro (Humalog) 0 units SC .MODERATE SLIDING SC PRN; Protocol PRN Reason: MODERATE SLIDING SCALE Last Admin: 05/26/18 16:43 Dose: 8 units Losartan Potassium (Cozaar) 100 mg PO DAILY [facility] Last Admin: 05/26/18 08:10 Dose: 100 mg Nitroglycerin (Nitro-Bid 2% Ointment) 1 inch TOP Q8HR [facility] Stop: 05/28/18 09:00 Last Admin: 05/26/18 15:03 Dose: 1 inch Ondansetron HCl (Zofran) 4 mg IVP Q6H PRN PRN Reason: Nausea/Vomiting Stop: 05/27/18 09:00 Ondansetron HCl (Zofran Odt) 4 mg SL Q6H PRN PRN Reason: Nausea/Vomiting Stop: 05/28/18 09:00 Pravastatin Sodium (Pravachol) 20 mg PO HS [facility] Last Admin: 05/25/18 21:18 Dose: 20 mg Sevelamer Carbonate (Renvela) 800 mg PO TID-WM [facility] Last Admin: 05/26/18 16:44 Dose: 800 mg Sodium Chloride (Flush - Normal Saline) 10 ml IVF Q12HR [facility] Last Admin: 05/26/18 08:11 Dose: 10 ml Sodium Chloride (Flush - Normal Saline) 10 ml IVF PRN PRN PRN Reason: Saline Flush Tizanidine HCl (Zanaflex) 4 mg PO HSPRN PRN PRN Reason: Muscle Spasm Venlafaxine HCl (Effexor Xr) 150 mg PO DAILY [facility] Last Admin: 05/26/18 08:10 Dose: 150 mg
[2018-05-26] MEDS ORDERED: Diazepam 5 MG TAB PO PRN (20:02)
[2018-05-26] MEDS: Pravastatin Sodium 20 MG TAB PO SCH (20:38)
[2018-05-27 05:38] LABS: #Eosinphils 0.2 thou/uL (0.0-0.7); #Lymphocytes 1.8 thou/uL (1.20-3.40); #Monocytes 0.6 thou/uL (0.11-0.59); #Neutrophils 2.1 thou/uL (1.40-6.50); %Basophils 0.4 % (0.0-1.0); %Eosinophils 4.2 % (0.0-10.0); %Lymphocytes 38.9 % (21.0-51.0); %Neutrophils 44.5 % (42.0-75.0); Hemoglobin 11.8 g/dL (12.0-16.0); Mean Corpuscular Hemoglobin 27.5 pg (27.0-31.0); Mean Corpuscular Volume 78.7 fL (78.0-98.0); Mean Platelet Volume 8.1 fL (7.4-10.4); Platelet Count 201 thou/uL (130-400); RBC Distribution Width 12.5 % (11.5-14.5); Red Blood Cell (RBC) Count 4.29 mill/uL (4.20-5.40); White Blood Cell (WBC) Count 4.7 thou/uL (4.8-10.8)
[2018-05-27] MEDS: Nitroglycerin 2% Ointment 1 INCH/1 GM Packet TOP SCH (05:38)
[2018-05-27 05:43] LABS: Anion Gap 19 mmol/L (10-20); BUN (Urea Nitrogen) 44 mg/dL (9.8-20.1); Calc. Creatinine Clearance 57 mL/min (70-130); Calcium 9.6 mg/dL (7.8-10.44); Carbon Dioxide 21 mmol/L (22-29); Chloride 94 mmol/L (98-107); Estimated GFR-MDRD 33; Glucose 266 mg/dL (70-105); Potassium 4.7 mmol/L (3.5-5.1); Sodium 129 mmol/L (136-145)
--- NOTE | 2018-05-27 09:31 | RAD ---
PA AND LATERAL CHEST TWO VIEWS: 05/27/2018 HISTORY: A 57-year-old with a history of chest pain. COMPARISON: 10/07/2017 FINDINGS: Two views of the chest demonstrate the lungs to be well aerated. No evidence of active intrathoracic disease is seen. No evidence of effusions, pneumonia, or pneumothorax is seen. IMPRESSION: Normal two views chest. POS: [facility]
--- NOTE | 2018-05-27 09:42 | NM ---
NUCLEAR MEDICINE VENTILATION PERFUSION SCAN: (V/Q SCAN) Date: 05/27/18 HISTORY: 57-year-old female with chest pain. Rule out PE. TECHNIQUE: Xenon-133 gas dose: 11.2 mCi. [id number] dose: 6.5 mCi. The patient inhaled Xenon-133 gas, and dynamic ventilation scintigraphy was performed. Sa24e-MGC was injected IV, and multiple perfusion scintigraphic views were obtained. FINDINGS: There are no moderate-sized or large perfusion defects. There are no significant ventilation/perfusi on mismatches. IMPRESSION: Low probability for pulmonary thromboembolism. jn [] POS: [facility]
[2018-05-27] MEDS: Enoxaparin Sodium 30 MG/0.3 ML SYRINGE SC SCH (09:51)
[2018-05-27] MEDS: Famotidine 20 MG TAB PO SCH (09:52)
[2018-05-27] MEDS: Losartan 25 MG TAB PO SCH (09:52)
[2018-05-27] MEDS: Fenofibrate Nanocrystallized 145 MG TAB PO SCH (09:52)
[2018-05-27] MEDS: Hydrochlorothiazide 25 MG TAB PO SCH (09:52)
[2018-05-27] MEDS: busPIRone HCl 10 MG TAB PO SCH (09:52)
[2018-05-27] MEDS: Furosemide 40 MG TAB PO SCH (09:52)
[2018-05-27] MEDS: Amlodipine 5 MG TAB PO SCH (09:52)
[2018-05-27] MEDS: Carvedilol 25 MG TAB PO SCH (09:52)
[2018-05-27] MEDS: Venlafaxine HCl XR 150 MG CAP PO SCH (09:52)
[2018-05-27] MEDS: Sevelamer Carbonate 800 MG TAB PO SCH ×2 (09:52→12:17)
[2018-05-27] MEDS: carBAMazepine 200 MG TAB PO SCH (09:53)
[2018-05-27] MEDS: hydrOXYzine 25 MG TAB PO PRN (10:25)
[2018-05-27] MEDS: HumaLOG 300 UNITS/3 ML VIAL SC PRN ×2 (10:26→12:18)
[2018-05-27 12:13] VITALS: BP 161/76; TEMP 98.3
--- NOTE | 2018-05-27 13:42 | DIS ---
PRIMARY CARE PHYSICIAN: Dr. Kelsey Felder DATE OF ADMISSION: 05/24/2018 DATE OF DISCHARGE: 05/27/2018 DISCHARGE DIAGNOSIS: Chest pain. CONDITION OF PATIENT ON THE DAY OF DISCHARGE: Stable. I assessed Ms. Plummer on the day of discharge. She reports chest pain is better. Vital signs are stable. S1 and S2 are heard, regular. Lungs are clear to auscultation bilaterally. DISCHARGE MEDICATIONS: Hydrochlorothiazide was discontinued secondary to hyponatremia, Norvasc 5 mg daily, aspirin 81 mg daily, Buspirone 10 mg 3 times a day, carbamazepine 100 mg 2 times a day, Coreg 25 mg 2 times a day, Pepcid 20 mg 2 times a day, TriCor 145 mg daily, Lasix 40 mg daily, Humulin R 8 0-120 units 3 times a day, Cozaar 100 mg daily, pravastatin 20 mg at bedtime, Renvela 800 mg 3 times a day, Januvia 100 mg daily, venlafaxine ER 150 mg daily, benzonatate p.r.n., Flexeril p.r.n., diazep am p.r.n., doxepin p.r.n., [place] p.r.n., Atarax p.r.n., and tizanidine p.r.n. HOSPITAL COURSE: Ms. Plummer is a pleasant 57-year-old lady who was admitted to [facility] on 05/24/2018 for chest pain. Please refer Dr. Richmond's history and physical note date d 05/25/2018 for further details. She had a nuclear stress test on 05/25/2018, which showed focal hy pokinesis of the inferoseptal region, but no ischemia or infarction. Left ventricular ejection fract ion was 51%. She also had an elevated D-dimer. Lower extremity Dopplers did not show any evidence o f deep vein thrombosis in either extremity. CT angiogram of the chest could not be obtained due to r enal insufficiency. She had VQ scan on 05/27/2018, which was low probability for pulmonary thromboem bolism. She is being discharged home in a stable condition. Her sodium was drifting down, 129 on the day of discharge. Her hydrochlorothiazide was discontinued. On the day of discharge showed sodium 129, potassium 4.7, blood urea nitrogen 49, creatinine 1.9. Wh ite count 4700, hemoglobin 11.8, and platelet count 201,000. Many thanks for allowing me to participate in your patient's care. Please feel free to contact me wi th any questions or concerns. DISCHARGE DESTINATION: Home. TOTAL AMOUNT OF TIME SPENT COORDINATING THIS DISCHARGE: 31 minutes.
--- NOTE | 2018-05-29 08:38 | PQF ---
JUAN R ANGULO EDA SANDERS [id number] [facility]-279 [id number] CLINICAL DOCUMENTATION CLARIFICATION FORM: POST DISCHARGE Please exercise your independent, professional judgment in responding to the clarification form. Clinical indicators are provided on the bottom of this form for your review. Thank you. Please check appropriate box(s): [ ] Costochrondritis [ ] Pleurisy [ ] Angina with known coronary artery disease [ ] Angina:[ ] Stable[ ] Unstable [ ] Accelerated [ ] Pre-Infarction [ ] Prinzmetal [ ] Coronary Spasm Induced [ ] Psychogenic cardiovascular disorder [ ] Arrhythmia (please specify) [ ] Pericarditis [ ] Cholelithiasis / Cholecystitis [ ] GERD [ ] Hypertensive urgency [ ] Other diagnosis [ X ] Unable to determine In addition, please specify: Present on Admission (POA): [ X ] Yes [ ] No [ ] Unable to determine For continuity of documentation, please document condition throughout progress notes and discharge summary. Thank You. CLINICAL INDICATORS - SIGNS / SYMPTOMS /LABS exertional shortness of breath, pain has been on and off for the past 24 hours - HP 05/25/2018 Nuclear stress test 05/25/2018 showed focal hypokinesis of the inferseptal region , but no ischemia or infarction - DS Elevated D-Dimer, no evidence of DVT, no CT performed due to renal insufficiency , VQ scan showed low probability for PE. - DS Hypertensive urgency - resume home meds, start PRN IV Hydralazine -Progress Note 05/25/2018 BP's 05/25/18 from PN - 206/116, 197/104, 166/89 RISK FACTORS HTN/CKD, Morbid obesity, past medical history of congestive heart failure 05/25 TREATMENTS: PRN IV Hydralazine - PN 05/25/2018 Please provide a response below if a more specific term indicating a diagnosis and/or acuity level for this condition can be identified. Please exercise your independent, professional judgment in responding to the clarification form. Clinical indicators are provided at the top of this form for your review. Thank you. [ ] Present on Admission (POA): [ ] Yes [ ] No [ ] Unable to determine [ ] Costochronditis [ ] Pleurisy: [ ] Pleuritic pain [ ] Angina with known coronary artery disease [ ] Angina:[ ] Stable[ ] Unstable [ ] Psychogenic cardiovascular disorder [ ] Chest wall pain [ ] Cholelithiasis / Cholecystitis [ ] GERD [ ] Esophagitis [ ] Unable to determine [ ] Other diagnosis: [ ] Does not apply to this patient (This form is maintained as a part of the permanent medical record) 2014 [employer]. All Rights Reserved Toya Mcnally, CCS, ANDROID DEVELOPER, CASC [email or web address]
--- NOTE | 2018-06-06 09:40 | STRESS ---
Acquisition Time: 2018-05-25 09:21:56 Total Exercise Time: 00:01:00 Test Indications: CHEST PAIN Medications: Protocol: LEXISCAN Max HR: 111 BPM 68% of Pred: 162 BPM Max BP: 160/004 mmHG Max Work Load: 1.0 METS RESTING ECG: NORMAL SINUS RHYTHM WITH OCCASIONAL PVCs SYMPTOMS: CHEST PAIN ECTOPY: NONE ECG STRESS: NO SIGNIFICANT CHANGES INTERPRETATION: AWAIT NUCLEAR IMAGES FOR DEFINTIVE DIAGNOSIS Confirmed by RUBEN DEMARCO ([id number]), editor index RICHARDSON NIELSON ([id number]) on 06/06/2018 9:40:03 AM Referred By: MD Esha MCKENNA Confirmed By:RUBEN DEMARCO
--- NOTE | 2018-06-07 13:59 | EKG ---
Test Reason : HYPOTENSION Blood Pressure : / mmHG Vent. Rate : 092 BPM Atrial Rate : 092 BPM P-R Int : 242 ms QRS Dur : 086 ms QT Int : 544 ms P-R-T Axes : 015 -22 013 degrees QTc Int : 672 ms Sinus rhythm with 1st degree A-V block Nonspecific T wave abnormality Prolonged QT Abnormal ECG Leftward axis Confirmed by MIGEL ALBA MD ([id number]), department editor CHARISSA BAUTISTA ([id number]) on 06/07/2018 1:58:49 PM Referred By: Confirmed By:MIGEL ALBA MD
== END 2018-05-27 13:11 | disposition home health service (06) | DRG 313 ==
LOC: ERS 17:18 → 2NO 20:20 → OBSVTOIN 05-26 14:40
PROVIDERS: ADMIT Hospitalist; ATTEND Hospitalist
DX: R07.9 Chest pain, unspecified (principal); E87.1 Hypo-osmolality and hyponatremia; N18.4 Chronic kidney disease, stage 4 (severe); Z68.42 Body mass index [BMI] 45.0-49.9, adult; I13.0 Hypertensive heart and chronic kidney disease with heart failure and stage 1 through stage 4 chronic kidney disease, or unspecified chronic kidney disease; I16.0 Hypertensive urgency; I50.9 Heart failure, unspecified; E11.22 Type 2 diabetes mellitus with diabetic chronic kidney disease; E66.01 Morbid (severe) obesity due to excess calories; E78.5 Hyperlipidemia, unspecified; Z90.49 Acquired absence of other specified parts of digestive tract; Z88.5 Allergy status to narcotic agent; Z88.0 Allergy status to penicillin; Z88.8 Allergy status to other drugs, medicaments and biological substances; Z79.82 Long term (current) use of aspirin; Z79.899 Other long term (current) drug therapy; E11.65 Type 2 diabetes mellitus with hyperglycemia
CPT/HCPCS: 36415; 36416; 71045; 71046; 78452; 78582; 80048; 80053; 82550; 82553; 83690; 83880; 84484; 85025; 85379; 93005; 93017; 93970; 94760; A9500; A9540; A9558; J0360; J1650; J2785

== ENCOUNTER 2018-05-29 13:47 | Emergency (ER) | payer MEDICARE, MEDICAID ==
[2018-05-29 14:41] LABS: #Eosinphils 0.2 thou/uL (0.0-0.7); #Lymphocytes 2.2 thou/uL (1.20-3.40); #Monocytes 0.8 thou/uL (0.11-0.59); #Neutrophils 6.6 thou/uL (1.40-6.50); %Basophils 0.2 % (0.0-1.0); %Eosinophils 2.5 % (0.0-10.0); %Lymphocytes 22.2 % (21.0-51.0); %Neutrophils 67.2 % (42.0-75.0); Hemoglobin 12.3 g/dL (12.0-16.0); Mean Corpuscular HGB CONC 34.1 g/dL (32.0-36.0); Mean Corpuscular Hemoglobin 27.3 pg (27.0-31.0); Mean Platelet Volume 8.4 fL (7.4-10.4); Platelet Count 206 thou/uL (130-400); RBC Distribution Width 12.5 % (11.5-14.5); Red Blood Cell (RBC) Count 4.52 mill/uL (4.20-5.40); White Blood Cell (WBC) Count 9.9 thou/uL (4.8-10.8)
[2018-05-29 14:45] LABS: Bilirubin Small (Negative); Blood, Urine Negative (Negative); Clarity CLOUDY (Clear); Glucose, Urine (Dipstick) 100 mg/dL (Negative); Leukocyte Negative (Negative); Nitrite Negative (Negative); Protein, Urine (Dipstick) 100 mg/dL (Neg-Trace); Specific Gravity, Urine 1.017 (1.002-1.036); Urobilinogen 0.2 mg/dL (0.2-1.0)
[2018-05-29 14:48] LABS: Bacteria/HPF None Seen HPF (None Seen); RBC/HPF 0-3 HPF (0-3); WBC/HPF 0-3 HPF (0-3); Yeast-AUWi Flag 23.2 (0-25.0)
[2018-05-29 14:49] LABS: Pathc Cast-AUWi Flag 16.57 (0-2.49)
--- NOTE | 2018-05-29 14:50 | RAD ---
PORTABLE CHEST: Date: 05/29/18 HISTORY: Cough. COMPARISON: 02/05/18. FINDINGS: The heart is mildly prominent. Mild vascular engorgement. Lungs appear clear. No infiltrate, effusion , or other acute process. IMPRESSION: Cardiomegaly and mild vascular engorgement, similar to the prior study. POS: [facility]
--- NOTE | 2018-05-29 14:52 | CT ---
CT HEAD NONCONTRAST: Date: 05/29/18 HISTORY: Syncope. COMPARISON: 04/04/18. FINDINGS: There is no evidence of acute intracranial hemorrhage or infarct. Ventricles appear normal in size, s hape, and position. There is no mass effect or shift of midline structures. Visualized paranasal sinu ses remain well aerated. IMPRESSION: No acute intracranial abnormalities are demonstrated on noncontrast CT head. POS: [facility]
[2018-05-29 14:57] LABS: Other Casts/LPF 7-10 FINELY GRAN LPF (0-3 Hyaline)
[2018-05-29 14:58] LABS: Yeast-All Forms None Seen HPF (None Seen)
[2018-05-29 15:01] LABS: ALT (SGPT) 23 U/L (8-55); AST (SGOT) 33 U/L (5-34); Albumin 3.1 g/dL (3.5-5.0); Alkaline Phosphatase 156 U/L (40-150); Anion Gap 17 mmol/L (10-20); BUN (Urea Nitrogen) 69 mg/dL (9.8-20.1); Bilirubin, Total 0.3 mg/dL (0.2-1.2); CKMB 0.7 ng/mL (0-6.6); Calc. Creatinine Clearance 0 mL/min (70-130); Calcium 9.4 mg/dL (7.8-10.44); Carbon Dioxide 23 mmol/L (22-29); Chloride 95 mmol/L (98-107); Estimated GFR-MDRD 14; Globulin 4.9 g/dL (2.4-3.5); Glucose 74 mg/dL (70-105); Potassium 5.2 mmol/L (3.5-5.1); Sodium 130 mmol/L (136-145); Troponin I Less than 0.010 ng/mL (< 0.028)
== END 2018-05-29 23:03 | disposition home or self-care (01) ==
LOC: ERS 13:47
DX: E11.649 Type 2 diabetes mellitus with hypoglycemia without coma (principal); J45.909 Unspecified asthma, uncomplicated; I11.0 Hypertensive heart disease with heart failure; I50.9 Heart failure, unspecified; Z79.899 Other long term (current) drug therapy; Z79.82 Long term (current) use of aspirin; Z79.4 Long term (current) use of insulin
CPT/HCPCS: 36416; 51701; 70450; 71045; 80053; 81003; 81015; 82553; 83880; 84484; 85025; 93005; A4353

== ENCOUNTER 2018-05-30 10:35 | Inpatient (IN) | payer MEDICARE, OTHER, MEDICAID ==
[2018-05-30 12:27] LABS: #Eosinphils 0.2 thou/uL (0.0-0.7); #Lymphocytes 3.3 thou/uL (1.20-3.40); #Neutrophils 4.8 thou/uL (1.40-6.50); %Basophils 0.4 % (0.0-1.0); %Eosinophils 1.9 % (0.0-10.0); %Lymphocytes 34.9 % (21.0-51.0); %Monocytes 11.1 % (0.0-10.0); %Neutrophils 51.7 % (42.0-75.0); Hemoglobin 10.9 g/dL (12.0-16.0); Mean Corpuscular HGB CONC 35.1 g/dL (32.0-36.0); Mean Corpuscular Hemoglobin 28.2 pg (27.0-31.0); Mean Corpuscular Volume 80.4 fL (78.0-98.0); Mean Platelet Volume 7.6 fL (7.4-10.4); Platelet Count 181 thou/uL (130-400); RBC Distribution Width 12.5 % (11.5-14.5); Red Blood Cell (RBC) Count 3.86 mill/uL (4.20-5.40); White Blood Cell (WBC) Count 9.3 thou/uL (4.8-10.8)
[2018-05-30 12:52] LABS: Anion Gap 13 mmol/L (10-20); BUN (Urea Nitrogen) 78 mg/dL (9.8-20.1); Calc. Creatinine Clearance 0 mL/min (70-130); Calcium 8.2 mg/dL (7.8-10.44); Carbon Dioxide 23 mmol/L (22-29); Chloride 95 mmol/L (98-107); Estimated GFR-MDRD 12; Glucose 73 mg/dL (70-105); Potassium 4.2 mmol/L (3.5-5.1); Sodium 127 mmol/L (136-145)
--- NOTE | 2018-05-30 13:13 | RAD ---
AP CHEST: Indication: Altered mental status, drowsiness. Comparison: 05-29-18 FINDINGS: There is cardiomegaly with mild pulmonary vascular congestion. No consolidation, pleural effusion or pneumothorax is evident. IMPRESSION: Cardiomegaly with mild pulmonary vascular congestion. POS: [facility]
[2018-05-30 13:17] LABS: Bilirubin Negative (Negative); Blood, Urine Negative (Negative); Clarity CLOUDY (Clear); Glucose, Urine (Dipstick) Negative (Negative); Leukocyte Small (Negative); Nitrite Negative (Negative); Protein, Urine (Dipstick) 30 mg/dL (Neg-Trace); Specific Gravity, Urine 1.014 (1.002-1.036); Urobilinogen 0.2 mg/dL (0.2-1.0)
[2018-05-30 13:20] LABS: Bacteria/HPF None Seen HPF (None Seen); RBC/HPF 0-3 HPF (0-3); Yeast-AUWi Flag 25.8 (0-25.0)
[2018-05-30 13:21] LABS: Pathc Cast-AUWi Flag 9.15 (0-2.49)
[2018-05-30 13:23] LABS: Benzodiazepine Screen Detected (NotDetected); Medtox Reader # READER 1; Tricyclic Screen Detected (NotDetected)
[2018-05-30 13:24] LABS: Amphetamine Not Detected (NotDetected); Barbiturates Screen Not Detected (NotDetected); Cocaine Metabolite Screen Not Detected (NotDetected); Medtox Control Line Valid? VALID (VALID); Methadone Not Detected (NotDetected); Methamphetamine Not Detected (NotDetected); Opiate Screen Not Detected (NotDetected); Oxycodone Screen Not Detected (NotDetected); Phencyclidine (PCP) Not Detected (NotDetected); THC/Cannabinoid Screen Not Detected (NotDetected)
[2018-05-30 13:40] LABS: Yeast-All Forms None Seen HPF (None Seen)
[2018-05-30 13:41] LABS: Other Casts/LPF 4-6 FINELY GRAN LPF (0-3 Hyaline)
[2018-05-30 13:49] LABS: Actual Bicarbonate (HCO3a) 24.4 mEq/L (22-28); Base Excess (BEa) -3.1 mEq/L (-2.0 to +3.0); CO2 Tension 56.2 mmHg (35.0-45.0); Hemoglobin (Hb) 10.7 g/dL (12.0-16.0); O2 Tension (PaO2) 80.6 mmHg (80.0-100.0); pH, Arterial 7.26 (7.35-7.45)
[2018-05-30 13:50] LABS: Analyzer IN Cardio ER; Calcium, Ionized 1.1 mmol/L (1.12-1.30); Puncture Site RRA
[2018-05-30] MEDS ORDERED: Succinylcholine Chloride 20 MG/ML 10 ml SYRINGE FS ONE (14:00)
[2018-05-30 14:14] LABS: Lactic Acid 1.1 mmol/L (0.5-2.2)
[2018-05-30 14:16] LABS: Acetaminophen Less than 6.0 mcg/mL (10.0-30.0); Alcohol Less than 10 mg/dL (Less than 10); Salicylate Less than 8.0 mg/dL (15.0-30.0)
--- NOTE | 2018-05-30 14:51 | RAD ---
PORTABLE AP CHEST RADIOGRAPH: Date: 05-30-18 History: Endotracheal tube and nasogastric tube placement. Altered mental status. Comparison: 05-30-18 FINDINGS: Endotracheal tube is noted in place with tip overlying the right mainstem bronchus. Nasogastric tube is noted in place which courses into the left upper quadrant, the tip not visualized. There is volume loss in the left hemithorax compared to the right, likely related to intubation of the right mainste m bronchus. There is also suggestion of minimal atelectasis overlying the right midlung zone. Cardiac silhouette and pulmonary vasculature are within normal limits. Degenerative changes noted in the spi ne. IMPRESSION: 1. Endotracheal tube noted in place with tip overlying the right mainstem bronchus. The endotracheal tube should be withdrawn. There is resultant volume loss in the right hemithorax. 2. Above findings discussed with Dr. Oneill in the Emergency Department on 05-30-18 at 1431 hours. POS: [facility]
[2018-05-30] MEDS ORDERED: fentaNYL Citrate/PF 2,000 MCG in Sodium Chloride 0.9% 60 ML IV SCH ×2 (14:56→15:53)
[2018-05-30 15:02] LABS: BHCG - Serum Negative (NEGATIVE); Pregs Control Background? CLEAR/WHITE (CLR/WHITE); Pregs Control Bar Appear? YES (CONTROL BAR)
--- NOTE | 2018-05-30 15:07 | RAD ---
PORTABLE AP CHEST: Date: 05/30/18 HISTORY: Reevaluate endotracheal tube placement. COMPARISON: 05/30/18 15 1334 hours. FINDINGS: The endotracheal tube has been withdrawn. The tip of the endotracheal tube is seen just above the lev el of the sandeep. Nasogastric tube remains in place. There is improved aeration within the left hemit horax. There is prominence of the bronchovascular markings, probably related to the depth of inspirat ion and the portable technique. Cardiac silhouette is magnified by projection, but does appear mildly enlarged. No other interval change. IMPRESSION: Endotracheal tube has been withdrawn with tip now overlying the distal trachea and just above the lev el of the sandeep. POS: [facility]
[2018-05-30 15:11] LABS: ALT (SGPT) 19 U/L (8-55); AST (SGOT) 18 U/L (5-34); Albumin 2.7 g/dL (3.5-5.0); Alkaline Phosphatase 137 U/L (40-150); Bilirubin, Direct 0.1 mg/dL (0.1-0.3); Bilirubin, Total 0.3 mg/dL (0.2-1.2); Protein, Total 6.1 g/dL (6.0-8.3)
[2018-05-30 15:12] LABS: Actual Bicarbonate (HCO3a) 21.4 mEq/L (22-28); Base Excess (BEa) -3.2 mEq/L (-2.0 to +3.0); CO2 Tension 36.3 mmHg (35.0-45.0); O2 Tension (PaO2) 111.8 mmHg (80.0-100.0); pH, Arterial 7.39 (7.35-7.45)
[2018-05-30 15:13] LABS: Calcium, Ionized 1.1 mmol/L (1.12-1.30); Hemoglobin (Hb) 10.3 g/dL (12.0-16.0)
[2018-05-30 15:14] LABS: ALV-art Gradient 90.975 (0-20); Analyzer IN Cardio ER; Puncture Site RRA
[2018-05-30] MEDS ORDERED: CCU Electrolyte Replacement 1 EACH FS ONE (15:31)
[2018-05-30] MEDS ORDERED: Ventilator Sedation Protocol 1 EACH FS ONE (15:31)
[2018-05-30] MEDS ORDERED: Potassium Phosphate 9 MMOL in Sodium Chloride 0.9% 100 ML IVPB PRN (15:52)
[2018-05-30] MEDS ORDERED: Potassium Chloride 40 MEQ in Premix Bag 1 BAG IVPB PRN (15:52)
[2018-05-30] MEDS ORDERED: Magnesium 2 GM/NS 0.9% 100 ML 2 GM in Premix Bag 1 BAG IVPB PRN (15:52)
[2018-05-30] MEDS ORDERED: Potassium Chloride 20 MEQ TAB PO PRN (15:52)
[2018-05-30] MEDS ORDERED: Potassium Phosphate 15 MMOL in Sodium Chloride 0.9% 250 ML 250 ML IV PRN (15:52)
[2018-05-30] MEDS ORDERED: Potassium Phosphate 12 MMOL in Sodium Chloride 0.9% 250 ML 250 ML IV PRN (15:52)
[2018-05-30] MEDS ORDERED: CCU ELECTROLYTE REPLACEMENT PROTOCOL FS PRN (15:52)
[2018-05-30] MEDS ORDERED: Magnesium Oxide 400 MG TAB PO PRN ×2 (15:52)
[2018-05-30] MEDS ORDERED: Potassium Chloride 40 MEQ in Sodium Chloride 0.9% 250 ML 250 ML IVPB PRN (15:52)
[2018-05-30] MEDS ORDERED: Propofol 1,000 MG/100 ML VIAL IV PRN (15:53)
[2018-05-30] MEDS ORDERED: Fentanyl BOLUS 250 ML IVPB PRN (15:53)
[2018-05-30] MEDS ORDERED: Lorazepam 2 MG/ML VIAL SLOW IVP PRN (15:53)
[2018-05-30] MEDS ORDERED: Propofol BOLUS 1,000 MG/100 ML VIAL IV PRN (15:53)
[2018-05-30] MEDS ORDERED: DISCONTINUE PREVIOUS NARCOTIC PAIN MEDICATIONS AND BENZODIAZEPINES FS SCH (15:53)
[2018-05-30] MEDS ORDERED: Fentanyl CADD 250 ML IVPB SCH (15:53)
--- NOTE | 2018-05-30 17:03 | CT ---
CT OF HEAD NONCONTRAST: 05/30/18 INDICATION: Altered mental status. COMPARISON: 05/29/18. FINDINGS: Ventricular system is normal in size. there is evidence of mild chronic ischemic disease involving th e cerebral white matter. No intracranial hemorrhage, mass effect or midline shift. Mild scattered par anasal sinus mucosal thickening is present. There is incidental note of a partially imaged supportive tube traversing the oral cavity. IMPRESSION: 1. No acute intracranial hemorrhage or mass effect. 2. Mild chronic microvascular ischemic disease. POS: [facility]
[2018-05-30] MEDS: Dextrose 5 %-0.45 % NaCl 1,000 ML IV SCH (17:51)
[2018-05-30 18:53] LABS: Hep C IgG Ab Non-Reactive (NonReactive); Hep C Index 0.07 S/CO (0-0.79)
[2018-05-30 18:54] LABS: HBCM Index 0.07 S/CO (0-0.79); Hepatitis B Core IGM Abs Non-Reactive (NonReactive)
[2018-05-30 18:55] LABS: HBSAg Index 0.21 S/CO (0-0.99); Hep A IgM AB Non-Reactive (NonReactive); Hep A IgM S/CO 0.22 S/CO (0-0.79); Hep B Surf Ag Non-Reactive S/CO (NonReactive)
[2018-05-30 19:41] VITALS: BMI 45.2
[2018-05-30] MEDS ORDERED: Dextrose 5% in Water 1,000 ML IV PRN (20:36)
[2018-05-30] MEDS ORDERED: Dextrose 50% Abboject 50 ML SYRINGE SLOW IVP PRN (20:36)
--- NOTE | 2018-05-30 21:06 | CON ---
DATE OF CONSULTATION: 05/30/2018 CONSULTING PHYSICIAN: Rylanist . REASON FOR CONSULTATION: Acute respiratory failure. This encompassed total of 35 minutes critical care time. HISTORY OF PRESENT ILLNESS: The patient was brought in to the ER earlier today with complaints of weakness. According to nursing staff, she gradually became more obtunded to the point where they were uncomfortable with the situation and decided to intubate her. The only positive finding in the workup is a grossly elevated ammonia level greater than 500. Her head CT was negative. PAST MEDICAL HISTORY: 1. Congestive heart failure. 2. Hypertension. 3. Diabetes mellitus type 2. 4. Overdoses. 5. Gastroparesis. 6. Schizophrenia. 7. Ejection fraction 35%. 8. Hypertension. PAST SURGICAL HISTORY: Herniorrhaphy, cholecystectomy, bilateral tubal ligation. FAMILY MEDICAL HISTORY: Unremarkable. SOCIAL HISTORY: Lifetime nonsmoker, does not consume alcohol, does not use illicit drugs. ALLERGIES: PENICILLIN. MEDICATIONS: Not entirely known at this point. REVIEW OF SYSTEMS: Cannot be obtained as the patient is on mechanical ventilation. PHYSICAL EXAMINATION: VITAL SIGNS: Temperature 98, pulse 78, blood pressure 125/85, O2 sat 100%, respiratory rate 18. Neurologically, I can get the patient to wake up and follow commands for me. HEENT: Pupils are 4 mm and reactive. Sclerae anicteric. Oropharynx clear. NECK: Without adenopathy or JVD. LUNGS: Clear without wheezing or rhonchi. CARDIAC: S1, S2 regular, without murmur. ABDOMEN: Obese, soft, nontender, nondistended. NEUROLOGIC: She moves all 4 extremities without difficulty and has 5/5 muscle strength throughout. LABORATORY DATA: Tox screen was positive for tricyclics and benzodiazepines. White count 9.3, hematocrit 31, platelet count 181. The pH 7.39, pCO2 36, pO2 111 after intubation. Prior to, the pH was 7.26, pCO2 56, pO2 80. Sodium 127, potassium 4.2, chloride 95, CO2 23, BUN 78, creatinine 4.6, glucose 99, ammonia level was greater than 500. Looking at older labs in the computer. The patient does have chronic renal insufficiency seen in the past with creatinine as high as 3.95. ASSESSMENT: 1. Acute respiratory failure requiring mechanical ventilation -- this is secondary to some type of metabolic encephalopathy. Her chest x-ray does not show any evidence of failure. She recently had a right mainstem intubation, but the endotracheal tube has been pulled back appropriately. 2. High ammonia level without clear-cut history of alcohol consumption. 3. Renal insufficiency. PLAN: 1. Supportive care overnight with hopeful extubation tomorrow. 2. Lactulose. 3. IV fluids with judicious fluid amounts given her renal insufficiency. 4. Communicate with family when they arrive. S[facility]
--- NOTE | 2018-05-30 22:04 | CON ---
DATE OF CONSULTATION: 05/30/2018 CONSULTING PHYSICIAN: Dr. Ornelas. REASON FOR CONSULTATION: Acute kidney injury. REASON FOR ADMISSION: Altered mentation. HISTORY OF PRESENT ILLNESS: This is a 57-year-old female with history of type 2 diabetes, CHF, CKD, chronic back pain, hypertension who came to the hospital with altered mentation. The patient was rec ently discharged from the hospital and was found down and was taken to the hospital. The patient is currently intubated and not able to give history. As per the bedside nurse in ICU, the patient had a Blair in and had almost 900 mL of clear urine out and has been making urine. No fever or chills. N o history of nausea or vomiting reported. PAST MEDICAL HISTORY: Positive for chronic kidney disease, CHF, type 2 diabetes, chronic back pain, hypertension, asthma. PAST SURGICAL HISTORY: Cholecystectomy, umbilical hernia repair. HOME MEDICATIONS: Per the list is tizanidine, Januvia, Atarax, carbamazepine, BuSpar, venlafaxine, R envela, Cozaar, [place], Lasix, TriCor, Pepcid, Flexeril, Coreg, aspirin, amlodipine. ALLERGIES: CODEINE, PENICILLIN, ORANGE FLAVOR, TRAMADOL. SOCIAL HISTORY: No smoking, alcohol, illicit drugs. FAMILY HISTORY: Positive for hypertension and diabetes. REVIEW OF SYSTEMS: Could not be obtained as the patient is intubated and not able to participate. PHYSICAL EXAMINATION: GENERAL: This is an obese female seen in ICU, intubated. VITAL SIGNS: Temperature 97.8, pulse , respirations 18, blood pressure 107/53. HEENT: Intubated. CARDIOVASCULAR: S1, S2 heard. Rate and rhythm regular. RESPIRATORY: Clear. GASTROINTESTINAL: Abdomen is obese. MUSCULOSKELETAL: No tenderness. No edema. DERMATOLOGIC: No skin rash. NEUROLOGIC: Intubated and sedated. LABORATORY DATA: Hemoglobin is 10.9, sodium 127, potassium 4.2, BUN is 70, creatinine is 4.6. A pH of 7.39. Urine with pyuria. Toxicology positive for tricyclics and benzodiazepines. ASSESSMENT AND PLAN: 1. Acute kidney injury, on chronic kidney disease stage 3, most likely from urinary retention. We w ill check renal ultrasound. Agree with hydration as tolerated. Monitor renal function, avoid nephro toxins. 2. Acute hypoxic respiratory failure, currently intubated. 3. Anemia, mild. 4. Edema, controlled. 5. Hypertension, stable. 6. Hyponatremia. Recommend IV fluids. 7. Altered mentation, multifactorial; polypharmacy and elevated ammonia level. Ammonia level was mo re than 500. 8. Hypoalbuminemia, moderate. 9. Obesity. 10. Polypharmacy. Continue IV fluids. We will check a renal ultrasound, avoid nephrotoxins, renally dose medications, and we will follow. Thank you for the consult.
[2018-05-30 22:32] LABS: INR-International Normal Ratio 1.1; Prothrombin Time 13.8 SEC (12.0-14.7)
[2018-05-30] MEDS: Heparin 5,000 UNITS/ML VIAL SC SCH (23:06)
[2018-05-30] MEDS: Famotidine/PF 20 mg/2ml Vial SLOW IVP SCH (23:06)
--- NOTE | 2018-05-31 00:24 | PDOC.EVN ---
Event Note - Event Note Event Note: h&p [id number]
[2018-05-31 04:09] LABS: #Eosinphils 0.2 thou/uL (0.0-0.7); #Lymphocytes 1.4 thou/uL (1.20-3.40); #Monocytes 0.9 thou/uL (0.11-0.59); #Neutrophils 7.1 thou/uL (1.40-6.50); %Eosinophils 1.7 % (0.0-10.0); %Lymphocytes 14.9 % (21.0-51.0); %Monocytes 8.9 % (0.0-10.0); %Neutrophils 74.4 % (42.0-75.0); Hemoglobin 10.2 g/dL (12.0-16.0); Mean Corpuscular HGB CONC 35.8 g/dL (32.0-36.0); Mean Corpuscular Hemoglobin 28.6 pg (27.0-31.0); Mean Corpuscular Volume 79.7 fL (78.0-98.0); Mean Platelet Volume 7.9 fL (7.4-10.4); Platelet Count 154 thou/uL (130-400); RBC Distribution Width 12.2 % (11.5-14.5); Red Blood Cell (RBC) Count 3.57 mill/uL (4.20-5.40); White Blood Cell (WBC) Count 9.5 thou/uL (4.8-10.8)
[2018-05-31 04:20] LABS: Calcium 7.9 mg/dL (7.8-10.44); Chloride 98 mmol/L (98-107); Magnesium 1.5 mg/dL (1.6-2.6); Potassium 4.7 mmol/L (3.5-5.1); Sodium 129 mmol/L (136-145)
[2018-05-31 04:21] LABS: Glucose 186 mg/dL (70-105)
[2018-05-31 04:23] LABS: Anion Gap 16 mmol/L (10-20); Carbon Dioxide 20 mmol/L (22-29)
[2018-05-31 04:24] LABS: Calc. Creatinine Clearance 33 mL/min (70-130); Estimated GFR-MDRD 16; Phosphorus 3.4 mg/dL (2.3-4.7)
[2018-05-31 04:25] LABS: BUN (Urea Nitrogen) 72 mg/dL (9.8-20.1)
[2018-05-31] MEDS: Dextrose 5 %-0.45 % NaCl 1,000 ML IV SCH ×2 (06:17→17:45)
[2018-05-31] MEDS: HumaLOG 300 UNITS/3 ML VIAL SC PRN ×3 (06:19→22:47)
[2018-05-31 07:32] LABS: Actual Bicarbonate (HCO3a) 23.3 mEq/L (22-28); Base Excess (BEa) -2.3 mEq/L (-2.0 to +3.0); CO2 Tension 43.4 mmHg (35.0-45.0); pH, Arterial 7.35 (7.35-7.45)
[2018-05-31 07:33] LABS: Calcium, Ionized 1.1 mmol/L (1.12-1.30); Puncture Site LRA
[2018-05-31] MEDS: Heparin 5,000 UNITS/ML VIAL SC SCH ×3 (08:49→22:37)
[2018-05-31] MEDS ORDERED: DC Sedation Protocol FS ONE (09:22)
--- NOTE | 2018-05-31 09:39 | RAD ---
AP CHEST: HISTORY: On ventilator. Shortness of breath. CCU followup. COMPARISON: 05/30/18. FINDINGS: The patient is rotated, distorting the chest. ET tube and NG tube remain in place. The lungs appear aerated and clear with no significant interval change noted. POS: [facility]
--- NOTE | 2018-05-31 09:48 | ULT ---
ABDOMINAL UTLRASOUND WITH HEPATIC DOPPLER: INDICATION: Increased ammonia levels. Acute kidney insufficiency. Assess for portal venous thrombus. TECHNIQUE: Russell scale images of abdomen obtained. Hepatic vessels are evaluated with color Doppler and spectral analysis. FINDINGS: Liver is slightly echogenic suggesting medical hepatic disease or steatosis. The spleen is upper nor mal size measuring 12 cm. The patient is post cholecystectomy. The common bile duct is normal calib er. Pancreas is obscured. Kidneys are identified and appear unremarkable. No hydronephrosis. Aort a and IVC are obscured. Color Doppler with spectral analysis performed. Hepatic vein showed normal blood flow. Portal veins demonstrate blood flow. Hepatic artery shows normal blood flow with Doppler. Splenic vein shows ad equate blood flow. IMPRESSION: Liver is echogenic. Hepatic Doppler indicates normal hepatic blood flow. POS: [facility]
--- NOTE | 2018-05-31 13:16 | PRG ---
DATE OF SERVICE: 05/31/2018 Thirty-five minutes critical care time. SUBJECTIVE: The patient is awake on mechanical ventilation. She is able to follow commands. OBJECTIVE: VITAL SIGNS: Temperature is , pulse 91, blood pressure 124/65. 24-hour intake 1018, output 233 5. HEENT: Unremarkable. NECK: No adenopathy, no JVD. LUNGS: Clear anteriorly. CARDIOVASCULAR: S1, S2 regular without murmur. ABDOMEN: Soft, obese, nontender, nondistended. EXTREMITIES: No clubbing, cyanosis, or edema. LABORATORY AND X-RAY FINDINGS: Chest x-ray was grossly rotated. Endotracheal tube appears to be in good position. Sodium 129, potassium 4.0, chloride 98, CO2 of 20, BUN 72, creatinine 3.5, glucose 18 6, pH 7.35, pCO2 43, pO2 of 75 on a set rate 15, total rate 500, PEEP 5, pressure support 10, FiO2 35 %. White blood cell count 9.5, hematocrit 28.5, platelet count 154. Her ammonia level is down to 32 . ASSESSMENT: Possible respiratory failure due to high ammonia level. I think there is a very good ch ance the ammonia level from yesterday was a laboratory error. I think most likely the patient has un derlying sleep apnea that may have contributed to altered mental status yesterday. PLAN: I think this patient could be safely extubated. We will continue the lactulose and generalize d supportive care. May need a CPAP or BiPAP at night.
--- NOTE | 2018-05-31 13:34 | PRG ---
DATE OF SERVICE: 05/31/2018 SUBJECTIVE: The patient was seen and examined in the ICU, remains intubated. PHYSICAL EXAMINATION: GENERAL: This is an obese female, intubated. VITAL SIGNS: Temperature 98.8, pulse , respiratory rate 18, blood pressure . HEENT: Intubated. CARDIOVASCULAR: S1 and S2 heard. RESPIRATORY: Clear. GASTROINTESTINAL: Abdomen is soft. MUSCULOSKELETAL: No edema. DERMATOLOGIC: No skin rash. NEUROLOGIC: Intubated. LABORATORY DATA: Sodium 129, BUN is 72, creatinine 3.1. ASSESSMENT AND PLAN: 1. Acute kidney injury on chronic kidney disease, stage 3, with improvement in renal function. Cont inue supportive care. Avoid nephrotoxins. 2. Polypharmacy. 3. Acute hypoxic respiratory failure, intubated. 4. Hyponatremia. Recommend isotonic fluids. 5. Altered mentation. 6. Hypoalbuminemia. 7. Obesity. Renal function is better. Ultrasound ordered. We will follow.
[2018-05-31] MEDS: Cepastat Lozenges 1 LOZ PO PRN (20:05)
[2018-05-31] MEDS: Famotidine/PF 20 mg/2ml Vial SLOW IVP SCH (22:36)
--- NOTE | 2018-05-31 22:52 | PDOC.PN ---
- Subjective Encounter Start Date: 05/31/18 Encounter Start Time: 15:00 Subjective: nsg notes rev, nikolay ovn, pt is currently extubated and conversant althought -: speech is markedly slowed and pt has poor recall - no acute c/o - Objective Resuscitation Status: Resuscitation Status FULL:Full Resuscitation Vital Signs & Weight: Vital Signs (12 hours) Temp 05/31/18 16:00 98.7 F 05/31/18 12:00 98.4 F Weight Weight 264 lb 15.93 oz Most Recent Monitor Data Heart Rate from ECG 102 NIBP 160/90 NIBP BP-Mean 104 Respiration from ECG 15 SpO2 96 I&O: 05/30/18 05/31/18 06/01/18 06:59 06:59 06:59 Intake Total 1018 883.5 Output Total 2335 1920 Balance -1317 -1036.5 Result Diagrams: 05/31/18 03:46 05/31/18 03:46 Additional Labs: Accuchecks 05/31/18 05/30/18 17:42 23:02 POC Glucose 321 H 149 H Phys Exam - Physical Examination Constitutional: NAD seated in hopsital bed HEENT: moist MMs NC in place diminished throughout with marginal air mvmt, no w/r/r but difficult exam Cardiovascular: RRR, no significant murmur, no rub soft heart tones likely 2/2 habitus Gastrointestinal: soft, non-tender, no distention, positive bowel sounds Neurological: moves all 4 limbs Dx/Plan - Plan * metabolic encephalopathy - improved * was obtunded on admission * currently extubated and significantly improved, not quite back to baseline * doubt hepatic etiology - eval for hepatic source is neg, doubt that one dose of lactulose would preciptate such a drastic change in ammonia level - more likely laboratory error on adm * suspect multifactorial etiology of metabolic encephalopathy including underdx darrell/ ohs combined with CKD, particularly ROSANNA in the setting of her chronic pain and anxiolytic and psychiatric regimen * continue supportive care * apprec critical care c/s ROSANNA with known hx of CKD 3 apprec nephrology c/s slowly improving continue with mgmt morbid obesity, stable pt at risk for DARRELL/ OHS psychiatric issues including chronic pain, anxiety may need to restart a component of the patient's home regimen as she could be at risk for w/d from chronic regimen would recommend an o/p psychiatric follow up for medication adjustment diet: as meghann activity: as meghann dvt ppx Review of Systems - Medications/Allergies Allergies/Adverse Reactions: Allergies Allergy/AdvReac Type Severity Reaction Status Date / Time codeine Allergy Severe Verified 05/24/18 23:36 Penicillins Allergy Intermediate Verified 05/24/18 23:36 chocolate flavor Allergy Hives Verified 05/24/18 23:36 orange Allergy Hives Verified 05/24/18 23:36 orange flavor Allergy Hives Verified 05/24/18 23:36 tramadol Allergy Verified 05/24/18 23:36 Medications: Current Medications Dextrose/Water (Dextrose 50%) 25 gm SLOW IVP PRN PRN PRN Reason: Hypoglycemia Famotidine (Pepcid) 20 mg SLOW IVP QPM [facility] Last Admin: 05/31/18 22:36 Dose: 20 mg Glucagon (Glucagon) 1 mg IM PRN PRN PRN Reason: Hypoglycemia Heparin Sodium (Porcine) (Heparin) 5,000 units SC TID [facility] Last Admin: 05/31/18 22:37 Dose: 5,000 units Hydralazine HCl (Apresoline) 10 mg SLOW IVP Q4H PRN PRN Reason: Hypertension Dextrose/Sodium Chloride (D5 1/2 Ns) 1,000 mls @ 75 mls/hr IV .[id number] [facility] Last Admin: 05/31/18 17:45 Dose: 1,000 mls Potassium Chloride 40 meq/ (Sodium Chloride) 270 mls @ 135 mls/hr IVPB ASDIR PRN PRN Reason: FOR SERUM K+ 2.5 - 3.5 Potassium Chloride 40 meq/ (Device) 100 mls @ 50 mls/hr IVPB ASDIR PRN PRN Reason: FOR SERUM K+ 2.5 - 3.5 Magnesium Sulfate 1 gm/ Sodium (Chloride) 102 mls @ 102 mls/hr IV PRN PRN PRN Reason: MAG LEVEL 1.4 - 2.0 Magnesium Sulfate 2 gm/ Device 100 mls @ 100 mls/hr IVPB ASDIR PRN PRN Reason: MAGNESIUM < 1.4 Potassium Phosphate 9 mmol/ (Sodium Chloride) 103 mls @ 25.75 mls/hr IVPB ASDIR PRN PRN Reason: Phosphate 1.0-1.8 Potassium Phosphate 12 mmol/ (Sodium Chloride) 254 mls @ 63.5 mls/hr IV ASDIR PRN PRN Reason: Serum phosphate 0.5-0.9 Potassium Phosphate 15 mmol/ (Sodium Chloride) 255 mls @ 63.75 mls/hr IV ASDIR PRN PRN Reason: Serum Phos < 0.5 Dextrose/Water (D5w) 1,000 mls @ 0 mls/hr IV .Q0M PRN PRN Reason: Hypoglycemia Insulin Human Lispro (Humalog) 0 units SC .MODERATE SLIDING SC PRN PRN Reason: Moderate Correctional Scale Last Admin: 05/31/18 22:47 Dose: 6 unit Lactulose (Lactulose) 20 gm PER TUBE QID [facility] Last Admin: 05/31/18 22:36 Dose: 20 gm Magnesium Oxide (Magnesium Oxide) 400 mg PO BIDPRN PRN PRN Reason: FOR SERUM MAG 1.4 - 2.0 Magnesium Oxide (Magnesium Oxide) 800 mg PO PRN PRN PRN Reason: FOR SERUM MAG < 1.4 Miscellaneous Medication (Phos-Nak) 1 pkt PO TIDPRN PRN PRN Reason: FOR PHOS LEVEL 1.0 - 1.8 Miscellaneous Medication (Phos-Nak) 2 pkt PO TIDPRN PRN PRN Reason: FOR PHOS LEVEL 0.5 - 1.0 Ccu Electrolyte (Replacement Protocol) 0 each FS PRN PRN PRN Reason: FOR ELECTROLYTE REPLACEMENT Potassium Chloride (K-Dur) 40 meq PO ASDIR PRN PRN Reason: FOR SERUM K+ 2.5 - 3.5 Potassium Chloride (Klor-Con) 40 meq PER TUBE ASDIR PRN PRN Reason: FOR SERUM K+ 2.5-3.5 Sodium Chloride (Flush - Normal Saline) 10 ml IVF Q12HR [facility] Last Admin: 05/31/18 15:48 Dose: Not Given Sodium Chloride (Flush - Normal Saline) 10 ml IVF PRN PRN PRN Reason: Saline Flush Last Admin: 05/31/18 08:49 Dose: 10 ml Throat Lozenges (Cepastat Lozenges) 1 belem PO Q2H PRN PRN Reason: Sore Throat Last Admin: 05/31/18 20:05 Dose: 1 belem
[2018-06-01 06:23] LABS: #Eosinphils 0.1 thou/uL (0.0-0.7); #Lymphocytes 1.6 thou/uL (1.20-3.40); #Monocytes 0.9 thou/uL (0.11-0.59); #Neutrophils 6.1 thou/uL (1.40-6.50); %Basophils 0.4 % (0.0-1.0); %Eosinophils 1.3 % (0.0-10.0); %Lymphocytes 18.5 % (21.0-51.0); %Monocytes 10.2 % (0.0-10.0); %Neutrophils 69.6 % (42.0-75.0); Hemoglobin 10.9 g/dL (12.0-16.0); Mean Corpuscular Hemoglobin 27.9 pg (27.0-31.0); Mean Corpuscular Volume 79.8 fL (78.0-98.0); Platelet Count 159 thou/uL (130-400); RBC Distribution Width 12.4 % (11.5-14.5); Red Blood Cell (RBC) Count 3.91 mill/uL (4.20-5.40); White Blood Cell (WBC) Count 8.8 thou/uL (4.8-10.8)
[2018-06-01 06:40] LABS: Anion Gap 12 mmol/L (10-20); BUN (Urea Nitrogen) 50 mg/dL (9.8-20.1); Calc. Creatinine Clearance 53 mL/min (70-130); Calcium 8.6 mg/dL (7.8-10.44); Carbon Dioxide 25 mmol/L (22-29); Chloride 100 mmol/L (98-107); Estimated GFR-MDRD 28; Glucose 269 mg/dL (70-105); Potassium 4.7 mmol/L (3.5-5.1); Sodium 132 mmol/L (136-145)
[2018-06-01] MEDS: HumaLOG 300 UNITS/3 ML VIAL SC PRN ×3 (07:33→16:13)
[2018-06-01] MEDS: Dextrose 5 %-0.45 % NaCl 1,000 ML IV SCH (07:35)
[2018-06-01] MEDS: Heparin 5,000 UNITS/ML VIAL SC SCH ×3 (08:31→20:28)
[2018-06-01] MEDS: hydrALAZINE 20 MG/ML VIAL SLOW IVP PRN (08:32)
[2018-06-01] MEDS: Fenofibrate Nanocrystallized 145 MG TAB PO SCH (11:00)
[2018-06-01] MEDS: Venlafaxine HCl XR 150 MG CAP PO SCH (11:03)
[2018-06-01] MEDS: busPIRone HCl 10 MG TAB PO SCH ×3 (11:03→20:27)
[2018-06-01] MEDS: Carvedilol 25 MG TAB PO SCH ×2 (11:03→20:27)
[2018-06-01] MEDS: Amlodipine 5 MG TAB PO SCH (11:03)
[2018-06-01] MEDS: Cepastat Lozenges 1 LOZ PO PRN ×2 (11:05→16:17)
[2018-06-01] MEDS: carBAMazepine 100 mg Chewable Tablet PO SCH ×2 (11:05→20:28)
--- NOTE | 2018-06-01 11:16 | PRG ---
DATE OF SERVICE: 06/01/2018 SUBJECTIVE: Ms. Plummer is doing okay. She was extubated yesterday, in no acute respiratory issues ov ernight. OBJECTIVE: VITAL SIGNS: Temperature is 99.1, pulse 108, blood pressure 174/82. 24-hour intake 1808, output 429 5. HEENT: Unremarkable. NECK: No JVD. CHEST: Clear without wheezing or rhonchi. CARDIAC: S1 and S2 regular. ABDOMEN: Soft, obese, nontender. EXTREMITIES: No edema. LABORATORY DATA: Sodium 132, potassium 4.7, chloride 100, CO2 25, BUN 50, creatinine 2.1, glucose 26 9. White blood cell count 8.8, hematocrit 31.2, platelet count 159. ASSESSMENT: 1. Improved encephalopathy. 2. High ammonia level -- I think this is probably laboratory error. PLAN: 1. The patient can be transferred to medical floor. 2. We would restart her antihypertensive medication and some of her psychiatric medications. 3. I will ask Physical Therapy to see her.
--- NOTE | 2018-06-01 14:31 | PRG ---
DATE OF SERVICE: 06/01/2018 SUBJECTIVE: Patient was seen and examined at bedside and overnight events noted. Patient denies any shortness of breath or chest pain or palpitation. No history of nausea or vomitin g or diarrhea or fever or chills or cramps. OBJECTIVE: GENERAL: This is a morbidly female, who is extubated and seen ICU. VITAL SIGNS: Temperature 99.3, pulse 70, respiratory rate 20, blood pressure 161/79. HEENT: Atraumatic, normocephalic. Oral mucosa is moist. NECK: Supple. CARDIOVASCULAR: S1 and S2 heard. Rate and rhythm regular. RESPIRATORY: Clear to auscultation. GASTROINTESTINAL: Abdomen is soft. MUSCULOSKELETAL: No tenderness. No edema. DERMATOLOGIC: No skin rash. NEUROLOGIC: Alert and awake and oriented x3. No focal neurologic deficits. Moving all the extremit ies. PSYCHIATRIC: Mood and affect normal. LABORATORY DATA: Potassium is 4.7, BUN 50, creatinine is 2.1. Hemoglobin 10.9. Sodium is 132. ASSESSMENT AND PLAN: 1. Acute kidney injury on chronic kidney disease stage 3. Renal function with slow improvement. Cu rrently GFR is 28. We will monitor. Avoid nephrotoxins. 2. Hyperglycemia. 3. Polypharmacy. The patient advised to only use sedative and pain medications. 4. Acute hypoxic respiratory failure, extubated. 5. Hyponatremia, better. 6. Altered mentation. 7. Hypoalbuminemia. 8. Anemia. 9. Morbid obesity. 10. Renal function better. We will avoid nephrotoxins and follow.
--- NOTE | 2018-06-01 18:02 | PDOC.PN ---
- Subjective Encounter Start Date: 06/01/18 Encounter Start Time: 18:00 Subjective: f/u for metabolic encephalopathy likely multifactorial with contribution -: of polypharmacy. Extubated and transferred from CCU. No new issues. - Objective Resuscitation Status: Resuscitation Status FULL:Full Resuscitation MAR Reviewed: Yes Vital Signs & Weight: Vital Signs (12 hours) Temp Pulse Resp BP BP Pulse Ox 06/01/18 16:55 97.9 F 101 H 16 95 06/01/18 16:50 97.9 F 101 H 16 155/88 H 95 06/01/18 16:00 98.8 F 06/01/18 12:00 99.3 F 06/01/18 11:03 101 H 182/92 H 06/01/18 08:32 101 H 168/85 H 06/01/18 08:00 99.1 F 101 H 24 H 99 Weight Weight 264 lb 15.93 oz Most Recent Monitor Data Heart Rate from ECG 101 NIBP 175/77 NIBP BP-Mean 137 Respiration from ECG 23 SpO2 96 I&O: 05/31/18 06/01/18 06/02/18 06:59 06:59 06:59 Intake Total 1018 1808.5 986 Output Total 2335 4295 2245 Balance -1317 -2486.5 -1259 Result Diagrams: 06/01/18 05:43 06/01/18 05:43 Additional Labs: Accuchecks 06/01/18 06/01/18 05/31/18 16:08 11:33 22:46 POC Glucose 218 H 333 H 266 H Microbiology 05/30/18 21:20 Venous blood - Left Arm Blood Culture - Preliminary NO GROWTH AT 48 HOURS 05/30/18 21:05 Venous blood - Right Arm Blood Culture - Preliminary NO GROWTH AT 48 HOURS Laboratory Tests 05/30/18 05/30/18 05/30/18 12:21 12:21 12:21 Hgb 10.9 L Sodium 127 L BUN 78 H Creatinine 4.66 H Ur Tricyclics Screen U Benzodiazepines Scrn Hepatitis A IgM Ab Non-Reactive Hep Bs Antigen Non-Reactive Hep B Core IgM Ab Non-Reactive Hepatitis C Antibody Non-Reactive 05/30/18 05/31/18 05/31/18 12:57 03:46 03:46 Hgb 10.2 L Sodium 129 L BUN 72 H Creatinine 3.49 H Ur Tricyclics Screen Detected H U Benzodiazepines Scrn Detected H Hepatitis A IgM Ab Hep Bs Antigen Hep B Core IgM Ab Hepatitis C Antibody Radiology Reviewed by me: Yes (PCXR - no acute changes) Phys Exam - Physical Examination Constitutional: NAD HEENT: PERRLA, sclera anicteric, oral pharynx no lesions Neck: no nodes, no JVD, supple, full ROM Respiratory: no wheezing, no rales, no rhonchi, clear to auscultation bilateral S1, S2 Cardiovascular: RRR, no significant murmur, no rub, gallop Gastrointestinal: soft, non-tender, no distention, positive bowel sounds Musculoskeletal: no edema, pulses present Neurological: normal sensation, moves all 4 limbs Psychiatric: A&O x 3 Skin: no rash, normal turgor, cap refill <2 seconds Dx/Plan (1) Acute metabolic encephalopathy Code(s): G93.41 - METABOLIC ENCEPHALOPATHY Status: Acute Comment: Likely multifactorial including polypharmacy, improved, supportive mgmt (2) Acute respiratory failure Code(s): J96.00 - ACUTE RESPIRATORY FAILURE, UNSP W HYPOXIA OR HYPERCAPNIA Status: Acute Comment: s/p intubation with subsequent extubation, general pulm support (3) Acute worsening of stage 3 chronic kidney disease Code(s): N18.3 - CHRONIC KIDNEY DISEASE, STAGE 3 (MODERATE) Status: Chronic Comment: Improved with IVF's and avoiding nephrotoxic meds, serial monitoring (4) Diabetes mellitus type 2, uncontrolled Code(s): E11.65 - TYPE 2 DIABETES MELLITUS WITH HYPERGLYCEMIA Status: Chronic Qualifiers: Comment: continue accuchecks, ISS (5) Obesity, morbid, BMI 40.0-49.9 Code(s): E66.01 - MORBID (SEVERE) OBESITY DUE TO EXCESS CALORIES Status: Chronic Comment: Offer dietitian services (6) Schizoaffective disorder Code(s): F25.9 - SCHIZOAFFECTIVE DISORDER, UNSPECIFIED Status: Chronic Qualifiers: Comment: Resume home psych medication regimen - Plan PT/OT, social professionals, out of bed/ambulate, DVT proph w/SCDs Stable overall -: Continue to limit psychotropic and sedating medications -: Limit nephrotoxic medication and contrast exposure -: PT for mobilization -: AM lab: BMP, CBC * .
[2018-06-01] MEDS: Sevelamer Carbonate 800 MG TAB PO SCH (20:27)
[2018-06-01] MEDS: Atorvastatin Calcium 10 MG TAB PO SCH (20:27)
[2018-06-02] MEDS: hydrALAZINE 20 MG/ML VIAL SLOW IVP PRN (03:09)
[2018-06-02 05:11] LABS: #Eosinphils 0.1 thou/uL (0.0-0.7); #Lymphocytes 1.7 thou/uL (1.20-3.40); #Monocytes 0.6 thou/uL (0.11-0.59); #Neutrophils 3.8 thou/uL (1.40-6.50); %Basophils 0.1 % (0.0-1.0); %Eosinophils 1.6 % (0.0-10.0); %Lymphocytes 26.9 % (21.0-51.0); %Monocytes 10.1 % (0.0-10.0); %Neutrophils 61.2 % (42.0-75.0); Hemoglobin 11.2 g/dL (12.0-16.0); Mean Corpuscular HGB CONC 34.3 g/dL (32.0-36.0); Mean Corpuscular Hemoglobin 27.4 pg (27.0-31.0); Mean Corpuscular Volume 79.8 fL (78.0-98.0); Mean Platelet Volume 7.9 fL (7.4-10.4); Platelet Count 176 thou/uL (130-400); RBC Distribution Width 12.5 % (11.5-14.5); Red Blood Cell (RBC) Count 4.09 mill/uL (4.20-5.40); White Blood Cell (WBC) Count 6.1 thou/uL (4.8-10.8)
[2018-06-02 05:18] LABS: Anion Gap 13 mmol/L (10-20); BUN (Urea Nitrogen) 30 mg/dL (9.8-20.1); Calc. Creatinine Clearance 69 mL/min (70-130); Calcium 9.2 mg/dL (7.8-10.44); Carbon Dioxide 25 mmol/L (22-29); Chloride 100 mmol/L (98-107); Estimated GFR-MDRD 38; Glucose 271 mg/dL (70-105); Potassium 4.1 mmol/L (3.5-5.1); Sodium 134 mmol/L (136-145)
[2018-06-02] MEDS: HumaLOG 300 UNITS/3 ML VIAL SC PRN ×3 (05:22→17:46)
[2018-06-02] MEDS: carBAMazepine 100 mg Chewable Tablet PO SCH ×2 (07:56→20:21)
[2018-06-02] MEDS: Losartan 25 MG TAB PO SCH (07:56)
[2018-06-02] MEDS: Sevelamer Carbonate 800 MG TAB PO SCH ×3 (07:56→20:21)
[2018-06-02] MEDS: Amlodipine 5 MG TAB PO SCH (07:57)
[2018-06-02] MEDS: Venlafaxine HCl XR 150 MG CAP PO SCH (07:57)
[2018-06-02] MEDS: Carvedilol 25 MG TAB PO SCH ×2 (08:00→20:21)
[2018-06-02] MEDS: busPIRone HCl 10 MG TAB PO SCH ×3 (08:00→20:21)
[2018-06-02] MEDS: Fenofibrate Nanocrystallized 145 MG TAB PO SCH (08:00)
[2018-06-02] MEDS: Heparin 5,000 UNITS/ML VIAL SC SCH ×3 (08:05→20:21)
--- NOTE | 2018-06-02 08:23 | PRG ---
DATE OF SERVICE: 06/02/2018 Ms. Plummer blood pressure was extremely high this morning at 202/119. She was having a headache from that. She was just given her blood pressure medications as I was seeing her. Otherwise, she is fercho benitesay. PHYSICAL EXAMINATION: VITAL SIGNS: Temperature is 98.2, pulse 112, respiration 16, O2 sat 97%. HEENT: Unremarkable. NECK: No JVD. CHEST: Clear. CARDIAC: S1 and S2 regular. ABDOMEN: Soft. EXTREMITIES: No edema. LABORATORY DATA: White blood cell count 6.1, hematocrit 32.6, platelet count 176. Sodium 134, potas sium 4.1, chloride 100, CO2 25, BUN 30, creatinine 1.6, glucose 271. ASSESSMENT: 1. Status post respiratory failure related to mental status changes. 2. High ammonia level at admission which I think is probably a lab error. 3. Hypertension. PLAN: The patient got her blood pressure medication this morning. I would monitor blood pressure in 30 minutes to an hour and if it is trending downward no further treatment should be needed.
--- NOTE | 2018-06-02 08:41 | HP ---
CHIEF COMPLAINT: Altered mental status. HISTORY OF PRESENT ILLNESS: This is a 57-year-old female with a known history of morbid obesity, hyp ertension, hyperlipidemia, and anxiety, who presented with decreased mental status. Please note that at the time of my evaluation, the patient has been seen in the emergency department immediately after intubation. She is currently sedated and unable to respond to any questions, so th erefore, the history is that which is gleaned from the ER report and records. It appears that the patient was recently discharged from our facility on the . She returned to [facility] Emergency Department on the with a chief complaint of syncope. Her hospitalization was breache d on the and it consisted of a chest pain evaluation, which was negative for PE, and negative for acute coronary syndrome. She presented today with a complaint of decreased mentation and was found to be increasingly somnolent while undergoing evaluation in the emergency department. Due to concern s of her ability to protect her airway, the patient was subsequently intubated. REVIEW OF SYSTEMS: Unable to be obtained secondary to the above. PAST MEDICAL HISTORY: As obtained from records include the followin. Chronic pain. 2. TIA. 3. Congestive heart failure. 4. Type 2 diabetes. 5. Hypertension. 6. Asthma. 7. Status post cholecystectomy. 8. Status post umbilical hernia repair. 9. Bipolar disorder. 10. Anxiety. 11. Schizophrenia. HOME MEDICATIONS: According to the EMR, the patient's home regimen was supposed to include the follo wing: Tizanidine 1 tab p.o. at bedtime p.r.n., sitagliptin phosphate 1 tab p.o. daily, hydroxyzine 2 5 mg p.o. t.i.d., carbamazepine 100 mg p.o. b.i.d., buspirone 10 mg p.o. t.i.d., venlafaxine 150 mg p .o. daily, sevelamer carbonate or Renvela 800 mg p.o. t.i.d., pravastatin 0.5 mg p.o. at bedtime, [place] 100 mg p.o. daily, insulin regular 80-120 units subcu t.i.d., hydrocodone 10/325 one to two tab s p.o. b.i.d. p.r.n., furosemide 40 mg p.o. daily, fenofibrate 145 mg p.o. daily, famotidine 20 mg p. o. b.i.d., doxepin 1-2 tabs p.o. bedtime p.r.n., diazepam 10 mg p.o. b.i.d. p.r.n., cyclobenzaprine 1 0 mg p.o. t.i.d. p.r.n., carvedilol 25 mg p.o. b.i.d., benzonatate 200 mg p.o. q.8 hours p.r.n., aspi rin 81 mg p.o. daily, amlodipine 5 mg p.o. daily. ALLERGIES: The patient had significant list of allergies, which include the following: CODEINE with a severe unknown reaction, PENICILLIN, intermediate, unknown type of reaction; CHOCOLATE FLAVOR or O RANGE FLAVOR . The patient also has a listed allergy to TRAMADOL unknown type of reaction. SOCIAL HISTORY: The patient does not have a noted history of alcohol, tobacco, or illicit drug use. She also does not , and does not have a known history of intentional overdose or suicide attemp ts. FAMILY HISTORY: Unable to obtain secondary to prior records indicates that there is a family h istory of hypertension and diabetes. PHYSICAL EXAMINATION: GENERAL: The patient is sedated. She is lying in the hospital bed. HEENT: Normocephalic, atraumatic. ET tube grossly externally. Slightly dry mucous membranes. CARDIOVASCULAR: S1, S2 pulses 2+ in bilateral upper extremities. No magen pitting pedal edema . RESPIRATORY: Limited anterior examination. Bilateral breath sounds are present. There is coarse rh onchi throughout consistent with a ventilator sound. ABDOMEN: Protuberant, large, nondistended. Positive bowel sounds. Soft. LABORATORY DATA AND IMAGING: On 05/30/2018, CT of the brain, impression: "No acute intracranial hem orrhage or mass effect to it or chronic vascular ischemic disease." WBC 9.3, hemoglobin 10.9, hemato crit 31.1, platelets 181. PT 13.8, INR 1.1. ABG: A pH of 7.39, pCO2 of 36.3, pO2 of 111.8. Sodium 127, potassium 4.2, chloride 95, bicarbonate 23, BUN 78, creatinine is 4.66, glucose 73, lactic acid 1.1, calcium 8.2. Total bilirubin 0.3, direct bilirubin 0.1, AST 18, ALT 19, alkaline phosphatase 1 73, ammonia greater than 500, total protein 6.1, albumin 2.7. Serum is negative. UA is si gnificant for 30 of protein, small leukocyte esterase, 4-6 wbc's, 11-20 squamous epithelial cells, 11 -20 hyaline casts, and 4-6 granular casts. UDS is significant for positivity in benzodiazepine s and tricyclics. Alcohol is negative. Hepatitis panel: Hepatitis A, B, and C are nonreactive. ASSESSMENT AND PLAN: A 57-year-old female presenting with a chief complaint of altered mental status . 1. Altered mental status, suspect a component of metabolic encephalopathy. The patient does have a UDS present for benzodiazepines. Given that the patient is not on a tricyclic at home, this also kang ses a concern with the patient either attempting recreational use of another individual's medications , self-medication with another individual's medication, or a potential suicide attempt. It appears t hat in the emergency department, Poison Control was called by the Emergency Department physician. Th ere is discussion that perhaps the tricyclics is actually a false positivity from her benzodiazepine. The patient does not have a known history of benzodiazepine use on a chronic basis. Also, the gabrielle ent was noted to have hyperammonemia or hepatic encephalopathy. There is no mention or known history of liver disease for this patient. Her LFTs and INR are currently within normal limits. It is like ly that the patient has chronic metabolic encephalopathy from a combination of factors including her acute kidney injury, relative uremia, hyperammonemia, and benzodiazepine use. We will continue to cl osely monitor the patient's neurological status. The patient's CT scan was initially negative. 2. Ventilator dependency. I appreciate Pulmonary Critical Care consultation. At this point in time , there is no evidence of a primary pulmonary pathology necessitating ventilator dependence. We will continue to closely monitor. 3. Acute kidney injury. It appears that from review of prior records, the patient has likely chroni c history of chronic renal disease that has been variable during her hospitalizations at our facility . However, the patient's BUN and creatinine today are significantly elevated compared to her known b aseline. Check a renal ultrasound. 4. Anemia. The patient is actually currently hemodynamically stable without any evidence of gastroi ntestinal bleed. It is noted that GI bleed could be a cause of hyperammonemia, but that does not bill ear to be the precipitating etiology at this point in time. 5. Hyperammonemia. Please see discussion above. Obtain an ultrasound of the abdomen as well. So, most likely causes on the differential include possibly hepatocellular carcinoma or portal vein throm bosis type etiology. These are significantly less likely. Also, the patient is a poor candidate for CT with contrast. We will obtain Doppler ultrasound instead for the time being. The patient is als o ordered lactulose and will have a repeat ammonia level in the morning as well. 6. Diabetes. Given the patient's acute renal injury, we will place the patient on sliding scale ins ulin and hold the patient's home antihyperglycemic regimen. Once the patient's renal function return s to baseline, I will resume her home regimen. 7. Diet. N.p.o. since the patient is currently intubated. If there is any need for prolonged or pr otracted intubation, to consider tube feeds. 8. Activity. Bedrest while the patient is intubated. 9. Deep venous thrombosis prophylaxis with heparin and sequential. The patient is currently presumed to be FULL CODE, as she has indicated that prior hospitalizat ions and is currently without family or friends to speak on her behalf and is currently unable to eddie e her own medical decision.
[2018-06-02] MEDS ORDERED: Cyclobenzaprine 10 MG TAB PO PRN (12:27)
[2018-06-02] MEDS ORDERED: HYDROcodone/Acetaminophen 10/325 mg Tablet PO PRN ×2 (12:27→12:38)
--- NOTE | 2018-06-02 12:42 | PDOC.PN ---
- Subjective Encounter Start Date: 06/02/18 Encounter Start Time: 12:40 Subjective: f/u for AMS likely multifactorial including polypharmacy. States some -: headache today and nursing noted elevated BP earlier but improved -: after receiving home BP meds. - Objective Resuscitation Status: Resuscitation Status FULL:Full Resuscitation MAR Reviewed: Yes Vital Signs & Weight: Vital Signs (12 hours) Temp Pulse Resp BP BP Pulse Ox 06/02/18 11:00 98.0 F 98 18 139/94 H 97 06/02/18 08:45 194/95 H 06/02/18 08:00 98.2 F 112 H 16 202/119 H 97 06/02/18 07:57 111 H 202/119 H 06/02/18 04:00 98.0 F 90 18 173/91 H 96 06/02/18 03:09 94 175/102 H Weight Weight 264 lb 15.93 oz Most Recent Monitor Data Heart Rate from ECG 101 NIBP 175/77 NIBP BP-Mean 137 Respiration from ECG 23 SpO2 96 I&O: 06/01/18 06/02/18 06/03/18 06:59 06:59 06:59 Intake Total 1808.5 1706 Output Total 4295 2245 Balance -2486.5 -539 Result Diagrams: 06/02/18 04:33 06/02/18 04:33 Additional Labs: Accuchecks 06/02/18 06/02/18 06/01/18 11:05 04:48 20:28 POC Glucose 305 H 277 H 281 H 06/01/18 16:08 POC Glucose 218 H Microbiology 05/30/18 21:20 Venous blood - Left Arm Blood Culture - Preliminary NO GROWTH AT 48 HOURS 05/30/18 21:05 Venous blood - Right Arm Blood Culture - Preliminary NO GROWTH AT 48 HOURS Laboratory Tests 05/30/18 05/30/18 05/30/18 12:21 12:21 12:21 Hgb 10.9 L Sodium 127 L BUN 78 H Creatinine 4.66 H Ur Tricyclics Screen U Benzodiazepines Scrn Hepatitis A IgM Ab Non-Reactive Hep Bs Antigen Non-Reactive Hep B Core IgM Ab Non-Reactive Hepatitis C Antibody Non-Reactive 05/30/18 05/31/18 05/31/18 12:57 03:46 03:46 Hgb 10.2 L Sodium 129 L BUN 72 H Creatinine 3.49 H Ur Tricyclics Screen Detected H U Benzodiazepines Scrn Detected H Hepatitis A IgM Ab Hep Bs Antigen Hep B Core IgM Ab Hepatitis C Antibody 06/01/18 05:43 Hgb Sodium BUN Creatinine 2.19 H Ur Tricyclics Screen U Benzodiazepines Scrn Hepatitis A IgM Ab Hep Bs Antigen Hep B Core IgM Ab Hepatitis C Antibody Phys Exam - Physical Examination alert, responds slowly to questions HEENT: PERRLA, sclera anicteric, oral pharynx no lesions Neck: no nodes, no JVD, supple, full ROM Respiratory: no wheezing, no rales, no rhonchi, clear to auscultation bilateral S1, S2 Cardiovascular: RRR, no significant murmur, no rub, gallop obese Gastrointestinal: soft, non-tender, no distention, positive bowel sounds Musculoskeletal: no edema, pulses present Neurological: non-focal, moves all 4 limbs Skin: no rash, normal turgor, cap refill <2 seconds Dx/Plan (1) Acute metabolic encephalopathy Code(s): G93.41 - METABOLIC ENCEPHALOPATHY Status: Acute Comment: Likely multifactorial including polypharmacy, improved, supportive mgmt (2) Acute respiratory failure Code(s): J96.00 - ACUTE RESPIRATORY FAILURE, UNSP W HYPOXIA OR HYPERCAPNIA Status: Acute Comment: s/p intubation with subsequent extubation, general pulm support (3) Acute worsening of stage 3 chronic kidney disease Code(s): N18.3 - CHRONIC KIDNEY DISEASE, STAGE 3 (MODERATE) Status: Chronic Comment: Improved with IVF's and avoiding nephrotoxic meds, serial monitoring (4) Diabetes mellitus type 2, uncontrolled Code(s): E11.65 - TYPE 2 DIABETES MELLITUS WITH HYPERGLYCEMIA Status: Chronic Qualifiers: Comment: Labile, continue accuchecks, ISS, resume home Insulin regimen (5) Obesity, morbid, BMI 40.0-49.9 Code(s): E66.01 - MORBID (SEVERE) OBESITY DUE TO EXCESS CALORIES Status: Chronic Comment: Offer dietitian services (6) Schizoaffective disorder Code(s): F25.9 - SCHIZOAFFECTIVE DISORDER, UNSPECIFIED Status: Chronic Qualifiers: Comment: Resume home psych medication regimen - Plan PT/OT, licensed social worker, out of bed/ambulate, DVT proph w/SCDs Stable overall -: Monitor BP trend, may need additional titration -: PT evaluation for functional assessment -: Resume home insulin regimen and monitor glucose trend -: AM lab: BMP * Likely home in 24h
--- NOTE | 2018-06-02 12:42 | PRG ---
DATE OF SERVICE: 06/02/2018 SUBJECTIVE: This is a 57-year-old female being seen for acute kidney injury. The patient denies any nausea, vomiting, or chest pain. PHYSICAL EXAMINATION: GENERAL: Patient is awake, alert. VITAL SIGNS: Afebrile, pulse 75, breathing 16, blood pressure 139/94. HEAD/NECK: Normocephalic. Atraumatic. EYES: EOMI. No deformity. EARS: Clear. No ulcers. NOSE: Intact. No lesions. MOUTH: Clear. No discharge. THROAT: Clear. No exudate. LUNGS: Clear. No crackles. CARDIAC: S1, S2. No rub. ABDOMEN: Benign. BS+. GENITALIA/RECTUM: Blair absent. BACK/EXTREMITIES: Edema 0+ Ulcer- NEUROLOGICAL: Alert and motor intact. SKIN: Rash- Bruise- LYMPHATICS: Edema- Ulcer- LABORATORY DATA: Show hemoglobin 11.2, creatinine 1.6. ASSESSMENT AND RECOMMENDATIONS: 1. Acute kidney injury with chronic kidney disease stage 4, stable. 2. Hypertension, stable. 3. Anemia, stable. 4. Hyponatremia, stable. No indication for dialysis. Continue hydration.
[2018-06-02] MEDS ORDERED: Benzonatate 100 MG CAP PO PRN (12:45)
[2018-06-02] MEDS ORDERED: INSULIN REGULAR HUMAN SC SCH (15:00)
[2018-06-02] MEDS: Acetaminophen 500 MG TAB PO PRN (17:45)
[2018-06-02] MEDS ORDERED: Chloraseptic Spray 180 ml Bottle PO PRN (18:45)
[2018-06-02] MEDS: Atorvastatin Calcium 10 MG TAB PO SCH (20:21)
[2018-06-02] MEDS: Cepastat Lozenges 1 LOZ PO PRN (20:27)
[2018-06-02] MEDS ORDERED: Famotidine 20 MG TAB PO SCH (21:00)
[2018-06-03 04:55] LABS: Anion Gap 13 mmol/L (10-20); BUN (Urea Nitrogen) 27 mg/dL (9.8-20.1); Calc. Creatinine Clearance 63 mL/min (70-130); Calcium 8.9 mg/dL (7.8-10.44); Carbon Dioxide 24 mmol/L (22-29); Chloride 99 mmol/L (98-107); Estimated GFR-MDRD 34; Glucose 297 mg/dL (70-105); Potassium 4.1 mmol/L (3.5-5.1); Sodium 132 mmol/L (136-145)
[2018-06-03] MEDS: HumaLOG 300 UNITS/3 ML VIAL SC PRN ×2 (05:22→11:02)
[2018-06-03] MEDS: Losartan 25 MG TAB PO SCH (08:05)
[2018-06-03] MEDS: Venlafaxine HCl XR 150 MG CAP PO SCH (08:05)
[2018-06-03] MEDS: busPIRone HCl 10 MG TAB PO SCH ×2 (08:05→14:19)
[2018-06-03] MEDS: Sevelamer Carbonate 800 MG TAB PO SCH ×2 (08:06→14:19)
[2018-06-03] MEDS: Fenofibrate Nanocrystallized 145 MG TAB PO SCH (08:06)
[2018-06-03] MEDS: Carvedilol 25 MG TAB PO SCH (08:06)
[2018-06-03] MEDS: Amlodipine 5 MG TAB PO SCH (08:06)
[2018-06-03] MEDS: carBAMazepine 100 mg Chewable Tablet PO SCH (08:06)
[2018-06-03] MEDS: Heparin 5,000 UNITS/ML VIAL SC SCH ×2 (08:07→14:19)
--- NOTE | 2018-06-03 08:45 | PRG ---
DATE OF SERVICE: 06/03/2018 Ms. Plummer is much less confused today. She was very appropriate with answers. She is up and walking around. PHYSICAL EXAMINATION: VITAL SIGNS: Temperature is 97.7, pulse 62, respiration 22, 96%, blood pressure 173/94. HEENT: Unremarkable. NECK: No JVD. CHEST: Clear without wheezing or rhonchi. CARDIAC: S1 and S2 regular. ABDOMEN: Soft. EXTREMITIES: No edema. ASSESSMENT: 1. Status post encephalopathy -- etiology uncertain. 2. Hypertension. PLAN: The patient has received her antihypertensives. She is stable from a pulmonary status. I nikos l sign off. Please recall if further assistance needed.
--- NOTE | 2018-06-03 09:03 | PRG ---
DATE OF SERVICE: 06/03/2018 SUBJECTIVE: This is a 57-year-old female being seen for acute kidney injury. The patient denies any nausea, vomiting or chest pain. PHYSICAL EXAMINATION: GENERAL: Patient is awake, alert. VITAL SIGNS: Afebrile, pulse 61, breathing 20, blood pressure 143/89. OBJECTIVE: See above. Awake, alert, in no acute distress. GENERAL APPEARANCE AND MENTAL STATUS: Fair. HEAD/NECK: Normocephalic. Atraumatic. EYES: EOMI. No deformity. EARS: Clear. No ulcers. NOSE: Intact. No lesions. MOUTH: Clear. No discharge. THROAT: Clear. No exudate. LUNGS: Clear. No crackles. CARDIAC: S1, S2. No rub. ABDOMEN: Benign. BS+. GENITALIA/RECTUM: Blair absent. BACK/EXTREMITIES: Edema 0+ Ulcer- NEUROLOGICAL: Alert and motor intact. SKIN: Rash- Bruise- LYMPHATICS: Edema- Ulcer- LABORATORY: Hemoglobin 11.2, creatinine 1.8. ASSESSMENT AND RECOMMENDATIONS: 1. Acute kidney disease with chronic kidney disease, most likely due to decreased effective arterial blood volume, continue hydration. 2. Hypertension, stable. 3. Anemia, stable. 4. Medication based on glomerular filtration rate are appropriate.
[2018-06-03] MEDS: Acetaminophen 500 MG TAB PO PRN (11:02)
[2018-06-03 17:06] VITALS: BP 138/83; TEMP 98.5
--- NOTE | 2018-06-03 22:10 | DIS ---
DATE OF ADMISSION: 05/30/2018 DATE OF DISCHARGE: 06/03/2018 DISCHARGE DIAGNOSES: 1. Acute metabolic encephalopathy, multifactorial, resolving. 2. Acute respiratory failure secondary to #1, resolved. 3. Acute kidney injury on chronic kidney disease stage 3. 4. Diabetes mellitus type 2, labile. 5. Schizoaffective disorder. 6. Hyponatremia, mild. CONSULTATIONS: Dr. Gonzalez with Pulmonology Service. Dr. Liu and Dr. Norris with Nephrology Servi ce. PERTINENT LABORATORY DATA AND X-RAY FINDINGS: Sodium ranged between 127-134, creatinine ranged betwe en 1.68-4.66. Estimated GFR ranged between 12-38. Lactic acid level 1.1, phosphorus 3.4 and magnesi um 1.5. Serum ammonia level 32. CBC showed hemoglobin ranging between 10.3-11.2. Urine drug screen dated 05/30/2018 positive for tricyclics and benzodiazepines. Hepatitis A, B, and C panel negative 05/30/2018. Blood cultures x2 from 05/30/2018 showed no growth at 48 hours. Urine culture dated showed no growth at 12 hours. Portable chest x-ray dated 05/30/2018 showed cardiomegaly with mild pulmonary vascular prominence. CT of the brain without contrast dated 05/30/2018 showed no acu te intracranial process. Mild chronic white matter ischemic changes noted. Abdominal ultrasound beau ed 05/31/2018 showed normal hepatic blood flow. HOSPITAL COURSE: Patient initially presented with altered mentation with unprotected airway undergoi ng prophylactic intubation. The patient was transferred to the Critical Care Unit and continued on m echanical ventilation and airway protection with intubation. Altered mentation was likely metabolic in nature with urine drug screen positive for benzodiazepines and tricyclics. The patient with polyp harmacy. Patient with multiple psychotropic and sedating medications. The patient also initially marie d elevated ammonia levels greater than 500; however, upon repeat evaluation and repeat lab testing, t he level was normal. The patient was also noted with acute kidney injury in the context of known chr onic kidney disease stage 2-3, treated with IV fluids and evaluated by the Nephrology Service. The p atient received general supportive measures with avoidance of nephrotoxic agent with overall resoluti on of the acute kidney injury and return of creatinine to baseline levels. The patient was rapidly e xtubated and transferred to the medical floor where she remained clinically stable. Mental status re turned to baseline levels and the patient was tolerating regular oral intake. Overall, likely multif actorial encephalopathy including polypharmacy. I have examined the patient at the time of discharge and discussed followup instructions at which point patient verbalized understanding and agreement. The patient is clinically stable and ready for discharge on 06/03/2018. DISCHARGE MEDICATIONS: 1. Norvasc 5 mg 1 tab p.o. daily. 2. Aspirin 81 mg p.o. daily. 3. BuSpar 10 mg p.o. t.i.d. 4. Carbamazepine extended release 100 mg p.o. b.i.d. 5. Flexeril 10 mg p.o. t.i.d. p.r.n. 6. Diazepam 10 mg p.o. b.i.d. p.r.n. 7. Pepcid 20 mg p.o. b.i.d. 8. Lasix 40 mg p.o. daily. 9. [place] 10/325 mg 1-2 tabs p.o. b.i.d. p.r.n. 10. Hydroxyzine 25 mg p.o. t.i.d. p.r.n. 11. Humulin R 80-120 units subcutaneously t.i.d. 12. Cozaar 100 mg p.o. daily. 13. Pravachol 20 mg p.o. at bedtime. 14. Renvela 800 mg p.o. t.i.d. 15. Januvia 100 mg p.o. daily. 16. Venlafaxine extended release 150 mg p.o. daily. 17. Coreg 25 mg p.o. b.i.d. 18. Fenofibrate 145 mg p.o. daily. FOLLOWUP: Patient will follow up with Dr. Kelsey Felder within 7 days of discharge. CONDITION ON DISCHARGE: Stable. ACTIVITY: Ad sumaya. DIET: Heart healthy and ADA. CODE STATUS: FULL. DISPOSITION: Home 06/03/2018. Total time in preparing and coordinating discharge is 32 minutes.
== END 2018-06-03 17:38 | disposition home or self-care (01) | DRG 91 ==
LOC: ERS 10:35 → CCU 14:43 → T4-B 06-01 16:50
PROVIDERS: ADMIT Internal Medicine; ATTEND Internal Medicine
PROC: 5A1935Z Respiratory Ventilation, Less than 24 Consecutive Hours (ICD-10-PCS; principal; 2018-05-31)
PROC: 0BP1XDZ Removal of Intraluminal Device from Trachea, External Approach (ICD-10-PCS; 2018-05-31)
DX: G92 Toxic encephalopathy (principal); J96.01 Acute respiratory failure with hypoxia; E87.1 Hypo-osmolality and hyponatremia; I13.0 Hypertensive heart and chronic kidney disease with heart failure and stage 1 through stage 4 chronic kidney disease, or unspecified chronic kidney disease; E72.20 Disorder of urea cycle metabolism, unspecified; N18.4 Chronic kidney disease, stage 4 (severe); Z68.42 Body mass index [BMI] 45.0-49.9, adult; T42.4X5A Adverse effect of benzodiazepines, initial encounter; T50.995A Adverse effect of other drugs, medicaments and biological substances, initial encounter; F25.9 Schizoaffective disorder, unspecified; E88.09 Other disorders of plasma-protein metabolism, not elsewhere classified; E66.9 Obesity, unspecified; Z86.73 Personal history of transient ischemic attack (TIA), and cerebral infarction without residual deficits; I50.9 Heart failure, unspecified; E11.22 Type 2 diabetes mellitus with diabetic chronic kidney disease; J45.909 Unspecified asthma, uncomplicated; F31.9 Bipolar disorder, unspecified; F41.9 Anxiety disorder, unspecified; Z79.4 Long term (current) use of insulin; Z88.0 Allergy status to penicillin; Z88.6 Allergy status to analgesic agent; Z91.02 Food additives allergy status; D64.9 Anemia, unspecified; E11.65 Type 2 diabetes mellitus with hyperglycemia; Z79.84 Long term (current) use of oral hypoglycemic drugs
CPT/HCPCS: 31500; 36415; 36416; 51701; 70450; 71045; 76700; 76705; 76770; 80048; 80053; 80074; 80076; 80306; 80307; 81003; 81015; 82105; 82140; 82553; 82805; 83605; 83735; 83880; 84100; 84484; 84703; 85025; 85610; 87040; 87086; 93005; 94002; 94003; 94760; 96361; 96365; 96375; A4216; A4353; G8978-GP-CJ; G8979-GP-CJ; G8980-GP-CJ; J0360; J1610; J1644; J3010; J7050; S0028

== ENCOUNTER 2018-07-20 08:39 | Emergency (ER) | payer MEDICARE, OTHER, MEDICAID ==
[2018-07-20] MEDS ORDERED: Ibuprofen 800 MG TAB ONE (09:28)
--- NOTE | 2018-07-20 09:57 | RAD ---
LEFT MIDDLE FINGER 3 VIEWS: Date: 07/20/18 HISTORY: Pain in the left middle finger. FINDINGS/IMPRESSION: No fracture, dislocation, or bony destruction is seen. POS: [facility]
== END 2018-07-20 10:08 | disposition home or self-care (01) ==
LOC: ERS 08:39
DX: M79.645 Pain in left finger(s) (principal); F41.9 Anxiety disorder, unspecified; F31.9 Bipolar disorder, unspecified; I11.0 Hypertensive heart disease with heart failure; I50.9 Heart failure, unspecified; J45.909 Unspecified asthma, uncomplicated; F20.9 Schizophrenia, unspecified; W18.30XA Fall on same level, unspecified, initial encounter; Z86.73 Personal history of transient ischemic attack (TIA), and cerebral infarction without residual deficits

== ENCOUNTER 2018-08-04 23:20 | Emergency (ER) | payer MEDICARE, OTHER, MEDICAID ==
[2018-08-05] MEDS ORDERED: Ketorolac Tromethamine 30 MG/ML VIAL ONE (00:13)
--- NOTE | 2018-08-05 08:16 | RAD ---
RIGHT SHOULDER 3 VIEWS: HISTORY: Fall. COMPARISON: Radiograph 04/04/2018. FINDINGS: No fracture. No malalignment. The ribs are unremarkable. IMPRESSION: No acute abnormality. POS: [facility]
--- NOTE | 2018-08-05 08:17 | RAD ---
RIGHT HIP RADIOGRAPHS 2 VIEWS: DATE: 08/04/2018. PROVIDED CLINICAL HISTORY: Pain status post fall. FINDINGS: Comparison 01/30/2014. Evaluation is markedly limited on the basis of patient body habitus and portab le technique. There is no evidence for a displaced fracture. Alignment appears grossly anatomic. J oint spaces appear preserved. IMPRESSION: Limited study without evidence for displaced fracture. POS: [facility]
== END 2018-08-05 00:59 | disposition home or self-care (01) ==
LOC: ERS 23:20
DX: M79.10 Myalgia, unspecified site (principal); M19.90 Unspecified osteoarthritis, unspecified site; F31.9 Bipolar disorder, unspecified; F20.9 Schizophrenia, unspecified; I10 Essential (primary) hypertension; E11.9 Type 2 diabetes mellitus without complications; E78.5 Hyperlipidemia, unspecified; W06.XXXA Fall from bed, initial encounter; Z86.73 Personal history of transient ischemic attack (TIA), and cerebral infarction without residual deficits
CPT/HCPCS: 96372; J1885

== ENCOUNTER 2018-08-11 09:31 | Emergency (ER) | payer MEDICARE, OTHER, MEDICAID ==
--- NOTE | 2018-08-11 11:31 | CT ---
BRAIN CT WITHOUT IV CONTRAST: History: 58-year-old female with history of trauma, trip and fall hitting the back of her head with swelling. FINDINGS: Focal left posterior scalp hematoma and swelling. Minimal motion artifact through the skull base kaylynn ons. No focal mass or midline shift. No intra or extraaxial hemorrhage. No evidence for a skull fract ure. IMPRESSION: Motion artifact. No mass or bleed. Posterior scalp injury. POS: [facility]
== END 2018-08-11 10:49 | disposition home or self-care (01) ==
LOC: ERS 09:31
DX: S06.0X1A Concussion with loss of consciousness of 30 minutes or less, initial encounter (principal); S00.03XA Contusion of scalp, initial encounter; E11.9 Type 2 diabetes mellitus without complications; I10 Essential (primary) hypertension; E78.5 Hyperlipidemia, unspecified; W01.0XXA Fall on same level from slipping, tripping and stumbling without subsequent striking against object, initial encounter
CPT/HCPCS: 36416; 70450

== ENCOUNTER 2018-09-04 12:26 | Emergency (ER) | payer MEDICARE, OTHER, MEDICAID ==
[2018-09-04 13:26] LABS: #Eosinphils 0.1 thou/uL (0.0-0.7); #Monocytes 0.6 thou/uL (0.11-0.59); #Neutrophils 4.3 thou/uL (1.40-6.50); %Basophils 0.3 % (0.0-1.0); %Eosinophils 1.7 % (0.0-10.0); %Lymphocytes 28.8 % (21.0-51.0); %Monocytes 9.1 % (0.0-10.0); %Neutrophils 60.1 % (42.0-75.0); Hemoglobin 11.5 g/dL (12.0-16.0); Mean Corpuscular HGB CONC 33.9 g/dL (32.0-36.0); Mean Corpuscular Hemoglobin 27.9 pg (27.0-31.0); Mean Corpuscular Volume 82.2 fL (78.0-98.0); Mean Platelet Volume 7.8 fL (7.4-10.4); Platelet Count 220 thou/uL (130-400); RBC Distribution Width 12.6 % (11.5-14.5); Red Blood Cell (RBC) Count 4.14 mill/uL (4.20-5.40); White Blood Cell (WBC) Count 7.1 thou/uL (4.8-10.8)
[2018-09-04 13:38] LABS: ALT (SGPT) 27 U/L (8-55); AST (SGOT) 26 U/L (5-34); Albumin 3.3 g/dL (3.5-5.0); Alkaline Phosphatase 128 U/L (40-150); Anion Gap 14 mmol/L (10-20); BUN (Urea Nitrogen) 44 mg/dL (9.8-20.1); Bilirubin, Total 0.2 mg/dL (0.2-1.2); Calc. Creatinine Clearance 0 mL/min (70-130); Calcium 9.2 mg/dL (7.8-10.44); Carbon Dioxide 24 mmol/L (22-29); Chloride 95 mmol/L (98-107); Estimated GFR-MDRD 25; Globulin 4.3 g/dL (2.4-3.5); Glucose 408 mg/dL (70-105); Protein, Total 7.6 g/dL (6.0-8.3); Sodium 128 mmol/L (136-145)
[2018-09-04 13:40] LABS: CKMB 1.5 ng/mL (0-6.6); Troponin I Less than 0.010 ng/mL (< 0.028)
--- NOTE | 2018-09-04 13:47 | RAD ---
ONE VIEW CHEST: HISTORY: Pain. COMPARISON: None. FINDINGS: Normal cardiac silhouette. Pulmonary vessels and hilum are normal. Costophrenic angles are clear. No masses or consolidation. No pneumothorax or osseous abnormalities. IMPRESSION: No acute cardiopulmonary process. POS: [facility]
== END 2018-09-04 14:48 | disposition home or self-care (01) ==
LOC: ERS 12:26
DX: J20.9 Acute bronchitis, unspecified (principal); F41.9 Anxiety disorder, unspecified; F31.9 Bipolar disorder, unspecified; F20.9 Schizophrenia, unspecified; I11.0 Hypertensive heart disease with heart failure; I50.9 Heart failure, unspecified; E11.9 Type 2 diabetes mellitus without complications; J45.909 Unspecified asthma, uncomplicated; M19.90 Unspecified osteoarthritis, unspecified site; Z86.73 Personal history of transient ischemic attack (TIA), and cerebral infarction without residual deficits
CPT/HCPCS: 36415; 71045; 80053; 82553; 83880; 84484; 85025; 85379; 93005

== ENCOUNTER 2018-09-07 16:04 | Emergency (ER) | payer MEDICARE, MEDICAID ==
--- NOTE | 2018-09-07 16:39 | RAD ---
FRONTAL RADIOGRAPH PELVIS: 09/07/2018 HISTORY: Fall. Trauma. Pain. COMPARISON: None. FINDINGS: Body habitus limits detailed assessment of the osseous structures. The pelvic ring is intact. The f emoral heads project normally over their respective acetabulum. There is no widening of the sacroili ac joints or the pubic symphysis. No displaced fracture is seen. IMPRESSION: No displaced fracture is seen. POS: [facility]
--- NOTE | 2018-09-07 16:46 | CT ---
HEAD CT WITHOUT CONTRAST: 09/07/2018 HISTORY: Fall. Trauma. Pain. COMPARISON: 08/11/2018 TECHNIQUE: Serial axial CT imaging obtained at 5 mm intervals, from the vertex through the skull base, without c ontrast FINDINGS: The imaged paranasal sinuses/mastoid air cells are well aerated. There is no displaced calvarial fra cture. No intracranial hemorrhage, midline shift, mass effect, or ventricular enlargement. IMPRESSION: No intracranial hemorrhage or displaced calvarial fracture. POS: [facility]
[2018-09-07 17:03] LABS: #Basophils 0.1 thou/uL (0.0-0.2); #Eosinphils 0.1 thou/uL (0.0-0.7); #Lymphocytes 1.9 thou/uL (1.20-3.40); #Monocytes 0.6 thou/uL (0.11-0.59); #Neutrophils 4.4 thou/uL (1.40-6.50); %Basophils 1.3 % (0.0-1.0); %Eosinophils 1.6 % (0.0-10.0); %Lymphocytes 26.2 % (21.0-51.0); %Monocytes 8.4 % (0.0-10.0); %Neutrophils 62.4 % (42.0-75.0); Mean Corpuscular HGB CONC 33.6 g/dL (32.0-36.0); Mean Corpuscular Hemoglobin 26.9 pg (27.0-31.0); Mean Platelet Volume 7.9 fL (7.4-10.4); Platelet Count 208 thou/uL (130-400); RBC Distribution Width 12.6 % (11.5-14.5); Red Blood Cell (RBC) Count 4.47 mill/uL (4.20-5.40); White Blood Cell (WBC) Count 7.1 thou/uL (4.8-10.8)
--- NOTE | 2018-09-07 17:17 | CT ---
CERVICAL SPINE CT WITHOUT CONTRAST: 09/07/2018 HISTORY: Fall. Trauma. Pain. COMPARISON: 11/13/2016 TECHNIQUE: Serial axial CT imaging at 2.5 mm intervals, from the skull base through the lung apices, with shook l and sagittal reformatted imaging. FINDINGS: The visualized lung apices are unremarkable. The C1 ring is intact. The occipital condyles, the dens, and the C1-C2 articulation demonstrate no acute findings. There is degenerative change present at the atlantoaxial interspace. The craniocervical junction and the cervicothoracic junction appear intact. Detailed assessment of the lower cervical spine is limi tanya on the coronal and sagittal reformatted imaging, on the basis of body habitus and associated beam hardening artifact. No discrete displaced fracture or evidence of dislocation is seen. Motion artifact slightly degrades assessment of the C6, C7, and T1 vertebral bodies. IMPRESSION: 1. No acute findings. 2. Stable cervical spine CT, slightly limited secondary to motion and body habitus, as detailed jeff hameed. POS: [facility]
[2018-09-07 17:25] LABS: Anion Gap 18 mmol/L (10-20); BUN (Urea Nitrogen) 70 mg/dL (9.8-20.1); Calc. Creatinine Clearance 0 mL/min (70-130); Calcium 9.8 mg/dL (7.8-10.44); Carbon Dioxide 22 mmol/L (22-29); Chloride 92 mmol/L (98-107); Estimated GFR-MDRD 13; Glucose 121 mg/dL (70-105); Sodium 127 mmol/L (136-145)
== END 2018-09-07 17:05 | disposition home or self-care (01) ==
LOC: ERS 16:04
DX: S16.1XXA Strain of muscle, fascia and tendon at neck level, initial encounter (principal); S00.93XA Contusion of unspecified part of head, initial encounter; S70.00XA Contusion of unspecified hip, initial encounter; I11.0 Hypertensive heart disease with heart failure; I50.9 Heart failure, unspecified; E11.9 Type 2 diabetes mellitus without complications; J45.909 Unspecified asthma, uncomplicated; F31.9 Bipolar disorder, unspecified; F41.9 Anxiety disorder, unspecified; F20.9 Schizophrenia, unspecified; Z86.73 Personal history of transient ischemic attack (TIA), and cerebral infarction without residual deficits; Z79.899 Other long term (current) drug therapy; Z79.84 Long term (current) use of oral hypoglycemic drugs; W18.30XA Fall on same level, unspecified, initial encounter
CPT/HCPCS: 36415; 36416; 70450; 72125; 72170; 80048; 82010; 85025

== ENCOUNTER 2018-09-11 05:02 | Inpatient (IN) | payer MEDICARE, OTHER, MEDICAID ==
[2018-09-11 05:59] LABS: #Eosinphils 0.1 thou/uL (0.0-0.7); #Lymphocytes 1.8 thou/uL (1.20-3.40); #Monocytes 0.6 thou/uL (0.11-0.59); #Neutrophils 3.4 thou/uL (1.40-6.50); %Eosinophils 2.1 % (0.0-10.0); %Monocytes 10.1 % (0.0-10.0); %Neutrophils 57.8 % (42.0-75.0); Mean Corpuscular HGB CONC 34.5 g/dL (32.0-36.0); Mean Corpuscular Hemoglobin 28.3 pg (27.0-31.0); Mean Corpuscular Volume 81.9 fL (78.0-98.0); Mean Platelet Volume 8.8 fL (7.4-10.4); Platelet Count 197 thou/uL (130-400); RBC Distribution Width 12.9 % (11.5-14.5); Red Blood Cell (RBC) Count 3.88 mill/uL (4.20-5.40)
[2018-09-11 06:00] LABS: Base Excess-Venous 3.3 mmol/L (0 (+/- 2.5)); Bicarbonate (HCO3v) 28.1 mmol/L (1.0-85.0); CO2 Tension (PvCO2) 42.9 mmHg (41.0-51.0); Calcium, Ionized 1.03 mmol/L (1.12-1.32); O2 Tension (PvO2) 65.7 mmHg (35.0-45.0); Potassium 4.8 mmol/L (3.4-4.7); T. Carbon Dioxide 29.4 mmol/L (1.0-85.0); pH (Venous) 7.425 (7.35-7.45)
[2018-09-11] MEDS ORDERED: Insulin Regular 300 UNITS/3 ML VIAL ONE (06:07)
[2018-09-11] MEDS ORDERED: Ketorolac Tromethamine 30 MG/ML VIAL ONE (06:12)
[2018-09-11 06:18] LABS: Phosphorus 4.2 mg/dL (2.3-4.7)
[2018-09-11 06:20] LABS: ALT (SGPT) 22 U/L (8-55); AST (SGOT) 17 U/L (5-34); Albumin 3.3 g/dL (3.5-5.0); Alkaline Phosphatase 145 U/L (40-150); Anion Gap 17 mmol/L (10-20); BUN (Urea Nitrogen) 78 mg/dL (9.8-20.1); Bilirubin, Total 0.2 mg/dL (0.2-1.2); Calc. Creatinine Clearance 0 mL/min (70-130); Calcium 8.6 mg/dL (7.8-10.44); Carbon Dioxide 25 mmol/L (22-29); Chloride 90 mmol/L (98-107); Estimated GFR-MDRD 12; Globulin 4.7 g/dL (2.4-3.5); Lipase 87 U/L (8-78); Magnesium 2.4 mg/dL (1.6-2.6); Potassium 5.1 mmol/L (3.5-5.1); Sodium 127 mmol/L (136-145)
[2018-09-11 06:24] LABS: Glucose 597 mg/dL (70-105)
[2018-09-11 08:30] LABS: Osmolality, Serum 337 mOsm/kg (280-295)
[2018-09-11] MEDS ORDERED: Dextrose 5 %-0.45 % NaCl 1,000 ML IV PRN (09:21)
[2018-09-11] MEDS ORDERED: NS 0.9% w/ 20 MEQ KCL 1,000 ML IV PRN ×2 (09:21)
[2018-09-11] MEDS ORDERED: CCU Electrolyte Replacement 1 EACH IVPB ONE (09:21)
[2018-09-11] MEDS ORDERED: D5 1/2 NS w/20 mEq KCL 1,000 ML IV PRN (09:21)
[2018-09-11] MEDS ORDERED: Acetaminophen 325 MG TAB PO PRN (09:21)
[2018-09-11] MEDS ORDERED: Sodium Chloride 0.9% 1,000 ML IV PRN ×4 (09:21)
[2018-09-11] MEDS ORDERED: hydrALAZINE 20 MG/ML VIAL SLOW IVP SCH (09:30)
[2018-09-11 10:05] LABS: Anion Gap 20 mmol/L (10-20); BUN (Urea Nitrogen) 77 mg/dL (9.8-20.1); Calc. Creatinine Clearance 0 mL/min (70-130); Calcium 8.5 mg/dL (7.8-10.44); Carbon Dioxide 18 mmol/L (22-29); Chloride 96 mmol/L (98-107); Estimated GFR-MDRD 12; Glucose 545 mg/dL (70-105); Potassium 5.9 mmol/L (3.5-5.1); Sodium 128 mmol/L (136-145)
--- NOTE | 2018-09-11 10:14 | CT ---
BRAIN CT WITHOUT IV CONTRAST: History: 58-year-old female with history of head trauma following a fall. Comparison: 09-07-18 FINDINGS: Minimal motion artifact. No focal mass or midline shift. No intra or extraaxial hemorrhage. Sinuses a nd mastoids are clear. IMPRESSION: No mass or bleed. Stable from prior study. POS: [facility]
--- NOTE | 2018-09-11 10:15 | CT ---
CERVICAL SPINE CT SCAN WITHOUT IV CONTRAST: History: 58-year-old female with history of fall, head trauma, neck pain. Comparison: 09-07-18 FINDINGS: Mild degenerative changes of the cervical spine. No evidence for acute fracture or dislocation or sig nificant malalignment. IMPRESSION: No fracture or facet dislocation. Stable from 09-07-18. POS: [facility]
--- NOTE | 2018-09-11 13:15 | HP ---
PRIMARY CARE PROVIDER: Lennie cD M.D. CHIEF COMPLAINT: Fall. HISTORY OF PRESENT ILLNESS: Ms. Plummer is a pleasant 58-year-old lady who was seen at [facility] on 09/11/2018. She presented to the emergency room on 09/07/2018 following a fall. She had a CT scan of the cervical spine and noncontrast CT scan of the brain done that day and was discharged home. She reports falling 4 times since then. The latest fall occurred today morning. She reports that she fell yesterday when she hit her head on the ground. She also reports having head trauma today. She denies any loss of consciousness. She denies any chest pain. She denies any fevers or chills. She reports that her blood sugars have been high at home. She has felt very jittery earlier today, lost control and fell down. She reports pain over the left side of her neck. REVIEW OF SYSTEMS: All other systems reviewed and found to be negative. PAST MEDICAL HISTORY: Chronic kidney disease stage 4, chronic low back pain, osteoarthritis, morbid obesity, chronic diastolic heart failure, diabetes mellitus type 2, hypertension, COPD/asthma, diabetic neuropathy and dyslipidemia. PSYCHIATRIC HISTORY: Anxiety, depression, bipolar disorder, and schizophrenia. PAST SURGICAL HISTORY: Cholecystectomy and umbilical hernia repair. SOCIAL HISTORY: The patient denies tobacco use, alcohol use and recreational drug use. FAMILY HISTORY: Significant for diabetes mellitus, hypertension, and heart disease among several family members. ALLERGIES: CODEINE, PENICILLIN, TRAMADOL. CURRENT MEDICATIONS: Amlodipine 5 mg daily, furosemide 40 mg daily, Januvia 100 mg daily, famotidine 20 mg 2 times a day, fenofibrate 145 mg daily, Venlafaxine 150 mg daily, hydrochlorothiazide 25 mg daily, carbamazepine 100 mg 2 times a day, carvedilol 25 mg 2 times a day, doxepin 100 mg daily, gabapentin 300 mg 3 times a day, losartan 100 mg daily, pravastatin 40 mg daily, sevelamer 800 mg 3 times a day, and Flexeril 10 mg 3 times a day. PHYSICAL EXAMINATION: GENERAL: Ms. Plummer is awake and alert, not in acute distress. VITAL SIGNS: Blood pressure is 143/90, pulse 93, respiratory rate 16, and oxygen saturation 96% on room air. She is afebrile. She is obese. EYES: No scleral icterus. No conjunctival pallor. ENT: Dry mucosal membranes, no oropharyngeal erythema or exudates. NECK: Supple, mild tenderness over the left side, trachea is midline. RESPIRATORY: Accessory muscles of breathing are not active. Chest wall movements are symmetric bilaterally. LUNGS: Clear to auscultation without wheeze, rhonchi or crepitations. CARDIOVASCULAR: S1 and S2 are heard, regular. Peripheral pulses palpable. No carotid bruit, no pericardial rub. ABDOMEN: Distended, nontender, bowel sounds are heard, no hepatomegaly, no splenomegaly. NEUROLOGIC: Cranial nerves II-XII intact. Deep tendon reflexes are 2+. MUSCULOSKELETAL: Left leg cast. SKIN: No rashes or subcutaneous nodules. LYMPHATIC: No cervical lymphadenopathy. PSYCHIATRIC: Normal mood, normal affect. The patient is oriented to person and place, not to time. LABORATORY DATA: Ms. Plummer labs and investigations were reviewed. A noncontrast CT scan of the brain did not show any acute intracranial abnormality. CT scan of the cervical spine was unremarkable. She has normal white count, normocytic anemia with hemoglobin 11, normal platelet count. Sodium 128, potassium 4.8, anion gap 17, carbon dioxide 25, blood glucose 597, serum osmolarity elevated at 337 and unremarkable liver profile and lipase mildly elevated at 87. Beta hydroxybutyrate level is normal. ASSESSMENT AND PLAN: Ms. Plummer is a pleasant 58-year-old lady who was seen at [facility] on 09/11/2018. Her problem list includes: Uncontrolled type 2 diabetes mellitus with hyperosmolar nonketotic hyperglycemia : Ms. Plummer will be admitted to the hospital for further management. She will receive intravenous fluids and insulin. Electrolytes will be followed and replaced as needed. 1. Acute on chronic renal insufficiency stage 4: This is most likely secondary to dehydration from hyperosmolar state. We will recheck creatinine and electrolytes after providing hydration. 2. Hyperkalemia: From hyperglycemic state. We will recheck potassium level after providing insulin and fluids. 3. Recurrent falls: The patient is presenting with a fall. She reports having 4 falls in the last 4 days. We will request PT and OT evaluations. 4. Chronic diastolic heart failure: Appears to be stable. 5. Hypertension: We will continue home medications, monitor vital signs and titrate antihypertensives as needed. 6. Chronic obstructive pulmonary disease: Appears to be stable. 7. Dyslipidemia: Continue statin. Many thanks for allowing me to participate in your patient's care. Please feel free to contact me with any questions or concerns. LEVEL OF RISK: Moderate. LEVEL OF COMPLEXITY: Moderate. MTDD
--- NOTE | 2018-09-11 14:48 | CON ---
DATE OF CONSULTATION: 09/11/2018 NEPHROLOGY CONSULTATION REASON FOR CONSULTATION: Elevated creatinine. HISTORY OF PRESENT ILLNESS: This is a very pleasant 58-year-old female who presented with a possible history of fall. Her creatinine was 4.2, has increased to 4.5. The patient denies any headache, nu mbness, tingling or weakness. Denies any nausea, vomiting or chest pain. PAST MEDICAL HISTORY: Significant for congestive heart failure, hypertension, diabetes mellitus, TIA , COPD, cholecystectomy, hernia surgery, anxiety, bipolar disorder, schizophrenia. HOME MEDICATIONS: List reviewed. HOSPITAL MEDICATIONS: List reviewed. ALLERGIES: Reviewed. REVIEW OF SYSTEMS: A 15-point review of systems was performed and negative except positives noted ab ove. General: Weakness-. Head: Headache-. Neck: No swelling or lumps. Nose: No epistaxis or d ischarge. Eyes: No diplopia or pain. Respiratory: Dyspnea-. Cardiovascular: Chest pain-. Gastr ointestinal: Nausea-. /LOAD TEST MECHANIC: Hematuria-. Musculoskeletal: No joint pain. Neuropsychiatic Syste ms: No suicidal ideation. No ideation. Skin: Denies any rash or ulcer. Constitutional: No feve r or chills. PHYSICAL EXAMINATION: GENERAL: The patient is awake and alert, in no acute distress. VITAL SIGNS: Afebrile, pulse 88, breathing at 16, blood pressure 134/87. GENERAL APPEARANCE AND MENTAL STATUS: Fair. HEAD/NECK: Normocephalic. Atraumatic. EYES: EOMI. No deformity. EARS: Clear. No ulcers. NOSE: Intact. No lesions. MOUTH: Clear. No discharge. THROAT: Clear. No exudate. LUNGS: Clear. No crackles. CARDIAC: S1, S2. No rub. ABDOMEN: Benign. BS+. GENITALIA/RECTUM: Blair absent. BACK/EXTREMITIES: Edema 0+. Ulcer-. NEUROLOGICAL: Alert and motor intact. SKIN: Rash-. Bruise-. LYMPHATICS: Edema-. Ulcer-. LABORATORY DATA: Creatinine is 4.3, sodium 128, potassium was 5.9. ASSESSMENT AND RECOMMENDATIONS: 1. Acute kidney injury on chronic kidney disease due to cardiorenal syndrome and decreased effective arterial blood volume. Would recommend holding ARB and Januvia and do aggressive hydration. 2. Hyperglycemia. 3. Hyperkalemia, most likely because of severe hyperglycemia causing . 4. Metabolic acidosis. 5. Medications based on glomerular filtration rate are appropriate. Would recommend aggressive insu faith therapy and hydration. 6. Anemia, stable. 7. . No indication for dialysis at this time.
[2018-09-11 15:37] LABS: Anion Gap 14 mmol/L (10-20); BUN (Urea Nitrogen) 72 mg/dL (9.8-20.1); Calc. Creatinine Clearance 30 mL/min (70-130); Calcium 8.5 mg/dL (7.8-10.44); Carbon Dioxide 26 mmol/L (22-29); Chloride 98 mmol/L (98-107); Estimated GFR-MDRD 14; Glucose 222 mg/dL (70-105); Potassium 4.5 mmol/L (3.5-5.1); Sodium 133 mmol/L (136-145)
[2018-09-11 18:36] LABS: Anion Gap 14 mmol/L (10-20); BUN (Urea Nitrogen) 71 mg/dL (9.8-20.1); Calc. Creatinine Clearance 32 mL/min (70-130); Calcium 8.5 mg/dL (7.8-10.44); Carbon Dioxide 26 mmol/L (22-29); Chloride 99 mmol/L (98-107); Estimated GFR-MDRD 15; Glucose 104 mg/dL (70-105); Potassium 3.8 mmol/L (3.5-5.1); Sodium 135 mmol/L (136-145)
[2018-09-11] MEDS ORDERED: hydrALAZINE 20 MG/ML VIAL SLOW IVP PRN (18:49)
[2018-09-11] MEDS: Carvedilol 25 MG TAB PO SCH (19:56)
[2018-09-11] MEDS: Sodium Chloride 0.9% 1,000 ML IV SCH (19:57)
[2018-09-12 04:21] LABS: #Eosinphils 0.2 thou/uL (0.0-0.7); #Lymphocytes 1.6 thou/uL (1.20-3.40); #Monocytes 0.6 thou/uL (0.11-0.59); #Neutrophils 2.2 thou/uL (1.40-6.50); %Basophils 0.2 % (0.0-1.0); %Eosinophils 4.2 % (0.0-10.0); %Lymphocytes 34.8 % (21.0-51.0); %Monocytes 12.9 % (0.0-10.0); %Neutrophils 47.9 % (42.0-75.0); Hemoglobin 9.5 g/dL (12.0-16.0); Mean Corpuscular HGB CONC 33.9 g/dL (32.0-36.0); Mean Corpuscular Hemoglobin 27.6 pg (27.0-31.0); Mean Corpuscular Volume 81.5 fL (78.0-98.0); Mean Platelet Volume 8.9 fL (7.4-10.4); Platelet Count 168 thou/uL (130-400); RBC Distribution Width 12.7 % (11.5-14.5); Red Blood Cell (RBC) Count 3.43 mill/uL (4.20-5.40); White Blood Cell (WBC) Count 4.5 thou/uL (4.8-10.8)
[2018-09-12 04:38] LABS: Anion Gap 14 mmol/L (10-20); BUN (Urea Nitrogen) 66 mg/dL (9.8-20.1); Calc. Creatinine Clearance 37 mL/min (70-130); Calcium 8.3 mg/dL (7.8-10.44); Carbon Dioxide 24 mmol/L (22-29); Chloride 100 mmol/L (98-107); Estimated GFR-MDRD 18; Glucose 145 mg/dL (70-105); Potassium 4.3 mmol/L (3.5-5.1); Sodium 134 mmol/L (136-145)
[2018-09-12] MEDS ORDERED: CCU ELECTROLYTE REPLACEMENT PROTOCOL FS PRN (07:48)
[2018-09-12] MEDS ORDERED: Potassium Phosphate 12 MMOL in Sodium Chloride 0.9% 250 ML 250 ML IV PRN (07:48)
[2018-09-12] MEDS ORDERED: Potassium Chloride 40 MEQ in Sodium Chloride 0.9% 250 ML 250 ML IVPB PRN (07:48)
[2018-09-12] MEDS ORDERED: Potassium Phosphate 9 MMOL in Sodium Chloride 0.9% 100 ML IVPB PRN (07:48)
[2018-09-12] MEDS ORDERED: Potassium Phosphate 15 MMOL in Sodium Chloride 0.9% 250 ML 250 ML IV PRN (07:48)
[2018-09-12] MEDS ORDERED: Potassium Chloride 20 MEQ TAB PO PRN (07:48)
[2018-09-12] MEDS ORDERED: Magnesium Oxide 400 MG TAB PO PRN ×2 (07:48)
[2018-09-12] MEDS ORDERED: Magnesium 2 GM/NS 0.9% 100 ML 2 GM in Premix Bag 1 BAG IVPB PRN (07:48)
[2018-09-12] MEDS ORDERED: Potassium Chloride 40 MEQ in Premix Bag 1 BAG IVPB PRN (07:48)
[2018-09-12] MEDS: Amlodipine 5 MG TAB PO SCH (09:44)
[2018-09-12] MEDS: Carvedilol 25 MG TAB PO SCH ×2 (09:44→21:11)
--- NOTE | 2018-09-12 11:26 | PRG ---
DATE OF SERVICE: 09/12/2018 SUBJECTIVE: This is a 58-year-old female being seen for acute kidney injury. The patient denies any nausea, vomiting, or chest pain. PHYSICAL EXAMINATION: GENERAL APPEARANCE: The patient is awake and alert. VITAL SIGNS: Afebrile, pulse 97, breathing at 16, blood pressure 157/87. HEAD/NECK: Normocephalic. Atraumatic. EYES: EOMI. No deformity. EARS: Clear. No ulcers. NOSE: Intact. No lesions. MOUTH: Clear. No discharge. THROAT: Clear. No exudate. LUNGS: Clear. No crackles. CARDIAC: S1, S2. No rub. ABDOMEN: Benign. BS+. GENITALIA/RECTUM: Blair absent. BACK/EXTREMITIES: Edema 0+ Ulcer- NEUROLOGICAL: Alert and motor intact. SKIN: Rash- Bruise- LYMPHATICS: Edema- Ulcer- LABORATORY DATA: Show hemoglobin 9.5, creatinine is 3.1. ASSESSMENT AND RECOMMENDATIONS: 1. Acute kidney injury, improved. 2. Hypertension, stable. 3. Anemia, stable. No indication for dialysis. 4. We will continue hydration.
--- NOTE | 2018-09-12 12:04 | PDOC.PN ---
- Subjective Encounter Start Date: 09/12/18 Encounter Start Time: 08:20 Pt seen for followup re: hyperosmolar hyperglycemia. Feels slightly better. has pain left foot. - Objective MAR Reviewed: Yes Vital Signs & Weight: Vital Signs (12 hours) Temp Pulse Resp BP Pulse Ox 09/12/18 09:44 97 09/12/18 07:23 98.1 F 97 20 161/113 H 90 L 09/12/18 04:21 97.9 F 84 22 H 157/87 H 97 09/12/18 00:27 97.3 F L 98 24 H 181/93 H 96 Weight Weight 276 lb 2 oz I&O: 09/11/18 09/12/18 09/13/18 06:59 06:59 06:59 Intake Total 2 Output Total 2049 Balance 322 Result Diagrams: 09/12/18 03:31 09/12/18 03:31 Additional Labs: Accuchecks 09/12/18 09/12/18 09/12/18 11:03 10:04 08:52 POC Glucose 347 H 368 H 281 H 09/12/18 09/12/18 09/12/18 08:03 07:07 06:04 POC Glucose 227 H 213 H 197 H 09/12/18 09/12/18 09/12/18 05:26 04:15 03:04 POC Glucose 183 H 175 H 153 H 09/12/18 09/12/18 09/12/18 02:09 01:23 00:11 POC Glucose 139 H 162 H 183 H 09/11/18 09/11/18 09/11/18 23:04 22:05 21:01 POC Glucose 190 H 236 H 235 H 09/11/18 09/11/18 09/11/18 19:58 18:53 18:05 POC Glucose 260 H 192 H 119 H 09/11/18 09/11/18 09/11/18 17:12 15:59 15:08 POC Glucose 148 H 193 H 224 H 09/11/18 09/11/18 09/11/18 13:59 13:04 12:08 POC Glucose 290 H 368 H 412 H EKG Reviewed by me: Yes (Tele: NSR) Phys Exam - Physical Examination Morbid obesity HEENT: moist MMs, sclera anicteric, oral pharynx no lesions, 2+ tonsils Neck: no nodes, no JVD, supple, full ROM Respiratory: no wheezing, no rales, no rhonchi, clear to auscultation bilateral Cardiovascular: RRR, no rub S1, S2 Gastrointestinal: soft, non-tender, positive bowel sounds distended Neurological: moves all 4 limbs Psychiatric: normal affect, A&O x 3 Dx/Plan (1) Uncontrolled type 2 DM with hyperosmolar nonketotic hyperglycemia Code(s): E11.00 - TYPE 2 DIAB W HYPROSM W/O NONKET HYPRGLY-HYPROS COMA ([facility]) Status: Acute Comment: pt is on IV fluids and insulin, will check serum osmolality. (2) Acute renal failure superimposed on stage 4 chronic kidney disease Code(s): N17.9 - ACUTE KIDNEY FAILURE, UNSPECIFIED; N18.4 - CHRONIC KIDNEY DISEASE, STAGE 4 (SEVERE) Status: Acute Comment: creatinine improved to 3.19 today (3) Dyslipidemia Code(s): E78.5 - HYPERLIPIDEMIA, UNSPECIFIED Status: Chronic Comment: continue statin and Tricor (4) GERD (gastroesophageal reflux disease) Code(s): K21.9 - GASTRO-ESOPHAGEAL REFLUX DISEASE WITHOUT ESOPHAGITIS Status: Chronic Comment: stable, continue Pepcid (5) Hypertension Code(s): I10 - ESSENTIAL (PRIMARY) HYPERTENSION Status: Chronic Qualifiers: Comment: Resume home antihypertensives, monitor vital signs, titrate antihypertensives as needed - Plan * . Review of Systems - Review of Systems Constitutional: negative: fever, chills, sweats, weakness, malaise Respiratory: negative: Cough, Dry, Shortness of Breath, Hemoptysis, SOB with Excertion, Pleuritic Pain, Sputum, Wheezing Cardiovascular: negative: chest pain, palpitations, orthopnea, paroxysmal nocturnal dyspnea, edema, light headedness Gastrointestinal: negative: Nausea, Vomiting, Abdominal Pain, Diarrhea, Constipation, Melena, Hematochezia Genitourinary: negative: Dysuria, Frequency, Incontinence, Hematuria, Retention Musculoskeletal: Leg Pain, Foot Pain. negative: Neck Pain, Shoulder Pain, Arm Pain, Back Pain, Hand Pain - Medications/Allergies Allergies/Adverse Reactions: Allergies Allergy/AdvReac Type Severity Reaction Status Date / Time codeine Allergy Severe Verified 05/24/18 23:36 Penicillins Allergy Intermediate Verified 05/24/18 23:36 chocolate flavor Allergy Hives Verified 05/24/18 23:36 orange Allergy Hives Verified 05/24/18 23:36 orange flavor Allergy Hives Verified 05/24/18 23:36 tramadol Allergy Verified 05/24/18 23:36 Medications: Current Medications Acetaminophen (Tylenol) 650 mg PO Q4H PRN PRN Reason: Headache/Fever/Mild Pain (1-3) Hydrocodone Bitart/Acetaminophen ([place] 5/325) 1 tab PO Q4H PRN PRN Reason: Moderate Pain (4-6) Amlodipine Besylate (Norvasc) 5 mg PO DAILY [facility] Last Admin: 09/12/18 09:44 Dose: 5 mg Carvedilol (Coreg) 25 mg PO BID [facility] Last Admin: 09/12/18 09:44 Dose: 25 mg Hydralazine HCl (Apresoline) 10 mg SLOW IVP Q4H PRN PRN Reason: SBP>180 Insulin Human Regular 100 (units/ Sodium Chloride) 101 mls @ 0 mls/hr IVPB INF YARA; Protocol Dextrose/Sodium Chloride (D5 1/2 Ns) 1,000 mls @ 250 mls/hr IV .Q4H PRN; Protocol PRN Reason: Step 4 of DKA Protocol Potassium Chloride/Dextrose/Sod Cl (D5 1/2 Ns W/20 Meq Kcl) 1,000 mls @ 250 mls /hr IV .Q4H PRN; Protocol PRN Reason: Step 4 of DKA Protocol Sodium Chloride (Normal Saline 0.9%) 1,000 mls @ 500 mls/hr IV .Q2H PRN; Protocol PRN Reason: Step 1 of DKA Protocol Sodium Chloride (Normal Saline 0.9%) 1,000 mls @ 1,000 mls/hr IV .Q1H PRN; Protocol PRN Reason: Step 1 of DKA Protocol Sodium Chloride (Normal Saline 0.9%) 1,000 mls @ 250 mls/hr IV .Q4H PRN; Protocol PRN Reason: SEE STEP 3 OF DKA PROTOCOL Sodium Chloride (Normal Saline 0.9%) 1,000 mls @ 500 mls/hr IV .Q2H PRN; Protocol PRN Reason: Step 2 of DKA Protocol Potassium Chloride/Sodium Chloride (Ns 0.9% W/ 20 Meq Kcl) 1,000 mls @ 500 mls/ hr IV .Q2H PRN; Protocol PRN Reason: Step 2 of DKA Protocol Potassium Chloride/Sodium Chloride (Ns 0.9% W/ 20 Meq Kcl) 1,000 mls @ 250 mls/ hr IV .Q4H PRN; Protocol PRN Reason: SEE STEP 3 OF DKA PROTOCOL Sodium Chloride (Normal Saline 0.9%) 1,000 mls @ 50 mls/hr IV .Q20H Y[facility] Last Admin: 09/11/18 19:57 Dose: 1,000 mls Potassium Chloride 40 meq/ (Sodium Chloride) 270 mls @ 135 mls/hr IVPB ASDIR PRN PRN Reason: FOR SERUM K+ 2.5 - 3.5 Potassium Chloride 40 meq/ (Device) 100 mls @ 50 mls/hr IVPB ASDIR PRN PRN Reason: FOR SERUM K+ 2.5 - 3.5 Magnesium Sulfate 1 gm/ Sodium (Chloride) 102 mls @ 102 mls/hr IV PRN PRN PRN Reason: MAG LEVEL 1.4 - 2.0 Magnesium Sulfate 2 gm/ Device 100 mls @ 100 mls/hr IVPB ASDIR PRN PRN Reason: MAGNESIUM < 1.4 Potassium Phosphate 9 mmol/ (Sodium Chloride) 103 mls @ 25.75 mls/hr IVPB ASDIR PRN PRN Reason: Phosphate 1.0-1.8 Potassium Phosphate 12 mmol/ (Sodium Chloride) 254 mls @ 63.5 mls/hr IV ASDIR PRN PRN Reason: Serum phosphate 0.5-0.9 Potassium Phosphate 15 mmol/ (Sodium Chloride) 255 mls @ 63.75 mls/hr IV ASDIR PRN PRN Reason: Serum Phos < 0.5 Magnesium Oxide (Magnesium Oxide) 400 mg PO BIDPRN PRN PRN Reason: FOR SERUM MAG 1.4 - 2.0 Magnesium Oxide (Magnesium Oxide) 800 mg PO PRN PRN PRN Reason: FOR SERUM MAG < 1.4 Miscellaneous Medication (Phos-Nak) 1 pkt PO TIDPRN PRN PRN Reason: FOR PHOS LEVEL 1.0 - 1.8 Miscellaneous Medication (Phos-Nak) 2 pkt PO TIDPRN PRN PRN Reason: FOR PHOS LEVEL 0.5 - 1.0 Ccu Electrolyte (Replacement Protocol) 0 each FS PRN PRN PRN Reason: FOR ELECTROLYTE REPLACEMENT Potassium Chloride (K-Dur) 40 meq PO ASDIR PRN PRN Reason: FOR SERUM K+ 2.5 - 3.5 Potassium Chloride (Klor-Con) 40 meq PER TUBE ASDIR PRN PRN Reason: FOR SERUM K+ 2.5-3.5
[2018-09-12] MEDS ORDERED: Cyclobenzaprine 10 MG TAB PO PRN (12:07)
[2018-09-12] MEDS ORDERED: HYDROcodone/Acetaminophen 10/325 mg Tablet PO PRN (12:07)
[2018-09-12] MEDS: HYDROcodone/Acetaminophen 5/325 mg Tablet PO PRN ×2 (12:23→21:11)
--- NOTE | 2018-09-12 13:00 | CON ---
DATE OF CONSULTATION: 09/12/2018 REQUESTING PHYSICIAN: Ernie King M.D. CONSULTING PHYSICIAN: Xavier Pimentel M.D. REASON FOR CONSULTATION: Left ankle fracture. HISTORY OF PRESENT ILLNESS: This is a 58-year-old female who presented to the emergency department [place] on 09/07/2018 following a fall. At that time, she had CT scan of her cervical spine and of her brain and then was discharged home. She fell several times since then. The latest fall occurred yesterday morning. She was admitted at that time for renal insufficiency, recurrent falls. Upon fur ther questioning at bedside, the patient states that during one of her recent falls approximately 4-5 days ago, she presented to the [facility] Emergency Department. She was found to have an ankle fracture and a boot was placed. She was told not to bear weight and to follow up in our office. Hans hameed states that she has been nonweightbearing. She does not know anything else about her fracture. Hans hameed has never been seen by our orthopedic group or anyone else in town. She reports generalized ankle pain. She is comfortable in her boot. PAST MEDICAL HISTORY: Significant for chronic kidney disease stage 4, chronic low back pain, osteoar thritis, morbid obesity, chronic diastolic heart failure, diabetes mellitus type 2, hypertension, DIET THERAPIST D and asthma, diabetic neuropathy and dyslipidemia. PAST SURGICAL HISTORY: Significant for cholecystectomy and umbilical hernia repair. SOCIAL HISTORY: The patient denies tobacco use, alcohol use or recreational drug use. She lives at home with her parent that is in her 90s. There is a caregiver that comes by approximately 4 hours a day. FAMILY HISTORY: Reviewed and noncontributory. ALLERGIES: CODEINE, PENICILLIN, and TRAMADOL. REVIEW OF SYSTEMS: Ten point review of systems was conducted and otherwise negative except for as st ated above. PHYSICAL EXAMINATION: VITAL SIGNS: Temperature 98.1, pulse of 97, respiratory rate of 20, blood pressure 161/113. GENERAL: The patient is awake and alert. She is currently sitting up in a bedside chair, eating viktor ch at the time of my evaluation. She is pleasant and cooperative with exam findings today. HEENT: Head is normocephalic, atraumatic. NECK: Supple. Trachea is midline. Breathing is nonlabored. EXTREMITIES: The left lower extremity was evaluated. There is a boot present to the left lower extr emity. This was open for evaluation. There is an Rosales wrap intact. There is mild to moderate soft t issue swelling of the ankle. No open wounds. The patient is able to move all digits of her foot. S ensation intact distally. She is globally tender over the ankle. She is tender both medially and la terally over bony structures and soft tissue structures. Range of motion not assessed. Full range o f motion in the knee. The remainder of extremity exam is otherwise negative. RADIOGRAPHIC FINDINGS: Three views of the left ankle were obtained with the boot removed. This show s a nondisplaced distal fibula fracture. This appears to be segmental. Otherwise, no acute findings . ASSESSMENT AND PLAN: Left nondisplaced distal fibula fracture. The patient is currently in an ortho pedic boot. She has been told nonweightbearing. I would agree with this. We will continue nonweigh tbearing status. The patient will follow up for continuation of her nonoperative treatment with Mek[facility] Reina. Thank you for this consultation. Please contact us for any further questions. Case discussed with Felisa Pimentel.
--- NOTE | 2018-09-12 13:13 | RAD ---
THREE VIEWS LEFT ANKLE: INDICATION: Ankle injury. FINDINGS: There is an obliquely oriented mildly comminuted fracture involving the lateral malleolus with displa cement of the fracture posterior and laterally 1-1/2 cortex width. Soft tissue swelling overlying th e fracture site. No additional fracture is evident. Talar dome appears within normal limits. There is enthesopathic change off the calcaneus. IMPRESSION: Mild to moderately displaced lateral malleolar fracture. POS: [facility]
[2018-09-12] MEDS: Sodium Chloride 0.9% 1,000 ML IV SCH (15:15)
[2018-09-12] MEDS: Sevelamer Carbonate 800 MG TAB PO SCH (15:15)
[2018-09-12] MEDS: busPIRone HCl 10 MG TAB PO SCH ×2 (15:15→21:11)
--- NOTE | 2018-09-12 19:39 | CON ---
DATE OF CONSULTATION: 09/12/2018 HISTORY OF PRESENT ILLNESS: Scarlett Plummer is a 58-year-old female who reviewing records in the emergency department multiple times every month. She was admitted yesterday afternoon after a fall. She had no head trauma. She is wearing a boot for apparently a fibula fracture that is pre-existing. She had no complaints when I evaluated her. PAST MEDICAL HISTORY: 1. Chronic kidney disease. 2. Obesity. 3. History of diastolic heart failure. 4. History of hypertension. 5. History of lipid disorder. 6. History of an admission it back in May with respiratory failure related to mental status changes. She apparently had a high ammonia level that admission, but has no history of pre-existing liver disease. 7. History of TIA in the past. 8. Reported history of asthma. 9. History of cholecystectomy. 10. History of an umbilical herniorrhaphy. 11. History of bipolar disorder and anxiety as well as schizophrenia in reviewing all records. She has a very large number of outpatient medications. These have been reviewed. ALLERGIES: She reports an allergy to CODEINE, PENICILLIN, and TRAMADOL. SOCIAL HISTORY: She is nonsmoker, nondrinker, does not use drugs. FAMILY HISTORY: Negative for lung disease in early age. REVIEW OF SYSTEMS: 10 point review of systems completed, otherwise negative. PHYSICAL EXAMINATION: GENERAL APPEARANCE: She is in no distress. VITAL SIGNS: Afebrile, heart rate 91, respiratory rate is 18, oximetry is 94% on room air, blood pressure 178/87. HEAD: Unremarkable. NECK: Unremarkable. NECK: Nontender. She has no cervical lymphadenopathy. LUNGS: Clear. HEART: Regular rhythm. Distant S1 and S2. ABDOMEN: Very protuberant and nontender. EXTREMITIES: Without clubbing, cyanosis, or edema. She has a fractured boot on the left lower extremity. She has been seen by the Orthopedic Service who recommended just nonweightbearing and follow up with her [facility] with nonoperative treatment. Not surprising she is falling given her size and her nonweightbearing status on one of her lower extremities. LABORATORY DATA: White count 4.5, hemoglobin 9.5, platelets 168. Glucoses are in the 227-300 range. Electrolytes were normal. BUN 66, creatinine 3.19. Creatinine was 4.38 and 4.55 yesterday, 2.4 on the , actually 4.27 on 2017. Her chronic kidney disease is probably the biggest issue combined with her obesity and deconditioning. I really do think she needs to stay in a monitored environment at this point in time. She can probably be transferred to a medical bed. This is a 50 minute consult, with greater than 50% of time spent on unit in coordination of care. SILVERIO
[2018-09-12] MEDS ORDERED: Carvedilol 25 MG TAB PO SCH (21:00)
[2018-09-12] MEDS: Simvastatin 5 MG TAB PO SCH (21:10)
[2018-09-12] MEDS: carBAMazepine 200 MG TAB PO SCH (21:10)
[2018-09-13 04:46] LABS: #Eosinphils 0.2 thou/uL (0.0-0.7); #Lymphocytes 1.4 thou/uL (1.20-3.40); #Monocytes 0.6 thou/uL (0.11-0.59); %Basophils 0.3 % (0.0-1.0); %Eosinophils 3.5 % (0.0-10.0); %Monocytes 10.9 % (0.0-10.0); %Neutrophils 58.3 % (42.0-75.0); Hemoglobin 10.3 g/dL (12.0-16.0); Mean Corpuscular HGB CONC 34.3 g/dL (32.0-36.0); Mean Corpuscular Hemoglobin 27.8 pg (27.0-31.0); Mean Corpuscular Volume 80.9 fL (78.0-98.0); Mean Platelet Volume 8.3 fL (7.4-10.4); Platelet Count 193 thou/uL (130-400); RBC Distribution Width 12.6 % (11.5-14.5); Red Blood Cell (RBC) Count 3.72 mill/uL (4.20-5.40); White Blood Cell (WBC) Count 5.2 thou/uL (4.8-10.8)
[2018-09-13 05:04] LABS: Anion Gap 14 mmol/L (10-20); BUN (Urea Nitrogen) 46 mg/dL (9.8-20.1); Calc. Creatinine Clearance 55 mL/min (70-130); Calcium 8.7 mg/dL (7.8-10.44); Carbon Dioxide 24 mmol/L (22-29); Chloride 100 mmol/L (98-107); Estimated GFR-MDRD 28; Glucose 257 mg/dL (70-105); Potassium 4.7 mmol/L (3.5-5.1); Sodium 133 mmol/L (136-145)
[2018-09-13] MEDS: busPIRone HCl 10 MG TAB PO SCH ×3 (09:32→20:20)
[2018-09-13] MEDS: Furosemide 20 MG TAB PO SCH (09:32)
[2018-09-13] MEDS: Carvedilol 25 MG TAB PO SCH ×2 (09:32→20:20)
[2018-09-13] MEDS: Venlafaxine HCl XR 150 MG CAP PO SCH (09:32)
[2018-09-13] MEDS: Sevelamer Carbonate 800 MG TAB PO SCH ×3 (09:32→17:13)
[2018-09-13] MEDS: Amlodipine 5 MG TAB PO SCH ×2 (09:32→09:33)
[2018-09-13] MEDS: Fenofibrate Nanocrystallized 145 MG TAB PO SCH (09:33)
[2018-09-13] MEDS: carBAMazepine 200 MG TAB PO SCH ×2 (09:33→20:20)
[2018-09-13] MEDS: Famotidine 20 MG TAB PO SCH (09:33)
[2018-09-13] MEDS: Sodium Chloride 0.9% 1,000 ML IV SCH (11:18)
[2018-09-13] MEDS ORDERED: Insulin Regular 300 UNITS/3 ML VIAL SC SCH ×2 (12:00→17:00)
--- NOTE | 2018-09-13 13:39 | PRG ---
DATE OF SERVICE: 09/13/2018 SUBJECTIVE: Ms. Plummer has no new complaints. She is just complaining of feeling tired. OBJECTIVE: VITAL SIGNS: She is afebrile, heart rate is 99, respiratory rate is 15, oximetry is 99 on room air, blood pressure 152/86. GENERAL: Still has an insulin drip hanging. LUNGS: Clear. HEART: Regular rhythm. ABDOMEN: Soft. LABORATORY DATA: White count 5.2, hemoglobin 10.3, platelets 193,000. Sodium 133, potassium 4.7, ch loride 100, bicarbonate 24, BUN 46, creatinine 2.19. IMPRESSION: 1. Diabetes. 2. Chronic kidney disease. 3. Obesity. 4. Ankle fracture. 5. Deconditioning. 6. History of hypertension. I would think she could be switched off the insulin drip and transferred to a medical bed. She appea rs to be stable at this time.
--- NOTE | 2018-09-13 14:09 | PDOC.PN ---
- Subjective Encounter Start Date: 09/13/18 Encounter Start Time: 09:40 Pt seen for followup re: hyperosmolay hyperglycemic state. Feels better. - Objective Vital Signs & Weight: Vital Signs (12 hours) Temp Pulse Resp BP BP Pulse Ox 09/13/18 11:10 98.5 F 99 15 153/86 H 99 09/13/18 11:04 108 H 18 153/86 H 09/13/18 09:33 100 09/13/18 09:32 100 194/95 H 09/13/18 07:52 98.0 F 100 16 187/96 H 98 09/13/18 05:27 92 190/104 H 09/13/18 03:44 97.6 F 89 18 176/106 H 96 Weight Weight 273 lb 2 oz I&O: 09/12/18 09/13/18 09/14/18 06:59 06:59 06:59 Intake Total 2372 2365 Output Total 2050 2850 Balance 322 -485 Result Diagrams: 09/13/18 04:37 09/13/18 04:37 Additional Labs: Accuchecks 09/13/18 09/13/18 09/13/18 09:36 07:29 05:54 POC Glucose 294 H 236 H 270 H 09/13/18 09/13/18 09/13/18 05:02 04:05 03:00 POC Glucose 272 H 247 H 245 H 09/13/18 09/13/18 09/13/18 02:05 01:12 00:00 POC Glucose 213 H 178 H 111 H 09/12/18 09/12/18 09/12/18 23:02 22:13 21:02 POC Glucose 101 135 H 195 H 09/12/18 09/12/18 09/12/18 20:17 18:55 17:56 POC Glucose 228 H 210 H 224 H 09/12/18 09/12/18 09/12/18 17:06 16:14 15:18 POC Glucose 235 H 262 H 328 H Phys Exam - Physical Examination Morbid obesity HEENT: moist MMs, sclera anicteric, oral pharynx no lesions, 2+ tonsils Neck: no nodes, no JVD, supple, full ROM Respiratory: clear to auscultation bilateral Cardiovascular: RRR, no rub S1, S2 Gastrointestinal: soft, non-tender, positive bowel sounds distended Musculoskeletal: pulses present L ankle boot Neurological: moves all 4 limbs Psychiatric: normal affect, A&O x 3 Dx/Plan (1) Uncontrolled type 2 DM with hyperosmolar nonketotic hyperglycemia Code(s): E11.00 - TYPE 2 DIAB W HYPROSM W/O NONKET HYPRGLY-HYPROS COMA ([facility]) Status: Acute Comment: Improved, transition to SC insulin (2) Acute renal failure superimposed on stage 4 chronic kidney disease Code(s): N17.9 - ACUTE KIDNEY FAILURE, UNSPECIFIED; N18.4 - CHRONIC KIDNEY DISEASE, STAGE 4 (SEVERE) Status: Acute Comment: creatinine improved to 2.19 today (3) Dyslipidemia Code(s): E78.5 - HYPERLIPIDEMIA, UNSPECIFIED Status: Chronic Comment: on statin and Tricor (4) GERD (gastroesophageal reflux disease) Code(s): K21.9 - GASTRO-ESOPHAGEAL REFLUX DISEASE WITHOUT ESOPHAGITIS Status: Chronic Comment: continue Pepcid (5) Hypertension Code(s): I10 - ESSENTIAL (PRIMARY) HYPERTENSION Status: Chronic Qualifiers: Comment: Improving control - Plan * . Review of Systems - Review of Systems Constitutional: negative: fever, chills, sweats, weakness, malaise Respiratory: negative: Cough, Shortness of Breath, SOB with Excertion, Pleuritic Pain, Wheezing Cardiovascular: negative: chest pain, palpitations, orthopnea, paroxysmal nocturnal dyspnea, edema, light headedness Gastrointestinal: negative: Nausea, Vomiting, Abdominal Pain, Diarrhea, Constipation, Melena, Hematochezia Genitourinary: negative: Dysuria, Frequency, Incontinence, Hematuria, Retention Musculoskeletal: Leg Pain, Foot Pain. negative: Neck Pain, Shoulder Pain, Arm Pain, Back Pain, Hand Pain - Medications/Allergies Allergies/Adverse Reactions: Allergies Allergy/AdvReac Type Severity Reaction Status Date / Time codeine Allergy Severe Verified 05/24/18 23:36 Penicillins Allergy Intermediate Verified 05/24/18 23:36 chocolate flavor Allergy Hives Verified 05/24/18 23:36 orange Allergy Hives Verified 05/24/18 23:36 orange flavor Allergy Hives Verified 05/24/18 23:36 tramadol Allergy Verified 05/24/18 23:36 Medications: Current Medications Acetaminophen (Tylenol) 650 mg PO Q4H PRN PRN Reason: Headache/Fever/Mild Pain (1-3) Hydrocodone Bitart/Acetaminophen ([place] 5/325) 1 tab PO Q4H PRN PRN Reason: Moderate Pain (4-6) Last Admin: 09/12/18 21:11 Dose: 1 tab Hydrocodone Bitart/Acetaminophen ([place] 10/325) 1 tab PO BID PRN PRN Reason: Pain 7-10 Amlodipine Besylate (Norvasc) 5 mg PO DAILY [facility] Last Admin: 09/13/18 09:32 Dose: 5 mg Amlodipine Besylate (Norvasc) 5 mg PO DAILY [facility] Last Admin: 09/13/18 09:33 Dose: Not Given Aspirin (Aspirin Chewable) 81 mg PO DAILY [facility] Last Admin: 09/13/18 09:32 Dose: 81 mg Buspirone HCl (Buspar) 10 mg PO TID [facility] Last Admin: 09/13/18 09:32 Dose: 10 mg Carbamazepine (Tegretol) 100 mg PO BID [facility] Last Admin: 09/13/18 09:33 Dose: 100 mg Carvedilol (Coreg) 25 mg PO BID [facility] Last Admin: 09/13/18 09:32 Dose: 25 mg Cyclobenzaprine HCl (Flexeril) 10 mg PO TID PRN PRN Reason: Muscle Pain Famotidine (Pepcid) 20 mg PO DAILY [facility] Last Admin: 09/13/18 09:33 Dose: 20 mg Fenofibrate (Tricor) 145 mg PO DAILY [facility] Last Admin: 09/13/18 09:33 Dose: 145 mg Furosemide (Lasix) 40 mg PO DAILY [facility] Last Admin: 09/13/18 09:32 Dose: 40 mg Hydralazine HCl (Apresoline) 10 mg SLOW IVP Q4H PRN PRN Reason: SBP>180 Last Admin: 09/13/18 05:27 Dose: 10 mg Dextrose/Sodium Chloride (D5 1/2 Ns) 1,000 mls @ 250 mls/hr IV .Q4H PRN; Protocol PRN Reason: Step 4 of DKA Protocol Potassium Chloride/Dextrose/Sod Cl (D5 1/2 Ns W/20 Meq Kcl) 1,000 mls @ 250 mls /hr IV .Q4H PRN; Protocol PRN Reason: Step 4 of DKA Protocol Sodium Chloride (Normal Saline 0.9%) 1,000 mls @ 500 mls/hr IV .Q2H PRN; Protocol PRN Reason: Step 1 of DKA Protocol Sodium Chloride (Normal Saline 0.9%) 1,000 mls @ 1,000 mls/hr IV .Q1H PRN; Protocol PRN Reason: Step 1 of DKA Protocol Sodium Chloride (Normal Saline 0.9%) 1,000 mls @ 250 mls/hr IV .Q4H PRN; Protocol PRN Reason: SEE STEP 3 OF DKA PROTOCOL Sodium Chloride (Normal Saline 0.9%) 1,000 mls @ 500 mls/hr IV .Q2H PRN; Protocol PRN Reason: Step 2 of DKA Protocol Potassium Chloride/Sodium Chloride (Ns 0.9% W/ 20 Meq Kcl) 1,000 mls @ 500 mls/ hr IV .Q2H PRN; Protocol PRN Reason: Step 2 of DKA Protocol Potassium Chloride/Sodium Chloride (Ns 0.9% W/ 20 Meq Kcl) 1,000 mls @ 250 mls/ hr IV .Q4H PRN; Protocol PRN Reason: SEE STEP 3 OF DKA PROTOCOL Sodium Chloride (Normal Saline 0.9%) 1,000 mls @ 50 mls/hr IV .Q20H [facility] Last Admin: 09/13/18 11:18 Dose: 1,000 mls Potassium Chloride 40 meq/ (Sodium Chloride) 270 mls @ 135 mls/hr IVPB ASDIR PRN PRN Reason: FOR SERUM K+ 2.5 - 3.5 Potassium Chloride 40 meq/ (Device) 100 mls @ 50 mls/hr IVPB ASDIR PRN PRN Reason: FOR SERUM K+ 2.5 - 3.5 Magnesium Sulfate 1 gm/ Sodium (Chloride) 102 mls @ 102 mls/hr IV PRN PRN PRN Reason: MAG LEVEL 1.4 - 2.0 Magnesium Sulfate 2 gm/ Device 100 mls @ 100 mls/hr IVPB ASDIR PRN PRN Reason: MAGNESIUM < 1.4 Potassium Phosphate 9 mmol/ (Sodium Chloride) 103 mls @ 25.75 mls/hr IVPB ASDIR PRN PRN Reason: Phosphate 1.0-1.8 Potassium Phosphate 12 mmol/ (Sodium Chloride) 254 mls @ 63.5 mls/hr IV ASDIR PRN PRN Reason: Serum phosphate 0.5-0.9 Potassium Phosphate 15 mmol/ (Sodium Chloride) 255 mls @ 63.75 mls/hr IV ASDIR PRN PRN Reason: Serum Phos < 0.5 Insulin Human Regular (Humulin R) 120 units SC 0800 YARA Insulin Human Regular (Humulin R) 105 units SC 1200 YARA Last Admin: 09/13/18 11:18 Dose: 105 unit Insulin Human Regular (Humulin R) 80 units SC 1700 YARA Magnesium Oxide (Magnesium Oxide) 400 mg PO BIDPRN PRN PRN Reason: FOR SERUM MAG 1.4 - 2.0 Magnesium Oxide (Magnesium Oxide) 800 mg PO PRN PRN PRN Reason: FOR SERUM MAG < 1.4 Miscellaneous Medication (Phos-Nak) 1 pkt PO TIDPRN PRN PRN Reason: FOR PHOS LEVEL 1.0 - 1.8 Miscellaneous Medication (Phos-Nak) 2 pkt PO TIDPRN PRN PRN Reason: FOR PHOS LEVEL 0.5 - 1.0 Ccu Electrolyte (Replacement Protocol) 0 each FS PRN PRN PRN Reason: FOR ELECTROLYTE REPLACEMENT Potassium Chloride (K-Dur) 40 meq PO ASDIR PRN PRN Reason: FOR SERUM K+ 2.5 - 3.5 Potassium Chloride (Klor-Con) 40 meq PER TUBE ASDIR PRN PRN Reason: FOR SERUM K+ 2.5-3.5 Sevelamer Carbonate (Renvela) 800 mg PO TID-WM [facility] Last Admin: 09/13/18 11:18 Dose: 800 mg Simvastatin (Zocor) 10 mg PO HS [facility] Last Admin: 09/12/18 21:10 Dose: 10 mg Venlafaxine HCl (Effexor Xr) 150 mg PO DAILY [facility] Last Admin: 09/13/18 09:32 Dose: 150 mg
--- NOTE | 2018-09-13 14:53 | PRG ---
DATE OF SERVICE: 09/13/2018 SUBJECTIVE: A 58-year-old female being seen for acute kidney injury. The patient denies any nausea, vomiting and chest pain. PHYSICAL EXAMINATION: GENERAL APPEARANCE: The patient is awake and alert. VITAL SIGNS: Pulse 99, breathing 16, blood pressure 150/86. HEAD/NECK: Normocephalic. Atraumatic. EYES: EOMI. No deformity. EARS: Clear. No ulcers. NOSE: Intact. No lesions. MOUTH: Clear. No discharge. THROAT: Clear. No exudate. LUNGS: Clear. No crackles. CARDIAC: S1, S2. No rub. ABDOMEN: Benign. BS+. GENITALIA/RECTUM: Blair absent. BACK/EXTREMITIES: Edema 0+ Ulcer- NEUROLOGICAL: Alert and motor intact. SKIN: Rash- Bruise- LYMPHATICS: Edema- Ulcer- LABORATORY DATA: Show hemoglobin 10.3, creatinine 2.1. ASSESSMENT AND RECOMMENDATIONS: 1. Acute kidney injury with chronic kidney disease improved. 2. Hypertension stable. 3. Anemia, stable. 4. Medications based on glomerular filtration rate are appropriate. No indication for dialysis.
[2018-09-13] MEDS: HYDROcodone/Acetaminophen 5/325 mg Tablet PO PRN ×2 (17:13→23:54)
[2018-09-13] MEDS: Simvastatin 5 MG TAB PO SCH (20:20)
[2018-09-14 04:19] LABS: #Eosinphils 0.1 thou/uL (0.0-0.7); #Monocytes 0.7 thou/uL (0.11-0.59); #Neutrophils 2.5 thou/uL (1.40-6.50); %Basophils 0.6 % (0.0-1.0); %Eosinophils 2.2 % (0.0-10.0); %Monocytes 13.9 % (0.0-10.0); %Neutrophils 46.3 % (42.0-75.0); Hemoglobin 10.5 g/dL (12.0-16.0); Mean Corpuscular HGB CONC 34.1 g/dL (32.0-36.0); Mean Corpuscular Hemoglobin 27.9 pg (27.0-31.0); Mean Corpuscular Volume 82.1 fL (78.0-98.0); Mean Platelet Volume 8.1 fL (7.4-10.4); Platelet Count 212 thou/uL (130-400); RBC Distribution Width 12.8 % (11.5-14.5); Red Blood Cell (RBC) Count 3.77 mill/uL (4.20-5.40); White Blood Cell (WBC) Count 5.4 thou/uL (4.8-10.8)
[2018-09-14 04:46] LABS: Anion Gap 14 mmol/L (10-20); BUN (Urea Nitrogen) 32 mg/dL (9.8-20.1); Calc. Creatinine Clearance 64 mL/min (70-130); Carbon Dioxide 24 mmol/L (22-29); Chloride 101 mmol/L (98-107); Estimated GFR-MDRD 34; Glucose 70 mg/dL (70-105); Potassium 4.6 mmol/L (3.5-5.1); Sodium 134 mmol/L (136-145)
[2018-09-14] MEDS: Sodium Chloride 0.9% 1,000 ML IV SCH (06:33)
[2018-09-14] MEDS ORDERED: Insulin Regular 300 UNITS/3 ML VIAL SC SCH ×3 (08:00→10:07)
[2018-09-14] MEDS: busPIRone HCl 10 MG TAB PO SCH ×3 (08:46→21:25)
[2018-09-14] MEDS: Carvedilol 25 MG TAB PO SCH ×2 (08:46→21:25)
[2018-09-14] MEDS: Venlafaxine HCl XR 150 MG CAP PO SCH (08:46)
[2018-09-14] MEDS: Sevelamer Carbonate 800 MG TAB PO SCH ×3 (08:46→16:01)
[2018-09-14] MEDS: Furosemide 20 MG TAB PO SCH (08:47)
[2018-09-14] MEDS: Amlodipine 5 MG TAB PO SCH ×2 (08:47→13:11)
[2018-09-14] MEDS: Famotidine 20 MG TAB PO SCH (08:47)
[2018-09-14] MEDS: Fenofibrate Nanocrystallized 145 MG TAB PO SCH (08:47)
[2018-09-14] MEDS: carBAMazepine 200 MG TAB PO SCH ×2 (08:47→21:23)
[2018-09-14] MEDS ORDERED: Dextrose 50% Abboject 50 ML SYRINGE IVP PRN (10:15)
[2018-09-14] MEDS ORDERED: Dextrose 5% in Water 1,000 ML IV PRN (10:15)
--- NOTE | 2018-09-14 10:20 | PDOC.PN ---
- Subjective Encounter Start Date: 09/14/18 (f/u ROSANNA) Encounter Start Time: 10:18 Subjective: Pt reports low appetite and pain with left ankle -: reports hard stools as well. Denies any chest pain/sob -: or new sx - Objective Vital Signs & Weight: Vital Signs (12 hours) Temp Pulse Resp BP BP Pulse Ox 09/14/18 08:47 97 161/104 H 09/14/18 07:30 98.5 F 97 17 173/80 H 94 L 09/14/18 04:50 97.5 F L 87 18 165/96 H 97 09/14/18 00:00 98.5 F 81 18 165/93 H 96 Weight Weight 269 lb 7 oz I&O: 09/13/18 09/14/18 09/15/18 06:59 06:59 06:59 Intake Total 2365 2560 Output Total 2850 3300 Balance -485 -420 Result Diagrams: 09/14/18 03:54 09/14/18 03:54 Additional Labs: Accuchecks 09/14/18 09/13/18 09/13/18 06:30 20:20 16:26 POC Glucose 130 H 136 H 189 H 09/13/18 15:35 POC Glucose 180 H EKG Reviewed by me: Yes (tele =-sinus 70-90's, 1st degree AV block) Phys Exam - Physical Examination Constitutional: NAD Respiratory: no wheezing, no rales, no rhonchi Cardiovascular: RRR, no significant murmur Gastrointestinal: soft, non-tender, no distention, positive bowel sounds Musculoskeletal: no edema left ankle in boot Neurological: non-focal Psychiatric: normal affect Deviation from normal: small superficial abd wound with thick material, open skin -: wound on left arm with clean base Dx/Plan (1) Acute renal failure superimposed on stage 4 chronic kidney disease Code(s): N17.9 - ACUTE KIDNEY FAILURE, UNSPECIFIED; N18.4 - CHRONIC KIDNEY DISEASE, STAGE 4 (SEVERE) Status: Acute Comment: creatinine improved to 2.19 today (2) Diabetes mellitus type 2, uncontrolled Code(s): E11.65 - TYPE 2 DIABETES MELLITUS WITH HYPERGLYCEMIA Status: Chronic Qualifiers: Glycemic state: with hyperglycemia Qualified Code(s): E11.65 - Type 2 diabetes mellitus with hyperglycemia Comment: Labile, continue accuchecks, ISS, resume home Insulin regimen (3) Dyslipidemia Code(s): E78.5 - HYPERLIPIDEMIA, UNSPECIFIED Status: Chronic (4) Hypertension Code(s): I10 - ESSENTIAL (PRIMARY) HYPERTENSION Status: Chronic Qualifiers: (5) Obesity, morbid, BMI 40.0-49.9 Code(s): E66.01 - MORBID (SEVERE) OBESITY DUE TO EXCESS CALORIES Status: Chronic Comment: Offer dietitian services (6) Schizoaffective disorder Code(s): F25.9 - SCHIZOAFFECTIVE DISORDER, UNSPECIFIED Status: Chronic Qualifiers: - Plan * BP remains uncontrolled - additional 5 mg or norvasc and change to 10 mg daily starting tomorrow. Continue beta-feroz at current dose * pt on lasix at home - no significant edema, will d/c this * appreciate nephrology managing ROSANNA which is improved * add colace and miralax for constipation * glucose 70 this morning - will cut in half the insulin to avoid hypoglycemia * transfer to telemetry as stable and off insulin gtt * wound care for abd wound - per RN pt does pick at skin * ankle fx - per ortho, currently in a boot * \ * dvt prophy - lovenox * gi prophy - not indicated, taking PO * * continue pt/ot - anticipate pt will require rehab. * * 21:05 - reviewed blood sugars from today and 100's with one outlier in the high 200's. Called RN and requested 2 overnight glucose checks at midnight and 03:00 to monitor for hypoglycemia. Also requested that AM insulin be held and MD called if blood sugar is less than 150. Insulin will need continued adjustment - as it was cut in half today and at this time appears controlled.
[2018-09-14] MEDS ORDERED: Amlodipine 5 MG TAB PO SCH (10:30)
[2018-09-14] MEDS: HYDROcodone/Acetaminophen 5/325 mg Tablet PO PRN ×2 (11:55→16:01)
[2018-09-14] MEDS: Insulin Regular 300 UNITS/3 ML VIAL SC SCH (11:56)
--- NOTE | 2018-09-14 14:08 | PRG ---
DATE OF SERVICE: 09/14/2018 SUBJECTIVE: This is a 58-year-old female being seen for acute kidney injury. The patient denies any nausea, vomiting, or chest pain. PHYSICAL EXAMINATION: GENERAL: Patient is awake, alert. VITAL SIGNS: Afebrile, pulse 75, breathing 16, blood pressure 169/70. GENERAL APPEARANCE AND MENTAL STATUS: Fair. HEAD/NECK: Normocephalic. Atraumatic. EYES: EOMI. No deformity. EARS: Clear. No ulcers. NOSE: Intact. No lesions. MOUTH: Clear. No discharge. THROAT: Clear. No exudate. LUNGS: Clear. No crackles. CARDIAC: S1, S2. No rub. ABDOMEN: Benign. BS+. GENITALIA/RECTUM: Blair absent. BACK/EXTREMITIES: Edema 0+ Ulcer- NEUROLOGICAL: Alert and motor intact. SKIN: Rash- Bruise- LYMPHATICS: Edema- Ulcer- LABORATORY DATA: Creatinine 1.6. Hemoglobin 10.5. ASSESSMENT AND PLAN: 1. Acute kidney injury, improved. 2. Hypertension. 3. Anemia, stable. 4. Medication based on glomerular filtration rate are appropriate. No indication for dialysis.
--- NOTE | 2018-09-14 20:54 | PRG ---
DATE OF SERVICE: 09/14/2018 OBJECTIVE: VITALS: Plummer is afebrile. Heart rate is 91, blood pressure 169/90, respiratory rate is 21, oximetr y is 94% on room air. She has no complaints. LUNGS: Clear. HEART: Regular rhythm. ABDOMEN: Soft. LABORATORY DATA: White count is 5.4, hemoglobin 10.5, platelets 212,000. Sodium 134, potassium 4.6, chloride 101, bicarbonate 24, BUN 32, creatinine 1.86, creatinine was 2.19 yesterday. IMPRESSION: 1. Diabetes, poorly controlled, better. 2. Status post fall with an ankle fracture. 3. Acute on chronic kidney dysfunction, improved. 4. Obesity with deconditioning. She has been using her mother's wheelchair around the house, may ne ed her own wheelchair when she is discharged. 5. Lipid disorder. 6. Hypertension. 7. Schizoaffective disorder. PLAN: Continue supportive care. She is off her insulin drip. She can be transferred out of [facility] to a medical bed once medical beds become available. Hospital apparently is full at this time.
[2018-09-14] MEDS ORDERED: Polyethylene Glycol 3350 17 GM Packet PO SCH (21:00)
[2018-09-14] MEDS: Docusate 100 MG CAP PO SCH (21:23)
[2018-09-14] MEDS: Simvastatin 5 MG TAB PO SCH (21:24)
[2018-09-15] MEDS: Sodium Chloride 0.9% 1,000 ML IV SCH (02:22)
[2018-09-15 05:01] LABS: Anion Gap 12 mmol/L (10-20); BUN (Urea Nitrogen) 29 mg/dL (9.8-20.1); Calc. Creatinine Clearance 62 mL/min (70-130); Carbon Dioxide 23 mmol/L (22-29); Chloride 102 mmol/L (98-107); Estimated GFR-MDRD 33; Glucose 188 mg/dL (70-105); Potassium 4.3 mmol/L (3.5-5.1); Sodium 133 mmol/L (136-145)
[2018-09-15] MEDS: carBAMazepine 200 MG TAB PO SCH (08:33)
[2018-09-15] MEDS: Venlafaxine HCl XR 150 MG CAP PO SCH (08:33)
[2018-09-15] MEDS: Sevelamer Carbonate 800 MG TAB PO SCH ×2 (08:34→11:44)
[2018-09-15] MEDS: busPIRone HCl 10 MG TAB PO SCH ×2 (08:34→14:37)
[2018-09-15] MEDS: Famotidine 20 MG TAB PO SCH (08:34)
[2018-09-15] MEDS: Docusate 100 MG CAP PO SCH (08:34)
[2018-09-15] MEDS: Carvedilol 25 MG TAB PO SCH (08:34)
[2018-09-15] MEDS: HYDROcodone/Acetaminophen 5/325 mg Tablet PO PRN ×2 (08:35→14:37)
[2018-09-15] MEDS ORDERED: Amlodipine 5 MG TAB PO SCH (09:00)
--- NOTE | 2018-09-15 10:07 | PRG ---
DATE OF SERVICE: 09/15/2018. SUBJECTIVE: Patient was seen and examined at bedside and overnight events noted. Patient denies any shortness of breath or chest pain or palpitation. No history of nausea or vomiting or diarrhea or f ever or chills or cramps. OBJECTIVE: GENERAL: This is a well-built female, in no apparent distress. VITAL SIGNS: Temperature 98.5, pulse 90, respiratory rate 18, blood pressure 169/105. HEENT: Atraumatic, normocephalic. Oral mucosa is moist. NECK: Supple. CARDIOVASCULAR: S1, S2 heard. Rate and rhythm regular. RESPIRATORY: Clear to auscultation. GASTROINTESTINAL: Abdomen is soft. MUSCULOSKELETAL: No tenderness, no edema. DERMATOLOGIC: No skin rash. NEUROLOGIC: Alert and awake and oriented x3. No focal neurologic deficits. Moving all the extremit ies. PSYCHIATRIC: Mood and affect normal. LABORATORY DATA: Potassium is 4.3, BUN is 29, creatinine is 1.9. ASSESSMENT AND PLAN: 1. Chronic kidney disease stage 3. Renal function is stable. 2. Hypertension, monitor. 3. Anemia, stable. 4. Edema, controlled. 5. Mild hyponatremia. 6. Type 2 diabetes. 7. Renal function is stable.
[2018-09-15 11:16] VITALS: TEMP 98.3
--- NOTE | 2018-09-15 11:29 | PRG ---
DATE OF SERVICE: 09/15/2018 SUBJECTIVE: She is ambulating down the ramos using a wheelchair and one of her legs. She is doing re asonably well with this. She has no complaints. There is no change in her exam overall. Her vital signs have been stable, although she still has episodic diastolic elevations in her blood p ressure. It is unclear whether the cuff measurements are accurate. LABORATORY DATA: White count is normal yesterday. Sodium 133, potassium 4.3, chloride 102, bicarbon ate 23, BUN 29, creatinine 1.9. IMPRESSION: 1. Diabetes. 2. Ankle fracture. 3. Chronic kidney disease likely secondary to diabetes. 4. Obesity with deconditioning. She will need a wheelchair at home. 5. Lipid disorder. 6. Hypertension, marginally controlled. 7. Schizoaffective disorder. She could be moved out of the intermediate care unit in my opinion.
[2018-09-15] MEDS: Fenofibrate Nanocrystallized 145 MG TAB PO SCH (11:45)
[2018-09-15] MEDS: Insulin Regular 300 UNITS/3 ML VIAL SC SCH (11:45)
[2018-09-15 11:53] VITALS: BMI 52.6
--- NOTE | 2018-09-15 13:22 | DIS ---
PRIMARY CARE PHYSICIAN: Dr. Kelsey Felder at [facility]. PRIMARY NUCLEAR EQUIPMENT OPERATOR: Dr. Rene Liu PRIMARY ORTHOPEDIST: Dr. Xavier Pimentel DATE OF ADMISSION: 09/11/2018 DATE OF DISCHARGE: 09/15/2018 DISCHARGE DIAGNOSES: 1. Acute renal failure on chronic kidney disease stage 4. 2. Uncontrolled diabetes mellitus type 2. 3. Acute hypercapnic respiratory failure. 4. Acute metabolic encephalopathy, present on admission, resolved. 5. Chronic kidney disease stage 4. 6. Hypertensive urgency. 7. Fall from standing level. 8. Physical deconditioning. 9. Constipation. 10. History of left ankle fracture. 11. Sepsis, present on admission, resolved secondary to pneumonia, community-acquired, present on ad mission. CONSULTATIONS: 1. Nephrology, Dr. Rene Liu on 09/11/2018. 2. Orthopedics. Ms. Krystin Horowitz PA-C on 09/12/2018. 3. Pulmonary Critical Care, Dr. Kelly on 09/12/2018. PROCEDURES: None. HISTORY AND PHYSICAL: Ms. Plummer is a 58-year-old obese female who presented to the emergency department on the day of admission with complaints of a fall. She initially presented to [facility] emergency department 09/07/[address] scan of the C-spine and brain was unremar kable. She had fallen 4 times since that visit and most recently occurring the day of admission. Sh e did note that she hit her head. No loss of consciousness, no syncope, presyncope. Blood sugars at home have been high and she has felt somewhat jittery. Workup in the emergency department showed her to be in acute kidney injury on top of her chronic kidn ey disease stage 4 secondary to dehydration and hyperosmolar state. Also, did have an increased pota ssium. She has chronic diastolic heart failure without acute exacerbation and hypertension, uncontro lled. We were called for admission. HOSPITAL COURSE: The patient was seen and examined by Dr. King and placed in inpatient status. She was admitted to the Intermediate Care Unit. PT, OT was consulted for recurrent falls. She continue d home medications and titrated antihypertensives. Nephrology, Pulmonary Critical Care were consulte d. Overnight 09/11/2018 to 09/12/2018 ankle x-ray was done that confirmed a prior fracture. Orthopedic was consulted and saw the patient and recommended continued boot with limited weightbearing and follo w up with her orthopedist. The patient was seen by Dr. Kelly due to IMCU status, he recommended oscar sfer to a medical bed. From 09/13/2018 to 09/15/2018 the patient remained stable. Potassium normali zed. Blood pressure remained under control. Her pain was controlled. Her sugars were maintained on her regular insulin dosing. Today, 09/15/2018, she was approved for inpatient rehab bed, was transf erred there for further rehabilitation. PHYSICAL EXAMINATION: The patient was seen and examined on the day of discharge. Discharge plan and disposition was discussed with the patient face to face at the bedside. DISCHARGE MEDICATIONS: 1. New medication; Coreg 37.5 mg p.o. b.i.d., increased from 25 mg b.i.d. baseline. 2. Januvia 100 mg p.o. daily. 3. Polyethylene glycol 17 grams p.o. at bedtime. 4. Regular insulin 120 units subcu q.a.m. with breakfast, 105 units subcu with lunch and 80 units valverde bcutaneously with dinner. 5. Hydroxyzine 25 mg p.o. t.i.d. p.r.n. itching. 6. Lasix 40 mg daily. 7. Diazepam 10 mg p.o. b.i.d. p.r.n. muscle pain. 8. Benzonatate 200 mg p.o. q.8 hours p.r.n. cough. 9. Amlodipine increased to 10 mg p.o. daily. 10. Effexor XR 150 mg p.o. daily. 11. Renvela 800 mg p.o. t.i.d. 12. Pravachol 20 mg p.o. at bedtime. 13. TriCor 145 mg daily, to continue. 14. Pepcid 20 mg p.o. b.i.d. 15. Flexeril 10 mg p.o. t.i.d. muscle spasm. 16. Carbamazepine 100 mg p.o. b.i.d. 17. Buspirone 10 mg p.o. t.i.d. 18. Aspirin 81 mg daily. DISCHARGE CONDITION: Stable. DISPOSITION: She will be discharged to inpatient rehabilitation at [facility]. DISCHARGE ACTIVITY: Per cardiopulmonary and orthopedic limits. FOLLOWUP APPOINTMENT: 1. With her primary care physician within a week. 2. At the orthopedic office as scheduled. 3. Dr. Liu's office in 1-2 weeks.
[2018-09-15 14:39] VITALS: BP 161/82
--- NOTE | 2018-09-20 20:19 | EKG ---
Test Reason : Blood Pressure : / mmHG Vent. Rate : 089 BPM Atrial Rate : 089 BPM P-R Int : 228 ms QRS Dur : 090 ms QT Int : 406 ms P-R-T Axes : 018 -25 026 degrees QTc Int : 493 ms Sinus rhythm with 1st degree A-V block Prolonged QT Abnormal ECG Confirmed by ELZA COX, DAGO ([id number]), movie editor NICKO YE ([id number]) on 09/20/2018 8:19:28 PM Referred By: Confirmed By:DAGO BERTRAND MD
--- NOTE | 2018-09-25 10:50 | PQF ---
I did not discharge this patient. KEV,JUAN R Connors EDA FELTON [id number] [facility]- [id number] CLINICAL DOCUMENTATION CLARIFICATION FORM: POST DISCHARGE Addendum to original discharge summary date: ____ Late entry note date: __ DATE: 09/25/2018 ATTN: Dr. Eda Felton Please exercise your independent, professional judgment in responding to the clarification form. Clinical indicators are provided on the bottom of this form for your review Please check appropriate box(es): [ ] Sepsis due to: (Pna, UTI, gangrenous gall bladder, etc.) Due to: [ ] Device (please specify) [ ] Implant [ ] Graft [ ] Infusion [ ] SIRS due to non-infectious process (please specify etiology) [ ] with organ dysfunction [ ] without organ dysfunction [ ] Severe sepsis with acute organ dysfunction of: ( Examples: respiratory failure, encephalopathy, acute kidney failure, other) [ ] Septic Shock [ ] Localized infection without sepsis [ ] Other diagnosis [ ] Unable to determine In addition, please specify: Present on Admission (POA): [ ] Yes [ ] No [ ] Unable to determine For continuity of documentation, please document condition throughout progress notes and discharge summary. Thank You. CLINICAL INDICATORS - SIGNS / SYMPTOMS / LABS ED: BP: 134/87, Pulse 99, Resp: 18, Temp: 97.9 (Oral), Pain 10, O2 sat: 94 on Room Air, Time: 09/11/2018 05:09 BP: 130/81, Pulse 94, Resp: 18, Pain 10, O2 sat: 95 on Room Air, Time: 2017 05:30 BP: 143/90, Pulse 93, Resp: 16, O2 sat: 96 on Room Air, Time: 09/11/2018 07:15 BP: 173/92, Pulse 88, Resp: 16, O2 sat: 96 on Room Air, Time: 09/11/2018 09:34 ADMIT ORDER: ROSANNA, HYPERGLYCEMIA, FALL, DEHYDRATION DC SUMMARY: Workup in the emergency department showed her to be in acute kidney injury on top of her chronic kidney disease stage 4 secondary to dehydration and hyperosmolar state. Also, did have an increased potassium. She has chronic diastolice heart failure without acute exacerbation and hypertension, uncontrolled. From 09/13/18 to 09/15/18 the patient remained stable. Potassium normalizd. Blood pressure remained under control. Her pain was controlld. Her sugards were maintained on her regular insulin dosing. Today, , she was approved for inpatient rehab bed, was transferred there for further rehabiliation. RISK FACTORS Acute on Chronic kidney disease, state 4, due to cardiorenal syndrome, decreased effective arterial blood volume, hyperglycemia, hyperkalemia, metabolic acidosis, chronic low back pain,anemia, osteoarthritis, orbid obesity , chronic diastolic heart failure, diabetes mellitus type , hypertension, COPD/ asthma, diabetic neuropathy and dyslipdemia. TREATMENTS: New medication at Discharge: Coreg 37.5 mp p.o. b.i.d., increased from 25 mg b.i.b. baseline. (This form is maintained as a part of the permanent medical record) 2014 [employer]. All Rights Reserved Roseanna [email or web address] [phone] SILVERIO
--- NOTE | 2018-10-01 14:42 | PQF ---
Q[address] [facility] Updated: July 2018 CLINICAL DOCUMENTATION CLARIFICATION FORM: Dear : Boom Alston Date / Time: 09/2018 1:50pm Please exercise your independent, professional judgment in responding to the clarification form. Clinical indicators are provided on the bottom of this form for your review Please check appropriate box(es): Conflicting documentation was noted in the Medical Record, please clarify if patient is being treated/monitored for: [ ] _Sepsis due to pneumonia___(diagnosis #1) [ ] (diagnosis #2) [ ] Other diagnosis [ ] Unable to determine In addition, please specify: Present on Admission (POA): [ ] Yes [ ] No [ ] Unable to determine Physician Signature: Date/Time: For continuity of documentation, please document condition throughout progress notes and discharge summary. Thank You. To be completed by CDI/Coding staff for physician review: Present Clinical Indicators - Signs / Symptoms / Labs Results and Location in Medical Record [ ] no evidence of sepsis no evidence for systemic inflammatory response syndrome Emergency Provider Differential Diagnosis [ ] She has normal white count, normocytic anemia with hemoglobin 11, normal platelet count. Sodium 128, potassium 4.8, anion gap 17, carbon dioxide 25, blood glucose 597, serum osmolarity elevated at 337 and unremarkable liver profile and lipase mildly elevated at 87. Bet hydroxybutyrate level is normal. PLAN: She will receive intravenous fluids and insulin. Electrolytes will be followed and replaced as needed. H&P: LABORATORY DATA 09/11/2018 [ ] Vital Signs: She is afebrile, heart rate is 99, respiratory rate is 15, oximetry is 99 on room air, blood pressure 152/86. LABS: White Count 5.2, hemoglobin 10.3, platelets 193,000. sodium 133, potassium 4.7, chloride 100, bicarbonate 24, BUN 46, creatinine 2.19. Vital Signs: Afebrile. Heart rate is 91, blood pressure 169/90, respiratory rate is 21, oximetry is 94% on room air. She has no complaints. LABORATORY DATA: White count is 5.4, hemoglobin 10.5, platelets 212,000. Sodium 134, potassium 4.6, chloride 101, bicarbonate 24, BUN 32, creatinine 1.86 , creatinine was 2.19 yesterday. Plan: She is off her insulin drip. LABORATORY DATA: White count is normal yesterday. Sodium 133, potassium 4.3, chloride 102, bicarbonate 3, BUN 29, creatinine 1.9. BP: 134/87, Pulse 99, Resp: 18, Temp: 97.9 (Oral), Pain 10, O2 sat: 94 on Room Air, Time: 09/11/2018 05:09 BP: 130/81, Pulse 94, Resp: 18, Pain 10, O2 sat: 95 on Room Air, Time: 2017 05:30 BP: 143/90, Pulse 93, Resp: 16, O2 sat: 96 on Room Air, Time: 09/11/2018 07:15 BP: 173/92, Pulse 88, Resp: 16, O2 sat: 96 on Room Air, Time: 09/11/2018 09:34 PROGRESS NOTE 09/13/2018 PROGRESS NOTE 09/14/2018 PROGRESS NOTE 09/15/2018 EMERGENCY DEPARTMENT RECORD Present Risk Factors EResults and Location in Medical Record [ ] Encephalopathy, ROSANNA on CKD 4, ankle fracture DC SUMMARY [ ] [ ] Present Treatments Results and Location in Medical Record [ ] No CXR, no antibiotics given, IVF was given [ ] [ ] CDS/Conveyor Line Battery Charger Signature: Roseanna Simon Phone #: [phone] Date/Time: 10/01/2018 This is a permanent part of the Medical Record [facility]
== END 2018-09-15 15:29 | DRG 637 ==
LOC: ERS 05:02 → IMCU/EMU 10:11
PROVIDERS: ADMIT Internal Medicine; ATTEND Internal Medicine
DX: E11.00 Type 2 diabetes mellitus with hyperosmolarity without nonketotic hyperglycemic-hyperosmolar coma (NKHHC) (principal); G93.41 Metabolic encephalopathy; I13.0 Hypertensive heart and chronic kidney disease with heart failure and stage 1 through stage 4 chronic kidney disease, or unspecified chronic kidney disease; N18.4 Chronic kidney disease, stage 4 (severe); I50.32 Chronic diastolic (congestive) heart failure; N17.9 Acute kidney failure, unspecified; Z68.43 Body mass index [BMI] 50.0-59.9, adult; E87.2 Acidosis; E11.22 Type 2 diabetes mellitus with diabetic chronic kidney disease; J44.9 Chronic obstructive pulmonary disease, unspecified; E66.01 Morbid (severe) obesity due to excess calories; M54.5 Low back pain; M19.90 Unspecified osteoarthritis, unspecified site; E11.40 Type 2 diabetes mellitus with diabetic neuropathy, unspecified; E78.5 Hyperlipidemia, unspecified; Z88.6 Allergy status to analgesic agent; Z88.0 Allergy status to penicillin; E87.5 Hyperkalemia; E86.0 Dehydration; E11.65 Type 2 diabetes mellitus with hyperglycemia; Z91.81 History of falling; D64.9 Anemia, unspecified; I16.0 Hypertensive urgency; K59.00 Constipation, unspecified; Y93.89 Activity, other specified; W01.198A Fall on same level from slipping, tripping and stumbling with subsequent striking against other object, initial encounter; Y92.019 Unspecified place in single-family (private) house as the place of occurrence of the external cause; S82.492A Other fracture of shaft of left fibula, initial encounter for closed fracture; F20.9 Schizophrenia, unspecified; F31.9 Bipolar disorder, unspecified; F41.9 Anxiety disorder, unspecified; K21.9 Gastro-esophageal reflux disease without esophagitis
CPT/HCPCS: 36415; 36416; 70450; 72125; 80048; 80053; 82010; 82330; 82803; 83690; 83735; 83930; 84100; 85025; 93005; 96361; 96374; 96375; 96376; G8978-GP-CM; G8979-GP-CL; G8987-GO-CK; G8989-GO-CI; J0360; J1815; J1885; J7050

== ENCOUNTER 2018-11-08 09:00 | Emergency (ER) | payer MEDICARE, MEDICAID ==
[2018-11-08 10:56] LABS: #Eosinphils 0.2 thou/uL (0.0-0.7); #Lymphocytes 1.5 thou/uL (1.20-3.40); #Monocytes 0.4 thou/uL (0.11-0.59); #Neutrophils 2.4 thou/uL (1.40-6.50); %Eosinophils 3.4 % (0.0-10.0); %Monocytes 8.9 % (0.0-10.0); %Neutrophils 53.7 % (42.0-75.0); Hemoglobin 10.6 g/dL (12.0-16.0); Mean Corpuscular HGB CONC 34.1 g/dL (32.0-36.0); Mean Corpuscular Hemoglobin 28.7 pg (27.0-31.0); Mean Corpuscular Volume 84.1 fL (78.0-98.0); Mean Platelet Volume 8.6 fL (7.4-10.4); Platelet Count 192 thou/uL (130-400); RBC Distribution Width 12.9 % (11.5-14.5); White Blood Cell (WBC) Count 4.4 thou/uL (4.8-10.8)
[2018-11-08 11:06] LABS: ALT (SGPT) 31 U/L (8-55); AST (SGOT) 26 U/L (5-34); Albumin 3.3 g/dL (3.5-5.0); Alkaline Phosphatase 161 U/L (40-150); Anion Gap 17 mmol/L (10-20); BUN (Urea Nitrogen) 39 mg/dL (9.8-20.1); Bilirubin, Total 0.3 mg/dL (0.2-1.2); Calc. Creatinine Clearance 0 mL/min (70-130); Carbon Dioxide 20 mmol/L (22-29); Chloride 98 mmol/L (98-107); Estimated GFR-MDRD 28; Glucose 362 mg/dL (70-105); Potassium 4.7 mmol/L (3.5-5.1); Protein, Total 7.3 g/dL (6.0-8.3); Sodium 130 mmol/L (136-145)
--- NOTE | 2018-11-08 11:27 | RAD ---
LUMBAR SPINE RADIOGRAPHS 2 VIEWS: Date: 11/08/18 PROVIDED CLINICAL HISTORY: Chronic back pain. FINDINGS: COMPARISON: 07/02/14. FINDINGS: Five non-rib bearing lumbar-type vertebral bodies are present. Lumbar alignment appears normal. Verte bral body heights appear preserved. Mild disc degenerative changes are seen. Lower lumbar spine facet arthritis changes are noted. Pedicles appear intact. IMPRESSION: Mild lumbar degenerative change, appearing radiographically similar to 07/02/14. POS: [facility]
== END 2018-11-08 12:36 | disposition home or self-care (01) ==
LOC: ERS 09:00
DX: E11.65 Type 2 diabetes mellitus with hyperglycemia (principal); G89.29 Other chronic pain; M54.5 Low back pain; I11.0 Hypertensive heart disease with heart failure; I50.9 Heart failure, unspecified; Z86.73 Personal history of transient ischemic attack (TIA), and cerebral infarction without residual deficits; J45.909 Unspecified asthma, uncomplicated; F41.9 Anxiety disorder, unspecified; F31.9 Bipolar disorder, unspecified; F20.9 Schizophrenia, unspecified
CPT/HCPCS: 36415; 36416; 72100; 80053; 85025; 96360; 96361

== ENCOUNTER 2018-11-16 02:39 | Emergency (ER) | payer MEDICARE, MEDICAID ==
[2018-11-16] MEDS ORDERED: Ketorolac Tromethamine 30 MG/ML VIAL ONE (03:05)
[2018-11-16 03:34] LABS: Base Excess-Venous 3.6 mmol/L (0 (+/- 2.5)); Bicarbonate (HCO3v) 30.4 mmol/L (22.0-29.0); CO2 Tension (PvCO2) 55.7 mmHg (41.0-51.0); Calcium, Ionized 1.32 mmol/L (1.12-1.32); Hemoglobin - Calc 11.6 g/dL (12.0-18.0); O2 Tension (PvO2) 31.8 mmHg (35.0-45.0); Potassium 5.1 mmol/L (3.4-4.7); T. Carbon Dioxide 32.1 mmol/L (1.0-85.0); pH (Venous) 7.345 (7.35-7.45); vO2 Saturation-calc 56.1 % (94-98)
[2018-11-16] MEDS ORDERED: Acetaminophen 500 MG TAB ONE (04:38)
--- NOTE | 2018-11-16 08:11 | RAD ---
RADIOGRAPH CHEST 1 VIEW: HISTORY: A 58-year-old female status post acute chest trauma from fall. FINDINGS: There is cardiomegaly. There is no evidence of air space density, pulmonary edema, or pneumothorax. T he lateral costophrenic angles are sharp. IMPRESSION: 1) No acute pulmonary findings. 2) Cardiomegaly without congestive heart failure. lisa [] POS: [facility]
--- NOTE | 2018-11-16 08:53 | RAD ---
RADIOGRAPH PELVIS 1 VIEW: DATE: 11/16/2018. TIME: 3:10 a.m. HISTORY: A 58-year-old female with traumatic pelvic pain due to fall. FINDINGS: The pelvic ring appears to be grossly intact, with no evidence of severely displaced fracture. Kin r, the image resolution is very low, especially of the right hip and right sacrum, because of body marie bitus and exposure technique. IMPRESSION: No fracture identified. POS: [facility]
--- NOTE | 2018-11-16 16:02 | CT ---
PRELIMINARY REPORT/[facility]/EMERGENTY AFTER-HOURS PROCEDURE CT Head Without Contrast EXAM DATE/TIME: 11/16/2018 3:26 AM CLINICAL HISTORY: 58 years old, female; Injury or trauma; Fall; Initial encounter; Abrasion; Head, generalized; Patient HX: Er 6; 58f presents for evaluation after she fell trying to get into bed. Patient is C/O pain in her r shoulder and pain to the top of her head. Unsure if she lost consciousness or not. Patient says she's been getting headaches lately, no other symptoms. On asa, denies coumadin. Pmhx of TIA. TECHNIQUE: Axial computed tomography images of the head/brain without contrast. COMPARISON: No relevant prior studies available. FINDINGS: Brain: Volume loss and chronic small vessel ischemic change. No brain edema. No intracranial hemorrha ge. Ventricles: Normal. No ventriculomegaly. Bones/joints: Normal. No acute fracture. Sinuses: Normal as visualized. No acute sinusitis. Mastoid air cells: Normal as visualized. No mastoid effusion. Soft tissues: Normal. IMPRESSION: No acute brain findings. Thank you for allowing us to participate in the care of your patient. Dictated and Authenticated by: Nir Benitez MD 11/16/2018 3:48 AM Central Time ([place] & [place]) FINAL REPORT EMERGENT AFTER HOURS STUDY CT BRAIN NONCONTRAST: HISTORY: A 58-year-old female status post acute head trauma. FINDINGS: There is no midline shift or any other mass effect. There is no evidence of acute intracranial hemor rhage, large cortical infarct, obstructive hydrocephalus, or extraaxial fluid collection. The calvar ium is intact. This report agrees with preliminary report by [facility]. IMPRESSION: No acute intracranial findings. lisa [] POS: DEVIKA
== END 2018-11-16 05:05 | disposition home or self-care (01) ==
LOC: ERS 02:39
DX: S00.93XA Contusion of unspecified part of head, initial encounter (principal); I11.0 Hypertensive heart disease with heart failure; I50.9 Heart failure, unspecified; E11.9 Type 2 diabetes mellitus without complications; F41.9 Anxiety disorder, unspecified; F31.9 Bipolar disorder, unspecified; Z79.4 Long term (current) use of insulin; Z86.73 Personal history of transient ischemic attack (TIA), and cerebral infarction without residual deficits; Z79.899 Other long term (current) drug therapy; Z79.82 Long term (current) use of aspirin; W06.XXXA Fall from bed, initial encounter
CPT/HCPCS: 70450; 71045; 72170; 82330; 82435; 82565; 82803; 82947; 83605; 84132; 84295; 85014; 96372; J1885

== ENCOUNTER 2018-11-28 23:06 | Observation (INO) | payer MEDICARE, MEDICAID ==
[2018-11-28 23:51] LABS: #Eosinphils 0.1 thou/uL (0.0-0.7); #Lymphocytes 1.9 thou/uL (1.20-3.40); #Monocytes 0.7 thou/uL (0.11-0.59); #Neutrophils 3.2 thou/uL (1.40-6.50); %Eosinophils 2.3 % (0.0-10.0); %Lymphocytes 32.3 % (21.0-51.0); %Monocytes 11.6 % (0.0-10.0); %Neutrophils 53.9 % (42.0-75.0); Hemoglobin 10.9 g/dL (12.0-16.0); Mean Corpuscular HGB CONC 34.8 g/dL (32.0-36.0); Mean Corpuscular Hemoglobin 29.4 pg (27.0-31.0); Mean Corpuscular Volume 84.5 fL (78.0-98.0); Mean Platelet Volume 7.9 fL (7.4-10.4); Platelet Count 202 thou/uL (130-400); Red Blood Cell (RBC) Count 3.72 mill/uL (4.20-5.40); White Blood Cell (WBC) Count 5.8 thou/uL (4.8-10.8)
--- NOTE | 2018-11-28 23:53 | RAD ---
CHEST TWO VIEW 11/28/18 HISTORY: Dyspnea. COMPARISON: Radiograph 11/16/18. FINDINGS: Lungs are clear. No pneumothorax or effusion. Heart size is mildly enlarged. No acute osseous abnormality. IMPRESSION: No acute intrathoracic abnormality. POS: [facility]
[2018-11-29 00:15] LABS: ALT (SGPT) 24 U/L (8-55); AST (SGOT) 21 U/L (5-34); Albumin 3.4 g/dL (3.5-5.0); Alkaline Phosphatase 168 U/L (40-150); Anion Gap 13 mmol/L (10-20); BUN (Urea Nitrogen) 29 mg/dL (9.8-20.1); Bilirubin, Total 0.3 mg/dL (0.2-1.2); Calc. Creatinine Clearance 0 mL/min (70-130); Calcium 9.2 mg/dL (7.8-10.44); Carbon Dioxide 22 mmol/L (22-29); Chloride 104 mmol/L (98-107); Estimated GFR-MDRD 31; Globulin 4.4 g/dL (2.4-3.5); Glucose 309 mg/dL (70-105); Potassium 4.3 mmol/L (3.5-5.1); Protein, Total 7.8 g/dL (6.0-8.3); Sodium 135 mmol/L (136-145)
[2018-11-29 00:34] LABS: Bilirubin Negative (Negative); Blood, Urine Negative (Negative); Clarity CLEAR (Clear); Glucose, Urine (Dipstick) 500 mg/dL (Negative); Leukocyte Negative (Negative); Nitrite Negative (Negative); Protein, Urine (Dipstick) 100 mg/dL (Neg-Trace); Specific Gravity, Urine 1.016 (1.002-1.036); Urobilinogen 0.2 mg/dL (0.2-1.0)
[2018-11-29 00:36] LABS: Bacteria/HPF None Seen HPF (None Seen); Hyaline Casts/LPF 0-3 HYALINE CAST LPF (0-3 Hyaline); Pathc Cast-AUWi Flag 0.43 (0-2.49); Squamous Epithelial 0-3 HPF (0-3); WBC/HPF 0-3 HPF (0-3)
[2018-11-29] MEDS ORDERED: diphenhydrAMINE 25 MG CAP ONE (02:25)
[2018-11-29] MEDS ORDERED: Acetaminophen 500 MG TAB ONE (02:38)
[2018-11-29] MEDS ORDERED: Aspirin 325 MG TAB ONE (04:15)
[2018-11-29] MEDS ORDERED: Promethazine HCl 25 MG/ML VIAL ONE (04:16)
[2018-11-29] MEDS ORDERED: HumaLOG 300 UNITS/3 ML VIAL SC PRN (05:55)
[2018-11-29] MEDS ORDERED: Dextrose 5% in Water 1,000 ML IV PRN (05:55)
[2018-11-29] MEDS ORDERED: Acetaminophen 325 MG TAB PO PRN (05:55)
[2018-11-29] MEDS ORDERED: Ondansetron ODT 4 MG TAB PO PRN (05:55)
[2018-11-29] MEDS ORDERED: Dextrose 50% Abboject 50 ML SYRINGE SLOW IVP PRN (05:55)
--- NOTE | 2018-11-29 05:56 | HP ---
PRIMARY CARE PHYSICIAN: Kelsey Felder MD CHIEF COMPLAINT: Chest pain. HISTORY OF PRESENT ILLNESS: The patient is Ms. Plummer, who is a 58-year-old female with a past medical history of CKD stage 4, diabetes type 2, morbid obesity, COPD, diabetic neuropathy, hyperlipidemia, and hypertension, who presents to the emergency department for left-sided chest pain that has been ongoing for at least few weeks. The patient's chest pain was not improving and that is why she came to the ER. The patient was seen at Urgent Care for allergic reaction to her rashes, which she thought was due to famotidine. The patient reports that her chest pain is better right now. In the ER, the patient was given aspirin. The patient denies any shortness of breath or abdominal pain at this point right now. PAST MEDICAL HISTORY: Mentioned in the HPI. PAST SURGICAL HISTORY: Cholecystectomy and hernia repair. SOCIAL HISTORY: The patient denies any smoking, alcohol use, or drugs. FAMILY HISTORY: Significant for diabetes and hypertension. ALLERGIES: THE PATIENT IS ALLERGIC TO CODEINE, PENICILLIN, TRAMADOL, FAMOTIDINE , CHOCOLATE FLAVOR, AND ORANGE FLAVOR. MEDICATIONS: The patient's current medication includes, 1. Amlodipine. 2. Furosemide. 3. Januvia. 4. Fenofibrate. 5. Carbamazepine. 6. Hydrochlorothiazide. 7. Carvedilol. 8. Gabapentin. 9. Sevelamer. 10. Flexeril. PHYSICAL EXAMINATION: VITAL SIGNS: Showed blood pressure 147/98, pulse 99, respiration 18, and 97% O2 saturation on room air. CONSTITUTIONAL AND GENERAL: The patient is alert. HEENT: Head atraumatic. Eyes, extraocular movement intact. HEENT examination within normal limits with no lymphadenopathy noted. CARDIOVASCULAR: Regular rate and rhythm. No murmur, rubs, or gallops. RESPIRATORY: Respiration clear bilaterally. No wheezes. ABDOMEN: Soft and nontender. Bowel sounds positive. EXTREMITIES: Lower extremity trace edema noted in lower extremities. NEUROLOGICAL: Examination, the patient is alert. SKIN: No rashes noted. IMAGING STUDIES: An EKG negative for ST-segment elevation. Chest x-ray is negative for acute abnormalities and CT angiogram preliminary report seems to indicate negative, but final report is pending at this point. LABORATORY DATA: The patient's labs reviewed. Her CBC: White blood cell count 5.8, hemoglobin 10.9, hematocrit 31.4, and platelets 202. D-dimer 0.99. BMP: Sodium 135, potassium 4.3, bicarb is 22, chloride 104, BUN 29, creatinine 1.98, and glucose 309. Troponin negative and BNP 21. ASSESSMENT AND PLAN: 1. Chest pain. The patient will be admitted for ACS rule out, although I think that her chest pain could be musculoskeletal given that she had chest wall tenderness on examination. Troponin and EKG negative at this point. Will tele and trend troponins. Cardiology consult placed for morning. CT angiogram negative for PE based on preliminary studies. 2. Chronic kidney disease, stage 4. The patient's creatinine around 2 was seem to be her baseline. The patient did get contrast CT angiogram, and she did get fluids. Recommending repeating labs in the morning. We will avoid further fluid at this point given hx of CHF. 3. Diabetes, continue with sliding scale insulin. We will hold p.o. medication at this point. 4. Hypertension, continue home medications. 5. Deep vein thrombosis prophylaxis addressed. Medical [id number], patient's son. The patient's request to be full code. She is being admitted for observation. Job ID: [id number] MTDD
[2018-11-29 06:30] VITALS: BMI 45.5
[2018-11-29 07:46] LABS: Cardiac Risk 7.1 (Less than 4.5); Cholesterol 178 mg/dl (< 200 Desired); HDL Cholesterol 25 mg/dL (>60 Neg Risk); Triglycerides 522 mg/dL (Less than 150)
[2018-11-29] MEDS: Carvedilol 25 MG TAB PO SCH ×2 (08:11→21:47)
[2018-11-29] MEDS: Amlodipine 10 MG TAB PO SCH (08:11)
[2018-11-29] MEDS: Heparin 5,000 UNITS/ML VIAL SC SCH ×3 (08:12→21:46)
[2018-11-29] MEDS: Nitroglycerin 0.4 MG TAB (25 Tab Bottle) PO PRN ×3 (08:38→16:03)
[2018-11-29] MEDS ORDERED: diphenhydrAMINE 25 MG CAP PO PRN (08:56)
[2018-11-29] MEDS ORDERED: Prevnar 13-Val Conj/PF 0.5 ML SYRINGE IM ONE (09:00)
[2018-11-29] MEDS ORDERED: CARBAMAZEPINE 100 MG PO SCH (09:00)
--- NOTE | 2018-11-29 09:30 | CT ---
PRELIMINARY REPORT/[facility]/EMERGENTY AFTER-HOURS PROCEDURE Addendum created by Gadiel Suh MD on 11/29/2018 3:19 AM Central Time ([place] & [place]) CT Angiography Chest With Contrast EXAM DATE/TIME: 11/29/2018 2:14 AM CLINICAL HISTORY: 58 years old, female; Signs and symptoms; Shortness of breath; Patient HX: Er 5; Patient presents for evaluation of chest pain, ongoing. SOB x1 hour. TECHNIQUE: Axial computed tomographic angiography images of the chest with intravenous contrast using CT angiogr aphy protocol. MIP reconstructed images were created and reviewed. COMPARISON: No relevant prior studies available. FINDINGS: Pulmonary arteries: Normal. No pulmonary emboli. Aorta: Normal. No aortic aneurysm. No aortic dissection. Lungs: Left upper lobe granuloma Pleural space: Normal. No pneumothorax. No pleural effusion. Heart: Normal. No cardiomegaly. No pericardial effusion. Upper abdomen: The visualized superior portions of the abdomen are unremarkable. Lymph nodes: Unremarkable. No enlarged lymph nodes. Bones/joints: Unremarkable. No acute fracture. Soft tissues: The soft tissues of the axilla, neck and chest wall are unremarkable. IMPRESSION: No evidence of pulmonary embolus. No evidence of acute pulmonary pathology. Initial Report created on 11/29/2018 3:06 AM Central Time ([place] & [place]) CT Angiography Chest With Contrast EXAM DATE/TIME: 11/29/2018 2:14 AM COMPARISON: No relevant prior studies available. FINDINGS: Pulmonary arteries: Normal. No pulmonary emboli. Aorta: Normal. No aortic aneurysm. No aortic dissection. Lungs: Left upper lobe granuloma Pleural space: Normal. No pneumothorax. No pleural effusion. Heart: Normal. No cardiomegaly. No pericardial effusion. Upper abdomen: The visualized superior portions of the abdomen are unremarkable. Lymph nodes: Unremarkable. No enlarged lymph nodes. Bones/joints: Unremarkable. No acute fracture. Soft tissues: The soft tissues of the axilla, neck and chest wall are unremarkable. IMPRESSION: No evidence of acute intra-abdominal or pelvic pathology. Thank you for allowing us to participate in the care of your patient. Dictated and Authenticated by: Gadiel Suh MD 11/29/2018 3:06 AM Central Time ([place]) FINAL REPORT EMERGENT AFTER HOURS CTA OF THE CHEST WITH CONTRAST: COMPARISON: 03/17/2014. TECHNIQUE: Multiple contiguous axial images were obtained in a CTA of the chest with contrast per pulmonary embo lism protocol. Three-D oblique MIP reformats and direct coronal reformats were performed. FINDINGS: I agree with the findings and impression given in the preliminary report per [facility] physician: 1. No evidence of pulmonary thromboembolism. 2. This exam is limited secondary to poor timing of the contrast bolus. POS: LUIS
[2018-11-29] MEDS ORDERED: ISOVUE-370 76%-LOCM 1 ML ONE (12:39)
--- NOTE | 2018-11-29 13:18 | PDOC.PN ---
- Subjective Encounter Start Date: 11/29/18 Encounter Start Time: 13:16 Patient sitting in chair, she appears figity at times. Son who is DPOA states she is at baseline. She reports chest pain improved, denies shortness of breath or abdominal pain. Cardiology services are consulted and she will undergo 2 day stress test. DPOA concern that patient will require 24 hour care and wants to pursue nursing facility. - Objective Resuscitation Status - Order Detail: 11/29/18 04:51 Resuscitation Status Routine Resuscitation Status: FULL: Full Resuscitation MAR Reviewed: Yes Vital Signs & Weight: Vital Signs (12 hours) Temp Pulse Resp BP BP BP Pulse Ox 11/29/18 08:05 97.4 F L 172/89 H 11/29/18 08:02 128 H 180/95 H 100 11/29/18 06:42 97.6 F 105 H 18 179/81 H 99 11/29/18 05:35 98.5 F 103 H 18 173/83 H 97 Weight Weight 257 lb I&O: 11/28/18 11/29/18 11/30/18 06:59 06:59 06:59 Output Total 800 Balance -800 Result Diagrams: 11/28/18 23:42 11/28/18 23:42 Additional Labs: Accuchecks 11/29/18 11/29/18 11:02 06:09 POC Glucose 380 H 323 H Radiology Reviewed by me: Yes Phys Exam - Physical Examination HEENT: PERRLA, moist MMs, oral pharynx no lesions Neck: no nodes, full ROM Respiratory: no wheezing, clear to auscultation bilateral Cardiovascular: RRR, no significant murmur Gastrointestinal: soft, positive bowel sounds obese Musculoskeletal: pulses present trace edema Neurological: non-focal, moves all 4 limbs Lymphatic: no nodes Psychiatric: normal affect, A&O x 3 Skin: no rash, cap refill <2 seconds Dx/Plan (1) Chest pain Code(s): R07.9 - CHEST PAIN, UNSPECIFIED Status: Acute Comment: normal stress test, check VQ scan for pleuritic chest pain tomorrow (2) Diabetes Code(s): E11.9 - TYPE 2 DIABETES MELLITUS WITHOUT COMPLICATIONS Status: Acute (3) Fall Code(s): W19.XXXA - UNSPECIFIED FALL, INITIAL ENCOUNTER Status: Acute (4) Physical deconditioning Code(s): R53.81 - OTHER MALAISE Status: Acute Comment: awaiting rehab bed (5) Chronic kidney disease, stage 4 (severe) Code(s): N18.4 - CHRONIC KIDNEY DISEASE, STAGE 4 (SEVERE) Status: Chronic Comment: stable (6) GERD (gastroesophageal reflux disease) Code(s): K21.9 - GASTRO-ESOPHAGEAL REFLUX DISEASE WITHOUT ESOPHAGITIS Status: Chronic Comment: continue Pepcid (7) Hypertension Code(s): I10 - ESSENTIAL (PRIMARY) HYPERTENSION Status: Chronic Qualifiers: (8) Schizoaffective disorder Code(s): F25.9 - SCHIZOAFFECTIVE DISORDER, UNSPECIFIED Status: Chronic Qualifiers: - Plan cont current plan of care, plan discussed w/ family, PT/OT * Continue medical management * She will undergo 2 day stress test * Admits to 4-5 loose stools today, check stool culture * Cardiology following * Spoke with COLEEN, reports patient not safe at home and may require 24 hour care and with hx of frequent falls considering nursing placement * Consult PT/OT and case management
[2018-11-29] MEDS: carBAMazepine 100 mg Chewable Tablet PO SCH ×2 (13:32→18:20)
[2018-11-29 15:09] LABS: #Eosinphils 0.1 thou/uL (0.0-0.7); #Lymphocytes 1.8 thou/uL (1.20-3.40); #Monocytes 0.4 thou/uL (0.11-0.59); #Neutrophils 2.4 thou/uL (1.40-6.50); %Basophils 0.4 % (0.0-1.0); %Eosinophils 2.3 % (0.0-10.0); %Lymphocytes 37.3 % (21.0-51.0); %Monocytes 8.5 % (0.0-10.0); %Neutrophils 51.4 % (42.0-75.0); Mean Corpuscular HGB CONC 35.1 g/dL (32.0-36.0); Mean Corpuscular Hemoglobin 29.8 pg (27.0-31.0); Mean Corpuscular Volume 84.9 fL (78.0-98.0); Mean Platelet Volume 8.1 fL (7.4-10.4); Platelet Count 198 thou/uL (130-400); RBC Distribution Width 13.1 % (11.5-14.5); White Blood Cell (WBC) Count 4.7 thou/uL (4.8-10.8)
[2018-11-29 15:28] LABS: Anion Gap 14 mmol/L (10-20); BUN (Urea Nitrogen) 24 mg/dL (9.8-20.1); Calc. Creatinine Clearance 59 mL/min (70-130); Calcium 8.8 mg/dL (7.8-10.44); Carbon Dioxide 23 mmol/L (22-29); Chloride 102 mmol/L (98-107); Estimated GFR-MDRD 33; Glucose 329 mg/dL (70-105); Potassium 4.4 mmol/L (3.5-5.1); Sodium 135 mmol/L (136-145)
[2018-11-29] MEDS: Gabapentin 300 MG CAP PO SCH ×2 (17:29→21:46)
[2018-11-30 05:37] LABS: #Eosinphils 0.2 thou/uL (0.0-0.7); #Lymphocytes 1.6 thou/uL (1.20-3.40); #Monocytes 0.5 thou/uL (0.11-0.59); %Basophils 0.4 % (0.0-1.0); %Lymphocytes 30.8 % (21.0-51.0); %Monocytes 8.6 % (0.0-10.0); %Neutrophils 57.1 % (42.0-75.0); Hemoglobin 10.5 g/dL (12.0-16.0); Mean Corpuscular Hemoglobin 29.6 pg (27.0-31.0); Mean Corpuscular Volume 84.7 fL (78.0-98.0); Mean Platelet Volume 8.4 fL (7.4-10.4); Platelet Count 179 thou/uL (130-400); RBC Distribution Width 13.1 % (11.5-14.5); Red Blood Cell (RBC) Count 3.56 mill/uL (4.20-5.40); White Blood Cell (WBC) Count 5.3 thou/uL (4.8-10.8)
[2018-11-30 05:58] LABS: Anion Gap 13 mmol/L (10-20); BUN (Urea Nitrogen) 24 mg/dL (9.8-20.1); Calc. Creatinine Clearance 60 mL/min (70-130); Calcium 8.6 mg/dL (7.8-10.44); Carbon Dioxide 22 mmol/L (22-29); Chloride 102 mmol/L (98-107); Estimated GFR-MDRD 34; Glucose 414 mg/dL (70-105); Sodium 132 mmol/L (136-145)
[2018-11-30] MEDS: carBAMazepine 100 mg Chewable Tablet PO SCH ×3 (09:00→17:35)
[2018-11-30] MEDS ORDERED: Regadenoson 0.4 MG/5 ML SYRINGE ONE (09:20)
[2018-11-30] MEDS: Amlodipine 10 MG TAB PO SCH (10:42)
[2018-11-30] MEDS: Gabapentin 300 MG CAP PO SCH ×3 (10:43→20:55)
[2018-11-30] MEDS: Carvedilol 25 MG TAB PO SCH ×2 (10:43→20:54)
[2018-11-30] MEDS: Heparin 5,000 UNITS/ML VIAL SC SCH ×3 (10:45→20:56)
--- NOTE | 2018-11-30 11:19 | NM ---
RADIONUCLIDE STRESS REST MYOCARDIAL PERFUSION SCAN WITH CT ATTENUATION CORRECTION AND SPECT IMAGING LEFT VENTRICULAR WALL MOTION EVALUATION AND EJECTION FRACTION: HISTORY: Chest pain. Hypertension. FINDINGS: LexiScan protocol. Heterogeneous uptake of radiotracer throughout the left ventricular myocardium w ithout focal perfusion defect or reversibility. QGS analysis of gated SPECT images shows no focal wa ll motion abnormalities. Ejection fraction calculated at 57%. IMPRESSION: Normal myocardial perfusion scan. Normal left ventricular ejection fraction. POS: DEVIKA
[2018-11-30] MEDS: HumaLOG 300 UNITS/3 ML VIAL SC PRN ×2 (12:42→17:43)
[2018-11-30] MEDS ORDERED: Diazepam 2 MG TAB PO PRN (13:05)
[2018-11-30] MEDS: Sevelamer Carbonate 800 MG TAB PO SCH ×2 (14:20→20:55)
[2018-11-30] MEDS ORDERED: INSULIN REGULAR HUMAN SC SCH (15:00)
--- NOTE | 2018-11-30 16:59 | PDOC.PN ---
- Subjective Encounter Start Date: 11/30/18 Encounter Start Time: 16:57 Patient sitting in chair, reports feeling better. Stool culture negative. Diarrhea improved today. Denies chest pain, shortness of breath or abdominal pain. Stress test unremarkable. Sugars elevated today near 400. - Objective Resuscitation Status - Order Detail: 11/29/18 04:51 Resuscitation Status Routine Resuscitation Status: FULL: Full Resuscitation MAR Reviewed: Yes Vital Signs & Weight: Vital Signs (12 hours) Temp Pulse Resp BP BP Pulse Ox 11/30/18 12:06 97.2 F L 82 22 H 193/85 H 98 11/30/18 08:31 167/74 H 11/30/18 08:00 97.9 F 87 20 99 Weight Weight 259 lb I&O: 11/29/18 11/30/18 12/01/18 06:59 06:59 06:59 Intake Total 480 Output Total 1700 Balance -1220 Result Diagrams: 11/30/18 05:09 11/30/18 05:09 Additional Labs: Accuchecks 11/30/18 11/30/18 11/29/18 10:43 05:14 20:29 POC Glucose 393 H 402 H 312 H 11/29/18 16:50 POC Glucose 360 H Radiology Reviewed by me: Yes Phys Exam - Physical Examination Constitutional: NAD HEENT: PERRLA, moist MMs Neck: no nodes, full ROM Respiratory: no wheezing, clear to auscultation bilateral Cardiovascular: RRR, no significant murmur Gastrointestinal: soft, positive bowel sounds obese Musculoskeletal: pulses present Neurological: non-focal, moves all 4 limbs Psychiatric: A&O x 3 Skin: cap refill <2 seconds Dx/Plan (1) Chest pain Code(s): R07.9 - CHEST PAIN, UNSPECIFIED Status: Acute Comment: normal stress test, check VQ scan for pleuritic chest pain tomorrow (2) Diabetes Code(s): E11.9 - TYPE 2 DIABETES MELLITUS WITHOUT COMPLICATIONS Status: Acute (3) Fall Code(s): W19.XXXA - UNSPECIFIED FALL, INITIAL ENCOUNTER Status: Acute (4) Physical deconditioning Code(s): R53.81 - OTHER MALAISE Status: Acute Comment: awaiting rehab bed (5) Chronic kidney disease, stage 4 (severe) Code(s): N18.4 - CHRONIC KIDNEY DISEASE, STAGE 4 (SEVERE) Status: Chronic Comment: stable (6) GERD (gastroesophageal reflux disease) Code(s): K21.9 - GASTRO-ESOPHAGEAL REFLUX DISEASE WITHOUT ESOPHAGITIS Status: Chronic Comment: continue Pepcid (7) Hypertension Code(s): I10 - ESSENTIAL (PRIMARY) HYPERTENSION Status: Chronic Qualifiers: (8) Schizoaffective disorder Code(s): F25.9 - SCHIZOAFFECTIVE DISORDER, UNSPECIFIED Status: Chronic Qualifiers: - Plan cont current plan of care, plan discussed w/ family * Stress test normal, chest pain likely non cardiac * Continue current medical management * Patient sugars elevated today, restart home medications including insulin * Continue Diabetic diet and strongly recommend compliance * DPOA recommending SNF at discharge, however patient wants to return home * Monitor sugars and if improved may likely be discharged with close following up
[2018-11-30] MEDS: Insulin Regular 300 UNITS/3 ML VIAL SC SCH (17:42)
[2018-11-30] MEDS: Famotidine 20 MG TAB PO SCH (20:55)
[2018-11-30] MEDS ORDERED: DOXEPIN HCL PO SCH (21:00)
[2018-11-30] MEDS ORDERED: Pravastatin Sodium 40 MG TAB PO SCH (21:00)
[2018-11-30] MEDS ORDERED: Atorvastatin Calcium 10 MG TAB PO SCH (21:00)
[2018-11-30] MEDS ORDERED: Doxepin HCl 25 MG CAP PO SCH (21:00)
[2018-12-01] MEDS ORDERED: Insulin Regular 300 UNITS/3 ML VIAL SC SCH ×2 (08:00→12:00)
[2018-12-01] MEDS: Sevelamer Carbonate 800 MG TAB PO SCH ×2 (08:13→14:37)
[2018-12-01] MEDS: Carvedilol 25 MG TAB PO SCH (08:13)
[2018-12-01] MEDS: Amlodipine 10 MG TAB PO SCH (08:14)
[2018-12-01] MEDS: Gabapentin 300 MG CAP PO SCH ×2 (08:15→14:37)
[2018-12-01] MEDS: Famotidine 20 MG TAB PO SCH (08:15)
[2018-12-01] MEDS: Heparin 5,000 UNITS/ML VIAL SC SCH ×2 (08:16→14:37)
[2018-12-01] MEDS: carBAMazepine 100 mg Chewable Tablet PO SCH ×3 (08:23→17:01)
[2018-12-01] MEDS ORDERED: Venlafaxine HCl XR 150 MG CAP PO SCH (09:00)
[2018-12-01] MEDS ORDERED: Furosemide 20 MG TAB PO SCH (09:00)
[2018-12-01] MEDS ORDERED: Losartan 25 MG TAB PO SCH (09:00)
[2018-12-01] MEDS ORDERED: Hydrochlorothiazide 25 MG TAB PO SCH (09:00)
[2018-12-01] MEDS ORDERED: Alogliptin 6.25 MG TAB PO SCH (09:00)
[2018-12-01] MEDS ORDERED: Furosemide 40 MG TAB PO SCH (09:00)
[2018-12-01] MEDS ORDERED: Fenofibrate Nanocrystallized 145 MG TAB PO SCH (09:00)
[2018-12-01 09:04] LABS: ALT (SGPT) 24 U/L (8-55); AST (SGOT) 24 U/L (5-34); Albumin 3.3 g/dL (3.5-5.0); Alkaline Phosphatase 157 U/L (40-150); Anion Gap 14 mmol/L (10-20); BUN (Urea Nitrogen) 24 mg/dL (9.8-20.1); Bilirubin, Total 0.3 mg/dL (0.2-1.2); Calc. Creatinine Clearance 65 mL/min (70-130); Calcium 9.1 mg/dL (7.8-10.44); Carbon Dioxide 20 mmol/L (22-29); Chloride 105 mmol/L (98-107); Estimated GFR-MDRD 36; Glucose 216 mg/dL (70-105); Potassium 4.6 mmol/L (3.5-5.1); Protein, Total 7.3 g/dL (6.0-8.3); Sodium 134 mmol/L (136-145)
[2018-12-01 09:13] LABS: #Eosinphils 0.2 thou/uL (0.0-0.7); #Lymphocytes 1.7 thou/uL (1.20-3.40); #Monocytes 0.6 thou/uL (0.11-0.59); #Neutrophils 3.1 thou/uL (1.40-6.50); %Basophils 0.2 % (0.0-1.0); %Lymphocytes 30.5 % (21.0-51.0); %Monocytes 9.9 % (0.0-10.0); %Neutrophils 55.3 % (42.0-75.0); Hemoglobin 11.3 g/dL (12.0-16.0); Mean Corpuscular HGB CONC 33.6 g/dL (32.0-36.0); Mean Corpuscular Hemoglobin 28.8 pg (27.0-31.0); Mean Corpuscular Volume 85.7 fL (78.0-98.0); Mean Platelet Volume 8.2 fL (7.4-10.4); Platelet Count 206 thou/uL (130-400); RBC Distribution Width 13.1 % (11.5-14.5); RBC Morphology Normal; Red Blood Cell (RBC) Count 3.94 mill/uL (4.20-5.40); White Blood Cell (WBC) Count 5.5 thou/uL (4.8-10.8)
[2018-12-01] MEDS: HumaLOG 300 UNITS/3 ML VIAL SC PRN (11:29)
--- NOTE | 2018-12-01 13:05 | PDOC.PN ---
- Subjective Encounter Start Date: 12/01/18 Encounter Start Time: 11:00 Subjective: Patient reports she has been experiencing SOB and fatigue -: with exertion performing ADLs for weeks. Reports she frequently has to -: stop and catch her breath. - Objective Resuscitation Status - Order Detail: 11/29/18 04:51 Resuscitation Status Routine Resuscitation Status: FULL: Full Resuscitation Vital Signs & Weight: Vital Signs (12 hours) Temp Pulse Pulse Resp BP BP BP 12/01/18 11:00 99.5 F 86 18 12/01/18 09:34 87 209/99 H 12/01/18 08:14 81 188/89 H 12/01/18 03:10 97.9 F 81 18 119/56 L BP Pulse Ox 12/01/18 11:00 176/86 H 12/01/18 09:34 12/01/18 08:14 12/01/18 03:10 97 Weight Weight 117.48 kg I&O: 11/30/18 12/01/18 12/02/18 06:59 06:59 06:59 Intake Total 480 Output Total 1700 Balance -1220 Result Diagrams: 12/01/18 08:33 12/01/18 08:33 Additional Labs: Accuchecks 12/01/18 12/01/18 11/30/18 10:40 05:55 20:08 POC Glucose 331 H 120 H 231 H 11/30/18 16:44 POC Glucose 300 H Phys Exam - Physical Examination HEENT: PERRLA, moist MMs Neck: no nodes, no JVD Respiratory: no wheezing, clear to auscultation bilateral Cardiovascular: RRR, no significant murmur Gastrointestinal: soft, non-tender Musculoskeletal: no edema, pulses present cast on left lower leg, can move toes, cap refill less than 2 sec Neurological: non-focal, normal sensation Lymphatic: no nodes Psychiatric: normal affect, A&O x 3 Skin: no rash, normal turgor Dx/Plan (1) Diabetes Code(s): E11.9 - TYPE 2 DIABETES MELLITUS WITHOUT COMPLICATIONS Status: Chronic (2) Fall Code(s): W19.XXXA - UNSPECIFIED FALL, INITIAL ENCOUNTER Status: Chronic (3) Hyperglycemia Code(s): R73.9 - HYPERGLYCEMIA, UNSPECIFIED Status: Acute (4) Physical deconditioning Code(s): R53.81 - OTHER MALAISE Status: Acute Comment: awaiting rehab bed (5) Acute worsening of stage 3 chronic kidney disease Code(s): N18.3 - CHRONIC KIDNEY DISEASE, STAGE 3 (MODERATE) Status: Chronic Comment: Improved with IVF's and avoiding nephrotoxic meds, serial monitoring (6) Chronic low back pain Code(s): M54.5 - LOW BACK PAIN; G89.29 - OTHER CHRONIC PAIN Status: Chronic (7) Chest pain Code(s): R07.9 - CHEST PAIN, UNSPECIFIED Status: Acute Comment: normal stress test, check VQ scan for pleuritic chest pain tomorrow (8) Dyspnea on effort Code(s): R06.09 - OTHER FORMS OF DYSPNEA Status: Acute - Plan Blood sugar was better overnight and processing technologist -: Patient c/o of SOB/GONZALES for the last several weeks -: Stress test is neg, Trops neg, EF in 57% -: Cardiology consult pending then most likely home -: Patient has HH and PT at home, lives with her mother * .
--- NOTE | 2018-12-01 15:52 | CON ---
DATE OF CONSULTATION: REASON FOR CONSULTATION: Atypical chest pain. HISTORY OF PRESENT ILLNESS: Ms. Plummer is a 58-year-old woman, who has been seen and evaluated by Dr. Emmanuel Galan in the past. She has a previous history of chest pain, diabetes mellitus, hypertension, and hyperlipidemia. She was last seen by Dr. Emmanuel Galan in 2013. She underwent a noninvasive stress study, which was negative for ischemia. She recently fell after tripping. She broke her left foot. From a CV standpoint, she does complain of chest pain. The pain has been noted for years. She states it lasts for hours. No significant changes noted. It is sharp in nature. Deep breaths intermittently make it worse. No other associated abnormalities or precipitating factors present. Recent stress study dated 11/29/2018, showed LVEF 57% with no significant areas of ischemia present. PAST MEDICAL HISTORY: Hypertension, hyperlipidemia, diabetes mellitus, schizophrenia, bipolar disorder, cholecystectomy, and hernia repair. SOCIAL HISTORY: No current tobacco or alcohol use. ALLERGIES: CODEINE, PENICILLIN, AND TRAMADOL. HOME MEDICATIONS: Include: 1. Lasix. 2. Amlodipine. 3. Januvia. 4. Fenofibrate. 5. Hydrochlorothiazide. 6. Carvedilol. 7. Gabapentin. 8. Flexeril. REVIEW OF SYSTEMS: A 10-point review of systems is reviewed and as above, otherwise negative. PHYSICAL EXAMINATION: GENERAL: Patient is a pleasant 58-year-old woman, who is in no acute distress. The patient appears their stated age. VITAL SIGNS: Blood pressure 176/86, pulse 86, temperature 99.5 degrees. NEUROLOGIC: The patient is alert and oriented x3 with no focal neurologic deficits. HEENT: Sclerae without icterus. Mouth has moist mucous membranes with normal pallor. NECK: No JVD. Carotid upstroke brisk. No bruits bilaterally. LUNGS: Clear to auscultation with unlabored respirations. BACK: No scoliosis or kyphosis. CARDIAC: Regular rate and rhythm with normal S1 and S2. No S3 or S4 noted. No significant rubs, murmurs, thrills, or gallops noted throughout the precordium. PMI is not displaced. There is no parasternal heave. ABDOMEN: Soft, nontender, nondistended. No peritoneal signs present. No hepatosplenomegaly. No abnormal striae. EXTREMITIES: 2+ femoral and 2+ dorsalis pedis pulses. No cyanosis, clubbing, or edema. SKIN: No gross abnormalities. PERTINENT LABORATORY DATA: Hemoglobin 11.3. Creatinine 1.73 with a GFR of 36. EKG; normal sinus rhythm, nonspecific ST-T wave changes. IMPRESSION: 1. Chest pain. 2. Diabetes. 3. Hypertension. 4. Hyperlipidemia. RECOMMENDATIONS: From a CV standpoint, Ms Kavitha' symptoms are not felt to be consistent with angina. Her CK and troponins have been negative. Her EKG is felt to be nonspecific. Her recent stress study was negative for ischemia. At this point, we will recommend continuing medical therapy. She is currently on amlodipine, in addition to atorvastatin and carvedilol. We will recommend follow up with Dr. Emmanuel Galan as an outpatient. Job ID: [id number]
[2018-12-01 16:18] VITALS: BP 118/56; TEMP 98.7
[2018-12-01] MEDS: Insulin Regular 300 UNITS/3 ML VIAL SC SCH (16:59)
--- NOTE | 2018-12-05 12:09 | STRESS ---
Acquisition Time: 2018-11-30 08:43:56 Total Exercise Time: 00:01:00 Test Indications: CHEST PAIN Medications: Protocol: LEXISCAN Max HR: 097 BPM 60% of Pred: 161 BPM Max BP: 140/090 mmHG Max Work Load: 1.0 METS RESTING ECG: NORMAL SINUS RHYTHM SYMPTOMS: CHEST PAIN AND SHORTNESS OF BREATH APPROPRIATE BP RESPONSE FOR LEXISCAN ECTOPY: NONE ECG STRESS: NO SIGNIFICANT CHANGES INTERPRETATION: AWAIT NUCLEAR IMAGES FOR DEFINITIVE DIAGNOSIS Confirmed by RUBEN DEMARCO ([id number]), desk editor JOSE ANTONIO ADAM ([id number]) on 12/05/2018 12:08:45 PM Referred By: Confirmed By:RUBEN DEMARCO
== END 2018-12-01 18:41 | disposition home or self-care (01) ==
LOC: ERS 23:06 → 2NO 11-29 05:28
PROVIDERS: ADMIT Family Medicine; ATTEND Family Medicine
DX: R07.9 Chest pain, unspecified (principal); I13.0 Hypertensive heart and chronic kidney disease with heart failure and stage 1 through stage 4 chronic kidney disease, or unspecified chronic kidney disease; E11.22 Type 2 diabetes mellitus with diabetic chronic kidney disease; N18.4 Chronic kidney disease, stage 4 (severe); I50.9 Heart failure, unspecified; J44.9 Chronic obstructive pulmonary disease, unspecified; E11.40 Type 2 diabetes mellitus with diabetic neuropathy, unspecified; E78.5 Hyperlipidemia, unspecified; R53.81 Other malaise; K21.9 Gastro-esophageal reflux disease without esophagitis; E11.65 Type 2 diabetes mellitus with hyperglycemia; G89.29 Other chronic pain; M54.5 Low back pain; R06.09 Other forms of dyspnea; F31.9 Bipolar disorder, unspecified; F20.9 Schizophrenia, unspecified; E66.01 Morbid (severe) obesity due to excess calories; Z68.42 Body mass index [BMI] 45.0-49.9, adult; Z86.73 Personal history of transient ischemic attack (TIA), and cerebral infarction without residual deficits; Z79.4 Long term (current) use of insulin; Z79.899 Other long term (current) drug therapy; Z88.0 Allergy status to penicillin; Z88.5 Allergy status to narcotic agent; Z91.02 Food additives allergy status
CPT/HCPCS: 71046; 71275; 78452; 80048 ×2; 80053 ×2; 80061; 82962 ×3; 83880; 84484 ×3; 85025 ×4; 85379; 87045; 87046; 87324; 87449 ×2; 87899 ×2; 93005; 93017; 94760; 96361; 96374; 97110; 97116; 97139 ×2; 97530; 97535; 99285; A9500; G0378 ×3; 36415; 36416; 81003; 81015; J1644; J1815; J2550; J2785; Q0163; Q9966

== ENCOUNTER 2018-12-11 20:21 | Emergency (ER) | payer MEDICARE, MEDICAID ==
[2018-12-11 21:52] LABS: #Eosinphils 0.1 thou/uL (0.0-0.7); #Monocytes 0.8 thou/uL (0.11-0.59); #Neutrophils 3.2 thou/uL (1.40-6.50); %Eosinophils 1.2 % (0.0-10.0); %Lymphocytes 32.2 % (21.0-51.0); %Monocytes 13.8 % (0.0-10.0); %Neutrophils 52.7 % (42.0-75.0); Hemoglobin 11.9 g/dL (12.0-16.0); Mean Corpuscular HGB CONC 33.5 g/dL (32.0-36.0); Mean Corpuscular Hemoglobin 28.6 pg (27.0-31.0); Mean Corpuscular Volume 85.5 fL (78.0-98.0); Mean Platelet Volume 7.5 fL (7.4-10.4); Platelet Count 198 thou/uL (130-400); RBC Distribution Width 12.7 % (11.5-14.5); Red Blood Cell (RBC) Count 4.18 mill/uL (4.20-5.40)
[2018-12-11 22:07] LABS: ALT (SGPT) 24 U/L (8-55); AST (SGOT) 22 U/L (5-34); Albumin 3.8 g/dL (3.5-5.0); Alkaline Phosphatase 147 U/L (40-150); Anion Gap 19 mmol/L (10-20); BUN (Urea Nitrogen) 36 mg/dL (9.8-20.1); Bilirubin, Total 0.4 mg/dL (0.2-1.2); Calc. Creatinine Clearance 0 mL/min (70-130); Calcium 9.3 mg/dL (7.8-10.44); Carbon Dioxide 22 mmol/L (22-29); Chloride 96 mmol/L (98-107); Estimated GFR-MDRD 22; Globulin 4.2 g/dL (2.4-3.5); Glucose 205 mg/dL (70-105); Potassium 4.2 mmol/L (3.5-5.1); Sodium 133 mmol/L (136-145)
== END 2018-12-11 23:27 | disposition home or self-care (01) ==
LOC: ERS 20:21
DX: R53.81 Other malaise (principal); E11.9 Type 2 diabetes mellitus without complications; I11.0 Hypertensive heart disease with heart failure; I50.9 Heart failure, unspecified
CPT/HCPCS: 36415; 80053; 85025; 93005

== ENCOUNTER 2018-12-15 11:33 | Emergency (ER) | payer MEDICARE, MEDICAID ==
[2018-12-15 12:21] LABS: #Lymphocytes 1.5 thou/uL (1.20-3.40); #Monocytes 0.7 thou/uL (0.11-0.59); #Neutrophils 4.1 thou/uL (1.40-6.50); %Eosinophils 0.4 % (0.0-10.0); %Lymphocytes 23.5 % (21.0-51.0); %Monocytes 11.5 % (0.0-10.0); %Neutrophils 64.5 % (42.0-75.0); Mean Corpuscular HGB CONC 34.7 g/dL (32.0-36.0); Mean Corpuscular Hemoglobin 29.1 pg (27.0-31.0); Mean Corpuscular Volume 83.9 fL (78.0-98.0); Platelet Count 217 thou/uL (130-400); RBC Distribution Width 12.9 % (11.5-14.5); Red Blood Cell (RBC) Count 4.11 mill/uL (4.20-5.40); White Blood Cell (WBC) Count 6.4 thou/uL (4.8-10.8)
[2018-12-15 12:42] LABS: ALT (SGPT) 29 U/L (8-55); AST (SGOT) 27 U/L (5-34); Albumin 3.7 g/dL (3.5-5.0); Alkaline Phosphatase 145 U/L (40-150); Anion Gap 19 mmol/L (10-20); BUN (Urea Nitrogen) 45 mg/dL (9.8-20.1); Bilirubin, Total 0.3 mg/dL (0.2-1.2); Calc. Creatinine Clearance 0 mL/min (70-130); Calcium 9.5 mg/dL (7.8-10.44); Carbon Dioxide 20 mmol/L (22-29); Chloride 93 mmol/L (98-107); Estimated GFR-MDRD 27; Globulin 4.3 g/dL (2.4-3.5); Glucose 205 mg/dL (70-105); Lipase 43 U/L (8-78); Potassium 4.3 mmol/L (3.5-5.1); Sodium 128 mmol/L (136-145)
== END 2018-12-15 14:55 | disposition home or self-care (01) ==
LOC: ERS 11:33
DX: E86.0 Dehydration (principal); E11.9 Type 2 diabetes mellitus without complications; I11.0 Hypertensive heart disease with heart failure; I50.9 Heart failure, unspecified; J45.909 Unspecified asthma, uncomplicated; F41.9 Anxiety disorder, unspecified; F31.9 Bipolar disorder, unspecified; F20.9 Schizophrenia, unspecified; M19.90 Unspecified osteoarthritis, unspecified site; Z86.73 Personal history of transient ischemic attack (TIA), and cerebral infarction without residual deficits
CPT/HCPCS: 36415; 80053; 83605; 83690; 84484; 85025; 93005; 96360

== ENCOUNTER → 2018-12-22 | Emergency (ER) | payer MEDICARE, OTHER ==
[2018-12-22 20:12] LABS: #Eosinphils 0.1 thou/uL (0.0-0.7); #Lymphocytes 2.1 thou/uL (1.20-3.40); #Monocytes 0.8 thou/uL (0.11-0.59); #Neutrophils 2.9 thou/uL (1.40-6.50); %Basophils 0.5 % (0.0-1.0); %Eosinophils 2.2 % (0.0-10.0); %Lymphocytes 35.4 % (21.0-51.0); %Monocytes 13.1 % (0.0-10.0); %Neutrophils 48.7 % (42.0-75.0); Hemoglobin 12.7 g/dL (12.0-16.0); Mean Corpuscular HGB CONC 34.1 g/dL (32.0-36.0); Mean Corpuscular Hemoglobin 28.8 pg (27.0-31.0); Mean Corpuscular Volume 84.6 fL (78.0-98.0); Mean Platelet Volume 8.4 fL (7.4-10.4); Platelet Count 185 thou/uL (130-400); RBC Distribution Width 12.9 % (11.5-14.5); Red Blood Cell (RBC) Count 4.42 mill/uL (4.20-5.40); White Blood Cell (WBC) Count 5.9 thou/uL (4.8-10.8)
[2018-12-22 20:32] LABS: ALT (SGPT) 25 U/L (8-55); AST (SGOT) 21 U/L (5-34); Albumin 3.9 g/dL (3.5-5.0); Alkaline Phosphatase 143 U/L (40-150); Anion Gap 18 mmol/L (10-20); BUN (Urea Nitrogen) 46 mg/dL (9.8-20.1); Bilirubin, Total 0.5 mg/dL (0.2-1.2); CK (CPK) 163 U/L (29-168); Calc. Creatinine Clearance 0 mL/min (70-130); Carbon Dioxide 25 mmol/L (22-29); Chloride 95 mmol/L (98-107); Estimated GFR-MDRD 22; Globulin 4.4 g/dL (2.4-3.5); Glucose 186 mg/dL (70-105); Protein, Total 8.3 g/dL (6.0-8.3); Sodium 134 mmol/L (136-145)
[2018-12-22 20:34] LABS: Acetaminophen Less than 6.0 mcg/mL (10.0-30.0); Alcohol Less than 10 mg/dL (Less than 10); Salicylate Less than 8.0 mg/dL (15.0-30.0)
--- NOTE | 2018-12-22 23:37 | RAD ---
THREE VIEWS LEFT ANKLE: History: Fracture. Evaluate healing status. Comparison: 09-12-18 FINDINGS: Limited evaluation of fine bony detail due to fiberglass cast. There appears to be a healing distal f ibular fracture. Based on the image provided, there does suggest the possibility of a fracture lucenc y. Some callus formation is noted. IMPRESSION: Healing distal fibular fracture. Limited evaluation of fine bony detail due to the placement overlyin g fiberglass cast. POS: LUIS
[2018-12-23 00:16] LABS: Bilirubin Small (Negative); Blood, Urine Negative (Negative); Glucose, Urine (Dipstick) Negative (Negative); Leukocyte Small (Negative); Nitrite Negative (Negative); Protein, Urine (Dipstick) 100 mg/dL (Neg-Trace); Specific Gravity, Urine 1.025 (1.005-1.030); Urobilinogen 0.2 mg/dL (0.2-1.0); pH, Urine 5.5 (5.0-9.0)
[2018-12-23 00:17] LABS: Clarity Hazy (Clear)
[2018-12-23 00:22] LABS: Bacteria/HPF None Seen HPF (None Seen); Hyaline Casts/LPF 0-3 HYALINE CAST LPF (0-3 Hyaline); Pathc Cast-AUWi Flag 0.58 (0-2.49); RBC/HPF None Seen HPF (0-3)
[2018-12-23 00:32] LABS: Amphetamine Not Detected (NotDetected); Barbiturates Screen Not Detected (NotDetected); Benzodiazepine Screen Not Detected (NotDetected); Cocaine Metabolite Screen Not Detected (NotDetected); Medtox Control Line Valid? VALID (VALID); Medtox Reader # READER 4; Methadone Not Detected (NotDetected); Methamphetamine Not Detected (NotDetected); Opiate Screen Not Detected (NotDetected); Oxycodone Screen Not Detected (NotDetected); Phencyclidine (PCP) Not Detected (NotDetected); THC/Cannabinoid Screen Not Detected (NotDetected); Tricyclic Screen Not Detected (NotDetected)
[2018-12-23 00:37] LABS: Crystals/HPF 2+ AMORPH URATES HPF (Negative); Renal Epithelial 0-3 HPF (0-3); Transitional Epithelial NONE SEEN HPF (0-3)
== END ==
LOC: ERS 19:10
DX: F20.9 Schizophrenia, unspecified (principal); E11.9 Type 2 diabetes mellitus without complications; I11.0 Hypertensive heart disease with heart failure; I50.9 Heart failure, unspecified; Z86.73 Personal history of transient ischemic attack (TIA), and cerebral infarction without residual deficits; J45.909 Unspecified asthma, uncomplicated; F31.9 Bipolar disorder, unspecified; F41.9 Anxiety disorder, unspecified
CPT/HCPCS: 36415; 51701; 80053; 80306; 80307; 81003; 81015; 82550; 84443; 85025; A4353

== ENCOUNTER 2019-05-24 13:07 | Emergency (ER) | payer MEDICARE, MEDICAID ==
[2019-05-24 14:05] LABS: #Eosinphils 0.1 thou/uL (0.0-0.7); #Lymphocytes 1.6 thou/uL (1.20-3.40); #Monocytes 0.6 thou/uL (0.11-0.59); #Neutrophils 3.4 thou/uL (1.40-6.50); %Basophils 0.4 % (0.0-1.0); %Eosinophils 1.3 % (0.0-10.0); %Lymphocytes 27.9 % (21.0-51.0); %Monocytes 10.6 % (0.0-10.0); %Neutrophils 59.8 % (42.0-75.0); Hemoglobin 11.5 g/dL (12.0-16.0); Mean Corpuscular HGB CONC 32.7 g/dL (32.0-36.0); Mean Corpuscular Hemoglobin 27.8 pg (27.0-31.0); Mean Corpuscular Volume 85.1 fL (78.0-98.0); Mean Platelet Volume 8.2 fL (7.4-10.4); Platelet Count 183 thou/uL (130-400); RBC Distribution Width 13.1 % (11.5-14.5); Red Blood Cell (RBC) Count 4.14 mill/uL (4.20-5.40); White Blood Cell (WBC) Count 5.7 thou/uL (4.8-10.8)
--- NOTE | 2019-05-24 14:22 | RAD ---
Exam: Chest one view HISTORY:Altered mental status Comparison: 11/16/2018 FINDINGS: Cardiac silhouette: Normal Aorta: Unremarkable Pulmonary vessels: Normal Costophrenic angles: Clear LUNGS: No masses or consolidation. Pneumothorax: None Osseous abnormalities: None IMPRESSION: No acute cardiopulmonary process.
[2019-05-24 14:28] LABS: ALT (SGPT) 30 U/L (8-55); AST (SGOT) 41 U/L (5-34); Albumin 3.9 g/dL (3.5-5.0); Alkaline Phosphatase 88 U/L (40-150); Anion Gap 16 mmol/L (10-20); BUN (Urea Nitrogen) 34 mg/dL (9.8-20.1); Bilirubin, Total 0.8 mg/dL (0.2-1.2); CK (CPK) 74 U/L (29-168); Calc. Creatinine Clearance 0 mL/min (70-130); Calcium 9.8 mg/dL (7.8-10.44); Carbon Dioxide 23 mmol/L (22-29); Chloride 104 mmol/L (98-107); Estimated GFR-MDRD 42; Globulin 4.1 g/dL (2.4-3.5); Glucose 86 mg/dL (70-105); Lipase 26 U/L (8-78); Sodium 139 mmol/L (136-145)
--- NOTE | 2019-05-24 15:03 | CT ---
Exam: Head CT without contrast HISTORY: Altered mental status COMPARISON: 11/16/2018 FINDINGS: Hemorrhage: No intraparenchymal hemorrhage or extra-axial hematoma. Brain parenchyma: Cortical arias-white matter differentiation is preserved. No mass effect or midline shift. Basilar cisterns are patent. Ventricular system: Ventricles and sulci are patent and symmetric. Calvarium: Intact. Sinuses and mastoid air cells: Adequate aeration. Periapical lucency involving the posterior most left maxillary tooth. Correlate for periodontal disea se. IMPRESSION: 1. No acute intracranial process. 2. Periapical lucency involving the posterior most left maxillary molar tooth. Correlate for periodon yumiko disease.
[2019-05-24 16:28] LABS: Bilirubin Negative (Negative); Blood, Urine Negative (Negative); Clarity Clear (Clear); Glucose, Urine (Dipstick) Normal (Negative); Leukocyte Negative Leu/uL (Negative); Nitrite Negative (Negative); Protein, Urine (Dipstick) 200 mg/dL (Neg-Trace); RBC/HPF 0-3 HPF (0-3); Squamous Epithelial 0-3 HPF (0-3); WBC/HPF 0-3 HPF (0-3)
[2019-05-24 16:31] LABS: Bacteria/HPF 1+ HPF (None Seen)
[2019-05-24 22:36] LABS: Amphetamine Not Detected (NotDetected); Barbiturates Screen Not Detected (NotDetected); Benzodiazepine Screen Not Detected (NotDetected); Cocaine Metabolite Screen Not Detected (NotDetected); Medtox Control Line Valid? VALID (VALID); Medtox Reader # READER 1; Methadone Not Detected (NotDetected); Methamphetamine Not Detected (NotDetected); Opiate Screen Not Detected (NotDetected); Oxycodone Screen Not Detected (NotDetected); Phencyclidine (PCP) Not Detected (NotDetected); THC/Cannabinoid Screen Not Detected (NotDetected); Tricyclic Screen Detected (NotDetected)
[2019-05-25 09:39] LABS: Anion Gap 13 mmol/L (10-20); BUN (Urea Nitrogen) 21 mg/dL (9.8-20.1); Calc. Creatinine Clearance 0 mL/min (70-130); Calcium 9.6 mg/dL (7.8-10.44); Carbon Dioxide 24 mmol/L (22-29); Chloride 101 mmol/L (98-107); Estimated GFR-MDRD 59; Glucose 102 mg/dL (70-105); Potassium 3.8 mmol/L (3.5-5.1); Sodium 134 mmol/L (136-145)
[2019-05-25] MEDS ORDERED: Amlodipine 5 MG TAB ONE (13:18)
[2019-05-25] MEDS ORDERED: hydrALAZINE 25 MG TAB ONE (13:20)
[2019-05-25 16:38] LABS: Anion Gap 12 mmol/L (10-20); BUN (Urea Nitrogen) 18 mg/dL (9.8-20.1); Calc. Creatinine Clearance 0 mL/min (70-130); Calcium 9.1 mg/dL (7.8-10.44); Carbon Dioxide 23 mmol/L (22-29); Chloride 103 mmol/L (98-107); Estimated GFR-MDRD 66; Glucose 109 mg/dL (70-105); Potassium 3.4 mmol/L (3.5-5.1); Sodium 135 mmol/L (136-145)
[2019-05-26] MEDS ORDERED: Fenofibrate Nanocrystallized 145 MG TAB PO SCH (11:45)
[2019-05-26] MEDS ORDERED: Carvedilol 25 MG TAB PO SCH ×2 (11:45→17:00)
[2019-05-26] MEDS ORDERED: Calcium Acetate 667 MG CAP PO SCH (11:45)
[2019-05-26] MEDS ORDERED: hydrALAZINE 25 MG TAB PO SCH ×2 (11:45→21:00)
[2019-05-26] MEDS ORDERED: Amlodipine 10 MG TAB PO SCH (11:45)
[2019-05-26] MEDS ORDERED: Isosorbide Mononitrate (ER) 30 MG TAB PO SCH (11:45)
[2019-05-26] MEDS ORDERED: carBAMazepine 100 mg Chewable Tablet PO SCH ×2 (11:45→21:00)
[2019-05-26] MEDS ORDERED: Benztropine 1 MG TAB PO SCH ×2 (11:45→21:00)
[2019-05-27] MEDS ORDERED: Isosorbide Mononitrate (ER) 30 MG TAB PO SCH (09:00)
[2019-05-27] MEDS ORDERED: Calcium Acetate 667 MG CAP PO SCH (09:00)
[2019-05-27] MEDS ORDERED: Fenofibrate Nanocrystallized 145 MG TAB PO SCH (09:00)
[2019-05-27] MEDS ORDERED: Amlodipine 10 MG TAB PO SCH (09:00)
--- NOTE | 2019-06-06 14:30 | EKG ---
Test Reason : ANOREXIA Blood Pressure : / mmHG Vent. Rate : 085 BPM Atrial Rate : 085 BPM P-R Int : 218 ms QRS Dur : 080 ms QT Int : 392 ms P-R-T Axes : 046 002 040 degrees QTc Int : 466 ms Sinus rhythm with 1st degree A-V block Nonspecific T wave abnormality Prolonged QT Abnormal ECG Confirmed by ALFRED ZHANG ([id number]), assignment desk editor NICKO YE ([id number]) on 06/06/2019 2:30:07 PM Referred By: JANES Confirmed By:ALFRED ZHANG
== END 2019-05-26 13:11 ==
LOC: ERS 13:07
DX: F29 Unspecified psychosis not due to a substance or known physiological condition (principal); I11.0 Hypertensive heart disease with heart failure; I50.9 Heart failure, unspecified; E11.9 Type 2 diabetes mellitus without complications; Z86.73 Personal history of transient ischemic attack (TIA), and cerebral infarction without residual deficits; J45.909 Unspecified asthma, uncomplicated; F41.9 Anxiety disorder, unspecified; F31.9 Bipolar disorder, unspecified; F20.9 Schizophrenia, unspecified; Z79.899 Other long term (current) drug therapy; Z79.82 Long term (current) use of aspirin
CPT/HCPCS: 36415; 36416; 51701; 70450; 71045; 80048; 80053; 80306; 80307; 81003; 81015; 82140; 82550; 83690; 84443; 84484; 85025; 87086; 93005; 96361; 96372; 96374; 99285; A4353

== ENCOUNTER 2019-06-23 16:28 | Emergency (ER) | payer MEDICARE, MEDICAID ==
--- NOTE | 2019-06-23 16:58 | RAD ---
Left knee 4 views: 06/23/2019 COMPARISON: None HISTORY: Fall, trauma, pain FINDINGS: There is no knee joint effusion. There is no displaced fracture or evidence of dislocation. No radiopaque foreign body or subcutaneous gas. IMPRESSION: No acute osseous abnormality.
[2019-06-23] MEDS ORDERED: Ibuprofen 200 MG TAB ONE (17:54)
== END 2019-06-23 17:58 | disposition home or self-care (01) ==
LOC: ERS 16:28
DX: S80.212A Abrasion, left knee, initial encounter (principal); I11.0 Hypertensive heart disease with heart failure; I50.9 Heart failure, unspecified; E11.9 Type 2 diabetes mellitus without complications; F41.9 Anxiety disorder, unspecified; F31.9 Bipolar disorder, unspecified; F20.9 Schizophrenia, unspecified; Z86.73 Personal history of transient ischemic attack (TIA), and cerebral infarction without residual deficits; W18.30XA Fall on same level, unspecified, initial encounter

== ENCOUNTER 2020-01-11 03:33 | Emergency (ER) | payer MEDICARE, OTHER | END 2020-01-11 03:53 | disposition short-term general hospital (02) | LOC: ERS 03:33 | DX: K59.00 Constipation, unspecified (principal); I11.0 Hypertensive heart disease with heart failure; I50.9 Heart failure, unspecified; E11.9 Type 2 diabetes mellitus without complications; M19.90 Unspecified osteoarthritis, unspecified site; Z86.73 Personal history of transient ischemic attack (TIA), and cerebral infarction without residual deficits; F41.9 Anxiety disorder, unspecified; F31.9 Bipolar disorder, unspecified; F20.9 Schizophrenia, unspecified | CPT/HCPCS: 99281 ==

== ENCOUNTER 2020-01-12 03:18 | Emergency (ER) | payer MEDICARE, OTHER ==
[2020-01-12] MEDS ORDERED: Ketorolac Tromethamine 30 MG/ML VIAL ONE (03:32)
== END 2020-01-12 03:35 | disposition home or self-care (01) ==
LOC: ERS 03:18
DX: R51 Headache (principal); F20.9 Schizophrenia, unspecified; I11.0 Hypertensive heart disease with heart failure; I50.9 Heart failure, unspecified; E11.9 Type 2 diabetes mellitus without complications; M19.90 Unspecified osteoarthritis, unspecified site; Z86.73 Personal history of transient ischemic attack (TIA), and cerebral infarction without residual deficits; F41.9 Anxiety disorder, unspecified; F31.9 Bipolar disorder, unspecified
CPT/HCPCS: 99284; J1885

== ENCOUNTER 2020-04-09 20:45 | Emergency (ER) | payer MEDICARE, OTHER ==
--- NOTE | 2020-04-09 21:22 | RAD ---
LEFT SMALL DIGIT RADIOGRAPHS THREE VIEWS: 04/09/20 PROVIDED CLINICAL HISTORY: Injury. FINDINGS: There is no evidence for fracture or other acute osseous abnormality. If there is persistent clinical concern, conservative management and follow-up imaging are advised. IMPRESSION: As above. POS: CLEMENCIA
[2020-04-09] MEDS ORDERED: Acetaminophen 500 MG TAB ONE (21:27)
[2020-04-09] MEDS ORDERED: Adacel (T-DAP) 0.5 ML SYRINGE ONE (21:27)
[2020-04-09] MEDS ORDERED: Lidocaine 1% w/Epinephrine 1:100K 20 ML VIAL ONE (21:27)
--- NOTE | 2020-04-09 21:27 | RAD ---
TWO VIEWS OF THE LEFT HP: 04/09/20 PROVIDED CLINICAL HISTORY: Injury. FINDINGS: Comparison is made with the study dated 11/16/18. There is no evidence for fracture. Left hip joint s pace appears preserved. There is circumscribed lucency seen in the region of the left ischial tuberos ity, incompletely characterized on the basis of this examination. Irregular appearance to the left sa croiliac joint. Both of these findings appear similar to prior pelvic radiographs, better demonstrate d on more remote prior 09/07/18. IMPRESSION: No evidence for an acute osseous abnormality. If there is persistent clinical concern, conservative m anagement and follow-up imaging are advised. POS: CLEMENCIA
--- NOTE | 2020-04-09 21:30 | CT ---
CT OF THE BRAIN WITHOUT CONTRAST: 04/09/20 COMPARISON: 05/24/19 HISTORY: Head injury with scalp laceration after falling out of bed. TECHNIQUE: Multiple contiguous axial images were obtained in a CT of the brain without contrast. FINDINGS: There are scattered hypodensities in the subcortical and periventricular white matter, likely seconda ry to small vessel ischemic disease. No large confluent infarction is seen. There is no evidence of h ydrocephalus, intracranial hemorrhage, or extra-axial fluid collections. The calvarium and overlying soft tissues are unremarkable. The visualized paranasal sinuses and masto id air cells are well aerated. IMPRESSION: No evidence of acute intracranial abnormality. POS: EAA
--- NOTE | 2020-04-09 21:33 | CT ---
CT CERVICAL SPINE WITHOUT CONTRAST: 04/09/20 HISTORY: Fall out of bed with head trauma and neck pain. COMPARISON: 09/11/18. TECHNIQUE: Multiple contiguous axial images are obtained in a CT of the cervical spine without contrast. Sagitta l and coronal reformats were performed. FINDINGS: The vertebral bodies and intervertebral discs demonstrate normal height and alignment without fractur e or subluxation. Minimal degenerative changes are seen. No prevertebral soft tissue swelling is seen . The posterior facets are well aligned. Normal alignment of the skull base with the cervical spine is seen. IMPRESSION: No evidence of acute osseous abnormality of the cervical spine. POS: EAA
== END 2020-04-09 23:01 | disposition home or self-care (01) ==
LOC: ERS 20:45
DX: S01.01XA Laceration without foreign body of scalp, initial encounter (principal); S60.052A Contusion of left little finger without damage to nail, initial encounter; E11.9 Type 2 diabetes mellitus without complications; I11.0 Hypertensive heart disease with heart failure; I50.9 Heart failure, unspecified; M16.0 Bilateral primary osteoarthritis of hip; F41.9 Anxiety disorder, unspecified; F31.9 Bipolar disorder, unspecified; F20.9 Schizophrenia, unspecified; Z86.73 Personal history of transient ischemic attack (TIA), and cerebral infarction without residual deficits; W06.XXXA Fall from bed, initial encounter
CPT/HCPCS: 12001; 70450; 72125; 90471; 90715

== ENCOUNTER 2020-04-13 15:00 | Emergency (ER) | payer MEDICARE, OTHER ==
[2020-04-13] MEDS ORDERED: Ketorolac Tromethamine 30 MG/ML VIAL ONE (15:35)
--- NOTE | 2020-04-13 16:01 | RAD ---
Exam:3 views left ankle HISTORY: Fall. Pain. COMPARISON: 12/22/2018, 09/12/2018 FINDINGS: Soft tissue swelling. Possible nondisplaced avulsive injury involving the tip of the latera l malleolus. No additional fractures. IMPRESSION: Nondisplaced lateral malleolus fracture with associated soft tissue swelling.
== END 2020-04-13 17:35 | disposition home or self-care (01) ==
LOC: ERS 15:00
DX: S82.65XA Nondisplaced fracture of lateral malleolus of left fibula, initial encounter for closed fracture (principal); I11.0 Hypertensive heart disease with heart failure; I50.9 Heart failure, unspecified; E11.9 Type 2 diabetes mellitus without complications; F31.9 Bipolar disorder, unspecified; F41.9 Anxiety disorder, unspecified; M16.0 Bilateral primary osteoarthritis of hip; W01.0XXA Fall on same level from slipping, tripping and stumbling without subsequent striking against object, initial encounter; Y92.091 Bathroom in other non-institutional residence as the place of occurrence of the external cause; Z86.73 Personal history of transient ischemic attack (TIA), and cerebral infarction without residual deficits
CPT/HCPCS: 96372; J1885

== ENCOUNTER 2021-01-11 19:26 | Observation (INO) | payer MEDICARE, MEDICAID ==
[2021-01-11 21:15] LABS: #Eosinphils 0.1 thou/uL (0.0-0.7); #Lymphocytes 2.7 thou/uL (1.20-3.40); #Monocytes 0.6 thou/uL (0.11-0.59); #Neutrophils 3.8 thou/uL (1.40-6.50); %Basophils 0.4 % (0.0-1.0); %Eosinophils 1.5 % (0.0-10.0); %Lymphocytes 37.5 % (21.0-51.0); %Monocytes 7.9 % (0.0-10.0); %Neutrophils 52.8 % (42.0-75.0); Hemoglobin 11.9 g/dL (12.0-16.0); Mean Corpuscular Hemoglobin 31.2 pg (27.0-31.0); Mean Corpuscular Volume 89.3 fL (78.0-98.0); Mean Platelet Volume 7.9 fL (7.4-10.4); Platelet Count 181 thou/uL (130-400); RBC Distribution Width 12.3 % (11.5-14.5); Red Blood Cell (RBC) Count 3.81 mill/uL (4.20-5.40); White Blood Cell (WBC) Count 7.2 thou/uL (4.8-10.8)
[2021-01-11] MEDS ORDERED: Amlodipine 5 MG TAB ONE (21:16)
[2021-01-11 21:35] LABS: ALT (SGPT) 23 U/L (8-55); AST (SGOT) 25 U/L (5-34); Albumin 3.3 g/dL (3.4-4.8); Alkaline Phosphatase 170 U/L (40-110); Anion Gap 18 mmol/L (10-20); BUN (Urea Nitrogen) 46 mg/dL (9.8-20.1); Bilirubin, Total 0.2 mg/dL (0.2-1.2); Calc. Creatinine Clearance 0 mL/min (70-130); Calcium 7.9 mg/dL (7.8-10.44); Carbon Dioxide 18 mmol/L (23-31); Chloride 106 mmol/L (98-107); Globulin 3.8 g/dL (2.4-3.5); Glucose 186 mg/dL (80-115); Potassium 4.5 mmol/L (3.5-5.1); Protein, Total 7.1 g/dL (5.8-8.1); Sodium 137 mmol/L (136-145)
[2021-01-12] MEDS ORDERED: Sodium Chloride 0.9% 1,000 ML IV SCH (02:15)
[2021-01-12] MEDS ORDERED: Acetaminophen 650 MG Suppository PR PRN (08:53)
[2021-01-12] MEDS ORDERED: Acetaminophen 325 MG TAB PO PRN (08:53)
[2021-01-12] MEDS ORDERED: Insulin Regular 300 UNITS/3 ML VIAL SC PRN (08:56)
[2021-01-12] MEDS ORDERED: Dextrose 5% in Water 1,000 ML IV PRN (08:56)
[2021-01-12] MEDS ORDERED: Dextrose 50% Abboject 50 ML SYRINGE SLOW IVP PRN (08:56)
[2021-01-12] MEDS ORDERED: FLU VACC QS2020-21(6MOS UP)/PF 60 MCG/0.5 ML SYRINGE IM ONE (09:00)
[2021-01-12] MEDS ORDERED: Furosemide 20 MG TAB PO SCH (09:00)
[2021-01-12] MEDS ORDERED: CARBAMAZEPINE 100 MG PO SCH (09:00)
[2021-01-12] MEDS: Amitriptyline HCl 10 MG TAB PO SCH (09:59)
[2021-01-12] MEDS: glipiZIDE 5 MG TAB PO SCH (09:59)
[2021-01-12] MEDS: Carvedilol 25 MG TAB PO SCH ×2 (09:59→22:18)
[2021-01-12] MEDS: Ezetimibe 10 MG TAB PO SCH (09:59)
[2021-01-12] MEDS: carBAMazepine 100 mg Chewable Tablet PO SCH ×2 (09:59→22:18)
[2021-01-12] MEDS: Heparin 5,000 UNITS/ML VIAL SC SCH ×2 (10:00→22:08)
[2021-01-12] MEDS: Insulin Regular 300 UNITS/3 ML VIAL SC PRN (11:44)
[2021-01-12 13:12] LABS: SARS-CoV-2 PCR by NAA Not Detected (NotDetected)
[2021-01-12 17:30] LABS: #Eosinphils 0.1 thou/uL (0.0-0.7); #Lymphocytes 2.3 thou/uL (1.20-3.40); #Monocytes 0.5 thou/uL (0.11-0.59); %Basophils 0.2 % (0.0-1.0); %Eosinophils 2.5 % (0.0-10.0); %Lymphocytes 46.7 % (21.0-51.0); %Monocytes 9.9 % (0.0-10.0); %Neutrophils 40.6 % (42.0-75.0); Hemoglobin 10.2 g/dL (12.0-16.0); Mean Corpuscular HGB CONC 33.8 g/dL (32.0-36.0); Mean Corpuscular Hemoglobin 30.5 pg (27.0-31.0); Mean Corpuscular Volume 90.1 fL (78.0-98.0); Mean Platelet Volume 8.1 fL (7.4-10.4); Platelet Count 185 thou/uL (130-400); RBC Distribution Width 12.1 % (11.5-14.5); Red Blood Cell (RBC) Count 3.35 mill/uL (4.20-5.40)
[2021-01-12 17:43] LABS: Anion Gap 15 mmol/L (10-20); BUN (Urea Nitrogen) 37 mg/dL (9.8-20.1); Calc. Creatinine Clearance 33 mL/min (70-130); Calcium 7.9 mg/dL (7.8-10.44); Carbon Dioxide 18 mmol/L (23-31); Chloride 108 mmol/L (98-107); Glucose 98 mg/dL (80-115); Potassium 4.6 mmol/L (3.5-5.1); Sodium 136 mmol/L (136-145)
[2021-01-12] MEDS ORDERED: Amlodipine 5 MG TAB PO SCH (21:00)
[2021-01-12] MEDS ORDERED: Pravastatin Sodium 40 MG TAB PO SCH (21:00)
[2021-01-12] MEDS ORDERED: Atorvastatin Calcium 10 MG TAB PO SCH (21:00)
[2021-01-12] MEDS ORDERED: Amlodipine 10 MG TAB PO SCH (21:00)
[2021-01-13] MEDS: Insulin Regular 300 UNITS/3 ML VIAL SC PRN ×2 (06:38→12:12)
[2021-01-13] MEDS: Amitriptyline HCl 10 MG TAB PO SCH (08:10)
[2021-01-13] MEDS: glipiZIDE 5 MG TAB PO SCH (08:10)
[2021-01-13] MEDS: Heparin 5,000 UNITS/ML VIAL SC SCH (08:10)
[2021-01-13] MEDS: Ezetimibe 10 MG TAB PO SCH (08:10)
[2021-01-13] MEDS: Carvedilol 25 MG TAB PO SCH (08:10)
[2021-01-13] MEDS: carBAMazepine 100 mg Chewable Tablet PO SCH (08:10)
[2021-01-13 11:36] LABS: #Eosinphils 0.1 thou/uL (0.0-0.7); #Lymphocytes 1.5 thou/uL (1.20-3.40); #Monocytes 0.5 thou/uL (0.11-0.59); #Neutrophils 2.2 thou/uL (1.40-6.50); %Eosinophils 2.4 % (0.0-10.0); %Monocytes 10.7 % (0.0-10.0); %Neutrophils 51.8 % (42.0-75.0); Hemoglobin 11.2 g/dL (12.0-16.0); Mean Corpuscular HGB CONC 33.6 g/dL (32.0-36.0); Mean Corpuscular Hemoglobin 30.4 pg (27.0-31.0); Mean Corpuscular Volume 90.6 fL (78.0-98.0); Mean Platelet Volume 7.9 fL (7.4-10.4); Platelet Count 178 thou/uL (130-400); RBC Distribution Width 12.3 % (11.5-14.5); Red Blood Cell (RBC) Count 3.67 mill/uL (4.20-5.40); White Blood Cell (WBC) Count 4.3 thou/uL (4.8-10.8)
[2021-01-13 11:46] LABS: Anion Gap 8 mmol/L (10-20); BUN (Urea Nitrogen) 19 mg/dL (9.8-20.1); Calc. Creatinine Clearance 43 mL/min (70-130); Calcium 8.4 mg/dL (7.8-10.44); Carbon Dioxide 23 mmol/L (23-31); Chloride 107 mmol/L (98-107); Glucose 199 mg/dL (80-115); Potassium 4.9 mmol/L (3.5-5.1); Sodium 133 mmol/L (136-145)
[2021-01-13 15:20] VITALS: BMI 37.2
[2021-01-13 17:15] VITALS: BP 179/102; TEMP 98.3
== END 2021-01-13 17:15 | disposition home health service (06) ==
LOC: ERS 19:26 → 2SW 01-12 00:40
PROVIDERS: ADMIT Internal Medicine; ATTEND Internal Medicine
DX: I16.0 Hypertensive urgency (principal); N17.9 Acute kidney failure, unspecified; I13.0 Hypertensive heart and chronic kidney disease with heart failure and stage 1 through stage 4 chronic kidney disease, or unspecified chronic kidney disease; E11.22 Type 2 diabetes mellitus with diabetic chronic kidney disease; N18.4 Chronic kidney disease, stage 4 (severe); I50.30 Unspecified diastolic (congestive) heart failure; E87.1 Hypo-osmolality and hyponatremia; Z20.822 Contact with and (suspected) exposure to COVID-19; Z79.84 Long term (current) use of oral hypoglycemic drugs; Z79.899 Other long term (current) drug therapy; Z88.0 Allergy status to penicillin; Z88.5 Allergy status to narcotic agent; Z88.8 Allergy status to other drugs, medicaments and biological substances; Z91.018 Allergy to other foods; Z86.73 Personal history of transient ischemic attack (TIA), and cerebral infarction without residual deficits
CPT/HCPCS: 80048 ×2; 80053; 82962 ×3; 84484; 85025 ×3; 93005; 96372 ×2; 99285; G0378 ×3; U0003; U0005; 36415; 36416; 87635; J1644; J1815

== ENCOUNTER 2022-02-22 12:16 | Inpatient (IN) | payer MEDICARE, MEDICAID ==
[2022-02-22 13:21] LABS: #Eosinphils 0.1 thou/uL (0.0-0.7); #Lymphocytes 0.9 thou/uL (1.20-3.40); #Monocytes 0.3 thou/uL (0.11-0.59); #Neutrophils 3.6 thou/uL (1.40-6.50); %Basophils 0.3 % (0.0-1.0); %Eosinophils 1.7 % (0.0-10.0); %Lymphocytes 17.5 % (21.0-51.0); %Monocytes 6.2 % (0.0-10.0); %Neutrophils 74.3 % (42.0-75.0); Mean Corpuscular HGB CONC 33.6 g/dL (32.0-36.0); Mean Corpuscular Hemoglobin 31.1 pg (27.0-31.0); Mean Corpuscular Volume 92.6 fL (78.0-98.0); Mean Platelet Volume 7.1 fL (7.4-10.4); Platelet Count 184 thou/uL (130-400); RBC Distribution Width 11.8 % (11.5-14.5); Red Blood Cell (RBC) Count 2.57 mill/uL (4.20-5.40); White Blood Cell (WBC) Count 4.9 thou/uL (4.8-10.8)
[2022-02-22 13:31] LABS: ALT (SGPT) 13 U/L (8-55); AST (SGOT) 17 U/L (5-34); Albumin 3.1 g/dL (3.4-4.8); Alkaline Phosphatase 124 U/L (40-110); Anion Gap 15 mmol/L (10-20); BUN (Urea Nitrogen) 64 mg/dL (9.8-20.1); Bilirubin, Total 0.4 mg/dL (0.2-1.2); Calc. Creatinine Clearance 0 mL/min (70-130); Carbon Dioxide 22 mmol/L (23-31); Chloride 104 mmol/L (98-107); Globulin 3.5 g/dL (2.4-3.5); Glucose 81 mg/dL (80-115); Potassium 5.1 mmol/L (3.5-5.1); Protein, Total 6.6 g/dL (5.8-8.1); Sodium 136 mmol/L (136-145)
[2022-02-22] MEDS ORDERED: Ondansetron PF 4 MG/2 ML Vial ONE (13:34)
[2022-02-22] MEDS ORDERED: HumaLOG 300 UNITS/3 ML VIAL SC PRN ×2 (16:09)
[2022-02-22] MEDS ORDERED: Ondansetron PF 4 MG/2 ML Vial IVP PRN (16:09)
[2022-02-22] MEDS ORDERED: Dextrose 50% Abboject 50 ML SYRINGE SLOW IVP PRN (16:09)
[2022-02-22] MEDS ORDERED: Ondansetron ODT 4 MG TAB PO PRN (16:09)
[2022-02-22] MEDS ORDERED: Dextrose 5% in Water 1,000 ML IV PRN (16:09)
[2022-02-22] MEDS ORDERED: Furosemide 40 MG/4 ML VIAL SLOW IVP SCH (18:15)
[2022-02-22 18:20] LABS: Hemoglobin A1c 5.2 % (4.0-6.0)
[2022-02-22 18:21] VITALS: BMI 34.9
[2022-02-22] MEDS: Dextrose 5 %-0.45 % NaCl 1,000 ML IV SCH (18:59)
[2022-02-22] MEDS ORDERED: Carvedilol 25 MG TAB PO SCH (21:30)
[2022-02-23 00:52] LABS: SARS-CoV-2 PCR by NAA Not Detected (NotDetected)
[2022-02-23] MEDS: Dextrose 5 %-0.45 % NaCl 1,000 ML IV SCH (05:17)
[2022-02-23 05:31] LABS: #Eosinphils 0.1 thou/uL (0.0-0.7); #Lymphocytes 1.2 thou/uL (1.20-3.40); #Monocytes 0.3 thou/uL (0.11-0.59); #Neutrophils 3.3 thou/uL (1.40-6.50); %Basophils 0.3 % (0.0-1.0); %Eosinophils 1.5 % (0.0-10.0); %Lymphocytes 24.6 % (21.0-51.0); %Monocytes 5.9 % (0.0-10.0); %Neutrophils 67.7 % (42.0-75.0); Hemoglobin 7.5 g/dL (12.0-16.0); Mean Corpuscular HGB CONC 33.4 g/dL (32.0-36.0); Mean Corpuscular Hemoglobin 31.2 pg (27.0-31.0); Mean Corpuscular Volume 93.5 fL (78.0-98.0); Mean Platelet Volume 7.2 fL (7.4-10.4); Platelet Count 177 thou/uL (130-400); RBC Distribution Width 14.5 % (11.5-14.5); Red Blood Cell (RBC) Count 2.39 mill/uL (4.20-5.40); White Blood Cell (WBC) Count 4.9 thou/uL (4.8-10.8)
[2022-02-23] MEDS: Furosemide 40 MG/4 ML VIAL SLOW IVP SCH ×2 (05:33→14:15)
[2022-02-23 05:50] LABS: ALT (SGPT) 11 U/L (8-55); AST (SGOT) 13 U/L (5-34); Albumin 2.7 g/dL (3.4-4.8); Alkaline Phosphatase 110 U/L (40-110); Anion Gap 13 mmol/L (10-20); BUN (Urea Nitrogen) 60 mg/dL (9.8-20.1); Bilirubin, Total 0.3 mg/dL (0.2-1.2); Calc. Creatinine Clearance 11 mL/min (70-130); Calcium 6.8 mg/dL (7.8-10.44); Carbon Dioxide 24 mmol/L (23-31); Chloride 104 mmol/L (98-107); Globulin 3.2 g/dL (2.4-3.5); Glucose 120 mg/dL (80-115); Potassium 5.1 mmol/L (3.5-5.1); Protein, Total 5.9 g/dL (5.8-8.1); Sodium 136 mmol/L (136-145)
[2022-02-23] MEDS ORDERED: Polyethylene Glycol 3350 17 GM Packet PO SCH (08:45)
[2022-02-23] MEDS ORDERED: Docusate 100 MG CAP PO SCH (08:45)
[2022-02-23] MEDS: Carvedilol 25 MG TAB PO SCH ×2 (08:51→17:14)
[2022-02-23] MEDS: Ezetimibe 10 MG TAB PO SCH (08:51)
[2022-02-23] MEDS ORDERED: Docusate 100 MG CAP PO PRN (09:56)
[2022-02-23] MEDS: Polyethylene Glycol 3350 17 GM Packet PO PRN (14:24)
[2022-02-23] MEDS: Amlodipine 10 MG TAB PO SCH (20:58)
[2022-02-23] MEDS: Atorvastatin Calcium 10 MG TAB PO SCH (20:59)
[2022-02-23] MEDS ORDERED: CARBAMAZEPINE 100 MG PO SCH (21:00)
[2022-02-24] MEDS: Furosemide 40 MG/4 ML VIAL SLOW IVP SCH ×2 (06:15→16:14)
[2022-02-24 06:51] LABS: Mean Corpuscular HGB CONC 31.2 g/dL (32.0-36.0); Mean Corpuscular Hemoglobin 30.3 pg (27.0-31.0); Mean Corpuscular Volume 97.2 fL (78.0-98.0); Mean Platelet Volume 7.3 fL (7.4-10.4); Platelet Count 177 thou/uL (130-400); Red Blood Cell (RBC) Count 2.31 mill/uL (4.20-5.40); White Blood Cell (WBC) Count 4.5 thou/uL (4.8-10.8)
[2022-02-24] MEDS: Polyethylene Glycol 3350 17 GM Packet PO PRN (08:23)
[2022-02-24] MEDS: Ezetimibe 10 MG TAB PO SCH (08:23)
[2022-02-24] MEDS: Carvedilol 25 MG TAB PO SCH ×2 (08:24→16:21)
[2022-02-24] MEDS ORDERED: Heparin 10,000 UNITS/ 10 ML VIAL ONE (08:42)
[2022-02-24 12:37] LABS: Hemoglobin 6.8 g/dL (12.0-16.0)
[2022-02-24] MEDS: Acetaminophen 325 MG TAB PO PRN (12:54)
[2022-02-24 13:25] LABS: Anion Gap 18 mmol/L (10-20); BUN (Urea Nitrogen) 58 mg/dL (9.8-20.1); Calc. Creatinine Clearance 11 mL/min (70-130); Calcium 6.7 mg/dL (7.8-10.44); Carbon Dioxide 18 mmol/L (23-31); Chloride 102 mmol/L (98-107); Glucose 107 mg/dL (80-115); Potassium 5.4 mmol/L (3.5-5.1); Sodium 133 mmol/L (136-145)
[2022-02-24] MEDS ORDERED: Dextrose 50% Abboject 50 ML SYRINGE SLOW IVP PRN (14:02)
[2022-02-24] MEDS ORDERED: Insulin Regular 300 UNITS/3 ML VIAL IVP SCH (14:15)
[2022-02-24] MEDS ORDERED: Dextrose 10% in Water 250 ML IVPB SCH (15:00)
[2022-02-24 17:55] LABS: Iron 63 ug/dL (50-170); Iron Binding Capacity, Total 205 mcg/dL (265-497)
[2022-02-24 18:19] LABS: Ferritin 385.93 ng/mL (10-291)
[2022-02-24 19:19] LABS: Hemoglobin 8.3 g/dL (12.0-16.0)
[2022-02-24] MEDS ORDERED: Polyethylene Glycol 3350 17 GM Packet PO PRN (21:00)
[2022-02-24] MEDS ORDERED: Preparation H HC 1% Cream 26 GM TUBE TOP SCH (21:00)
[2022-02-24 21:50] LABS: HBSAB Concentration Less than 8.00 mIU/mL; Hep B Core Total Ab Non-Reactive (NonReactive); Hep B Core Total Index 0.09 S/CO (0-0.79); Hep B Surf AB Non-Reactive (NonReactive); Hep B Surf Ag Non-Reactive S/CO (NonReactive); Hep C IgG Ab Non-Reactive (NonReactive); Hep C Index 0.05 S/CO (0-0.79)
[2022-02-24] MEDS: Bisacodyl 10 MG SUPP PR SCH (22:12)
[2022-02-24] MEDS: Atorvastatin Calcium 10 MG TAB PO SCH (22:12)
[2022-02-24] MEDS: Hydrocortisone 1% Cream 30 GM TUBE TOP SCH (22:12)
[2022-02-24] MEDS: Amlodipine 10 MG TAB PO SCH (22:12)
[2022-02-25] MEDS: Acetaminophen 325 MG TAB PO PRN ×2 (04:40→08:35)
[2022-02-25] MEDS: Furosemide 40 MG/4 ML VIAL SLOW IVP SCH ×2 (06:02→14:25)
[2022-02-25] MEDS: Bisacodyl 10 MG SUPP PR SCH ×3 (06:02→22:02)
[2022-02-25 07:38] LABS: Anion Gap 16 mmol/L (10-20); BUN (Urea Nitrogen) 38 mg/dL (9.8-20.1); Calc. Creatinine Clearance 15 mL/min (70-130); Calcium 7.4 mg/dL (7.8-10.44); Carbon Dioxide 24 mmol/L (23-31); Chloride 99 mmol/L (98-107); Glucose 114 mg/dL (80-115); Potassium 4.6 mmol/L (3.5-5.1); Sodium 134 mmol/L (136-145)
[2022-02-25] MEDS: Carvedilol 25 MG TAB PO SCH ×2 (08:35→16:46)
[2022-02-25] MEDS: Ezetimibe 10 MG TAB PO SCH (08:35)
[2022-02-25] MEDS: Folic Acid 1 MG TAB PO SCH (08:35)
[2022-02-25] MEDS: Cyanocobalamin (Vitamin B-12) 1,000 MCG TAB PO SCH (08:35)
[2022-02-25] MEDS ORDERED: Heparin 10,000 UNITS/ 10 ML VIAL ONE (08:41)
[2022-02-25] MEDS: Hydrocortisone 1% Cream 30 GM TUBE TOP SCH ×2 (08:44→20:47)
[2022-02-25] MEDS ORDERED: Cyanocobalamin 1000 MCG/ML VIAL IM SCH (09:00)
[2022-02-25 09:41] LABS: Mean Corpuscular HGB CONC 33.9 g/dL (32.0-36.0); Mean Corpuscular Hemoglobin 31.1 pg (27.0-31.0); Mean Corpuscular Volume 91.8 fL (78.0-98.0); Mean Platelet Volume 7.1 fL (7.4-10.4); Platelet Count 174 thou/uL (130-400); RBC Distribution Width 11.9 % (11.5-14.5); Red Blood Cell (RBC) Count 2.89 mill/uL (4.20-5.40); White Blood Cell (WBC) Count 5.5 thou/uL (4.8-10.8)
[2022-02-25] MEDS: Amlodipine 10 MG TAB PO SCH (20:47)
[2022-02-25] MEDS: Atorvastatin Calcium 10 MG TAB PO SCH (20:47)
[2022-02-26] MEDS: Furosemide 40 MG/4 ML VIAL SLOW IVP SCH (05:03)
[2022-02-26] MEDS: Bisacodyl 10 MG SUPP PR SCH (05:08)
[2022-02-26 05:41] LABS: Mean Corpuscular HGB CONC 33.7 g/dL (32.0-36.0); Mean Corpuscular Hemoglobin 30.9 pg (27.0-31.0); Mean Corpuscular Volume 91.7 fL (78.0-98.0); Mean Platelet Volume 6.5 fL (7.4-10.4); Platelet Count 174 thou/uL (130-400); RBC Distribution Width 12.1 % (11.5-14.5); Red Blood Cell (RBC) Count 2.91 mill/uL (4.20-5.40)
[2022-02-26 06:10] LABS: Anion Gap 14 mmol/L (10-20); BUN (Urea Nitrogen) 24 mg/dL (9.8-20.1); Calc. Creatinine Clearance 19 mL/min (70-130); Calcium 7.9 mg/dL (7.8-10.44); Carbon Dioxide 26 mmol/L (23-31); Chloride 99 mmol/L (98-107); Glucose 98 mg/dL (80-115); Potassium 3.9 mmol/L (3.5-5.1); Sodium 135 mmol/L (136-145)
[2022-02-26] MEDS ORDERED: hydrALAZINE 20 MG/ML VIAL SLOW IVP PRN (07:41)
[2022-02-26] MEDS: Hydrocortisone 1% Cream 30 GM TUBE TOP SCH (08:41)
[2022-02-26] MEDS: Cyanocobalamin (Vitamin B-12) 1,000 MCG TAB PO SCH (08:41)
[2022-02-26] MEDS: Ezetimibe 10 MG TAB PO SCH (08:41)
[2022-02-26] MEDS: Carvedilol 25 MG TAB PO SCH ×2 (08:41→17:09)
[2022-02-26] MEDS: Folic Acid 1 MG TAB PO SCH (08:41)
[2022-02-26] MEDS ORDERED: hydrOXYzine 25 MG TAB PO SCH (08:45)
[2022-02-26] MEDS: Docusate 100 MG CAP PO SCH (09:05)
[2022-02-26] MEDS: Polyethylene Glycol 3350 17 GM Packet PO SCH (09:06)
[2022-02-26] MEDS ORDERED: ceFAZolin (BATCH) 2 GM in Premix Bag 1 BAG IVPB SCH (12:30)
[2022-02-26] MEDS: Tuberculin PPD 0.1 ML VIAL I-DERMAL SCH (15:09)
[2022-02-26] MEDS: Acetaminophen 325 MG TAB PO PRN (19:39)
[2022-02-26] MEDS: Amlodipine 10 MG TAB PO SCH (19:41)
[2022-02-26] MEDS: Atorvastatin Calcium 10 MG TAB PO SCH (19:41)
[2022-02-27] MEDS: Hydrocortisone 1% Cream 30 GM TUBE TOP SCH ×3 (00:05→22:34)
[2022-02-27 06:45] LABS: Anion Gap 14 mmol/L (10-20); BUN (Urea Nitrogen) 28 mg/dL (9.8-20.1); Calc. Creatinine Clearance 15 mL/min (70-130); Calcium 7.8 mg/dL (7.8-10.44); Carbon Dioxide 26 mmol/L (23-31); Chloride 101 mmol/L (98-107); Glucose 104 mg/dL (80-115); Potassium 4.2 mmol/L (3.5-5.1); Sodium 137 mmol/L (136-145)
[2022-02-27] MEDS: Carvedilol 25 MG TAB PO SCH ×3 (07:50→18:47)
[2022-02-27] MEDS ORDERED: Heparin 10,000 UNITS/ 10 ML VIAL ONE ×2 (10:16→13:36)
[2022-02-27] MEDS: Epoetin (ESRD) 10,000 UNITS/ML VIAL IVP SCH (12:00)
[2022-02-27] MEDS: Polyethylene Glycol 3350 17 GM Packet PO SCH (12:34)
[2022-02-27] MEDS: Docusate 100 MG CAP PO SCH (12:34)
[2022-02-27] MEDS: Cyanocobalamin (Vitamin B-12) 1,000 MCG TAB PO SCH (12:34)
[2022-02-27] MEDS: Folic Acid 1 MG TAB PO SCH (12:35)
[2022-02-27] MEDS: Ezetimibe 10 MG TAB PO SCH (12:35)
[2022-02-27] MEDS: Tuberculin PPD 0.1 ML VIAL I-DERMAL SCH (12:35)
[2022-02-27] MEDS ORDERED: Fentanyl 100 MCG/2 ML VIAL ONE (13:28)
[2022-02-27] MEDS ORDERED: Ioversol 68 % 50 ML VIAL ONE (13:36)
[2022-02-27] MEDS ORDERED: Heparin 5,000 UNITS/ML VIAL ONE (13:36)
[2022-02-27] MEDS ORDERED: Bupivacaine PF 0.5% 30 ML VIAL ONE (13:36)
[2022-02-27] MEDS ORDERED: Protamine Sulfate 50 MG/5 ML VIAL ONE (13:36)
[2022-02-27] MEDS ORDERED: Lidocaine 1% w/Epinephrine 1:100K 20 ML VIAL ONE (13:36)
[2022-02-27] MEDS ORDERED: fentaNYL Citrate/PF 100 MCG/2 ML SYRINGE ONE (13:46)
[2022-02-27] MEDS ORDERED: Propofol 500 MG/50 ML VIAL ONE (13:50)
[2022-02-27] MEDS ORDERED: ceFAZolin (BATCH) 2 GM/100 ML BAG ONE (13:53)
[2022-02-27] MEDS ORDERED: Bupivacaine HCl 0.5%/Epinephrine 1:200,000/PF 30 ml Vial ONE (14:03)
[2022-02-27] MEDS ORDERED: Ondansetron PF 4 MG/2 ML Vial ONE (14:03)
[2022-02-27] MEDS ORDERED: PHENYLEPHRINE-NS 100 MCG/ML 10 ML SYRINGE ONE (14:03)
[2022-02-27] MEDS ORDERED: ePHEDrine 50 MG/ML VIAL ONE (14:03)
[2022-02-27] MEDS ORDERED: PROPOFOL 200 MG/20 ML VIAL ONE (14:03)
[2022-02-27] MEDS ORDERED: Lidocaine 1% PF 5 ML VIAL ONE (14:03)
[2022-02-27] MEDS ORDERED: Dextrose 50% Abboject 50 ML SYRINGE ONE ×2 (14:22)
[2022-02-27] MEDS ORDERED: traMADol HCl 50 MG TAB PO PRN ×2 (16:07→17:16)
[2022-02-27] MEDS ORDERED: Promethazine HCl 25 MG/ML VIAL IVPB PRN (16:09)
[2022-02-27] MEDS ORDERED: Promethazine HCl 25 MG/ML VIAL IM PRN (16:09)
[2022-02-27] MEDS ORDERED: Ondansetron HCl/PF 4 MG/2 ML Vial IVP PRN (16:09)
[2022-02-27 17:54] LABS: CO2 Tension 45.3 mmHg (35.0-45.0); pH, Arterial 7.42 (7.35-7.45)
[2022-02-27 17:55] LABS: Actual Bicarbonate (HCO3a) 28.7 mEq/L (22-28); Base Excess (BEa) 3.7 mEq/L (-2.0 to +3.0); Calcium, Ionized (arterial) 1.04 mmol/L (1.12-1.30); Carboxyhemoglobin (COHb) 0.1 gm% (0.0-3.0); Hemoglobin (Hb) 10.6 g/dL (12.0-16.0); O2 Tension (PaO2), arterial 91.3 mmHg (> 80.0); Potassium - ABG Lab 3.78 mmol/L (3.70-5.30)
[2022-02-27 17:56] LABS: Puncture Site LRA
[2022-02-27] MEDS: Atorvastatin Calcium 10 MG TAB PO SCH (22:27)
[2022-02-27] MEDS: Amlodipine 10 MG TAB PO SCH (22:27)
[2022-02-28] MEDS: Acetaminophen 325 MG TAB PO PRN (02:37)
[2022-02-28 06:04] LABS: Hemoglobin 8.9 g/dL (12.0-16.0); Mean Corpuscular HGB CONC 33.7 g/dL (32.0-36.0); Mean Corpuscular Hemoglobin 31.2 pg (27.0-31.0); Mean Corpuscular Volume 92.5 fL (78.0-98.0); Platelet Count 148 thou/uL (130-400); RBC Distribution Width 12.1 % (11.5-14.5); Red Blood Cell (RBC) Count 2.84 mill/uL (4.20-5.40)
[2022-02-28 06:30] LABS: Anion Gap 11 mmol/L (10-20); BUN (Urea Nitrogen) 19 mg/dL (9.8-20.1); Calc. Creatinine Clearance 20 mL/min (70-130); Calcium 7.7 mg/dL (7.8-10.44); Carbon Dioxide 30 mmol/L (23-31); Chloride 100 mmol/L (98-107); Glucose 111 mg/dL (80-115); Potassium 3.8 mmol/L (3.5-5.1); Sodium 137 mmol/L (136-145)
[2022-02-28] MEDS ORDERED: READ PPD TEST SITE PO SCH (09:00)
[2022-02-28] MEDS: Polyethylene Glycol 3350 17 GM Packet PO SCH (09:03)
[2022-02-28] MEDS: Folic Acid 1 MG TAB PO SCH (09:03)
[2022-02-28] MEDS: Cyanocobalamin (Vitamin B-12) 1,000 MCG TAB PO SCH (09:03)
[2022-02-28] MEDS: Docusate 100 MG CAP PO SCH (09:03)
[2022-02-28] MEDS: Ezetimibe 10 MG TAB PO SCH (09:03)
[2022-02-28] MEDS: Hydrocortisone 1% Cream 30 GM TUBE TOP SCH ×2 (09:04→21:01)
[2022-02-28] MEDS: Carvedilol 25 MG TAB PO SCH ×2 (09:04→17:28)
[2022-02-28] MEDS: Amlodipine 10 MG TAB PO SCH (21:00)
[2022-02-28] MEDS: Atorvastatin Calcium 10 MG TAB PO SCH (21:01)
[2022-02-28] MEDS: Hydrocortisone Acetate 25 MG Suppository PR SCH (21:01)
[2022-03-01 06:32] LABS: Anion Gap 11 mmol/L (10-20); BUN (Urea Nitrogen) 22 mg/dL (9.8-20.1); Calc. Creatinine Clearance 17 mL/min (70-130); Calcium 7.9 mg/dL (7.8-10.44); Carbon Dioxide 30 mmol/L (23-31); Chloride 99 mmol/L (98-107); Glucose 132 mg/dL (80-115); Sodium 136 mmol/L (136-145)
[2022-03-01 06:35] LABS: Hemoglobin 8.7 g/dL (12.0-16.0); Mean Corpuscular HGB CONC 34.1 g/dL (32.0-36.0); Mean Corpuscular Hemoglobin 31.9 pg (27.0-31.0); Mean Corpuscular Volume 93.6 fL (78.0-98.0); Platelet Count 130 thou/uL (130-400); Red Blood Cell (RBC) Count 2.73 mill/uL (4.20-5.40); White Blood Cell (WBC) Count 4.5 thou/uL (4.8-10.8)
[2022-03-01 08:23] LABS: Band 1 % (5-11); Lymphocytes 26 % (21-51); MDiff Complete? YES; Monocytes 13 % (0-10); Neutrophil 60 % (42-75); Platelet Morphology Comment Appears Adequate; Polychromasia SLIGHT = 2-3 cells (100X) (0-2/hpf)
[2022-03-01] MEDS: Hydrocortisone 1% Cream 30 GM TUBE TOP SCH (08:51)
[2022-03-01] MEDS: Docusate 100 MG CAP PO SCH (08:51)
[2022-03-01] MEDS: Carvedilol 25 MG TAB PO SCH (08:51)
[2022-03-01] MEDS: Polyethylene Glycol 3350 17 GM Packet PO SCH (08:52)
[2022-03-01] MEDS: Hydrocortisone Acetate 25 MG Suppository PR SCH (08:52)
[2022-03-01] MEDS ORDERED: Heparin 10,000 UNITS/ 10 ML VIAL ONE (09:09)
[2022-03-01] MEDS: Epoetin (ESRD) 10,000 UNITS/ML VIAL IVP SCH (11:15)
[2022-03-01] MEDS: Cyanocobalamin (Vitamin B-12) 1,000 MCG TAB PO SCH (13:40)
[2022-03-01] MEDS: Folic Acid 1 MG TAB PO SCH (13:40)
[2022-03-01] MEDS: Ezetimibe 10 MG TAB PO SCH (13:40)
[2022-03-01 14:10] VITALS: BP 142/72; TEMP 98.2
== END 2022-03-01 16:37 | DRG 673 ==
LOC: ERS 12:16 → SUATTDRO 12:16 → T4-B 15:49 → OBSVTOIN 02-23 12:12
PROVIDERS: ADMIT Internal Medicine; ATTEND Hospitalist
PROC: 06HY33Z Insertion of Infusion Device into Lower Vein, Percutaneous Approach (ICD-10-PCS; 2022-02-24)
PROC: 30233N1 Transfusion of Nonautologous Red Blood Cells into Peripheral Vein, Percutaneous Approach (ICD-10-PCS; 2022-02-24)
PROC: 5A1D70Z Performance of Urinary Filtration, Intermittent, Less than 6 Hours Per Day (ICD-10-PCS; 2022-02-24)
PROC: 031B0ZF Bypass Right Radial Artery to Lower Arm Vein, Open Approach (ICD-10-PCS; principal; 2022-02-27)
PROC: 0JH60XZ Insertion of Tunneled Vascular Access Device into Chest Subcutaneous Tissue and Fascia, Open Approach (ICD-10-PCS; 2022-02-27)
PROC: 02HV33Z Insertion of Infusion Device into Superior Vena Cava, Percutaneous Approach (ICD-10-PCS; 2022-02-27)
PROC: B5181ZA Fluoroscopy of Superior Vena Cava using Low Osmolar Contrast, Guidance (ICD-10-PCS; 2022-02-27)
PROC: 02HV33Z Insertion of Infusion Device into Superior Vena Cava, Percutaneous Approach (ICD-10-PCS; 2022-02-27)
PROC: B548ZZA Ultrasonography of Superior Vena Cava, Guidance (ICD-10-PCS; 2022-02-27)
DX: N17.9 Acute kidney failure, unspecified (principal); G93.41 Metabolic encephalopathy; I50.32 Chronic diastolic (congestive) heart failure; I13.2 Hypertensive heart and chronic kidney disease with heart failure and with stage 5 chronic kidney disease, or end stage renal disease; Z20.822 Contact with and (suspected) exposure to COVID-19; N18.6 End stage renal disease; E78.5 Hyperlipidemia, unspecified; K21.9 Gastro-esophageal reflux disease without esophagitis; K64.4 Residual hemorrhoidal skin tags; E66.01 Morbid (severe) obesity due to excess calories; F20.9 Schizophrenia, unspecified; F31.9 Bipolar disorder, unspecified; K56.41 Fecal impaction; E10.43 Type 1 diabetes mellitus with diabetic autonomic (poly)neuropathy; D51.9 Vitamin B12 deficiency anemia, unspecified; D52.9 Folate deficiency anemia, unspecified; K31.84 Gastroparesis; E10.22 Type 1 diabetes mellitus with diabetic chronic kidney disease; E10.649 Type 1 diabetes mellitus with hypoglycemia without coma; E83.51 Hypocalcemia; E88.81 Metabolic syndrome and other insulin resistance; D63.1 Anemia in chronic kidney disease; Z88.5 Allergy status to narcotic agent; Z88.0 Allergy status to penicillin; Z99.2 Dependence on renal dialysis; Z88.8 Allergy status to other drugs, medicaments and biological substances; Z91.018 Allergy to other foods; Z68.34 Body mass index [BMI] 34.0-34.9, adult; Z86.73 Personal history of transient ischemic attack (TIA), and cerebral infarction without residual deficits; Z79.899 Other long term (current) drug therapy; Z79.84 Long term (current) use of oral hypoglycemic drugs; Z90.49 Acquired absence of other specified parts of digestive tract; Z98.890 Other specified postprocedural states; Z83.3 Family history of diabetes mellitus; Z82.49 Family history of ischemic heart disease and other diseases of the circulatory system; Z80.42 Family history of malignant neoplasm of prostate
CPT/HCPCS: 36415; 36416; 36430; 36600; 71045; 74176; 76770; 80048; 80053; 82607; 82728; 82746; 82805; 83036; 83540; 83550; 83880; 85025; 85027; 86580; 86704; 86706; 86803; 86850; 86900; 86901; 87340; 90935; 93005; 93970; 94660; 96374; 96375; 96376; C1751; C1752; C1776; G0257; G0378; J0360; J0690; J1642; J1644; J1815; J1940; J2405; J2704; J2720; J3010; J3490; J7042; J7999; P9016; Q9967; S0020; U0003; U0005

== ENCOUNTER → 2022-05-11 | Day surgery (SDC) | payer MEDICARE, MEDICAID ==
[~2022-05-11] MED LIST changes: -ISOVUE-370 76%-LOCM 1 ML ONE; +Sodium Bicarbonate 2.5 MEQ/5 ML VIAL ONE
[2022-05-11 08:30] VITALS: BP 100/64; TEMP 98.5
== END | disposition home or self-care (01) ==
LOC: SPEC 07:59
PROVIDERS: ATTEND Specialist
PROC: B51W1ZZ Fluoroscopy of Dialysis Shunt/Fistula using Low Osmolar Contrast (ICD-10-PCS; principal; 2022-05-11)
DX: N18.6 End stage renal disease (principal); Z88.0 Allergy status to penicillin; Z88.5 Allergy status to narcotic agent; Z88.8 Allergy status to other drugs, medicaments and biological substances; Z91.02 Food additives allergy status; Z91.018 Allergy to other foods
CPT/HCPCS: 36901

== ENCOUNTER 2022-07-18 10:39 | Day surgery (SDC) | payer MEDICARE, MEDICAID ==
[2022-07-17 10:28] VITALS: BMI 25.4
[2022-07-18 11:29] LABS: #Eosinphils 0.1 thou/uL (0.0-0.7); #Lymphocytes 1.9 thou/uL (1.20-3.40); #Monocytes 0.5 thou/uL (0.11-0.59); %Basophils 0.1 % (0.0-1.0); %Eosinophils 2.8 % (0.0-10.0); %Lymphocytes 42.7 % (21.0-51.0); %Neutrophils 44.5 % (42.0-75.0); Hemoglobin 12.6 g/dL (12.0-16.0); Mean Corpuscular HGB CONC 32.2 g/dL (32.0-36.0); Mean Corpuscular Hemoglobin 32.1 pg (27.0-31.0); Mean Corpuscular Volume 99.5 fL (78.0-98.0); Mean Platelet Volume 7.9 fL (7.4-10.4); Platelet Count 145 thou/uL (130-400); RBC Distribution Width 16.1 % (11.5-14.5); Red Blood Cell (RBC) Count 3.94 mill/uL (4.20-5.40); White Blood Cell (WBC) Count 4.5 thou/uL (4.8-10.8)
[2022-07-18 11:43] LABS: Anion Gap 16 mmol/L (10-20); BUN (Urea Nitrogen) 28 mg/dL (9.8-20.1); Calc. Creatinine Clearance 14 mL/min (70-130); Carbon Dioxide 23 mmol/L (23-31); Chloride 101 mmol/L (98-107); Estimated GFR 11; Glucose 145 mg/dL (80-115); Potassium 5.6 mmol/L (3.5-5.1); Sodium 134 mmol/L (136-145)
[2022-07-18] MEDS ORDERED: Lidocaine 2% PF 5 ML VIAL ONE (13:23)
[2022-07-18] MEDS ORDERED: Fentanyl 100 MCG/2 ML VIAL ONE ×2 (13:43→15:27)
[2022-07-18] MEDS ORDERED: Levofloxacin 500 mg/D5W 100 ml Premix Bag ONE (13:45)
[2022-07-18] MEDS ORDERED: Ondansetron PF 4 MG/2 ML Vial ONE (13:52)
[2022-07-18] MEDS ORDERED: Dexamethasone 20 MG/5 ML VIAL ONE (13:52)
[2022-07-18] MEDS ORDERED: ePHEDrine 50 MG/ML VIAL ONE (13:52)
[2022-07-18] MEDS ORDERED: PROPOFOL 200 MG/20 ML VIAL ONE (13:52)
[2022-07-18] MEDS ORDERED: Phenylephrine 10 MG/ML VIAL ONE (13:52)
[2022-07-18] MEDS ORDERED: Heparin 1,000 UNITS/ML VIAL ONE (17:21)
== END 2022-07-18 17:53 | disposition home or self-care (01) ==
LOC: SDC 10:39
PROVIDERS: ATTEND Specialist
PROC: 03180JD Bypass Left Brachial Artery to Upper Arm Vein with Synthetic Substitute, Open Approach (ICD-10-PCS; principal; 2022-07-18)
DX: N18.6 End stage renal disease (principal); T82.868A Thrombosis due to vascular prosthetic devices, implants and grafts, initial encounter; Z87.891 Personal history of nicotine dependence; Z79.84 Long term (current) use of oral hypoglycemic drugs; Z79.899 Other long term (current) drug therapy; Z88.0 Allergy status to penicillin; Z88.5 Allergy status to narcotic agent; Z88.8 Allergy status to other drugs, medicaments and biological substances; Z91.02 Food additives allergy status; Z91.018 Allergy to other foods; Z99.2 Dependence on renal dialysis; Y81.3 Surgical instruments, materials and general- and plastic-surgery devices (including sutures) associated with adverse incidents
CPT/HCPCS: 80048; 85025; C1713; C1776; J1100; J1644; J1956; J2001; J2370; J2405; J2704; J3010; J3490; L8670

== ENCOUNTER 2022-08-30 17:37 | Inpatient (IN) | payer MEDICARE, MEDICAID ==
[~2022-08-30 17:37] MED LIST changes: +Cefepime 1 GM in Sodium Chloride 0.9% 100 ML IVPB SCH; -Sodium Bicarbonate 2.5 MEQ/5 ML VIAL ONE
[2022-08-30 18:55] LABS: #Lymphocytes 1.3 thou/uL (1.20-3.40); #Monocytes 0.6 thou/uL (0.11-0.59); #Neutrophils 5.9 thou/uL (1.40-6.50); %Basophils 0.2 % (0.0-1.0); %Eosinophils 0.3 % (0.0-10.0); %Monocytes 7.4 % (0.0-10.0); %Neutrophils 75.2 % (42.0-75.0); Hemoglobin 13.2 g/dL (12.0-16.0); Mean Corpuscular Hemoglobin 33.5 pg (27.0-31.0); Mean Corpuscular Volume 98.4 fl (78.0-98.0); Mean Platelet Volume 7.7 fL (7.4-10.4); Platelet Count 106 10x3/uL (130-400); RBC Distribution Width 13.4 % (11.5-14.5); Red Blood Cell (RBC) Count 3.93 mill/uL (4.20-5.40); White Blood Cell (WBC) Count 7.9 10x3/uL (4.8-10.8)
[2022-08-30] MEDS ORDERED: Acetaminophen 500 MG TAB ONE (19:08)
[2022-08-30 19:11] LABS: Platelet Morphology Comment Appears Decreased; RBC Morphology Normal
[2022-08-30 20:29] LABS: ALT (SGPT) 12 U/L (8-55); AST (SGOT) 18 U/L (5-34); Albumin 3.9 g/dL (3.4-4.8); Alkaline Phosphatase 133 U/L (40-110); Anion Gap 17 mmol/L (10-20); BUN (Urea Nitrogen) 15 mg/dL (9.8-20.1); Bilirubin, Total 0.6 mg/dL (0.2-1.2); Calc. Creatinine Clearance 0 mL/min (70-130); Calcium 9.6 mg/dL (7.8-10.44); Carbon Dioxide 25 mmol/L (23-31); Chloride 101 mmol/L (98-107); Estimated GFR 15; Globulin 4.8 g/dL (2.4-3.5); Glucose 120 mg/dL (80-115); Potassium 5.5 mmol/L (3.5-5.1); Protein, Total 8.7 g/dL (5.8-8.1); Sodium 137 mmol/L (136-145)
[2022-08-30] MEDS ORDERED: Senokot S 8.6-50 MG TAB PO PRN (20:49)
[2022-08-30] MEDS ORDERED: Dextrose 5% in Water 1,000 ML IV PRN (20:56)
[2022-08-30] MEDS ORDERED: Dextrose 50% Abboject 50 ML SYRINGE SLOW IVP PRN (20:56)
[2022-08-30] MEDS ORDERED: Insulin Regular 300 UNITS/3 ML VIAL SC PRN (20:56)
[2022-08-30] MEDS: Heparin 5,000 UNITS/ML VIAL SC SCH (22:51)
[2022-08-30] MEDS: Carvedilol 25 MG TAB PO SCH (22:51)
[2022-08-30] MEDS: Amitriptyline HCl 10 MG TAB PO SCH (22:51)
[2022-08-30] MEDS: PARoxetine 20 MG TAB PO SCH (22:51)
[2022-08-30] MEDS: Acetaminophen 325 MG TAB PO PRN (22:52)
[2022-08-30] MEDS: Simvastatin 5 MG TAB PO SCH (22:52)
[2022-08-31] MEDS ORDERED: Insulin Regular 300 UNITS/3 ML VIAL SC PRN (01:06)
[2022-08-31 04:40] LABS: #Lymphocytes 0.8 thou/uL (1.20-3.40); #Monocytes 0.5 thou/uL (0.11-0.59); #Neutrophils 4.7 thou/uL (1.40-6.50); %Basophils 0.4 % (0.0-1.0); %Eosinophils 0.5 % (0.0-10.0); %Lymphocytes 12.8 % (21.0-51.0); %Monocytes 8.8 % (0.0-10.0); %Neutrophils 77.5 % (42.0-75.0); Hemoglobin 11.4 g/dL (12.0-16.0); Mean Corpuscular HGB CONC 33.6 g/dL (32.0-36.0); Mean Corpuscular Hemoglobin 34.1 pg (27.0-31.0); Mean Platelet Volume 7.8 fL (7.4-10.4); Platelet Count 104 10x3/uL (130-400); RBC Distribution Width 13.6 % (11.5-14.5); Red Blood Cell (RBC) Count 3.34 mill/uL (4.20-5.40); White Blood Cell (WBC) Count 6.1 10x3/uL (4.8-10.8)
[2022-08-31 05:00] LABS: Anion Gap 14 mmol/L (10-20); BUN (Urea Nitrogen) 21 mg/dL (9.8-20.1); Calc. Creatinine Clearance 15 mL/min (70-130); Calcium 8.9 mg/dL (7.8-10.44); Carbon Dioxide 25 mmol/L (23-31); Chloride 102 mmol/L (98-107); Estimated GFR 12; Glucose 146 mg/dL (80-115); Potassium 4.7 mmol/L (3.5-5.1); Sodium 136 mmol/L (136-145)
[2022-08-31] MEDS: Cholecalciferol 1,000 UNITS (25 MCG) TAB PO SCH (08:31)
[2022-08-31] MEDS: Carvedilol 25 MG TAB PO SCH ×2 (08:31→20:15)
[2022-08-31] MEDS: Famotidine 20 MG TAB PO SCH (08:31)
[2022-08-31] MEDS: Heparin 5,000 UNITS/ML VIAL SC SCH ×3 (08:31→20:17)
[2022-08-31] MEDS: Cefepime 1 GM in Sodium Chloride 0.9% 100 ML IVPB SCH (08:32)
[2022-08-31] MEDS ORDERED: Lidocaine 1% w/Epinephrine 1:100K 20 ML VIAL IJ SCH (12:45)
[2022-08-31] MEDS: Acetaminophen 325 MG TAB PO PRN ×2 (15:16→20:16)
[2022-08-31] MEDS: PARoxetine 20 MG TAB PO SCH (20:15)
[2022-08-31] MEDS: Amitriptyline HCl 10 MG TAB PO SCH (20:15)
[2022-08-31] MEDS: Simvastatin 5 MG TAB PO SCH (20:16)
[2022-09-01 05:12] LABS: Anion Gap 14 mmol/L (10-20); BUN (Urea Nitrogen) 34 mg/dL (9.8-20.1); Calc. Creatinine Clearance 11 mL/min (70-130); Calcium 9.1 mg/dL (7.8-10.44); Carbon Dioxide 24 mmol/L (23-31); Chloride 101 mmol/L (98-107); Estimated GFR 8; Glucose 109 mg/dL (80-115); Sodium 134 mmol/L (136-145)
[2022-09-01 06:04] LABS: #Eosinphils 0.1 thou/uL (0.0-0.7); #Lymphocytes 0.6 thou/uL (1.20-3.40); #Monocytes 0.4 thou/uL (0.11-0.59); %Eosinophils 1.9 % (0.0-10.0); %Neutrophils 75.1 % (42.0-75.0); Hemoglobin 10.5 g/dL (12.0-16.0); MDiff Complete? YES; Macrocytosis SLIGHT = 6-15 cells (100X) (0-5/hpf); Mean Corpuscular HGB CONC 32.8 g/dL (32.0-36.0); Mean Corpuscular Hemoglobin 33.1 pg (27.0-31.0); Mean Platelet Volume 8.3 fL (7.4-10.4); Ovalocytes SLIGHT = 2-5 cells (100X) (0-1/hpf); Platelet Count 77 10x3/uL (130-400); Platelet Morphology Comment Appears Decreased; Red Blood Cell (RBC) Count 3.18 mill/uL (4.20-5.40); Tear Drops SLIGHT = 2-5 cells (100X) (0-1/hpf)
[2022-09-01] MEDS: Famotidine 20 MG TAB PO SCH (08:54)
[2022-09-01] MEDS: Cefepime 1 GM in Sodium Chloride 0.9% 100 ML IVPB SCH (08:54)
[2022-09-01] MEDS: Cholecalciferol 1,000 UNITS (25 MCG) TAB PO SCH (08:54)
[2022-09-01] MEDS: Carvedilol 25 MG TAB PO SCH ×2 (08:54→20:22)
[2022-09-01] MEDS: Heparin 5,000 UNITS/ML VIAL SC SCH ×3 (08:55→20:22)
[2022-09-01] MEDS ORDERED: Heparin 10,000 UNITS/ 10 ML VIAL ONE (12:16)
[2022-09-01] MEDS ORDERED: Vancomycin Hemodialysis Sliding Scale FS SCH (16:00)
[2022-09-01] MEDS ORDERED: Vancomycin HCl 1.25 GM in Sodium Chloride 0.9% 250 ML 250 ML IVPB SCH (17:00)
[2022-09-01] MEDS: Amitriptyline HCl 10 MG TAB PO SCH (20:22)
[2022-09-01] MEDS: Simvastatin 5 MG TAB PO SCH (20:23)
[2022-09-01] MEDS: PARoxetine 20 MG TAB PO SCH (20:23)
[2022-09-01] MEDS: Acetaminophen 325 MG TAB PO PRN (20:23)
[2022-09-02 05:08] LABS: #Eosinphils 0.1 thou/uL (0.0-0.7); #Monocytes 0.4 thou/uL (0.11-0.59); #Neutrophils 2.4 thou/uL (1.40-6.50); %Basophils 0.1 % (0.0-1.0); %Eosinophils 2.3 % (0.0-10.0); %Lymphocytes 25.7 % (21.0-51.0); %Monocytes 10.4 % (0.0-10.0); %Neutrophils 61.5 % (42.0-75.0); Mean Corpuscular HGB CONC 32.7 g/dL (32.0-36.0); Mean Corpuscular Hemoglobin 32.7 pg (27.0-31.0); Mean Corpuscular Volume 99.9 fl (78.0-98.0); Mean Platelet Volume 8.6 fL (7.4-10.4); Platelet Count 82 10x3/uL (130-400); RBC Distribution Width 12.9 % (11.5-14.5); Red Blood Cell (RBC) Count 3.05 mill/uL (4.20-5.40)
[2022-09-02 05:35] LABS: Anion Gap 13 mmol/L (10-20); BUN (Urea Nitrogen) 26 mg/dL (9.8-20.1); Calc. Creatinine Clearance 13 mL/min (70-130); Calcium 8.8 mg/dL (7.8-10.44); Carbon Dioxide 26 mmol/L (23-31); Chloride 98 mmol/L (98-107); Estimated GFR 10; Glucose 87 mg/dL (80-115); Potassium 4.2 mmol/L (3.5-5.1); Sodium 133 mmol/L (136-145)
[2022-09-02] MEDS: Cholecalciferol 1,000 UNITS (25 MCG) TAB PO SCH (08:36)
[2022-09-02] MEDS: Carvedilol 25 MG TAB PO SCH ×2 (08:36→21:10)
[2022-09-02] MEDS: Famotidine 20 MG TAB PO SCH (08:40)
[2022-09-02] MEDS: Heparin 5,000 UNITS/ML VIAL SC SCH ×3 (08:41→21:11)
[2022-09-02] MEDS ORDERED: FLU VACC QS2022-23(6MOS UP)/PF 60 MCG/0.5 ML SYRINGE IM ONE (09:00)
[2022-09-02] MEDS: Amitriptyline HCl 10 MG TAB PO SCH (21:10)
[2022-09-02] MEDS: PARoxetine 20 MG TAB PO SCH (21:10)
[2022-09-02] MEDS: Simvastatin 5 MG TAB PO SCH (21:11)
[2022-09-03 05:11] LABS: Anion Gap 15 mmol/L (10-20); BUN (Urea Nitrogen) 36 mg/dL (9.8-20.1); Calc. Creatinine Clearance 10 mL/min (70-130); Calcium 8.8 mg/dL (7.8-10.44); Carbon Dioxide 22 mmol/L (23-31); Chloride 98 mmol/L (98-107); Estimated GFR 8; Glucose 99 mg/dL (80-115); Potassium 4.4 mmol/L (3.5-5.1); Sodium 131 mmol/L (136-145)
[2022-09-03] MEDS: Heparin 5,000 UNITS/ML VIAL SC SCH ×3 (08:41→20:36)
[2022-09-03] MEDS: Cholecalciferol 1,000 UNITS (25 MCG) TAB PO SCH (09:36)
[2022-09-03] MEDS: Carvedilol 25 MG TAB PO SCH ×2 (09:36→20:36)
[2022-09-03] MEDS: Famotidine 20 MG TAB PO SCH (09:36)
[2022-09-03] MEDS: CARBAMAZEPINE 100 MG PO SCH ×2 (17:45→17:46)
[2022-09-03] MEDS: Amitriptyline HCl 10 MG TAB PO SCH (20:36)
[2022-09-03] MEDS: Simvastatin 5 MG TAB PO SCH (20:36)
[2022-09-03] MEDS: PARoxetine 20 MG TAB PO SCH (20:36)
[2022-09-04 05:37] LABS: #Eosinphils 0.1 thou/uL (0.0-0.7); #Lymphocytes 1.4 thou/uL (1.20-3.40); #Monocytes 0.5 thou/uL (0.11-0.59); #Neutrophils 2.1 thou/uL (1.40-6.50); %Basophils 0.2 % (0.0-1.0); %Eosinophils 2.6 % (0.0-10.0); %Monocytes 11.3 % (0.0-10.0); %Neutrophils 50.9 % (42.0-75.0); Hemoglobin 10.8 g/dL (12.0-16.0); Mean Corpuscular HGB CONC 32.8 g/dL (32.0-36.0); Mean Platelet Volume 7.8 fL (7.4-10.4); Platelet Count 98 10x3/uL (130-400); RBC Distribution Width 12.5 % (11.5-14.5); Red Blood Cell (RBC) Count 3.26 mill/uL (4.20-5.40)
[2022-09-04 06:13] LABS: ALT (SGPT) 26 U/L (8-55); AST (SGOT) 19 U/L (5-34); Albumin 3.2 g/dL (3.4-4.8); Alkaline Phosphatase 112 U/L (40-110); Anion Gap 16 mmol/L (10-20); BUN (Urea Nitrogen) 44 mg/dL (9.8-20.1); Bilirubin, Total 0.3 mg/dL (0.2-1.2); Calc. Creatinine Clearance 7 mL/min (70-130); Calcium 8.9 mg/dL (7.8-10.44); Carbon Dioxide 23 mmol/L (23-31); Chloride 99 mmol/L (98-107); Estimated GFR 7; Globulin 3.6 g/dL (2.4-3.5); Glucose 119 mg/dL (80-115); Potassium 4.4 mmol/L (3.5-5.1); Protein, Total 6.8 g/dL (5.8-8.1); Sodium 134 mmol/L (136-145)
[2022-09-04 07:36] LABS: Vancomycin, Random 18.9 ug/mL (See Comment)
[2022-09-04 08:54] LABS: HBSAg Index 0.23 S/CO (0-0.99); Hep B Core Total Ab Non-Reactive (NonReactive); Hep B Core Total Index 0.12 S/CO (0-0.79); Hep B Surf Ag Non-Reactive S/CO (NonReactive); Hep C IgG Ab Non-Reactive (NonReactive); Hep C Index 0.09 S/CO (0-0.79)
[2022-09-04 09:56] LABS: HBSAB Concentration 9.53 mIU/mL
[2022-09-04] MEDS: Heparin 5,000 UNITS/ML VIAL SC SCH ×3 (11:19→23:37)
[2022-09-04] MEDS: Carvedilol 25 MG TAB PO SCH ×2 (14:02→22:08)
[2022-09-04] MEDS: Cholecalciferol 1,000 UNITS (25 MCG) TAB PO SCH (14:02)
[2022-09-04] MEDS: Famotidine 20 MG TAB PO SCH (14:02)
[2022-09-04] MEDS ORDERED: Vancomycin HCl 500 MG in Sodium Chloride 0.9% 100 ML IVPB SCH (17:00)
[2022-09-04] MEDS: PARoxetine 20 MG TAB PO SCH (22:08)
[2022-09-04] MEDS: Amitriptyline HCl 10 MG TAB PO SCH (22:08)
[2022-09-04] MEDS: Simvastatin 5 MG TAB PO SCH (22:09)
[2022-09-05 05:29] LABS: #Eosinphils 0.1 thou/uL (0.0-0.7); #Lymphocytes 1.9 thou/uL (1.20-3.40); #Monocytes 0.5 thou/uL (0.11-0.59); #Neutrophils 1.9 thou/uL (1.40-6.50); %Lymphocytes 43.1 % (21.0-51.0); %Monocytes 11.7 % (0.0-10.0); %Neutrophils 43.1 % (42.0-75.0); Hemoglobin 10.5 g/dL (12.0-16.0); Mean Corpuscular Hemoglobin 34.7 pg (27.0-31.0); Mean Corpuscular Volume 99.3 fl (78.0-98.0); Mean Platelet Volume 7.8 fL (7.4-10.4); Platelet Count 116 10x3/uL (130-400); RBC Distribution Width 12.6 % (11.5-14.5); Red Blood Cell (RBC) Count 3.03 mill/uL (4.20-5.40); White Blood Cell (WBC) Count 4.4 10x3/uL (4.8-10.8)
[2022-09-05 05:32] LABS: ALT (SGPT) 26 U/L (8-55); AST (SGOT) 16 U/L (5-34); Albumin 3.3 g/dL (3.4-4.8); Alkaline Phosphatase 113 U/L (40-110); Anion Gap 14 mmol/L (10-20); BUN (Urea Nitrogen) 36 mg/dL (9.8-20.1); Bilirubin, Total 0.4 mg/dL (0.2-1.2); Calc. Creatinine Clearance 9 mL/min (70-130); Calcium 9.1 mg/dL (7.8-10.44); Carbon Dioxide 26 mmol/L (23-31); Chloride 97 mmol/L (98-107); Estimated GFR 8; Globulin 3.8 g/dL (2.4-3.5); Glucose 104 mg/dL (80-115); Potassium 4.3 mmol/L (3.5-5.1); Protein, Total 7.1 g/dL (5.8-8.1); Sodium 133 mmol/L (136-145)
[2022-09-05 06:49] VITALS: BMI 27.0
[2022-09-05] MEDS: Famotidine 20 MG TAB PO SCH (10:00)
[2022-09-05] MEDS: Cholecalciferol 1,000 UNITS (25 MCG) TAB PO SCH (10:00)
[2022-09-05] MEDS: Carvedilol 25 MG TAB PO SCH (10:00)
[2022-09-05] MEDS: Heparin 5,000 UNITS/ML VIAL SC SCH ×2 (10:05→14:32)
[2022-09-05 16:24] VITALS: BP 106/59; TEMP 98.6
== END 2022-09-05 18:55 | DRG 314 ==
LOC: ERS 17:37 → 2NO 20:13
PROVIDERS: ADMIT Internal Medicine; ATTEND Internal Medicine
PROC: 3E03329 Introduction of Other Anti-infective into Peripheral Vein, Percutaneous Approach (ICD-10-PCS; 2022-08-30)
PROC: 0JPT3XZ Removal of Tunneled Vascular Access Device from Trunk Subcutaneous Tissue and Fascia, Percutaneous Approach (ICD-10-PCS; principal; 2022-08-31)
PROC: 02PYX3Z Removal of Infusion Device from Great Vessel, External Approach (ICD-10-PCS; 2022-08-31)
PROC: 5A1D70Z Performance of Urinary Filtration, Intermittent, Less than 6 Hours Per Day (ICD-10-PCS; 2022-09-01)
DX: T80.211A Bloodstream infection due to central venous catheter, initial encounter (principal); A41.1 Sepsis due to other specified staphylococcus; N18.6 End stage renal disease; I13.2 Hypertensive heart and chronic kidney disease with heart failure and with stage 5 chronic kidney disease, or end stage renal disease; I50.32 Chronic diastolic (congestive) heart failure; Z20.822 Contact with and (suspected) exposure to COVID-19; E10.22 Type 1 diabetes mellitus with diabetic chronic kidney disease; F39 Unspecified mood [affective] disorder; E87.5 Hyperkalemia; F25.9 Schizoaffective disorder, unspecified; D63.1 Anemia in chronic kidney disease; Y84.8 Other medical procedures as the cause of abnormal reaction of the patient, or of later complication, without mention of misadventure at the time of the procedure; Z28.21 Immunization not carried out because of patient refusal; Z86.73 Personal history of transient ischemic attack (TIA), and cerebral infarction without residual deficits; Z99.2 Dependence on renal dialysis; Z88.6 Allergy status to analgesic agent; Z88.5 Allergy status to narcotic agent; Z88.0 Allergy status to penicillin; Z88.8 Allergy status to other drugs, medicaments and biological substances; Z91.018 Allergy to other foods; Z79.899 Other long term (current) drug therapy; Z79.84 Long term (current) use of oral hypoglycemic drugs
CPT/HCPCS: 36415; 36416; 80048; 80053; 80202; 83605; 84145; 85025; 86704; 87040; 87070; 87071; 87077; 87149; 87186; 87205; 87340; 90935; 93005; 93306; G0257; J0692; J1644; J3370; J3490; J7050; U0003; U0005

== ENCOUNTER 2022-10-06 15:16 | Emergency (ER) | payer MEDICARE, OTHER ==
[~2022-10-06 15:16] MED LIST changes: -Cefepime 1 GM in Sodium Chloride 0.9% 100 ML IVPB SCH; +Iopamidol-370 76% 500 ML 1 ML ONE
[2022-10-06] MEDS ORDERED: Acetaminophen 500 MG TAB ONE (15:55)
[2022-10-06 17:51] LABS: #Eosinphils 0.1 thou/uL (0.0-0.7); #Lymphocytes 1.5 thou/uL (1.20-3.40); #Monocytes 0.5 thou/uL (0.11-0.59); #Neutrophils 2.1 thou/uL (1.40-6.50); %Basophils 0.2 % (0.0-1.0); %Eosinophils 2.2 % (0.0-10.0); %Lymphocytes 36.1 % (21.0-51.0); %Monocytes 11.2 % (0.0-10.0); %Neutrophils 50.3 % (42.0-75.0); Hemoglobin 9.6 g/dL (12.0-16.0); Mean Corpuscular HGB CONC 32.6 g/dL (32.0-36.0); Mean Corpuscular Hemoglobin 33.7 pg (27.0-31.0); Mean Platelet Volume 7.4 fL (7.4-10.4); Platelet Count 106 10x3/uL (130-400); RBC Distribution Width 13.1 % (11.5-14.5); Red Blood Cell (RBC) Count 2.84 mill/uL (4.20-5.40); White Blood Cell (WBC) Count 4.2 10x3/uL (4.8-10.8)
[2022-10-06 18:11] LABS: ALT (SGPT) Less than 7 U/L (8-55); AST (SGOT) 11 U/L (5-34); Albumin 3.1 g/dL (3.4-4.8); Alkaline Phosphatase 78 U/L (40-110); Anion Gap 12 mmol/L (10-20); BUN (Urea Nitrogen) 18 mg/dL (9.8-20.1); Bilirubin, Total 0.4 mg/dL (0.2-1.2); Calc. Creatinine Clearance 0 mL/min (70-130); Calcium 8.2 mg/dL (7.8-10.44); Carbon Dioxide 25 mmol/L (23-31); Chloride 101 mmol/L (98-107); Estimated GFR 13; Glucose 88 mg/dL (80-115); Lipase 47 U/L (8-78); Magnesium 2.1 mg/dL (1.6-2.6); Potassium 3.8 mmol/L (3.5-5.1); Protein, Total 6.1 g/dL (5.8-8.1); Sodium 134 mmol/L (136-145)
== END 2022-10-06 20:09 | disposition home or self-care (01) ==
LOC: ERS 15:16
DX: K59.00 Constipation, unspecified (principal); D61.818 Other pancytopenia; I11.0 Hypertensive heart disease with heart failure; I50.9 Heart failure, unspecified; E11.9 Type 2 diabetes mellitus without complications; J44.9 Chronic obstructive pulmonary disease, unspecified
CPT/HCPCS: 36415; 74177; 80053; 83690; 83735; 85025; Q9967

== ENCOUNTER 2022-10-31 08:48 | Day surgery (SDC) | payer MEDICARE, OTHER ==
[~2022-10-31 08:48] MED LIST changes: +Heparin 10,000 UNITS/ 10 ML VIAL ONE; -Iopamidol-370 76% 500 ML 1 ML ONE
[2022-10-31 10:10] LABS: #Eosinphils 0.2 thou/uL (0.0-0.7); #Lymphocytes 1.7 thou/uL (1.20-3.40); #Monocytes 0.3 thou/uL (0.11-0.59); #Neutrophils 3.8 thou/uL (1.40-6.50); %Basophils 0.2 % (0.0-1.0); %Eosinophils 2.5 % (0.0-10.0); %Lymphocytes 28.2 % (21.0-51.0); %Monocytes 4.7 % (0.0-10.0); %Neutrophils 64.4 % (42.0-75.0); Hemoglobin 12.5 g/dL (12.0-16.0); Mean Corpuscular Hemoglobin 33.5 pg (27.0-31.0); Mean Corpuscular Volume 98.4 fl (78.0-98.0); Mean Platelet Volume 8.6 fL (7.4-10.4); Platelet Count 193 10x3/uL (130-400); RBC Distribution Width 14.4 % (11.5-14.5); Red Blood Cell (RBC) Count 3.73 mill/uL (4.20-5.40)
[2022-10-31 10:17] LABS: Anion Gap 16 mmol/L (10-20); BUN (Urea Nitrogen) 48 mg/dL (9.8-20.1); Calc. Creatinine Clearance 0 mL/min (70-130); Carbon Dioxide 20 mmol/L (23-31); Chloride 104 mmol/L (98-107); Estimated GFR 5; Glucose 133 mg/dL (80-115); Potassium 5.3 mmol/L (3.5-5.1); Sodium 135 mmol/L (136-145)
[2022-10-31] MEDS ORDERED: Lidocaine 2% PF 5 ML VIAL ONE (11:21)
[2022-10-31] MEDS ORDERED: Heparin 10,000 UNITS/ 10 ML VIAL ONE ×2 (11:21→11:47)
[2022-10-31] MEDS ORDERED: Bupivacaine HCl 0.5%/Epinephrine 1:200,000/PF 30 ml Vial ONE (11:21)
[2022-10-31] MEDS ORDERED: CEFAZOLIN 2 GM VIAL ONE (11:35)
[2022-10-31] MEDS ORDERED: Sodium Chloride 0.9% 100 ML ONE (11:35)
[2022-10-31] MEDS ORDERED: PROPOFOL 200 MG/20 ML VIAL ONE (11:48)
[2022-10-31] MEDS ORDERED: Lidocaine 1% PF 5 ML VIAL ONE (11:48)
[2022-10-31 14:42] LABS: HBSAg Index 0.31 S/CO (0-0.99); Hep B Surf Ag Non-Reactive S/CO (NonReactive)
== END 2022-10-31 16:15 ==
LOC: SDC 08:48
PROVIDERS: ATTEND Specialist
PROC: 0JPT3XZ Removal of Tunneled Vascular Access Device from Trunk Subcutaneous Tissue and Fascia, Percutaneous Approach (ICD-10-PCS; principal; 2022-10-31)
PROC: 0JH63XZ Insertion of Tunneled Vascular Access Device into Chest Subcutaneous Tissue and Fascia, Percutaneous Approach (ICD-10-PCS; 2022-10-31)
PROC: 02PY03Z Removal of Infusion Device from Great Vessel, Open Approach (ICD-10-PCS; 2022-10-31)
PROC: 02HV33Z Insertion of Infusion Device into Superior Vena Cava, Percutaneous Approach (ICD-10-PCS; 2022-10-31)
DX: T82.49XA Other complication of vascular dialysis catheter, initial encounter (principal); N18.6 End stage renal disease; Z79.82 Long term (current) use of aspirin; Z79.899 Other long term (current) drug therapy; Z88.0 Allergy status to penicillin; Z88.5 Allergy status to narcotic agent; Z88.8 Allergy status to other drugs, medicaments and biological substances; Z91.018 Allergy to other foods; Z99.2 Dependence on renal dialysis; Y81.3 Surgical instruments, materials and general- and plastic-surgery devices (including sutures) associated with adverse incidents
CPT/HCPCS: 36415; 36416; 71045; 80048; 85025; 87340; C1752; J1644; J2001; J2704; J3490

== ENCOUNTER 2022-10-31 18:07 | Emergency (ER) | payer MEDICARE, OTHER ==
[2022-10-31 20:02] LABS: #Lymphocytes 1.4 thou/uL (1.20-3.40); #Monocytes 0.3 thou/uL (0.11-0.59); #Neutrophils 3.8 thou/uL (1.40-6.50); %Basophils 0.2 % (0.0-1.0); %Eosinophils 0.9 % (0.0-10.0); %Lymphocytes 25.6 % (21.0-51.0); %Monocytes 5.7 % (0.0-10.0); %Neutrophils 67.7 % (42.0-75.0); Hemoglobin 11.7 g/dL (12.0-16.0); Mean Corpuscular HGB CONC 36.1 g/dL (32.0-36.0); Mean Corpuscular Hemoglobin 34.7 pg (27.0-31.0); Mean Platelet Volume 6.8 fL (7.4-10.4); Platelet Count 129 10x3/uL (130-400); RBC Distribution Width 14.3 % (11.5-14.5); Red Blood Cell (RBC) Count 3.38 mill/uL (4.20-5.40); White Blood Cell (WBC) Count 5.6 10x3/uL (4.8-10.8)
[2022-10-31 20:24] LABS: ALT (SGPT) 9 U/L (8-55); AST (SGOT) 14 U/L (5-34); Albumin 3.6 g/dL (3.4-4.8); Alkaline Phosphatase 113 U/L (40-110); Anion Gap 16 mmol/L (10-20); BUN (Urea Nitrogen) 17 mg/dL (9.8-20.1); Bilirubin, Total 0.4 mg/dL (0.2-1.2); Calc. Creatinine Clearance 0 mL/min (70-130); Calcium 8.6 mg/dL (7.8-10.44); Carbon Dioxide 22 mmol/L (23-31); Chloride 104 mmol/L (98-107); Estimated GFR 11; Globulin 3.6 g/dL (2.4-3.5); Glucose 105 mg/dL (80-115); Potassium 3.9 mmol/L (3.5-5.1); Protein, Total 7.2 g/dL (5.8-8.1); Sodium 138 mmol/L (136-145)
== END 2022-10-31 21:35 ==
LOC: ERS 18:07
DX: E11.22 Type 2 diabetes mellitus with diabetic chronic kidney disease (principal); I13.2 Hypertensive heart and chronic kidney disease with heart failure and with stage 5 chronic kidney disease, or end stage renal disease; N18.6 End stage renal disease; Z99.2 Dependence on renal dialysis; D63.8 Anemia in other chronic diseases classified elsewhere; J44.9 Chronic obstructive pulmonary disease, unspecified
CPT/HCPCS: 36415; 71045; 93005